=== PATIENT | male | born 1955 | race Caucasian/White ===

== ENCOUNTER → 2016-06-05 | Day surgery (SDC) | payer BC ==
[2016-05-23 07:35] VITALS: BMI 27.0
[~2016-06-05] VITALS: Ht 180.3 cm; Wt 88.6 kg
[~2016-06-05] MED LIST: ALFAFA PO; ASPCH81X PO; ATOR-26 PO; B-COCAP2 PO; CARV6.25 PO; CHOL1000 PO; COEN100C7 PO; CZR50 PO; FENTANYL CITRATE INJ 50 MCG/1 ML 2 ML VIAL ONE; LIDOCAINE HCL 2% 2 ML VIAL (20MG/ML) ONE; LORA-741 PO; MULLEIN; PROPOFOL IV EMULSION 10 MG/ML 20 ML VIAL IV ONE; SALMON OIL PO; SODIUM CHLORIDE 0.9% 500ML 500 ML IV ONE; TURM1CAP4 PO; [UNRECOGNIZED DRUG - OTHER] PO
[2016-06-05 08:09] VITALS: Ht 180.3 cm; Wt 88.6 kg
--- NOTE | 2016-06-05 08:32 | Endo History and Physical ---
History & Physical Date of Service: Jun 05, 2016. Chief Complaint: 1 YEAR FOLLOW UP Referring Physician: DR WORRELL History of Present Illness 60 yo CM who presents for colonoscopy secondary to history of colon polyp. Past Medical History Arthritis, Anxiety, High Cholesterol, Heart Disease, Hypertension Past Surgical History Hx Cardiac Surgery: Yes (CARDIAC CATH, NO STENT) Hx Internal Defibrillator: No Hx Pacemaker: No Hx Abdominal Surgery: Yes (ANNA, APPY, RT INGUINAL HERNIA) Hx of Implantable Prosthesis: No Hx Post-Op Nausea and Vomiting: No Hx Cancer Surgery: No Hx Thoracic Surgery: No Hx Orthopedic: Yes (RT HANNAH) Hx Urinary Tract Surgery: No Family History Polyp Social History Smoking Status: Current Some Day Smoker Hx Substance Use: No Hx Alcohol Use: Yes (3 DRINKS/WEEK) Allergies Coded Allergies: Prednisone (Verified Adverse Reaction, Unknown, CONTINUAL HICCUPS, 06/05/16 ) Current Medications Reported Home Medications Medications Dose Route/Sig Max Daily Dose Days Date Category Dose Instructions Ativan (Lorazepam) 0.5 Mg Tab 0.5 Mg PO DAILY PRN 05/23/16 Reported Vitamin D3 (Cholecalciferol) 1,000 Unit Tab 1 Tab PO QAM 05/03/15 Reported Turmeric (Turmeric (Curcuma Longa)) 500 Mg Cap 1 Cap PO QAM 05/03/15 Reported Coq10 (Coenzyme Q10 (Ubidecarenone)) 100 Mg Cap 1 Cap PO QAM 05/03/15 Reported Aspirin Chewable (Aspirin) 81 Mg Chew 81 Mg PO QPM 05/03/15 Reported Coreg (Carvedilol) 6.25 Mg Tab 6.25 Mg PO BID 05/03/15 Reported [Pda Food Enzyme] 1 PO QPM 05/27/12 Reported WITH DINNER [Mullein] 1 BID PRN 11/13/10 Reported Nephrocaps (Vitamin B Complex/Vit C/Folic Acid) 1 Cap Cap 1 Cap PO QPM 11/13/10 Reported [Alfafa] 1 Cap PO BID 11/13/10 Reported Cozaar * (Losartan Potassium) 50 Mg Tab 50 Mg PO QPM 11/13/10 Reported [salmon oil] 1 Tabs PO BID 01/15/09 Reported Vital Signs Weight (Kilograms): 88.64 Height (Feet): 5 Height (Inches): 11 Date Time Temp Pulse Resp B/P Pulse Ox O2 Delivery O2 Flow Rate FiO2 06/05/16 08:25 36.7 78 20 185/96 98 Room Air Physical Exam General Appearance: WD/WN, no apparent distress Respiratory/Chest: Auscultation: breath sounds normal Cardiovascular: Heart Auscultation: RRR Abdomen: Bowel Sounds: normal Inspection & Palpation: soft, non-distended, no tenderness, guarding & rebound Assessment and Plan Assessment: 60 yo CM who presents for colonoscopy secondary to history of colon polyp. Plan: Proceed with colonoscopy.
--- NOTE | 2016-06-05 08:55 | Discharge Instructions ---
Endoscopy Patient Instructions Date / Procedure(s) Performed Jun 05, 2016. Colonoscopy Allergy Information Coded Allergies: Prednisone (Verified Adverse Reaction, Unknown, CONTINUAL HICCUPS, 06/05/16 ) Discharge Date / Findings Jun 05, 2016. Colon polyp Hemorrhoids Medication Instructions Stopped Medication(s): VITAMINS AND ASPIRIN OK to resume all medications today as prescribed Reported Home Medications Medications Dose Route/Sig Max Daily Dose Days Date Category Dose Instructions Ativan (Lorazepam) 0.5 Mg Tab 0.5 Mg PO DAILY PRN 05/23/16 Reported Vitamin D3 (Cholecalciferol) 1,000 Unit Tab 1 Tab PO QAM 05/03/15 Reported Turmeric (Turmeric (Curcuma Longa)) 500 Mg Cap 1 Cap PO QAM 05/03/15 Reported Coq10 (Coenzyme Q10 (Ubidecarenone)) 100 Mg Cap 1 Cap PO QAM 05/03/15 Reported Aspirin Chewable (Aspirin) 81 Mg Chew 81 Mg PO QPM 05/03/15 Reported Coreg (Carvedilol) 6.25 Mg Tab 6.25 Mg PO BID 05/03/15 Reported [Pda Food Enzyme] 1 PO QPM 05/27/12 Reported WITH DINNER [Mullein] 1 BID PRN 11/13/10 Reported Nephrocaps (Vitamin B Complex/Vit C/Folic Acid) 1 Cap Cap 1 Cap PO QPM 11/13/10 Reported [Alfafa] 1 Cap PO BID 11/13/10 Reported Cozaar * (Losartan Potassium) 50 Mg Tab 50 Mg PO QPM 11/13/10 Reported [salmon oil] 1 Tabs PO BID 01/15/09 Reported Provider Instructions Activity Restrictions - No exercising or heavy lifting for 24 hours. - Do not drink alcohol the day of the procedure. - Do not drive a car or operate machinery until the day after the procedure. - Do not make any important decisions or sign important papers in 24 hours after the procedure. Following Day: - Return to full activity which may include returning to work/school. Diet Start your diet with liquids and light foods (jello, soup, juice, toast). Then eat your usual diet if not nauseated. Treatment For Common After Affects For mild abdominal pain, bloating, or excessive gas: - Rest - Eat lightly - Lie on right side Follow-Up Information Follow-up with DR ANAID as scheduled Anesthesia Information What You Should Know You have had a procedure that required some medicine to reduce anxiety and discomfort. This treatment is called moderate sedation. After receiving the treatment, you may be sleepy, but you will be able to breathe on your own. The effects of the treatment may last for several hours. Follow these instructions along with Activity/Diet recommendations noted above: * Do NOT do anything where dizziness or clumsiness would be dangerous. * Rest quietly at home today, then you can be up and about tomorrow. * Have a responsible person stay with you the rest of today. * You may have had an I.V. today. If so, you may take the dressing off later today. Recommendations Call your doctor if: * Trouble breathing * Continuous vomiting for more than 24 hours * Temperature above 101 degrees * Severe abdominal pain or bloating * Pain not relieved by pain medicine ordered * There is increased drainage or redness from any incision * A large amount of rectal bleeding greater than 2-3 tablespoons. (If you had a polyp/s removed or have hemorrhoids, a small amount of blood - from the rectum is to be expected.) * You have any unanswered questions or concerns. IN THE EVENT OF A SERIOUS EMERGENCY, GO TO THE NEAREST EMERGENCY ROOM Your discharge instructions were prepared by provider Dale Perez. Patient Instructions Signature Page Nicolas Eli Patient (or Guardian) Signature/Date: I have read and understand the instructions given to me by my caregivers. Caregiver/RN/Doctor Signature/Date: The above-named patient and/or guardian has received patient instructions on this date. + Original Patient Signature Page (only) stays with chart. Please make copy for patient.
--- NOTE | 2016-06-05 09:07 | GI REPORT ---
Procedure Date: 06/05/2016 8:36 AM Procedure: Colonoscopy Indications: High risk colon cancer surveillance: Personal history of colonic polyps, Last colonoscopy: April 2015 Medicines: Monitored Anesthesia Care Complications: No immediate complications. Estimated Blood Loss: Estimated blood loss: none. Procedure: Pre-Anesthesia Assessment: - Prior to the procedure, a History and Physical was performed, and patient medications and allergies were reviewed. The patient's tolerance of previous anesthesia was also reviewed. The risks and benefits of the procedure and the sedation options and risks were discussed with the patient. All questions were answered, and informed consent was obtained. Prior Anticoagulants: The patient last took aspirin 7 days prior to the procedure. ASA Grade Assessment: III - A patient with severe systemic disease. After reviewing the risks and benefits, the patient was deemed in satisfactory condition to undergo the procedure. After I obtained informed consent, the scope was passed under direct vision. Throughout the procedure, the patient's blood pressure, pulse, and oxygen saturations were monitored continuously. The scope was introduced through the anus and advanced to the terminal ileum. The colonoscopy was performed without difficulty. The patient tolerated the procedure well. The quality of the bowel preparation was good. The terminal ileum, ileocecal valve, appendiceal orifice, and rectum were photographed. Findings: A 3 mm polyp was found at the appendiceal orifice. The polyp was sessile. The polyp was removed with a cold biopsy forceps. Resection and retrieval were complete. Non-bleeding external and internal hemorrhoids were found during retroflexion and during perianal exam. The hemorrhoids were small. Impression: - One 3 mm polyp at the appendiceal orifice, removed with a cold biopsy forceps. Resected and retrieved. - Non-bleeding external and internal hemorrhoids. Recommendation: - Resume previous diet. - Continue present medications. - Repeat colonoscopy for surveillance based on pathology results. - Return to primary care physician as previously scheduled. Dale Perez DO 06/05/2016 9:07:09 AM This report has been signed electronically. Note Initiated On: 06/05/2016 8:36 AM I attest to the content of the Intraoperative Record and orders documented therein, exceptions below
--- NOTE | 2016-06-05 09:28 | Anesthesiology Progress Note ---
Anesthesia Post Op Note Date & Time Jun 05, 2016 at 09:28 Vital Signs Pain Intensity: 0 Vital Signs Past 12 Hours Date Time Temp Pulse Resp B/P Pulse Ox O2 Delivery O2 Flow Rate FiO2 06/05/16 09:18 70 18 147/82 98 Room Air 06/05/16 08:58 67 18 130/76 98 Room Air 06/05/16 08:25 36.7 78 20 185/96 98 Room Air Notes Mental Status: alert / awake / arousable, participated in evaluation Pt Amnestic to Procedure: Yes Nausea / Vomiting: adequately controlled Pain: adequately controlled Airway Patency, RR, SpO2: stable & adequate BP & HR: stable & adequate Hydration State: stable & adequate Anesthetic Complications: no major complications apparent
[2016-06-05 09:29] VITALS: BP 145/84; PULSE 69; O2SAT 98
== END | disposition home or self-care (01) ==
LOC: C.GI 07:54
PROVIDERS: ATTEND Internal Medicine
DX: Z12.11 Encounter for screening for malignant neoplasm of colon (principal); K63.5 Polyp of colon; K63.89 Other specified diseases of intestine; K64.8 Other hemorrhoids

== ENCOUNTER → 2017-02-14 | Outpatient (CLI) | payer BC ==
[~2017-02-14] MED LIST changes: -ATOR-26 PO; -FENTANYL CITRATE INJ 50 MCG/1 ML 2 ML VIAL ONE; -LIDOCAINE HCL 2% 2 ML VIAL (20MG/ML) ONE; -PROPOFOL IV EMULSION 10 MG/ML 20 ML VIAL IV ONE; -SODIUM CHLORIDE 0.9% 500ML 500 ML IV ONE
[2017-02-14 10:12] LABS: BLOOD UREA NITROGEN 25 mg/dl (7-18); BUN/CREATININE RATIO 19.1 (10-20); CALCIUM 8.8 mg/dl (8.5-10.1); CARBON DIOXIDE 29 mmol/L (21-32); CHLORIDE 106 mmol/L (98-107); CHOLESTEROL 130 mg/dl (0-200); CHOLESTEROL/HDL RATIO 2.8; CREATININE 1.33 mg/dl (0.60-1.40); GLUCOSE 89 mg/dl (70-99); HDL CHOLESTEROL 47 mg/dl; LDL CHOLESTEROL CALCULATED 70 mg/dl; POTASSIUM 4.3 mmol/L (3.5-5.1); SODIUM 141 mmol/L (136-145); TRIGLYCERIDES 66 mg/dl (0-150); VERY LOW DENSITY LIPOPROT CALC 13 mg/dl
== END | disposition home or self-care (01) ==
LOC: C.LAB 07:45
PROVIDERS: ATTEND Family Medicine
DX: E78.5 Hyperlipidemia, unspecified (principal); I10 Essential (primary) hypertension; N40.1 Benign prostatic hyperplasia with lower urinary tract symptoms

== ENCOUNTER 2023-09-17 10:20 | Inpatient (IN) ==
--- NOTE | 2023-09-17 11:08 | Emergency Department Note ---
Impression & Plan Hypoxia, Pulmonary emboli, SOB (shortness of breath), Pneumonia, Leukocytosis ED Provider Note NAME: ROSA ADLER AGE: 68 SEX: M : 1955 ARRIVES VIA: Walk-In INFORMANT: [Patient] ED PROVIDER(S): [Bobby Chen MD] CHIEF COMPLAINT: Respiratory problems HISTORY OF PRESENT ILLNESS: The patient is a 68-year-old male who is under going treatment for mesothelioma. Patient is on immunotherapy as well as radiation. The patient states that a few months ago, he was short of breath but things improved with some steroids that were prescribed. In the last 1.5 weeks, he has noticed increasing shortness of breath and a dry cough. No fever. His shortness of breath is noticed with any exertion or if he talks too long. He does not have chest pain. The patient went to the radiation clinic today and his oxygen saturation was in the mid 80s, he was placed on oxygen, he was sent to the hospital for evaluation. There was concern for PE or possibly, a reaction to his immunotherapy. PMHx/PSHx/Social Hx: See Below PHYSICAL EXAM: GENERAL: Patient is in no acute distress. HEENT: No acute trauma, normocephalic atraumatic, mucous membranes moist, no nasal congestion. NECK: No stridor, no adenopathy, no meningismus, trachea is midline. LUNGS: Breath sounds are diminished bilaterally, few scattered wheezes are heard. Dry cough noted with exhalation. HEART: Without murmurs gallops or rubs, regular rate and rhythm. ABDOMEN: Soft, nontender, no peritonitis. EXTREMITIES: No cyanosis, full range of motion of all the joints without pain or difficulty. NEUROLOGIC: Oriented x 3, no acute motor or sensory deficits, no focal weakness. SKIN: No jaundice, no diaphoresis. DIFFERENTIAL DIAGNOSIS: Bronchitis or pneumonia, CHF, medication reaction, PE, cardiac ischemia, among others. EMERGENCY DEPARTMENT PROCEDURES: MEDICAL DECISION MAKING: There is a mild leukocytosis, this could be consistent with infection. There was a normal hemoglobin and platelet count. No coagulopathy. VBG did not show acidosis or CO2 retention. Creatinine was slightly elevated, this is baseline looking back at previous testing. Initial lactic acid level was not elevated making severe sepsis less likely. No concerning liver enzyme elevation. ECG showed a sinus rhythm, no obvious ischemia. Cardiac enzyme testing x 1 was not consistent with acute cardiac injury. BNP was not elevated making CHF less likely. Respiratory bio fire was negative. Chest x-ray shows a patchy bilateral pneumonia, no CHF. Chest CT shows bilateral pulmonary emboli as well as patchy bilateral infiltrates consistent with pneumonia. Some right heart strain was suggested. The patient received IV Solu-Medrol, he was given 1 L of IV saline for hydration. He was given IV cefepime as antibiotic coverage. He was given a DuoNeb. He was eventually given a bolus of IV heparin and placed on a heparin drip. The patient is short of breath. He presented hypoxic. He appears to have pneumonia as well as pulmonary emboli as the cause for his dyspnea. Given his findings, given the hypoxia, hospitalization is indicated. I spoke with the patient and case management, the on-call hospitalist was consulted. Prior/Outside records/notes reviewed: Today's radiation oncology note describing his presentation and the need for an ER referral. ECG per my interpretation: Indication was shortness of breath. The ECG shows a sinus rhythm with some PACs. The rate is 92. There is no acute ST elevation. The QTc is 437. Continuous Cardiac Monitoring per my interpretation: An order was placed for continuous cardiac monitoring. The monitor shows a rate of 102 with sinus tachycardia. Imaging/x-ray results per my interpretation: Chest x-ray shows patchy bilateral infiltrates consistent with pneumonia, no CHF. Chronic Medical/Social conditions affecting care: Advanced age, history of mesothelioma with current treatment. Care/Management discussed with: Case management, the on-call hospitalist. Level of care consideration(s): After review of the information above and other included data: --I believe the patient requires escalation of care to admission Critical Care Note: I have personally spent 47 minutes of critical care time in the direct management of this patient. This includes bedside care, interpretation of diagnostic studies, and testing, discussion with consultants, patient, and family members, and other required patient management activities. This 47 minutes is in excess of all separately billable procedures. DISPOSITION: Admission Past Med/Surg History Problem List (Updated 09/17/23 @ 15:50 by Bobby Chen MD) Leukocytosis (Acute) Pneumonia (Acute) SOB (shortness of breath) (Acute) Pulmonary emboli (Acute) Hypoxia (Acute) Mesothelioma of lung Biopsy 09/14/22 Paresthesia of upper extremity Cervical radicular pain Cervical spondylosis History of right hip replacement Eosinophilic esophagitis Medical History Shingles Schatzki's ring Rheumatic fever PVC (premature ventricular contraction) Plantar fasciitis Hypertension Hoarseness Colon polyps Dyslipidemia Angina pectoris Cough Chronic kidney disease GERD (gastroesophageal reflux disease) Cardiomyopathy Barretts esophagus Surgical History H/O right inguinal hernia repair History of cardiac cath Status post cholecystectomy S/P appy H/O esophagogastroduodenoscopy S/P colonoscopy Family History Mother , 79yo Mesothelioma Hypertension Father , 86yo Myocardial infarction History of open heart surgery Hypertension Diabetes Social History Smoking Status: Current some day smoker Tobacco Type: Cigars Cigarettes Per Day: Occassionally smoked a cigar; Second Hand Exposure: Yes (As a child); Do You Dip or Chew Tobacco: No; Hx Alcohol Use: Yes (Weekly - has a beer w/dinner on occassion;) Alcohol type: beer Hx Substance Use: No Preferred Language: Georgian Communication Ability: Effective Visual Impairment: No Limitations Hearing Ability: Normal 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 Beliefs That Will Affect Care: None marital status: Current Living Situation: Spouse current occupational status: retired 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[employer] How many Children do You have: 0 Feels Safe at Home: Yes Diet: regular caffeine: Yes (2-3 cups/day) during the past year weight has: decreased > 10 lbs Assistive Devices: Glasses Allergies Allergies Allergy/AdvReac Type Severity Reaction Status Date / Time Sulfa (Sulfonamide Allergy Itching Verified 09/17/23 09:36 Antibiotics) prednisone AdvReac Unknown CONTINUAL Verified 09/17/23 09:36 HICCUPS Home Meds Home Medications Medication Instructions Recorded Confirmed carvedilol 6.25 mg tablet 6.25 mg PO BID 12/11/19 09/17/23 cholecalciferol (vitamin D3) 25 25 mcg PO DAILY 12/11/19 09/17/23 mcg (1,000 unit) tablet atorvastatin 80 mg tablet 80 mg PO DAILY 12/17/19 09/17/23 omeprazole 40 mg capsule,delayed 40 mg PO DAILY 12/17/19 09/17/23 release acetaminophen 500 mg tablet 500 mg PO Q6H PRN Pain 10/11/22 09/17/23 (Tylenol Extra Strength) amlodipine 10 mg tablet 10 mg PO DAILY 10/11/22 09/17/23 calcium carb 1,000 mg-mag hydrox 1 tab PO DAILY PRN Indigestion 10/11/22 09/17/23 200 mg-simeth 40 mg chewable tablet (Rolaids Advanced Antacid Plus Anti-gas) famotidine 20 mg tablet (Pepcid) 40 mg PO DAILY PRN Indigestion 10/11/22 09/17/23 fluticasone propionate 50 1 spray intranasal DAILY PRN nasal 10/11/22 09/17/23 mcg/actuation nasal congestion spray,suspension (Flonase Allergy Relief) naproxen sodium 220 mg capsule 220 mg PO BID PRN Pain 10/11/22 09/17/23 (Aleve) oxycodone 5 mg tablet 5 mg PO UD PRN Pain 10/11/22 09/17/23 dexamethasone 1.5 mg tablet 1.5 mg PO DAILY 07/12/23 09/17/23 benzonatate 100 mg capsule 100 mg PO TID PRN Cough 08/29/23 09/17/23 ondansetron HCl 8 mg tablet 8 mg PO Q8H PRN n/v 08/29/23 09/17/23 prochlorperazine maleate 10 mg 10 mg PO Q6H PRN n/v 08/29/23 09/17/23 tablet (Compazine) bupropion HCl 150 mg 24 hr tablet, 150 mg PO QAM 09/17/23 09/17/23 extended release folic acid 1 mg tablet 1 mg PO DAILY 09/17/23 09/17/23 Previous Rx's Medication Instructions Recorded nortriptyline 10 mg capsule 10 mg PO DAILY #30 caps 08/06/23 Results & Data (ED) Vital Signs Vital Signs - 24 hr 09/17/23 10:40 09/17/23 10:57 09/17/23 10:59 Temperature 37.4 C Temperature Source Oral Pulse Rate 102 H Pulse Rate [Apical] Pulse Rate from SpO2 Sensor Respiratory Rate 20 Respiratory Effort / Characteristics Blood Pressure 118/77 Blood Pressure Mean 90 Pulse Oximetry 96 88 L 95 Oxygen Delivery Method Room Air Room Air Nasal Cannula Oxygen Flow Rate 2 Sepsis Recent Fever Within 48 Hours No Sepsis New/Unexplained Change in Mental Status N/A Sepsis Action Taken by Nursing No Action Required Oxygen Flow Rate - Titration 2 Pulse Oximetry Post Tiitration 98 09/17/23 11:00 09/17/23 11:12 09/17/23 11:22 Temperature Temperature Source Pulse Rate 97 H Pulse Rate [Apical] 94 H Pulse Rate from SpO2 Sensor 89 Respiratory Rate 24 22 Respiratory Effort / Characteristics SOB on Exertion Non-Labored Spontaneous Blood Pressure Blood Pressure Mean Pulse Oximetry 99 99 Oxygen Delivery Method Nasal Cannula Oxygen Flow Rate 2 Sepsis Recent Fever Within 48 Hours Sepsis New/Unexplained Change in Mental Status Sepsis Action Taken by Nursing Oxygen Flow Rate - Titration Pulse Oximetry Post Tiitration 09/17/23 11:26 09/17/23 11:39 09/17/23 12:03 Temperature Temperature Source Pulse Rate 94 H 94 H 94 H Pulse Rate [Apical] Pulse Rate from SpO2 Sensor 94 H 95 H Respiratory Rate 25 H 33 H Respiratory Effort / Characteristics Blood Pressure Blood Pressure Mean Pulse Oximetry 97 98 Oxygen Delivery Method Oxygen Flow Rate Sepsis Recent Fever Within 48 Hours Sepsis New/Unexplained Change in Mental Status Sepsis Action Taken by Nursing Oxygen Flow Rate - Titration Pulse Oximetry Post Tiitration 09/17/23 12:30 09/17/23 13:09 09/17/23 13:30 Temperature Temperature Source Pulse Rate 101 H 91 H 91 H Pulse Rate [Apical] Pulse Rate from SpO2 Sensor 98 H 86 87 Respiratory Rate 24 24 24 Respiratory Effort / Characteristics Blood Pressure Blood Pressure Mean Pulse Oximetry 96 98 98 Oxygen Delivery Method Oxygen Flow Rate Sepsis Recent Fever Within 48 Hours Sepsis New/Unexplained Change in Mental Status Sepsis Action Taken by Nursing Oxygen Flow Rate - Titration Pulse Oximetry Post Tiitration 09/17/23 14:00 09/17/23 14:00 09/17/23 14:33 Temperature Temperature Source Pulse Rate 93 H 93 H Pulse Rate [Apical] Pulse Rate from SpO2 Sensor 85 93 H Respiratory Rate 23 20 Respiratory Effort / Characteristics Blood Pressure 137/87 Blood Pressure Mean 105 Pulse Oximetry 97 96 Oxygen Delivery Method Oxygen Flow Rate Sepsis Recent Fever Within 48 Hours Sepsis New/Unexplained Change in Mental Status Sepsis Action Taken by Nursing Oxygen Flow Rate - Titration Pulse Oximetry Post Tiitration Home Medications Current Medication List: was personally reviewed by me Laboratory Data Attestation: I reviewed the patient's lab results. 09/17/23 11:09 09/17/23 11:09 Lab Results 09/17/23 09/17/23 09/17/23 Range/Units 04:28 11:05 11:09 WBC 15.75 H (4.8-10.8) K/ul RBC 5.32 (4.70-6.10) M/uL Hgb 14.8 (14.0-18.0) g/dl Hct 44.6 (42.0-52.0) % MCV 83.8 (80.0-100.0) fL MCH 27.8 (25.0-34.0) pg MCHC 33.2 (32.0-36.0) g/dL RDW Std Deviation 46.6 H (36.4-46.3) fL RDW Coeff of Nasreen 15.5 H (11.5-14.5) % Plt Count 168 (130-400) K/uL MPV 10.2 (9.4-12.4) fL Immature Gran % (Auto) 1.5 % Neut % (Auto) 89.5 % Lymph % (Auto) 3.1 % Ross % (Auto) 5.6 % Eos % (Auto) 0.1 % Baso % (Auto) 0.2 % Neut # (Auto) 14.09 H (1.40-6.50) K/uL Lymph # (Auto) 0.49 L (1.20-3.40) K/uL Ross # (Auto) 0.88 H (0.11-0.59) K/uL Eos # (Auto) 0.02 (0.00-0.50) K/uL Baso # (Auto) 0.03 (0.00-0.20) K/uL Immature Gran # (Auto) 0.24 H (0.01-0.20) K/uL PT 11.4 (9.0-12.0) Seconds INR 1.1 (0.9-1.1) APTT 24 (21-31) Seconds PTT Ratio 0.9 VBG pH 7.44 H (7.36-7.41) VBG pCO2 40 (38-50) mmHg VBG pO2 31 mmHg VBG HCO3 27 mmol/L VBG O2 Saturation < 60.0 % VBG Base Excess 2.8 mEq/L Sodium 135 L (136-145) mmol/L Potassium 4.0 (3.5-5.1) mmol/L Chloride 102 (98-107) mmol/L Carbon Dioxide 24 (21-32) mmol/L Anion Gap 9 (3-11) BUN 39 H (6-23) mg/dl Creatinine 1.43 H (0.6-1.4) mg/dl Est Cr Clr Drug Dosing Not Reportable Est GFR ( Amer) 57.1 ml/min Est GFR (Non-Af Amer) 49.3 ml/min BUN/Creatinine Ratio 27.3 H (10-20) Glucose 125 H (70-99(Fasting)) mg/dl Lactate 1.9 2.1 H* (0.4-2.0) mmol/L Calcium 9.8 (8.6-10.3) mg/dl Magnesium 2.2 (1.7-2.4) mg/dl Total Bilirubin 0.5 (0.2-1.0) mg/dl AST 26 (13-39) U/L ALT 33 (7-52) U/L Alkaline Phosphatase 54 (34-104) U/L Troponin I High Sens 9.8 (0-20) pg/ml B-Natriuretic Peptide 36 (0-100) pg/ml Total Protein 6.8 (6.0-8.3) gm/dl Albumin 3.4 (3.4-5.0) gm/dl Globulin 3.4 (2.5-4.0) gm/dl Albumin/Globulin Ratio 1.0 (0.9-2) Adenovirus (PCR) (NotDetected) B. pertussis DNA (PCR) (NotDetected) B.parapertussis DNA PCR (NotDetected) C. pneumoniae DNA (PCR) (NotDetected) Coronavirus OC43 (PCR) (NotDetected) Coronavirus HKU1 (PCR) (NotDetected) Coronavirus 229E (PCR) (NotDetected) SARS-CoV-2 (PCR) (NotDetected) Coronavirus NL63 (PCR) (NotDetected) Human Metapneumovir PCR (NotDetected) Influenza Type A (PCR) (NotDetected) Influenza Type B (PCR) (NotDetected) M. pneumoniae (PCR) (NotDetected) Parainfluenza 1 (PCR) (NotDetected) Parainfluenza 2 (PCR) (NotDetected) Parainfluenza 3 (PCR) (NotDetected) Parainfluenza 4 (PCR) (NotDetected) RSV (PCR) (NotDetected) Entero/Rhino (PCR) (NotDetected) 09/17/23 Range/Units 11:39 WBC (4.8-10.8) K/ul RBC (4.70-6.10) M/uL Hgb (14.0-18.0) g/dl Hct (42.0-52.0) % MCV (80.0-100.0) fL MCH (25.0-34.0) pg MCHC (32.0-36.0) g/dL RDW Std Deviation (36.4-46.3) fL RDW Coeff of Nasreen (11.5-14.5) % Plt Count (130-400) K/uL MPV (9.4-12.4) fL Immature Gran % (Auto) % Neut % (Auto) % Lymph % (Auto) % Ross % (Auto) % Eos % (Auto) % Baso % (Auto) % Neut # (Auto) (1.40-6.50) K/uL Lymph # (Auto) (1.20-3.40) K/uL Ross # (Auto) (0.11-0.59) K/uL Eos # (Auto) (0.00-0.50) K/uL Baso # (Auto) (0.00-0.20) K/uL Immature Gran # (Auto) (0.01-0.20) K/uL PT (9.0-12.0) Seconds INR (0.9-1.1) APTT (21-31) Seconds PTT Ratio VBG pH (7.36-7.41) VBG pCO2 (38-50) mmHg VBG pO2 mmHg VBG HCO3 mmol/L VBG O2 Saturation % VBG Base Excess mEq/L Sodium (136-145) mmol/L Potassium (3.5-5.1) mmol/L Chloride (98-107) mmol/L Carbon Dioxide (21-32) mmol/L Anion Gap (3-11) BUN (6-23) mg/dl Creatinine (0.6-1.4) mg/dl Est Cr Clr Drug Dosing Est GFR ( Amer) ml/min Est GFR (Non-Af Amer) ml/min BUN/Creatinine Ratio (10-20) Glucose (70-99(Fasting)) mg/dl Lactate (0.4-2.0) mmol/L Calcium (8.6-10.3) mg/dl Magnesium (1.7-2.4) mg/dl Total Bilirubin (0.2-1.0) mg/dl AST (13-39) U/L ALT (7-52) U/L Alkaline Phosphatase (34-104) U/L Troponin I High Sens (0-20) pg/ml B-Natriuretic Peptide (0-100) pg/ml Total Protein (6.0-8.3) gm/dl Albumin (3.4-5.0) gm/dl Globulin (2.5-4.0) gm/dl Albumin/Globulin Ratio (0.9-2) Adenovirus (PCR) Not Detected (NotDetected) B. pertussis DNA (PCR) Not Detected (NotDetected) B.parapertussis DNA PCR Not Detected (NotDetected) C. pneumoniae DNA (PCR) Not Detected (NotDetected) Coronavirus OC43 (PCR) Not Detected (NotDetected) Coronavirus HKU1 (PCR) Not Detected (NotDetected) Coronavirus 229E (PCR) Not Detected (NotDetected) SARS-CoV-2 (PCR) Not Detected (NotDetected) Coronavirus NL63 (PCR) Not Detected (NotDetected) Human Metapneumovir PCR Not Detected (NotDetected) Influenza Type A (PCR) Not Detected (NotDetected) Influenza Type B (PCR) Not Detected (NotDetected) M. pneumoniae (PCR) Not Detected (NotDetected) Parainfluenza 1 (PCR) Not Detected (NotDetected) Parainfluenza 2 (PCR) Not Detected (NotDetected) Parainfluenza 3 (PCR) Not Detected (NotDetected) Parainfluenza 4 (PCR) Not Detected (NotDetected) RSV (PCR) Not Detected (NotDetected) Entero/Rhino (PCR) Not Detected (NotDetected) Administered Medications Heparin Sodium/Dextrose (Heparin Sodium/Dextrose) 25,000 units in 500 mls @ 29 mls/hr IV .[id number] [facility]; Protocol Stop: 10/17/23 13:59 Last Admin: 09/17/23 14:45 Dose: 1,450 units/hr, 29 mls/hr Documented By: ARTURO Co-signed By: MAYO Discontinued Medications Albuterol (Albut/Ipratrop 3mg/0.5mg Neb 3 Ml Vial) 3 ml NEB NOW STA; Protocol Stop: 09/17/23 10:56 Last Admin: 09/17/23 11:22 Dose: 3 ml Documented By: PHANI Heparin Sodium (Porcine) (Heparin Sod (Porcine) 1000 Unit/Ml) 6,000 units IV NOW ONE Stop: 09/17/23 14:46 Last Admin: 09/17/23 14:45 Dose: 6,000 units Documented By: ARTURO Co-signed By: MAYO Sodium Chloride (Nss) 500 mls @ 999 mls/hr IV .Q31M ONE Stop: 09/17/23 12:01 Last Infusion: 09/17/23 12:28 Dose: Infused Documented By: Admin: 09/17/23 11:41 Dose: 999 mls/hr Documented By: ARTURO Cefepime HCl (Maxipime) 2,000 mg in 20 mls @ 5 mls/min IV NOW STA; Protocol Stop: 09/17/23 11:38 Last Admin: 09/17/23 11:43 Dose: 5 mls/min Documented By: ARTURO Sodium Chloride (Nss) 500 mls @ 999 mls/hr IV .Q31M ONE Stop: 09/17/23 13:15 Last Infusion: 09/17/23 14:30 Dose: Infused Documented By: Admin: 09/17/23 12:53 Dose: 999 mls/hr Documented By: THEA Ioversol (Optiray 320 125ml) 112 ml IV ONCE ONE Stop: 09/17/23 12:22 Last Admin: 09/17/23 12:22 Dose: 112 ml Documented By: SOFIA Methylprednisolone (Methylprednisolone 125 Mg/2 Ml Vial) 60 mg IV NOW STA Stop: 09/17/23 11:05 Last Admin: 09/17/23 11:39 Dose: 60 mg Documented By: S Imaging Data Radiologist's Impression: Chest X-Ray 09/17/23 10:54 XR chest 1V portable CLINICAL HISTORY: Dyspnea TECHNIQUE: Single frontal radiograph of the chest was obtained. Comparison: Comparison is made to chest radiograph 03/20/2023 FINDINGS: No lines and tubes are seen. Cardiomegaly is noted. The aortic arch is calcified. Multifocal airspace opacities are seen. Left pleural thickening is again seen. No evidence of pleural effusion or pneumothorax. IMPRESSION: Multifocal airspace opacities may represent atelectasis, pneumonia, and/or aspiration. Left pleural thickening is again seen compatible with known left apical pleural mass. ACT 112: Negative or not required by law. Electronically signed by: Kiel Ash M.D. 09/17/2023 11:55 AM Chest CTA 09/17/23 11:03 CT ANGIOGRAPHY OF THE CHEST, PULMONARY EMBOLUS PROTOCOL CLINICAL HISTORY: Shortness of breath. Mesothelioma. COMPARISON STUDY: Chest CT August 10, 2023. Chest radiograph performed earlier today. TECHNIQUE: Following IV administration of 112 mL of Optiray, helical axial images of the chest were obtained utilizing the pulmonary embolus protocol. Maximal intensity projections and sagittal and coronal reformats were viewed on an independent 3D workstation. IV contrast was administered without complication. Automated exposure control was utilized for the study. A dose lowering technique was utilized adhering to the principles of ALARA. CT DOSE: 756.17 mGy.cm FINDINGS: No enlarged axillary, mediastinal or hilar lymph nodes are present. There is mild cardiomegaly and moderate coronary artery calcification. No pericardial effusion is present. There is no thoracic aortic dissection. Extensive bilateral pulmonary emboli are present. Specifically, there are near occlusive emboli within the distal right pulmonary artery extending into the lobar, segmental and subsegmental arteries of the right lung. There are numerous lobar, segmental and subsegmental left-sided pulmonary emboli. There is no saddle pulmonary embolus. There is mild dilatation of the main pulmonary artery. Slight dilatation of the right heart chambers. Moderate multifocal groundglass airspace opacities within the lungs are new since chest CT of August 10, 2023. Pleural-based left apical mass is similar to slightly decreased in size since CT of August 10, 2023. Largest component measures 7.5 cm. This extends into the chest wall. A more inferior component measures 3.3 cm. This is unchanged. IMPRESSION: 1. Extensive bilateral pulmonary emboli. Mild dilatation of the main pulmonary artery and right heart chambers suggest elevated pulmonary arterial pressures. 2. Multifocal ground glass opacities throughout the lungs. The findings favor an infectious process such as pneumonia. Post radiation change is considered less likely. 3. Stable to slight improvement in the previously described left apical pleural- based masses. ACT 112: Negative or not required by law. Electronically signed by: Salo Falk M.D. 09/17/2023 1:08 PM Discharge Plan Visit Data Chief Complaint: Respiratory Problems Stated Complaint: SHORTNESS OF BREATH,BROUGHT FROM RAD ONCOL ED Provider: Bobby Chen Discharge Problem: Hypoxia, Pulmonary emboli, SOB (shortness of breath), Pneumonia, Leukocytosis Patient Disposition: Admitted As Inpatient Condition: Fair Forms Stand Alone Forms: [facility] [place] Prescriptions Prescriptions: No Action ondansetron HCl 8 mg tablet 8 mg PO Q8H PRN (Reason: n/v) prochlorperazine maleate [Compazine] 10 mg tablet 10 mg PO Q6H PRN (Reason: n/v) benzonatate 100 mg capsule 100 mg PO TID PRN (Reason: Cough) acetaminophen [Tylenol Extra Strength] 500 mg tablet 500 mg PO Q6H PRN (Reason: Pain) amlodipine 10 mg tablet 10 mg PO DAILY Rolaids Adv Antacid-[place] 1,000-200-40 mg tablet,chewable 1 tab PO DAILY PRN (Reason: Indigestion) oxycodone 5 mg tablet 5 mg PO UD PRN (Reason: Pain) Rx Instructions: original: 5mg po q6h prn last filled 11/06/22 naproxen sodium [Aleve] 220 mg capsule 220 mg PO BID PRN (Reason: Pain) famotidine [Pepcid] 20 mg tablet 40 mg PO DAILY PRN (Reason: Indigestion) fluticasone propionate [Flonase Allergy Relief] 50 mcg/actuation spray,suspension 1 spray intranasal DAILY PRN (Reason: nasal congestion) Rx Instructions: administer into each nostril dexamethasone 1.5 mg tablet 1.5 mg PO DAILY nortriptyline 10 mg capsule 10 mg PO DAILY Qty: 30 2RF carvedilol 6.25 mg tablet 6.25 mg PO BID Rx Instructions: must administer with a meal/food cholecalciferol (vitamin D3) 25 mcg (1,000 unit) tablet 25 mcg PO DAILY omeprazole 40 mg capsule,delayed release(DR/EC) 40 mg PO DAILY atorvastatin 80 mg tablet 80 mg PO DAILY folic acid 1 mg Tablet 1 mg PO DAILY bupropion HCl 150 mg Tablet Extended Release 24 Hr 150 mg PO QAM Referrals Referrals: Alfa Carcamo DO [Primary Care Provider] - Discharge Problem: Pulmonary emboli Qualifiers: Pulmonary embolism type: unspecified Chronicity: acute Acute cor pulmonale presence: unspecified Qualified Code(s): I26.99 - Other pulmonary embolism without acute cor pulmonale Pneumonia Qualifiers: Pneumonia type: due to unspecified organism Laterality: bilateral Lung location: unspecified part of lung Qualified Code(s): J18.9 - Pneumonia, unspecified organism Leukocytosis Qualifiers: Leukocytosis type: unspecified Qualified Code(s): D72.829 - Elevated white blood cell count, unspecified
[2023-09-17] MEDS: ALBUT/IPRATROP 3MG/0.5MG NEB 3 ML VIAL NEB STA (11:22)
[2023-09-17 11:25] LABS: Basophils # (auto) 0.03 K/uL (0.00-0.20); Basophils % (auto) 0.2 %; Eosinophils # (auto) 0.02 K/uL (0.00-0.50); Eosinophils % (auto) 0.1 %; Hematocrit (blood only) 44.6 % (42.0-52.0); Hemoglobin 14.8 g/dl (14.0-18.0); Immature Granulocytes # (auto) 0.24 K/uL (0.01-0.20); Immature Granulocytes % (auto) 1.5 %; Lymphocytes # (auto) 0.49 K/uL (1.20-3.40); Lymphocytes % (auto) 3.1 %; Mean Corpuscular Hemoglobin 27.8 pg (25.0-34.0); Mean Corpuscular Hgb Conc 33.2 g/dL (32.0-36.0); Mean Corpuscular Volume 83.8 fL (80.0-100.0); Mean Platelet Volume 10.2 fL (9.4-12.4); Monocytes # (auto) 0.88 K/uL (0.11-0.59); Monocytes % (auto) 5.6 %; Neutrophils # (auto) 14.09 K/uL (1.40-6.50); Neutrophils % (auto) 89.5 %; Platelet Count 168 K/uL (130-400); RDW Coefficient of Variation 15.5 % (11.5-14.5); RDW Standard Deviation 46.6 fL (36.4-46.3); Red Blood Count 5.32 M/uL (4.70-6.10); White Blood Count 15.75 K/ul (4.8-10.8)
[2023-09-17 11:26] LABS: Base Excess VBG 2.8 mEq/L; HCO3 VBG 27 mmol/L; Oxygen Saturation VBG < 60.0 %; PCO2 VBG 40 mmHg (38-50); PO2 VBG 31 mmHg; pH VBG 7.44 (7.36-7.41)
[2023-09-17] MEDS: methylPREDNISolone 125 MG/2 ML VIAL IV STA (11:39)
[2023-09-17] MEDS: SODIUM CHLORIDE 0.9% 500 ML IV ONE ×2 (11:41→12:53)
[2023-09-17 11:43] LABS: Alanine Aminotransferase 33 U/L (7-52); Albumin Level 3.4 gm/dl (3.4-5.0); Alkaline Phosphatase 54 U/L (34-104); Anion Gap 9 (3-11); Aspartate Aminotransferase 26 U/L (13-39); BUN Creatinine Ratio 27.3 (10-20); Bilirubin,Total 0.5 mg/dl (0.2-1.0); Blood Urea Nitrogen 39 mg/dl (6-23); Calcium 9.8 mg/dl (8.6-10.3); Carbon Dioxide 24 mmol/L (21-32); Chloride 102 mmol/L (98-107); Est GFR (African American) 57.1 ml/min; Est GFR (Non-African American) 49.3 ml/min; Globulin 3.4 gm/dl (2.5-4.0); Glucose 125 mg/dl (70-99(Fasting)); Magnesium 2.2 mg/dl (1.7-2.4); Sodium 135 mmol/L (136-145); Total Protein 6.8 gm/dl (6.0-8.3)
[2023-09-17] MEDS: CEFEPIME 2,000 MG/20 ML VIAL IV STA (11:43)
[2023-09-17 11:48] LABS: Troponin I High Sensitivity 9.8 pg/ml (0-20)
[2023-09-17 11:55] LABS: INR 1.1 (0.9-1.1); Partial Thromboplastin Ratio 0.9; Partial Thromboplastin Time 24 Seconds (21-31); Prothrombin Time 11.4 Seconds (9.0-12.0)
--- NOTE | 2023-09-17 11:57 | XRay Report ---
XR chest 1V portable CLINICAL HISTORY: Dyspnea TECHNIQUE: Single frontal radiograph of the chest was obtained. Comparison: Comparison is made to chest radiograph 03/20/2023 FINDINGS: No lines and tubes are seen. Cardiomegaly is noted. The aortic arch is calcified. Multifocal airspace opacities are seen. Left pleural thickening is again seen. No evidence of pleural effusion or pneumo thorax. IMPRESSION: Multifocal airspace opacities may represent atelectasis, pneumonia, and/or aspiration. Left pleural t hickening is again seen compatible with known left apical pleural mass. ACT 112: Negative or not required by law. Electronically signed by: Kiel Ash M.D. 09/17/2023 11:55 AM
[2023-09-17] MEDS: OPTIRAY 320 125ml IV ONE (12:22)
[2023-09-17 12:41] LABS: Adenovirus PCR Not Detected (NotDetected); Bordetella parapertussis PCR Not Detected (NotDetected); Bordetella pertussis PCR Not Detected (NotDetected); Chlamydia pneumoniae PCR Not Detected (NotDetected); Coronavirus 229E PCR Not Detected (NotDetected); Coronavirus CoV-2 (COVID19)PCR Not Detected (NotDetected); Coronavirus HKU1 PCR Not Detected (NotDetected); Coronavirus NL63 PCR Not Detected (NotDetected); Coronavirus OC43PCR Not Detected (NotDetected); Human Metapneumovirus PCR Not Detected (NotDetected); Influenza A PCR Not Detected (NotDetected); Influenza B PCR Not Detected (NotDetected); Mycoplasma pneumoniae PCR Not Detected (NotDetected); Parainfluenza Virus 1 PCR Not Detected (NotDetected); Parainfluenza Virus 2 PCR Not Detected (NotDetected); Parainfluenza Virus 3 PCR Not Detected (NotDetected); Parainfluenza Virus 4 PCR Not Detected (NotDetected); Respiratory Syncytial VirusPCR Not Detected (NotDetected); Rhinovirus/Enterovirus PCR Not Detected (NotDetected)
--- NOTE | 2023-09-17 13:10 | CT Scan Report ---
CT ANGIOGRAPHY OF THE CHEST, PULMONARY EMBOLUS PROTOCOL CLINICAL HISTORY: Shortness of breath. Mesothelioma. COMPARISON STUDY: Chest CT August 10, 2023. Chest radiograph performed earlier today. TECHNIQUE: Following IV administration of 112 mL of Optiray, helical axial images of the chest were o btained utilizing the pulmonary embolus protocol. Maximal intensity projections and sagittal and cor onal reformats were viewed on an independent 3D workstation. IV contrast was administered without co mplication. Automated exposure control was utilized for the study. A dose lowering technique was ut ilized adhering to the principles of ALARA. CT DOSE: 756.17 mGy.cm FINDINGS: No enlarged axillary, mediastinal or hilar lymph nodes are present. There is mild cardiome anne and moderate coronary artery calcification. No pericardial effusion is present. There is no thor acic aortic dissection. Extensive bilateral pulmonary emboli are present. Specifically, there are patsy r occlusive emboli within the distal right pulmonary artery extending into the lobar, segmental and s ubsegmental arteries of the right lung. There are numerous lobar, segmental and subsegmental left-ángel ed pulmonary emboli. There is no saddle pulmonary embolus. There is mild dilatation of the main pulmo nary artery. Slight dilatation of the right heart chambers. Moderate multifocal groundglass airspace opacities within the lungs are new since chest CT of August 10, 2023. Pleural-based left apical mass is similar to slightly decreased in size since CT of August 10, 2023. Largest component measures 7.5 cm. Th is extends into the chest wall. A more inferior component measures 3.3 cm. This is unchanged. IMPRESSION: 1. Extensive bilateral pulmonary emboli. Mild dilatation of the main pulmonary artery and right heart chambers suggest elevated pulmonary arterial pressures. 2. Multifocal ground glass opacities throughout the lungs. The findings favor an infectious process s uch as pneumonia. Post radiation change is considered less likely. 3. Stable to slight improvement in the previously described left apical pleural-based masses. ACT 112: Negative or not required by law. Electronically signed by: Salo Falk M.D. 09/17/2023 1:08 PM
[2023-09-17] MEDS ORDERED: Heparin IV Adult Wt-Based Standard w/ INITIAL Bolus Protocol IV STA (13:42)
[2023-09-17] MEDS ORDERED: Patient's HEIGHT &/or WEIGHT Needed STA (13:49)
[2023-09-17] MEDS ORDERED: HEPARIN SOD (PORCINE) 1000 UNIT/ML IV ONE (13:57)
--- NOTE | 2023-09-17 14:15 | History & Physical Report ---
Date of Service September 17, 2023 Assessment & Plan (1) Acute hypoxic respiratory failure: Plan: 2nd to combination of b/l, extensive PEs as well as b/l pneumonia vs pneumonitis. No evidence of decompensated CHF. NC O2. Heparin drip. Antibiotics. Steroids. (2) Pulmonary emboli: Plan: Extensive, b/l PEs. Risk factor - mesothelioma. ?Right heart strain by way of imaging. If present it is mild. However, BPs are stable, no JVD on physical exam, no significant tachycardia, O2 requirement is mild (2-3 L NC O2), etc. Heparin drip initiated in ER. Check dopplers of b/l legs, assess remaining DVT burden if any. Check echo to assess RV function and PA pressures. Should be able to transition to DOAC later in the stay vs lovenox. No indication for lytic therapy or catheter-directed therapy at this time. (3) Abnormal chest CT: Plan: b/l groundglass opacities seen on CT today. Was given cefepime in the ER. Respiratory BioFire panel was negative. Blood cultures sent. Differential - atypical infection vs non-infectious etiology vs immune checkpoint inhibitor induced pneumonitis vs other. There is no evidence of decompensated CHF/pulmonary edema. He just started radiation and has had only 3 treatments to date including today - thus, doubt radiation pneumonitis. For now - * check MRSA swab - if negative defer on MRSA coverage * continue IV cefepime * add doxy 10mg BID IV * cough is dry; ability to obtain sputum cx not possible * pulmonary consultation requested - if this is immune checkpoint inhibitor p neumonitis would need high-dose systemic steroids * check sed rate and crp am Patient has been on dexamethasone 1.5mg daily since May 2023. For now will give stress dose steroids -- increase to 4mg/day starting in am. He did receive a dose of solumedrol in the ER by the ER attending. 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 has been on combination of nivolumab/ipilimumab immunotherapy since 2022 and is followed by Dr Deepthi Figueroa at [facility] will ask oncology to consult and get their opinion about ?pneumonitis induced by his immunotherapy CT findings of his mesothelioma in the left chest noted s/p initiation of radiation therapy last week could likely resume such this week when things settle down with #1, #2 (5) Eosinophilic esophagitis: Plan: noted cont PPI (6) Barretts esophagus: Plan: cont PPI (7) Hypertension: Plan: cont coreg BID hold amlodipine (8) Weakness of left hand: Plan: chronic, present for several months MRI brain and MRI cervical spine obtained in 06/2023 MRI brain w/o metastatic disease MRI cervical spine with extensive DJD L hand symptoms/signs are likely due to his c-spine DJD can't rule out brachial plexus compression as his JAYDEN mesothelioma mass is noted to extend into the chest wall - perhaps there is local compression from the tumor?? can't rule out more distal neuropathy (carpal tunnel syndrome) consider sending to neurology as outpatient for EMGs which would localize the problem Plan patient requests full code status recheck CBC, BMP am updated at bedside likely to need PT/OT later in stay when pulmonary status will allow History of Present Illness Chief Complaint: hypoxia, worsening dyspnea Primary Care Provider: Alfa Carcamo, DO Castro 68yo male with mesothelioma of the left lung, diagnosed in early 2022, HTN, Hair's esophagus, GERD, COVID pneumonia 2021, and eosinophilic esophagitis who presents from radiation oncology clinic at [facility] with hypoxia. The patient reports he underwent a radiation treatment earlier today and during his visit his O2 sats were checked and found to be in the mid-80s. He has had progressive dyspnea and dyspnea on exertion for a month or longer as well. Given his symptoms and his low O2 sats he was referred to the ER for work-up. Upon arrival to the ER his O2 sats were 88% in room air. Respiratory rates were high 20s/low 30s. The patient states that over the last month he has had a chronic, dry cough. No hemoptysis. No wheezing. No chest pain or tightness. Denies any orthopnea or PND. Denies any LE edema although he has had cramps in his distal RLE/right foot over the last 1-2 weeks. He denies any recent travel or obvious sick contacts. The radiation treatments for his mesothelioma began last , 09/13/23. He had an additional treatment on 09/14/23 and again today. Current treatment regimen for his mesothelioma is a combination of nivolumab/ipilimumab immunotherapy. This was started in summer 2022. Allergies Allergy/AdvReac Type Severity Reaction Status Date / Time Sulfa (Sulfonamide Allergy Itching Verified 09/17/23 09:36 Antibiotics) prednisone AdvReac Unknown CONTINUAL Verified 09/17/23 09:36 HICCUPS Home Medications Medication Instructions Recorded Confirmed Type carvedilol 6.25 mg tablet 6.25 mg PO BID 12/11/19 09/17/23 History cholecalciferol (vitamin D3) 25 25 mcg PO DAILY 12/11/19 09/17/23 History mcg (1,000 unit) tablet atorvastatin 80 mg tablet 80 mg PO DAILY 12/17/19 09/17/23 History omeprazole 40 mg capsule,delayed 40 mg PO DAILY 12/17/19 09/17/23 History release acetaminophen 500 mg tablet 500 mg PO Q6H PRN Pain 10/11/22 09/17/23 History (Tylenol Extra Strength) amlodipine 10 mg tablet 10 mg PO DAILY 10/11/22 09/17/23 History calcium carb 1,000 mg-mag hydrox 1 tab PO DAILY PRN Indigestion 10/11/22 09/17/23 History 200 mg-simeth 40 mg chewable tablet (Rolaids Advanced Antacid Plus Anti-gas) famotidine 20 mg tablet (Pepcid) 40 mg PO DAILY PRN Indigestion 10/11/22 09/17/23 History fluticasone propionate 50 1 spray intranasal DAILY PRN nasal 10/11/22 09/17/23 History mcg/actuation nasal congestion spray,suspension (Flonase Allergy Relief) naproxen sodium 220 mg capsule 220 mg PO BID PRN Pain 10/11/22 09/17/23 History (Aleve) oxycodone 5 mg tablet 5 mg PO UD PRN Pain 10/11/22 09/17/23 History dexamethasone 1.5 mg tablet 1.5 mg PO DAILY 07/12/23 09/17/23 History nortriptyline 10 mg capsule 10 mg PO DAILY #30 caps 08/06/23 09/17/23 Rx benzonatate 100 mg capsule 100 mg PO TID PRN Cough 08/29/23 09/17/23 History ondansetron HCl 8 mg tablet 8 mg PO Q8H PRN n/v 08/29/23 09/17/23 History prochlorperazine maleate 10 mg 10 mg PO Q6H PRN n/v 08/29/23 09/17/23 History tablet (Compazine) bupropion HCl 150 mg 24 hr tablet, 150 mg PO QAM 09/17/23 09/17/23 History extended release folic acid 1 mg tablet 1 mg PO DAILY 09/17/23 09/17/23 History Past Med/Surg History Problem List (Updated 09/17/23 @ 22:13 by Vamshi Russell MD) Weakness of left hand Abnormal chest CT Hypertension Barretts esophagus Acute hypoxic respiratory failure Leukocytosis (Acute) Pneumonia (Acute) SOB (shortness of breath) (Acute) Pulmonary emboli (Acute) Hypoxia (Acute) Mesothelioma of lung Biopsy 09/14/22 Paresthesia of upper extremity Cervical radicular pain Cervical spondylosis History of right hip replacement Eosinophilic esophagitis Medical History (Updated 09/17/23 @ 22:13 by Vamshi Russell MD) Mesothelioma of left lung Shingles Schatzki's ring Rheumatic fever PVC (premature ventricular contraction) Plantar fasciitis Hoarseness Colon polyps Dyslipidemia Angina pectoris Cough Chronic kidney disease GERD (gastroesophageal reflux disease) Cardiomyopathy Surgical History H/O right inguinal hernia repair History of cardiac cath Status post cholecystectomy S/P appy H/O esophagogastroduodenoscopy S/P colonoscopy Family History Mother , 79yo Mesothelioma Hypertension Father , 86yo Myocardial infarction History of open heart surgery Hypertension Diabetes Social History (Updated 09/17/23 @ 22:04 by Vamshi Russell MD) Smoking Status: Never smoker Tobacco Type: Cigars Cigarettes Per Day: Occassionally smoked a cigar; Second Hand Exposure: Yes (As a child); Do You Dip or Chew Tobacco: No; Hx Alcohol Use: Yes Alcohol type: beer Hx Substance Use: No Preferred Language: Sami Communication Ability: Effective Visual Impairment: No Limitations Hearing Ability: Normal Air Intelligence Specialist Required: No Beliefs That Will Affect Care: None marital status: Current Living Situation: Spouse current occupational status: retired 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[employer]; worked in local [employer] prior How many Children do You have: 0 Other Information That Helps Us Care for You: No Feels Safe at Home: Yes Safety Concerns: Feels Safe At This Time Diet: regular caffeine: Yes (2-3 cups/day) during the past year weight has: decreased > 10 lbs Assistive Devices: None Review of Systems Review of Systems: gen - no fevers or chills; some weight loss in the last 6-12 months eyes - no visual changes HENT - denies oral lesions; denies dysphagia; c/o sinus congestion CV - no chest pain pulm - cough, dyspnea, dyspnea on exertion GI - no abd pain or N/V; no diarrhea; no blood per rectum - no dysuria musculo - chronic left hand weakness with pain running from the left shoulder down the arm to the hand skin - no rash endo - no diabetes neuro - no headache Physical Exam Physical Exam: gen - mild tachypnea noted, laying on stretcher, pleasant eyes - PERRL HENT - TMs clear b/l, nose clear, mouth - MMM neck - supraclavicular lymph node left side; no thyroidmegaly CV - tachy, s1 s2, no murmur lungs - b/l basilar fine rales extending about 1/[address] up back, focal course BS left upper back; mild tachypnea but no retractions abd - soft NT ND BS+; no HSM ext - no edema, pulses 2+ b/l neuro - strength handgrip 5/5 on right; 4/5 on left; mild atrophy of muscles of left hand; strength b/l legs 5/5; DTRs 2+ b/l upper & lower extremities skin - no rash psych - a/o x 3 Results & Data Results & Data Vital Signs (Past 12 Hours) Vital Signs Temp Pulse Pulse Resp BP Pulse Ox O2 Del Method 09/17/23 11:26 94 H 09/17/23 11:22 94 H 22 99 Nasal Cannula 09/17/23 10:59 95 Nasal Cannula 09/17/23 10:57 88 L Room Air 09/17/23 10:40 37.4 C 102 H 20 118/77 96 Room Air O2 Flow Rate 09/17/23 11:26 09/17/23 11:22 2 09/17/23 10:59 2 09/17/23 10:57 09/17/23 10:40 Laboratory Results Laboratory Results - last 24 hr 09/17/23 09/17/23 09/17/23 04:28 11:05 11:09 WBC 15.75 H RBC 5.32 Hgb 14.8 Hct 44.6 MCV 83.8 MCH 27.8 MCHC 33.2 RDW Std Deviation 46.6 H RDW Coeff of Nasreen 15.5 H Plt Count 168 MPV 10.2 Immature Gran % (Auto) 1.5 Neut % (Auto) 89.5 Lymph % (Auto) 3.1 [place] % (Auto) 5.6 Eos % (Auto) 0.1 Baso % (Auto) 0.2 Neut # (Auto) 14.09 H Lymph # (Auto) 0.49 L [place] # (Auto) 0.88 H Eos # (Auto) 0.02 Baso # (Auto) 0.03 Immature Gran # (Auto) 0.24 H PT 11.4 INR 1.1 APTT 24 PTT Ratio 0.9 Heparin Anti-Xa, Unfract VBG pH 7.44 H VBG pCO2 40 VBG pO2 31 VBG HCO3 27 VBG O2 Saturation < 60.0 VBG Base Excess 2.8 Sodium 135 L Potassium 4.0 Chloride 102 Carbon Dioxide 24 Anion Gap 9 BUN 39 H Creatinine 1.43 H Est Cr Clr Drug Dosing Not Reportable Est GFR ( Amer) 57.1 Est GFR (Non-Af Amer) 49.3 BUN/Creatinine Ratio 27.3 H Glucose 125 H Lactate 1.9 2.1 H* Calcium 9.8 Magnesium 2.2 Total Bilirubin 0.5 AST 26 ALT 33 Alkaline Phosphatase 54 Troponin I High Sens 9.8 B-Natriuretic Peptide 36 Total Protein 6.8 Albumin 3.4 Globulin 3.4 Albumin/Globulin Ratio 1.0 Nasal Screen MRSA (PCR) Adenovirus (PCR) B. pertussis DNA (PCR) B.parapertussis DNA PCR C. pneumoniae DNA (PCR) Coronavirus OC43 (PCR) Coronavirus HKU1 (PCR) Coronavirus 229E (PCR) SARS-CoV-2 (PCR) Coronavirus NL63 (PCR) Human Metapneumovir PCR Influenza Type A (PCR) Influenza Type B (PCR) M. pneumoniae (PCR) Parainfluenza 1 (PCR) Parainfluenza 2 (PCR) Parainfluenza 3 (PCR) Parainfluenza 4 (PCR) RSV (PCR) Entero/Rhino (PCR) 09/17/23 09/17/23 09/17/23 11:39 17:10 18:48 WBC RBC Hgb Hct MCV MCH MCHC RDW Std Deviation RDW Coeff of Nasreen Plt Count MPV Immature Gran % (Auto) Neut % (Auto) Lymph % (Auto) [place] % (Auto) Eos % (Auto) Baso % (Auto) Neut # (Auto) Lymph # (Auto) [place] # (Auto) Eos # (Auto) Baso # (Auto) Immature Gran # (Auto) PT INR APTT PTT Ratio Heparin Anti-Xa, Unfract 1.15 H* VBG pH VBG pCO2 VBG pO2 VBG HCO3 VBG O2 Saturation VBG Base Excess Sodium Potassium Chloride Carbon Dioxide Anion Gap BUN Creatinine Est Cr Clr Drug Dosing Est GFR ( Amer) Est GFR (Non-Af Amer) BUN/Creatinine Ratio Glucose Lactate Calcium Magnesium Total Bilirubin AST ALT Alkaline Phosphatase Troponin I High Sens B-Natriuretic Peptide Total Protein Albumin Globulin Albumin/Globulin Ratio Nasal Screen MRSA (PCR) Negative Adenovirus (PCR) Not Detected B. pertussis DNA (PCR) Not Detected B.parapertussis DNA PCR Not Detected C. pneumoniae DNA (PCR) Not Detected Coronavirus OC43 (PCR) Not Detected Coronavirus HKU1 (PCR) Not Detected Coronavirus 229E (PCR) Not Detected SARS-CoV-2 (PCR) Not Detected Coronavirus NL63 (PCR) Not Detected Human Metapneumovir PCR Not Detected Influenza Type A (PCR) Not Detected Influenza Type B (PCR) Not Detected M. pneumoniae (PCR) Not Detected Parainfluenza 1 (PCR) Not Detected Parainfluenza 2 (PCR) Not Detected Parainfluenza 3 (PCR) Not Detected Parainfluenza 4 (PCR) Not Detected RSV (PCR) Not Detected Entero/Rhino (PCR) Not Detected 09/17/23 20:00 WBC RBC Hgb Hct MCV MCH MCHC RDW Std Deviation RDW Coeff of Nasreen Plt Count MPV Immature Gran % (Auto) Neut % (Auto) Lymph % (Auto) [place] % (Auto) Eos % (Auto) Baso % (Auto) Neut # (Auto) Lymph # (Auto) [place] # (Auto) Eos # (Auto) Baso # (Auto) Immature Gran # (Auto) PT INR APTT PTT Ratio Heparin Anti-Xa, Unfract 1.03 H* VBG pH VBG pCO2 VBG pO2 VBG HCO3 VBG O2 Saturation VBG Base Excess Sodium Potassium Chloride Carbon Dioxide Anion Gap BUN Creatinine Est Cr Clr Drug Dosing Est GFR ( Amer) Est GFR (Non-Af Amer) BUN/Creatinine Ratio Glucose Lactate Calcium Magnesium Total Bilirubin AST ALT Alkaline Phosphatase Troponin I High Sens B-Natriuretic Peptide Total Protein Albumin Globulin Albumin/Globulin Ratio Nasal Screen MRSA (PCR) Adenovirus (PCR) B. pertussis DNA (PCR) B.parapertussis DNA PCR C. pneumoniae DNA (PCR) Coronavirus OC43 (PCR) Coronavirus HKU1 (PCR) Coronavirus 229E (PCR) SARS-CoV-2 (PCR) Coronavirus NL63 (PCR) Human Metapneumovir PCR Influenza Type A (PCR) Influenza Type B (PCR) M. pneumoniae (PCR) Parainfluenza 1 (PCR) Parainfluenza 2 (PCR) Parainfluenza 3 (PCR) Parainfluenza 4 (PCR) RSV (PCR) Entero/Rhino (PCR) Diagnostic Findings Chest X-Ray 09/17/23 10:54 XR chest 1V portable CLINICAL HISTORY: Dyspnea TECHNIQUE: Single frontal radiograph of the chest was obtained. Comparison: Comparison is made to chest radiograph 03/20/2023 FINDINGS: No lines and tubes are seen. Cardiomegaly is noted. The aortic arch is calcified. Multifocal airspace opacities are seen. Left pleural thickening is again seen. No evidence of pleural effusion or pneumothorax. IMPRESSION: Multifocal airspace opacities may represent atelectasis, pneumonia, and/or aspiration. Left pleural thickening is again seen compatible with known left apical pleural mass. ACT 112: Negative or not required by law. Electronically signed by: Kiel Ash M.D. 09/17/2023 11:55 AM Chest CTA 09/17/23 11:03 CT ANGIOGRAPHY OF THE CHEST, PULMONARY EMBOLUS PROTOCOL CLINICAL HISTORY: Shortness of breath. Mesothelioma. COMPARISON STUDY: Chest CT August 10, 2023. Chest radiograph performed earlier today. TECHNIQUE: Following IV administration of 112 mL of Optiray, helical axial images of the chest were obtained utilizing the pulmonary embolus protocol. Maximal intensity projections and sagittal and coronal reformats were viewed on an independent 3D workstation. IV contrast was administered without complication. Automated exposure control was utilized for the study. A dose lowering technique was utilized adhering to the principles of ALARA. CT DOSE: 756.17 mGy.cm FINDINGS: No enlarged axillary, mediastinal or hilar lymph nodes are present. There is mild cardiomegaly and moderate coronary artery calcification. No pericardial effusion is present. There is no thoracic aortic dissection. Extensive bilateral pulmonary emboli are present. Specifically, there are near occlusive emboli within the distal right pulmonary artery extending into the lobar, segmental and subsegmental arteries of the right lung. There are numerous lobar, segmental and subsegmental left-sided pulmonary emboli. There is no saddle pulmonary embolus. There is mild dilatation of the main pulmonary artery. Slight dilatation of the right heart chambers. Moderate multifocal groundglass airspace opacities within the lungs are new since chest CT of August 10, 2023. Pleural-based left apical mass is similar to slightly decreased in size since CT of August 10, 2023. Largest component measures 7.5 cm. This extends into the chest wall. A more inferior component measures 3.3 cm. This is unchanged. IMPRESSION: 1. Extensive bilateral pulmonary emboli. Mild dilatation of the main pulmonary artery and right heart chambers suggest elevated pulmonary arterial pressures. 2. Multifocal ground glass opacities throughout the lungs. The findings favor an infectious process such as pneumonia. Post radiation change is considered less likely. 3. Stable to slight improvement in the previously described left apical pleural- based masses. ACT 112: Negative or not required by law. Electronically signed by: Salo Falk M.D. 09/17/2023 1:08 PM EKG - my reading - NSR, nonspecific ST changes inferior leads otherwise no ST changes Code Status & VTE Plan Code Status full code PG Care Time/CCT Total # of Minutes Spent Total Time Spent with Patient: Total time spent is greater than 50% in coordination of care (as documented) at patient's floor/unit and/or counseling patient: Coding Level of Care Code 47598 INT INP/OBS CARE 3/75MIN Diagnoses Acute hypoxic respiratory failure J96.01 Pulmonary emboli I26.99 Acute cor pulmonale presence: unspecified Chronicity: acute Pulmonary embolism type: unspecified Abnormal chest CT R93.89 Mesothelioma of lung C45.7 Eosinophilic esophagitis K20.0 Barretts esophagus K22.70 Hypertension I10 Weakness of left hand R29.898 (2) Pulmonary emboli Acute cor pulmonale presence: unspecified Chronicity: acute Pulmonary embolism type: unspecified Qualified Code(s): I26.99 - Other pulmonary embolism without acute cor pulmonale
[2023-09-17] MEDS: HEPARIN SOD (PORCINE) 1000 UNIT/ML IV ONE (14:45)
[2023-09-17] MEDS: HEPARIN SODIUM/DEXTROSE 25,000 UNITS/500 ML BAG IV SCH (14:45)
[2023-09-17] MEDS ORDERED: POLYETHYLENE (MIRALAX) 17 GM PACK PO PRN (18:40)
[2023-09-17] MEDS ORDERED: oxyCODONE HCL IR 5 MG TAB (IMMEDIATE RELEASE) PO PRN (18:40)
[2023-09-17] MEDS ORDERED: BENZONATATE 100 MG CAPSULE PO PRN (18:40)
[2023-09-17] MEDS ORDERED: ONDANSETRON INJ 2 MG/ML 2 ML VIAL IV PRN (18:40)
[2023-09-17] MEDS ORDERED: ACETAMINOPHEN 325 MG TAB PO PRN (18:40)
[2023-09-17] MEDS ORDERED: FLUTICASONE PROPIONATE NA SPR 16 GM BTL PRN (18:40)
--- NOTE | 2023-09-17 18:45 | Electrocardiogram Report ---
Test Reason : Blood Pressure : / mmHG Vent. Rate : 092 BPM Atrial Rate : 092 BPM P-R Int : 124 ms QRS Dur : 102 ms QT Int : 354 ms P-R-T Axes : 046 006 035 degrees QTc Int : 437 ms Sinus rhythm with Premature atrial complexes Otherwise normal ECG When compared with ECG of 27-MAY-2012 16:41, Premature atrial complexes are now Present Vent. rate has increased BY 35 BPM QT has lengthened Confirmed by Nathan Murray ([id number]) on 09/17/2023 6:45:33 PM Referred By: REFERRED SELF Confirmed By:Nathan Murray
[2023-09-17 19:44] LABS: ANTI-Xa, UFH(UnfractionatedHep 1.15 IU/ml (0.3-0.7)
[2023-09-17 20:55] LABS: ANTI-Xa, UFH(UnfractionatedHep 1.03 IU/ml (0.3-0.7)
[2023-09-17] MEDS: carvediloL 6.25 MG TAB PO SCH (21:11)
[2023-09-17] MEDS: DOXYCYCLINE HYCLATE 100 MG in DEXTROSE 5% MINI-B 100 ML IV SCH (21:11)
[2023-09-17] MEDS: CEFEPIME 2,000 MG in SYRINGE 0 ML IV SCH (23:14)
[2023-09-17 23:19] LABS: ANTI-Xa, UFH(UnfractionatedHep 0.26 IU/ml (0.3-0.7)
[2023-09-18] MEDS ORDERED: Nursing to Pharmacy Communication SCH (04:45)
[2023-09-18 05:50] LABS: Hematocrit (blood only) 35.9 % (42.0-52.0); Hemoglobin 12.1 g/dl (14.0-18.0); Mean Corpuscular Hemoglobin 28.1 pg (25.0-34.0); Mean Corpuscular Hgb Conc 33.7 g/dL (32.0-36.0); Mean Corpuscular Volume 83.3 fL (80.0-100.0); Mean Platelet Volume 10.2 fL (9.4-12.4); Platelet Count 157 K/uL (130-400); RDW Coefficient of Variation 15.2 % (11.5-14.5); RDW Standard Deviation 46.5 fL (36.4-46.3); Red Blood Count 4.31 M/uL (4.70-6.10); White Blood Count 11.91 K/ul (4.8-10.8)
[2023-09-18 05:56] LABS: BUN Creatinine Ratio 29.3 (10-20); C Reactive Protein 6.24 mg/dl (0-0.5); Calcium 8.6 mg/dl (8.6-10.3); Est GFR (African American) 62.3 ml/min; Est GFR (Non-African American) 53.8 ml/min; Potassium 3.7 mmol/L (3.5-5.1)
[2023-09-18 06:17] LABS: ANTI-Xa, UFH(UnfractionatedHep 0.34 IU/ml (0.3-0.7)
--- NOTE | 2023-09-18 07:33 | Oncology Consultation ---
Date of Consultation September 18, 2023 Assessment & Plan (1) Acute hypoxic respiratory failure: (2) Pulmonary emboli: (3) Mesothelioma of lung: Plan -Presented with Acute hypoxemic respiratory failure and imaging revealed bilateral PEs as well as findings concerning for immunotherapy mediated pneumonitis -Agree with therapeutic unfractionated heparin. If symptoms have resolved prior to discharge, may consider switching to Eliquis. However, if symptoms persist recommend Lovenox -Imaging findings also suggestive of immunotherapy mediated pneumonitis. Since respiratory symptoms have not improved with therapeutic heparin, I recommend methylprednisolone 1 mg/kg/day. Will suspend outpatient immunotherapy treatment for now Thank you for this consult. Will continue to follow up on patient. Please let me know if you have any questions History of Present Illness Reason for Consultation: mesothelioma, ?immune checkpt inh pneumonitis? Attending Physician: Dagoberto Mccormack MD History of Present Illness 68-year-old gentleman with history of unresectable malignant mesothelioma for which he has been on dual agent immunotherapy treatments with ipilimumab/nivolumab started on 11/07/2022. Most recent restaging imaging had revealed concern for disease progression involving left upper hemithorax for which he was referred for palliative radiation therapy which was started on 09/13/2023. He indicates that he developed shortness of breath more than a week ago which progressively worsened. He reached out to radiation oncology and was advised to proceed to the ER. CTA chest on 09/17/2023 revealed extensive bilateral pulmonary emboli, mild dilatation of the main pulmonary artery and right heart chambers. He was started on therapeutic unfractionated heparin. Continues to complain of shortness of breath. Requiring 3 L/min supplemental O2 via nasal cannula Allergies Allergy/AdvReac Type Severity Reaction Status Date / Time Sulfa (Sulfonamide Allergy Itching Verified 09/17/23 09:36 Antibiotics) prednisone AdvReac Unknown CONTINUAL Verified 09/17/23 09:36 HICCUPS Home Medications Medication Instructions Recorded Confirmed Type carvedilol 6.25 mg tablet 6.25 mg PO BID 12/11/19 09/17/23 History cholecalciferol (vitamin D3) 25 25 mcg PO DAILY 12/11/19 09/17/23 History mcg (1,000 unit) tablet atorvastatin 80 mg tablet 80 mg PO DAILY 12/17/19 09/17/23 History omeprazole 40 mg capsule,delayed 40 mg PO DAILY 12/17/19 09/17/23 History release acetaminophen 500 mg tablet 500 mg PO Q6H PRN Pain 10/11/22 09/17/23 History (Tylenol Extra Strength) amlodipine 10 mg tablet 10 mg PO DAILY 10/11/22 09/17/23 History calcium carb 1,000 mg-mag hydrox 1 tab PO DAILY PRN Indigestion 10/11/22 09/17/23 History 200 mg-simeth 40 mg chewable tablet (Rolaids Advanced Antacid Plus Anti-gas) famotidine 20 mg tablet (Pepcid) 40 mg PO DAILY PRN Indigestion 10/11/22 09/17/23 History fluticasone propionate 50 1 spray intranasal DAILY PRN nasal 10/11/22 09/17/23 History mcg/actuation nasal congestion spray,suspension (Flonase Allergy Relief) naproxen sodium 220 mg capsule 220 mg PO BID PRN Pain 10/11/22 09/17/23 History (Aleve) oxycodone 5 mg tablet 5 mg PO UD PRN Pain 10/11/22 09/17/23 History dexamethasone 1.5 mg tablet 1.5 mg PO DAILY 07/12/23 09/17/23 History nortriptyline 10 mg capsule 10 mg PO DAILY #30 caps 08/06/23 09/17/23 Rx benzonatate 100 mg capsule 100 mg PO TID PRN Cough 08/29/23 09/17/23 History ondansetron HCl 8 mg tablet 8 mg PO Q8H PRN n/v 08/29/23 09/17/23 History prochlorperazine maleate 10 mg 10 mg PO Q6H PRN n/v 08/29/23 09/17/23 History tablet (Compazine) bupropion HCl 150 mg 24 hr tablet, 150 mg PO QAM 09/17/23 09/17/23 History extended release folic acid 1 mg tablet 1 mg PO DAILY 09/17/23 09/17/23 History Patient History Medical History (Updated 09/17/23 @ 22:13 by Vamshi Russell MD) Mesothelioma of left lung Shingles Schatzki's ring Rheumatic fever PVC (premature ventricular contraction) Plantar fasciitis Hoarseness Colon polyps Dyslipidemia Angina pectoris Cough Chronic kidney disease GERD (gastroesophageal reflux disease) Cardiomyopathy Surgical History H/O right inguinal hernia repair History of cardiac cath Status post cholecystectomy S/P appy H/O esophagogastroduodenoscopy S/P colonoscopy Family History Mother , 79yo Mesothelioma Hypertension Father , 86yo Myocardial infarction History of open heart surgery Hypertension Diabetes Social History (Updated 09/17/23 @ 22:04 by Vamshi Russell MD) Smoking Status: Never smoker Tobacco Type: Cigars Cigarettes Per Day: Occassionally smoked a cigar; Second Hand Exposure: Yes (As a child); Do You Dip or Chew Tobacco: No; Hx Alcohol Use: Yes Alcohol type: beer Hx Substance Use: No Preferred Language: Japanese Communication Ability: Effective Visual Impairment: No Limitations Hearing Ability: Normal [place] Required: No Beliefs That Will Affect Care: None marital status: Current Living Situation: Spouse current occupational status: retired 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[employer]; worked in [employer] prior How many Children do You have: 0 Other Information That Helps Us Care for You: No Feels Safe at Home: Yes Safety Concerns: Feels Safe At This Time Diet: regular caffeine: Yes (2-3 cups/day) during the past year weight has: decreased > 10 lbs Assistive Devices: None Results & Data Vital Signs (Past 12 Hours) Vital Signs Temp Pulse Resp BP Pulse Ox O2 Del Method O2 Flow Rate 09/18/23 02:11 36.4 C L 81 18 128/77 95 Nasal Cannula 2 09/17/23 22:26 36.4 C L 86 18 118/74 96 Nasal Cannula 2 09/17/23 20:00 Nasal Cannula 3 (2) Pulmonary emboli Acute cor pulmonale presence: unspecified Chronicity: acute Pulmonary embolism type: unspecified Qualified Code(s): I26.99 - Other pulmonary embolism without acute cor pulmonale
[2023-09-18] MEDS: CHOLECALCIFEROL 25 MCG (1000 UNITS) TAB PO SCH (08:32)
[2023-09-18] MEDS: dexAMETHasone 4 MG TAB PO SCH (08:33)
[2023-09-18] MEDS ORDERED: NORTRIPTYLINE HCL 10 MG CAP PO SCH (09:00)
[2023-09-18] MEDS ORDERED: buPROPion XL 150 MG TABCR PO SCH (09:00)
[2023-09-18] MEDS ORDERED: ATORVASTATIN 40 MG TAB PO SCH (09:00)
[2023-09-18] MEDS ORDERED: FOLIC ACID 1 MG TAB PO SCH (09:00)
[2023-09-18] MEDS ORDERED: dexAMETHasone 1 MG TAB PO SCH (09:00)
[2023-09-18] MEDS ORDERED: methylPREDNISolone 1000 MG/16 ML IV SCH (09:15)
--- NOTE | 2023-09-18 10:40 | Pulmonology Progress Note ---
Date of Service September 18, 2023 Assessment & Plan (1) Abnormal chest CT: (2) Acute hypoxic respiratory failure: (3) Pulmonary emboli: Acute cor pulmonale presence: unspecified Chronicity: acute Pulmonary embolism type: unspecified Qualified Code(s): I26.99 - Other pulmonary embolism without acute cor pulmonale Plan Mr. Eli is a 68 y/o male with history of mesothelioma of the left lung currently undergoing treatment of mesothelioma. Found to have bilateral extensive PEs and bilateral groundglass opacities on chest CT. 1. Pulmonary emboli: Extensive bilateral PEs on CT. On heparin drip as per primary team. Consider check venous Doppler of bilateral legs to rule out any DVT. 2. Acute hypoxic respiratory failure: O2 requirement mild, currently on 3L/min on nasal Cannula. Clinical picture seem secondary to bilateral pulmonary emboli. Low concern of decompensated CHF, BNP wnl, troponin wnl. No JVD on exam. On the setting of extensive JVD would recommend Echocardiogram to asses RV function as well. 3. Abnormal chest CT: Bilateral groundglass opacities seen on CT. Chest CT from July was reviewed which did not showed similar findings. - Infectious process workup negative so far: MRSA swab, negative Bio fire negative. Mild elevation of WBC on admission, trending down today. No fevers, no chills, URI symptoms. Will add procalcitonin and Legionella to current workup. Follow Blood culture. If patient develop sputum consider cx. Low concern of infectious process at the moment - Patient currently on nivolumab/ipilimumab immunotherapy since 2022. High suspicion for ICI pneumonitis. Continue steroids. - Incentive spirometry added. - Patient is not a candidate for Bronchoscopy at this time given acute bilateral PEs - Repeat of CT chest in 6 weeks to ensure resolution - If patient is to continue high dose steroids equivalent of 20 mg/daily of prednisone for greater than 2 weeks will recommend PJP prophylaxis with Bactrim every other day. Admission and Anticipated Discharge Date Admission Date: September 17, 2023 Supervising Physician Co-Signing Physician Notes Agree with note as above unless otherwise specified. 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 Agree with empiric prednisone therapy and consideration of PJP prophylaxis prednisone dose greater than 20 mg for greater than 2 weeks. Procalcitonin negative thus making infectious etiology very unlikely. Cefepime discontinued. Patient also with large bilateral PE likely secondary to underlying malignancy. Patient hemodynamically stable and echo without overt findings of severe pulmonary hypertension. Recommend continued anticoagulation. Recommend repeat CT chest in 6 to 8 weeks to ensure resolution of the upper lobe predominant opacities. Patient otherwise stable and comfortable at this time. Has occasional dry cough and shortness of breath with exertion. Subjective Mr. Eli is a 68 y/o male with history of mesothelioma of the left lung currently undergoing treatment of mesothelioma. Currently on immunotherapy since October 2022. Patient was sent from the radiation center yesterday after his first radiation treatment due to oxygen desaturation to mid 80s. On arrival he was found with tachycardia and tachypnea. CT chest was found with extensive b ilateral PEs and bilateral groundglass opacities. Patient on evaluation was found alert and awake in NAD on nasal cannula. Patient hemodynamically stable. The patient states that he had progressive dyspnea on exception for month as well as chronic and dry cough. No chest tightness, pain, or hemoptysis. Patient is currently being treated with dexamethasone 1.5 mg daily since May 2023 due to chronic shoulder pain. This dose was increased to 4.5 for 4 days on July for chronic cough which patient had responded at that time. Patient denied any edema/ swelling or pain on extremities. Denied any new rashes. No JVD. Review of Systems Review of Systems: as per hpi Physical Exam Constitutional: well developed, cooperative and comfortable; no acute distress Eyes: PERRL Respiratory: + labored breathing, + cough (dry) and a ble to speak in complete sentences; no respiratory distress Auscultation: + rales Gastrointestinal (Abdomen): normal bowel sounds, soft, nontender, no hepatosplenomegaly Skin: no rashes, warm and dry Results & Data Results & Data Vital Signs (Past 12 Hours) Vital Signs Temp Pulse Resp BP Pulse Ox O2 Del Method O2 Flow Rate 09/18/23 07:36 36.5 C 76 19 134/81 96 Nasal Cannula 3 09/18/23 02:11 36.4 C L 81 18 128/77 95 Nasal Cannula 2 09/17/23 22:26 36.4 C L 86 18 118/74 96 Nasal Cannula 2 Resident Activity Tracking Resident Involvement: Resident Care Provided Care Provided: [facility]
[2023-09-18] MEDS: methylPREDNISolone 80 MG in SYRINGE 0 ML IV SCH (10:58)
--- NOTE | 2023-09-18 12:08 | Billing Data ---
Date of Service September 18, 2023 Coding Level of Care Code 20141 INT INP/OBS CARE
[2023-09-18] MEDS: PANTOprazole 40 MG TAB PO SCH (12:33)
--- NOTE | 2023-09-18 13:26 | Hospitalist Progress Note ---
Date of Service September 18, 2023 Assessment & Plan (1) Acute hypoxic respiratory failure: Plan: Multifactorial, PEs and immunotherapy induced pneumonitis, PNA (2) Pulmonary emboli: Plan: Extensive, b/l PEs. No hypotension. Echo pending Risk factor - mesothelioma. However, BPs are stable, no JVD on physical exam, no significant tachycardia, 2- 3 L oxygen requirement Continue heparin GTT Lower extremity Dopplers are pending Echo pending (3) Abnormal chest CT: Plan: b/l groundglass opacities seen on CT Was given cefepime in the ER. Respiratory BioFire panel negative. Blood cultures NGTD DDX: PNA, atypical, ICI pneumonitis He just started radiation and has had only 3 treatments to date including today - thus, doubt radiation pneumonitis. Pulm consulted. Legionella and PCT added. Low suspicion overall for infectious process. Patient has been on dexamethasone 1.5mg daily since May 2023. 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 Oncology following 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 has been on combination of nivolumab/ipilimumab immunotherapy since 2022 and is followed by Dr Deepthi Figueroa at the [facility] Radiation temporarily held until he is stable and improving (5) Eosinophilic esophagitis: Plan: noted cont PPI (6) Barretts esophagus: Plan: cont PPI (7) Hypertension: Plan: cont coreg BID hold amlodipine (8) Weakness of left hand: Plan: chronic, present for several months MRI brain and MRI cervical spine obtained in 06/2023 MRI brain w/o metastatic disease MRI cervical spine with extensive DJD L hand symptoms/signs are likely due to his c-spine DJD Left upper lobe mass with compression effect on the brachial plexus and distal neuropathy are not ruled out. Can have outpatient EMG to help localize Plan Full code Daily labs PT/OT once respiratory status improved Admission and Anticipated Discharge Date Admission Date: September 17, 2023 Subjective Seen at the bedside. He reports his breathing feels about the same as yesterday he is not really sure if he is any better or any worse as he mostly notices his symptoms on exertion; however has not had fever/chills/sweats overnight.No chest pain or chest pressure. Dry cough. Physical Exam Physical Exam: General: A&Ox3. NAD. Cooperative. HEENT: Atraumatic, normocephalic. Pulm: Bilateral fine rales. Symmetrical chest rise. No increased work of breathing. No respiratory distress. Cardiac: RRR, -mrg. Radial pulses intact and symmetrical. Abdominal: Nontender, nondistended, soft. BS present. Results & Data Results & Data Vital Signs (Past 12 Hours) Vital Signs Temp Pulse Pulse Resp BP Pulse Ox O2 Del Method 09/18/23 10:50 36.6 C 82 19 126/80 97 Nasal Cannula 09/18/23 08:00 82 09/18/23 07:36 36.5 C 76 19 134/81 96 Nasal Cannula 09/18/23 02:11 36.4 C L 81 18 128/77 95 Nasal Cannula O2 Flow Rate 09/18/23 10:50 3 09/18/23 08:00 09/18/23 07:36 3 09/18/23 02:11 2 PG Care Time/CCT Total # of Minutes Spent Total Time Spent with Patient: Total time spent is greater than 50% in coordination of care (as documented) at patient's floor/unit and/or counseling patient: Coding Level of Care Code 39220 SUB INP/OBS CARE 3/50MIN Diagnoses Acute hypoxic respiratory failure J96.01 Pulmonary emboli I26.99 Acute cor pulmonale presence: unspecified Chronicity: acute Pulmonary embolism type: unspecified Abnormal chest CT R93.89 Mesothelioma of lung C45.7 Eosinophilic esophagitis K20.0 Barretts esophagus K22.70 Hypertension I10 Weakness of left hand R29.898 (2) Pulmonary emboli Acute cor pulmonale presence: unspecified Chronicity: acute Pulmonary embolism type: unspecified Qualified Code(s): I26.99 - Other pulmonary embolism without acute cor pulmonale
--- NOTE | 2023-09-18 15:55 | XCELERA ---
[id number]
--- NOTE | 2023-09-18 19:30 | Ultrasound Report ---
US venous doppler LE BI CLINICAL HISTORY: b/l PEs; assess for DVTs TECHNIQUE: Bilateral lower extremity real-time compression venous ultrasound with Color Doppler imagi ng. Utilizing real-time ultrasonic imaging multiple real time high-resolution ultrasonic images with compression and noncompression maneuvers of the deep venous system in addition to color doppler imagi ng were performed from the common femoral vein through the proximal calf veins. COMPARISON: None available at the time of this dictation. FINDINGS/IMPRESSION: There is a nonocclusive thrombus on the right extending from the superficial femoral vein through the popliteal, posterior tibial. No left-sided thrombus is seen. A left Hale's cyst is seen. ACT 112: Negative or not required by law. Electronically signed by: Kiel Ash M.D. 09/18/2023 7:28 PM
[2023-09-19 06:08] LABS: Basophils # (auto) 0.03 K/uL (0.00-0.20); Basophils % (auto) 0.2 %; Hematocrit (blood only) 35.5 % (42.0-52.0); Immature Granulocytes # (auto) 0.29 K/uL (0.01-0.20); Immature Granulocytes % (auto) 2.3 %; Lymphocytes # (auto) 0.34 K/uL (1.20-3.40); Lymphocytes % (auto) 2.7 %; Mean Corpuscular Hemoglobin 28.2 pg (25.0-34.0); Mean Corpuscular Hgb Conc 33.8 g/dL (32.0-36.0); Mean Corpuscular Volume 83.3 fL (80.0-100.0); Mean Platelet Volume 10.5 fL (9.4-12.4); Monocytes # (auto) 0.64 K/uL (0.11-0.59); Monocytes % (auto) 5.2 %; Neutrophils % (auto) 89.6 %; Platelet Count 152 K/uL (130-400); RDW Coefficient of Variation 14.9 % (11.5-14.5); RDW Standard Deviation 44.9 fL (36.4-46.3); Red Blood Count 4.26 M/uL (4.70-6.10)
[2023-09-19 06:28] LABS: BUN Creatinine Ratio 32.7 (10-20); Calcium 8.8 mg/dl (8.6-10.3); Creatinine Clr Calc Pharmacy 66.6 ml/min; Est GFR (African American) 78.4 ml/min; Est GFR (Non-African American) 67.7 ml/min; Potassium 3.5 mmol/L (3.5-5.1)
[2023-09-19 06:34] LABS: ANTI-Xa, UFH(UnfractionatedHep 0.51 IU/ml (0.3-0.7)
--- NOTE | 2023-09-19 09:16 | Hospitalist Progress Note ---
Date of Service September 19, 2023 Assessment & Plan (1) Acute hypoxic respiratory failure: Plan: Multifactorial, PEs and immunotherapy induced pneumonitis, PNA, on treatment for mesothelioma left lung ( dx 2022 nivolumab/ipilimumab) CT also with multiple ground glass opacities, biofire negative, ? immune checkpoint pneumonitis, was on outpt dexamethasone 1.5 mg daily now with high dose steroids continues radiation therapy, timeline too short for radiation pneumonitis pulmonary consulted added Legionalla and PCtpreviously on cefepime now discontinued on doxycycline 100 mg every 12 hours extensive bilateral PE, h/o mesothelioma, oxygen requirement , heparin gtt transition to Eliquis, consider this a malignancy associated pulmonary embolism updated at bedside (2) Eosinophilic esophagitis: Plan: noted, also with Barretts esophagus cont PPI (3) Hypertension: Plan: cont coreg BID hold amlodipine (4) Weakness of left hand: Plan: chronic, present for several months MRI brain and MRI cervical spine obtained in 06/2023 MRI brain w/o metastatic disease MRI cervical spine with extensive DJD L hand symptoms/signs are likely due to his c-spine DJD Left upper lobe mass with compression effect on the brachial plexus and distal neuropathy are not ruled out. Can have outpatient EMG to help localize Plan Full code PT/OT once respiratory status improved Admission and Anticipated Discharge Date Admission Date: September 17, 2023 Subjective pt feels much better less short of breath,pulmonary med did hold on possible for XRT on 09/19/23 pt has no focal complaints, non productive cough is improved Physical Exam Physical Exam: Patient awake alert appropriate he has a nonproductive cough as mentioned Lungs are with some coarse breath sounds at the bases no focal Aralast no wheeze Card exam is regular without murmurs Results & Data Results & Data Vital Signs (Past 12 Hours) Vital Signs Temp Pulse Pulse Resp BP Pulse Ox O2 Del Method 09/19/23 08:03 97.7 F 75 18 128/78 98 Nasal Cannula 09/19/23 03:09 97.2 F L 79 18 136/83 97 Nasal Cannula 09/18/23 23:00 79 09/18/23 22:43 97.3 F L 78 18 130/79 97 Nasal Cannula 09/18/23 21:30 Nasal Cannula O2 Flow Rate 09/19/23 08:03 1.5 09/19/23 03:09 3 09/18/23 23:00 09/18/23 22:43 3 09/18/23 21:30 3 Laboratory Results Did review CBC reviewed chemistry PG Care Time/CCT Total # of Minutes Spent Total Time Spent with Patient: Total time spent is greater than 50% in coordination of care (as documented) at patient's floor/unit and/or counseling patient: Coding Level of Care Code 87471 SUB INP/OBS CARE 3/50MIN Diagnoses Acute hypoxic respiratory failure J96.01 Eosinophilic esophagitis K20.0 Hypertension I10 Weakness of left hand R29.898
--- NOTE | 2023-09-19 12:38 | Pulmonology Progress Note ---
Date of Service September 19, 2023 Assessment & Plan (1) Abnormal chest CT: (2) Acute hypoxic respiratory failure: (3) Pulmonary emboli: Acute cor pulmonale presence: unspecified Chronicity: acute Pulmonary embolism type: unspecified Qualified Code(s): I26.99 - Other pulmonary embolism without acute cor pulmonale Plan Mr. Eli is a 68 y/o male with history of mesothelioma of the left lung currently undergoing treatment of mesothelioma. Found to have bilateral extensive PEs and bilateral groundglass opacities on chest CT. 1. Pulmonary emboli: Extensive bilateral PEs on CT. On heparin drip as per primary team. Ultrasound of lower extremities revealed a nonocclusive thrombus of the right extending from the superficial femoral vein through the popliteal, posterior tibial. No left-sided thrombus noted. 2. 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 Continue methylprednisolone 80 mg daily per oncology recommendations. Consider PJP prophylaxis if prolonged taper. Also discussed with radiation oncology (Dr. Roque Modi) today about holding palliative radiation therapy as this may exacerbate the patient's pneumonitis. Will reconsider radiation therapy in the next 24 to 48 hours. Admission and Anticipated Discharge Date Admission Date: September 17, 2023 Subjective Patient seen and examined. This hypoxemia is improving. He does continue to have dyspnea occasionally even with conversation. He does overall feel like he is improving. Review of Systems Review of Systems: All systems reviewed & are unremarkable except as noted in HPI & below Physical Exam Constitutional: well developed, cooperative and comfortable; no acute distress Eyes: PERRL Neck: trachea midline, no thyromegaly Respiratory: + labored breathing, + cough (dry) and a ble to speak in complete sentences; no respiratory distress Auscultation: + rales Gastrointestinal (Abdomen): normal bowel sounds, soft, nontender, no hepatosplenomegaly Musculoskeletal: no cyanosis or clubbing, extremities motor strength 5/5 Skin: no rashes, warm and dry Neurologic: PERRL, EOMI, accommodation nl, no face palsy, no dysarthria Results & Data Results & Data Vital Signs (Past 12 Hours) Vital Signs Temp Pulse Pulse Resp BP Pulse Ox O2 Del Method 09/19/23 11:04 36.6 C 90 18 128/74 95 Nasal Cannula 09/19/23 08:03 36.5 C 75 18 128/78 98 Nasal Cannula 09/19/23 08:00 76 09/19/23 08:00 Nasal Cannula 09/19/23 03:09 36.2 C L 79 18 136/83 97 Nasal Cannula O2 Flow Rate 09/19/23 11:04 1.5 09/19/23 08:03 1.5 09/19/23 08:00 09/19/23 08:00 1.5 09/19/23 03:09 3 PG Care Time/CCT Total # of Minutes Spent Total Time Spent with Patient: Total time spent is greater than 50% in coordination of care (as documented) at patient's floor/unit and/or counseling patient: Coding Level of Care Code 35191 SUB INP/OBS CARE 235MIN Diagnoses Abnormal chest CT R93.89 Acute hypoxic respiratory failure J96.01 Pulmonary emboli I26.99 Acute cor pulmonale presence: unspecified Chronicity: acute Pulmonary embolism type: unspecified
--- NOTE | 2023-09-19 17:33 | Hospitalist Progress Note ---
Date of Service September 19, 2023 Assessment & Plan (1) Acute hypoxic respiratory failure: Plan: Multifactorial, multiple pulmonary embolisms and immunotherapy induced pneumonitis, PNA, on treatment for mesothelioma left lung ( dx 2022 nivolumab/ipilimumab) CT also with multiple ground glass opacities, biofire negative, ? immune checkpoint pneumonitis, was on outpt dexamethasone 1.5 mg daily now with high dose steroids continues radiation therapy, timeline too short for radiation pneumonitis pulmonary consulted added Legionalla and PCtpreviously on cefepime now discontinued on doxycycline 100 mg every 12 hours extensive bilateral PE, h/o mesothelioma, oxygen requirement , heparin gtt transition to Eliquis, consider this a malignancy associated pulmonary embolism Nonocclusive thrombus RLE on US updated at bedside (2) Eosinophilic esophagitis: Plan: noted, also with Barretts esophagus cont PPI (3) Hypertension: Plan: cont coreg BID hold amlodipine (4) Weakness of left hand: Plan: chronic, present for several months MRI brain and MRI cervical spine obtained in 06/2023 MRI brain w/o metastatic disease MRI cervical spine with extensive DJD L hand symptoms/signs are likely due to his c-spine DJD Left upper lobe mass with compression effect on the brachial plexus and distal neuropathy are not ruled out. Can have outpatient EMG to help localize Plan Full code PT/OT once respiratory status improved Admission and Anticipated Discharge Date Admission Date: September 17, 2023 Results & Data Results & Data Vital Signs (Past 12 Hours) Vital Signs Temp Pulse Pulse Resp BP Pulse Ox O2 Del Method 09/19/23 15:39 98.2 F 77 17 112/73 94 Room Air 09/19/23 11:04 97.9 F 90 18 128/74 95 Nasal Cannula 09/19/23 08:03 97.7 F 75 18 128/78 98 Nasal Cannula 09/19/23 08:00 76 09/19/23 08:00 Nasal Cannula O2 Flow Rate 09/19/23 15:39 09/19/23 11:04 1.5 09/19/23 08:03 1.5 09/19/23 08:00 09/19/23 08:00 1.5 PG Care Time/CCT Total # of Minutes Spent Total Time Spent with Patient: Total time spent is greater than 50% in coordination of care (as documented) at patient's floor/unit and/or counseling patient: Coding Level of Care Code None Diagnoses Acute hypoxic respiratory failure J96.01 Eosinophilic esophagitis K20.0 Hypertension I10 Weakness of left hand R29.898
[2023-09-19] MEDS: STOP HEPARIN ORDER ONE (19:36)
[2023-09-19] MEDS: APIXABAN 5 MG TABLET PO SCH (21:30)
[2023-09-20 06:12] LABS: Basophils # (auto) 0.03 K/uL (0.00-0.20); Basophils % (auto) 0.2 %; Hematocrit (blood only) 37.3 % (42.0-52.0); Hemoglobin 12.5 g/dl (14.0-18.0); Immature Granulocytes # (auto) 0.26 K/uL (0.01-0.20); Lymphocytes # (auto) 0.39 K/uL (1.20-3.40); Lymphocytes % (auto) 2.9 %; Mean Corpuscular Hemoglobin 27.7 pg (25.0-34.0); Mean Corpuscular Hgb Conc 33.5 g/dL (32.0-36.0); Mean Corpuscular Volume 82.7 fL (80.0-100.0); Mean Platelet Volume 10.4 fL (9.4-12.4); Monocytes # (auto) 0.77 K/uL (0.11-0.59); Monocytes % (auto) 5.8 %; Neutrophils # (auto) 11.87 K/uL (1.40-6.50); Neutrophils % (auto) 89.1 %; Platelet Count 161 K/uL (130-400); RDW Coefficient of Variation 15.3 % (11.5-14.5); Red Blood Count 4.51 M/uL (4.70-6.10); White Blood Count 13.32 K/ul (4.8-10.8)
[2023-09-20 06:29] LABS: BUN Creatinine Ratio 30.4 (10-20); Calcium 8.9 mg/dl (8.6-10.3); Creatinine Clr Calc Pharmacy 63.7 ml/min; Est GFR (African American) 74.3 ml/min; Est GFR (Non-African American) 64.1 ml/min; Potassium 3.4 mmol/L (3.5-5.1)
[2023-09-20 06:44] LABS: ANTI-Xa, UFH(UnfractionatedHep 0.29 IU/ml (0.3-0.7)
--- NOTE | 2023-09-20 17:12 | Discharge Summary ---
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 immune checkpoint pneumonitis, was on outpt dexamethasone 1.5 mg daily now with high dose steroids continues radiation therapy, timeline too short for radiation pneumonitis pulmonary consulted added Legionalla and PCtpreviously on cefepime now discontinued Legionella testing pending at time of discharge extensive bilateral PE, h/o mesothelioma, oxygen requirement , heparin gtt transition to Eliquis, consider this a malignancy associated pulmonary embolism Nonocclusive thrombus RLE on US The consideration of this could be checkpoint pneumonitis patient be discharged on high-dose steroids methylprednisolone 80 a day and PJP prophylaxis with Bactrim 1 full strength 3 times a week there was some discussion that he had a sulfa allergy but atovaquone was cost prohibitive and the patient will like to try the Bactrim while he is on such high-dose steroids. (2) Eosinophilic esophagitis: noted, also with Barretts esophagus cont PPI will use Protonix twice daily at discharge due to high-dose steroid (3) Hypertension: cont coreg BID hold amlodipine at time of discharge blood pressure has been controlled without (4) Weakness of left hand: chronic, present for several months MRI brain and MRI cervical spine obtained in 06/2023 MRI brain w/o metastatic disease MRI cervical spine with extensive DJD L hand symptoms/signs are likely due to his c-spine DJD Left upper lobe mass with compression effect on the brachial plexus and distal neuropathy are not ruled out. Patient participating in x-ray therapy to reduce tumor size and hopefully help his neuropathy Plan Full code Notes For Next Care Provider Patient needs follow-up for his possible pneumonitis to de-escalate his methylprednisolone and also continue to work his PJP prophylaxis. He may also need some assistance with decisions of long-term anticoagulation use Admission HPI Per Admitting Provider Pleasant 68yo male with mesothelioma of the left lung, diagnosed in early 2022, HTN, Hair's esophagus, GERD, COVID pneumonia 2021, and eosinophilic esophagitis who presents from radiation oncology clinic at [facility] with hypoxia. The patient reports he underwent a radiation treatment earlier today and during his visit his O2 sats were checked and found to be in the mid-80s. He has had progressive dyspnea and dyspnea on exertion for a month or longer as well. Given his symptoms and his low O2 sats he was referred to the ER for work-up. Upon arrival to the ER his O2 sats were 88% in room air. Respiratory rates were high 20s/low 30s. The patient states that over the last month he has had a chronic, dry cough. No hemoptysis. No wheezing. No chest pain or tightness. Denies any orthopnea or PND. Denies any LE edema although he has had cramps in his distal RLE/right foot over the last 1-2 weeks. He denies any recent travel or obvious sick contacts. The radiation treatments for his mesothelioma began last , 09/13/23. He had an additional treatment on 09/14/23 and again today. Current treatment regimen for his mesothelioma is a combination of nivolumab/ipilimumab immunotherapy. This was started in summer 2022. Discharge Exam Awake alert appropriate patient in no distress lungs are some coarseness at the base but otherwise good air movement he is not hypoxic ambulating in the room and hallway Updated Medication List Medication Instructions Recorded Confirmed Type carvedilol 6.25 mg tablet 6.25 mg PO BID 12/11/19 09/17/23 History cholecalciferol (vitamin D3) 25 25 mcg PO DAILY 12/11/19 09/17/23 History mcg (1,000 unit) tablet atorvastatin 80 mg tablet 80 mg PO DAILY 12/17/19 09/17/23 History acetaminophen 500 mg tablet 500 mg PO Q6H PRN Pain 10/11/22 09/17/23 History (Tylenol Extra Strength) amlodipine 10 mg tablet 10 mg PO DAILY 10/11/22 09/17/23 History calcium carb 1,000 mg-mag hydrox 1 tab PO DAILY PRN Indigestion 10/11/22 09/17/23 History 200 mg-simeth 40 mg chewable tablet (Rolaids Advanced Antacid Plus Anti-gas) famotidine 20 mg tablet (Pepcid) 40 mg PO DAILY PRN Indigestion 10/11/22 09/17/23 History fluticasone propionate 50 1 spray intranasal DAILY PRN nasal 10/11/22 09/17/23 History mcg/actuation nasal congestion spray,suspension (Flonase Allergy Relief) oxycodone 5 mg tablet 5 mg PO UD PRN Pain 10/11/22 09/17/23 History dexamethasone 1.5 mg tablet 1.5 mg PO DAILY 07/12/23 09/17/23 History nortriptyline 10 mg capsule 10 mg PO DAILY #30 caps 08/06/23 09/17/23 Rx benzonatate 100 mg capsule 100 mg PO TID PRN Cough 08/29/23 09/17/23 History ondansetron HCl 8 mg tablet 8 mg PO Q8H PRN n/v 08/29/23 09/17/23 History prochlorperazine maleate 10 mg 10 mg PO Q6H PRN n/v 08/29/23 09/17/23 History tablet (Compazine) bupropion HCl 150 mg 24 hr tablet, 150 mg PO QAM 09/17/23 09/17/23 History extended release folic acid 1 mg tablet 1 mg PO DAILY 09/17/23 09/17/23 History apixaban 5 mg tablet (Eliquis) 10 mg (2 x 5 mg) PO UD #60 tabs 09/20/23 Rx methylprednisolone 16 mg tablet 80 mg (5 x 16 mg) PO DAILY #90 tabs 09/20/23 Rx pantoprazole 40 mg tablet,delayed 40 mg PO BID #60 tabs 09/20/23 Rx release sulfamethoxazole 800 1 tab PO UD #20 tabs 09/20/23 Rx mg-trimethoprim 160 mg tablet (Bactrim DS) Hospital Stay Data Consultations 09/17/23 13:55 ED Decision to Admit Stat 09/17/23 21:36 Consult Pulmonology Routine 09/18/23 07:30 Consult Oncology Routine Diagnostic Imagining Performed 09/17/23 11:03 CT angio chest PE protocol Stat 09/18/23 US venous doppler LE BI Routine Pending Results Patient Have Any Pending Studies at Discharge: No Discharge Instructions Given to Patient (Per Discharging Provider) please take your steroids until advised not to or tapered by oncology please take a preventative antibiotic while on your steroids continue to see XRT complete your anticoagulation for your pulmonary embolism while you are on steroids we will also give you a medication to help protect your stomach from their irritation please hold your amlodipine until you follow up with family doctor Total Time Total Time Spent Total Time Spent (In Minutes): It required greater than 30 minutes to prepare this patient for discharge. Coding Level of Care Code 75988 INP/OBS DISCH >30 MIN Diagnoses Acute hypoxic respiratory failure J96.01 Eosinophilic esophagitis K20.0 Hypertension I10 Weakness of left hand R29.898
== END 2023-09-20 15:13 | disposition home or self-care (01) | DRG 189 ==
LOC: ED 10:20 → EDINP 15:31 → SUATTDRO 15:31 → 4W 18:04

== ENCOUNTER 2024-03-18 09:15 | Inpatient (IN) ==
--- NOTE | 2024-03-18 09:48 | Emergency Department Note ---
Impression & Plan Nausea, vomiting, and diarrhea, Pancolitis, Hypomagnesemia, Acute hypokalemia ED Provider Note HISTORY OF PRESENT ILLNESS: Patient is a 68-year-old male presenting with nausea, vomiting and diarrhea. He reports symptoms of been ongoing for the last 5 days. He was seen 3 days ago and had some slight improvement in symptoms, but symptoms worsened after he got home from the emergency department. He reports extreme fatigue and reports he is unable to do even basic activities at home secondary to being so rundown and tired. He states he feels like he has no strength in his body. He states that he has 4-5 episodes of watery diarrhea a day. Denies any recent travel or recent sick contact exposures. He is on Bactrim 3 times a week. He has a history of mesothelioma and is receiving infusions and received 1 6 days ago. He reports the symptoms are not common for him after his infusions. He denies any abdominal pain. Reports multiple episodes of vomiting. He reports he has been unable to tolerate solids in the last 5 days and has been unable to tolerate liquids in the last 24 hours. Denies any dysuria or hematuria. ROS: as above PHYSICAL EXAM: Constitutional: Patient appears in no acute distress. HENT: Head: Normocephalic and atraumatic. Eyes: EOMI, PERRL Mouth/Throat: Mucous membranes dry. Neck: Trachea midline. Neck supple. Cardiovascular: Tachycardic with regular rhythm. No murmurs, rubs or gallops. Intact distal pulses. Pulmonary/Chest: No respiratory distress. Breath sounds clear and equal bilaterally. No wheezes or rales. Abdominal: Abdomen soft, no tenderness, rebound or guarding. Musculoskeletal: No edema, tenderness or deformity noted. Skin: Warm and dry. No rash, erythema, pallor or cyanosis Psychiatric: Appropriate mood and affect for situation. Neurological: Alert and keenly responsive. CN II-XII grossly intact, moving all extremities equally and fully. MDM: - Vitals signs showed tachycardia. - History obtained via patient. History as above. - Chronic conditions affecting care: GERD; cardiomyopathy; mesothelioma; HTN; PEs - Differential diagnoses include, but are not limited to: Electrolyte abnormality; dehydration; ACS; diverticulitis; small bowel obstruction; colitis - Order placed for continuous cardiac monitoring. At this time, monitor showed rate of 105 bpm with normal sinus rhythm, per my interpretation. - External medical records reviewed. Hematology/oncology report dated 02/20/2024 was reviewed. 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 - EKG interpreted by myself showed normal sinus rhythm. Rate tachycardic at 110 bpm. QT 316. No acute ischemic changes. - Laboratory workup interpreted by myself showed normal WBC; normal PT/INR; slight hypokalemia (K 3.4); normal anion gap; hypomagnesemia (Mg 1.6); normal troponin; normal AST/ALT; normal lipase - Viral respiratory panel negative - CT abdomen/pelvis with IV contrast showed nonspecific pancolitis per radiology. - Patient given 1L NS and 4 mg IV zofran in ER. On reassessment, still complaining of nausea. Given 5 mg IV compazine - Received a call from patient's oncologist, Dr. Figueroa, who reports symptoms may be secondary to patient's recent immunotherapy. Recommended symptomatic management and admission if patient is unable to tolerate oral intake. She reviewed the patient's chart and reports that if the colitis is not infectious in etiology, the patient can receive steroids. - Stool biofire ordered - Patient given 1g IV magnesium for electrolyte replacement. Given 10 mEq IV potassium, given patient is not tolerating oral intake. - Discussion was had with assistant case manager about patient's case and need for admission - Hospitalist consulted for admission - Patient admitted to [facility] Hospitalist service for further evaluation and management. ASSESSMENT AND PLAN: Diagnosis: Nausea, vomiting and diarrhea; pancolitis; hypomagnesemia; acute hypokalemia Plan: Admit Past Med/Surg History Problem List (Updated 03/18/24 @ 12:01 by Mana Smyth MD) Acute hypokalemia (Acute) Hypomagnesemia (Acute) Pancolitis (Acute) Nausea, vomiting, and diarrhea (Acute) Nausea vomiting and diarrhea (Acute) Pulmonary emboli (Acute) Mesothelioma of lung (Chronic) Biopsy 09/14/22 Paresthesia of upper extremity Cervical radicular pain Cervical spondylosis History of right hip replacement Eosinophilic esophagitis Medical History Weakness of left hand Hypertension Barretts esophagus Mesothelioma of left lung Shingles Schatzki's ring Rheumatic fever PVC (premature ventricular contraction) Plantar fasciitis Hoarseness Colon polyps Dyslipidemia Angina pectoris Cough Chronic kidney disease GERD (gastroesophageal reflux disease) Cardiomyopathy Surgical History History of total right hip replacement H/O right inguinal hernia repair History of cardiac cath Status post cholecystectomy S/P appy H/O esophagogastroduodenoscopy S/P colonoscopy Family History Mother , 79yo Mesothelioma Hypertension Father , 86yo Myocardial infarction History of open heart surgery Hypertension Diabetes Social History Smoking Status: Never smoker Tobacco Type: Cigars Cigarettes Per Day: Occassionally smoked a cigar; Second Hand Exposure: Yes (As a child); Do You Dip or Chew Tobacco: No; Hx Alcohol Use: Yes Alcohol type: beer Hx Substance Use: No Preferred Language: Ghanaian Communication Ability: Effective Visual Impairment: No Limitations Hearing Ability: Normal Provider Enrollment Specialist Required: No Beliefs That Will Affect Care: None marital status: Current Living Situation: Spouse current occupational status: retired 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[employer]; worked in [employer] prior How many Children do You have: 0 Feels Safe at Home: Yes Diet: regular caffeine: Yes (2-3 cups/day) during the past year weight has: decreased > 10 lbs Assistive Devices: None Allergies Allergies Allergy/AdvReac Type Severity Reaction Status Date / Time Sulfa (Sulfonamide Allergy Itching Verified 12/31/23 11:39 Antibiotics) prednisone AdvReac Unknown CONTINUAL Verified 12/31/23 11:39 HICCUPS Home Meds Home Medications Medication Instructions Recorded Confirmed carvedilol 6.25 mg tablet 6.25 mg PO BID 12/11/19 01/16/24 cholecalciferol (vitamin D3) 25 25 mcg PO DAILY 12/11/19 01/16/24 mcg (1,000 unit) tablet acetaminophen 500 mg tablet 500 mg PO Q6H PRN Pain 10/11/22 01/16/24 (Tylenol Extra Strength) amlodipine 10 mg tablet 10 mg PO DAILY 10/11/22 12/31/23 calcium carb 1,000 mg-mag hydrox 1 tab PO DAILY PRN Indigestion 10/11/22 01/16/24 200 mg-simeth 40 mg chewable tablet (Rolaids Advanced Antacid Plus Anti-gas) famotidine 20 mg tablet (Pepcid) 40 mg PO DAILY PRN Indigestion 10/11/22 01/16/24 fluticasone propionate 50 1 spray intranasal DAILY PRN nasal 10/11/22 01/16/24 mcg/actuation nasal congestion spray,suspension (Flonase Allergy Relief) oxycodone 5 mg tablet 5 mg PO UD PRN Pain 10/11/22 01/16/24 benzonatate 100 mg capsule 100 mg PO TID PRN Cough 08/29/23 01/16/24 ondansetron HCl 8 mg tablet 8 mg PO Q8H PRN n/v 08/29/23 01/16/24 bupropion HCl 150 mg 24 hr tablet, 150 mg PO QAM 09/24/23 12/31/23 extended release methylprednisolone 16 mg tablet 6 mg PO BID 01/16/24 01/16/24 brinzolamide 1 %-brimonidine 0.2 % 1 drp ophthalmic (eye) DIRECTED 03/18/24 eye drops,suspension (Simbrinza) dorzolamide 2 % eye drops 1 drp ophthalmic (eye) TID 03/18/24 gabapentin 100 mg capsule 200 mg PO BID 03/18/24 latanoprost 0.005 % eye drops 1 drp ophthalmic (eye) PM 03/18/24 prochlorperazine maleate 10 mg 10 mg PO Q6H PRN Nausea 03/18/24 tablet Previous Rx's Medication Instructions Recorded apixaban 5 mg tablet (Eliquis) 10 mg (2 x 5 mg) PO UD #60 tabs 09/20/23 sulfamethoxazole 800 1 tab PO UD #20 tabs 09/20/23 mg-trimethoprim 160 mg tablet (Bactrim DS) Results & Data (ED) Vital Signs Vital Signs - 24 hr 03/18/24 09:21 03/18/24 09:41 03/18/24 09:45 Temperature 36.2 C L Temperature Source Temporal Artery Scan Pulse Rate 116 H 106 H 111 H Pulse Rate [Finger] Pulse Rhythm Regular Pulse Rhythm [Finger] Pulse Strength [Finger] Respiratory Rate 20 Respiratory Effort / Characteristics Non-Labored Spontaneous Respiratory Depth Normal Respiratory Pattern Regular Blood Pressure 118/78 Blood Pressure [Left Arm] Blood Pressure Mean 91 Blood Pressure Mean [Left Arm] Blood Pressure Position [Left Arm] Pulse Oximetry 97 95 Oxygen Delivery Method Room Air Room Air Sepsis Recent Fever Within 48 Hours No Sepsis New/Unexplained Change in Mental Status N/A Sepsis Action Taken by Nursing No Action Required 03/18/24 10:00 03/18/24 10:30 Temperature Temperature Source Pulse Rate Pulse Rate [Finger] 104 H 105 H Pulse Rhythm Pulse Rhythm [Finger] Regular Regular Pulse Strength [Finger] Normal Normal Respiratory Rate 96 H 20 Respiratory Effort / Characteristics Non-Labored Non-Labored Respiratory Depth Normal Normal Respiratory Pattern Regular Regular Blood Pressure Blood Pressure [Left Arm] 128/76 119/67 Blood Pressure Mean Blood Pressure Mean [Left Arm] 93 84 Blood Pressure Position [Left Arm] Lying Lying Pulse Oximetry 96 96 Oxygen Delivery Method Room Air Room Air Sepsis Recent Fever Within 48 Hours Sepsis New/Unexplained Change in Mental Status Sepsis Action Taken by Nursing Laboratory Data 03/18/24 09:45 03/18/24 09:45 Lab Results 03/18/24 03/18/24 Range/Units 09:40 09:45 WBC 8.78 (4.8-10.8) K/ul RBC 4.38 L (4.70-6.10) M/uL Hgb 12.9 L (14.0-18.0) g/dl Hct 37.7 L (42.0-52.0) % MCV 86.1 (80.0-100.0) fL MCH 29.5 (25.0-34.0) pg MCHC 34.2 (32.0-36.0) g/dL RDW Std Deviation 45.7 (36.4-46.3) fL RDW Coeff of Nasreen 14.6 H (11.5-14.5) % Plt Count 233 (130-400) K/uL MPV 10.0 (9.4-12.4) fL Immature Gran % (Auto) 1.3 % Neut % (Auto) 87.3 % Lymph % (Auto) 3.2 % [place] % (Auto) 7.9 % Eos % (Auto) 0.1 % Baso % (Auto) 0.2 % Neut # (Auto) 7.67 H (1.40-6.50) K/uL Lymph # (Auto) 0.28 L (1.20-3.40) K/uL [place] # (Auto) 0.69 H (0.11-0.59) K/uL Eos # (Auto) 0.01 (0.00-0.50) K/uL Baso # (Auto) 0.02 (0.00-0.20) K/uL Immature Gran # (Auto) 0.11 (0.01-0.20) K/uL PT 11.2 (9.0-12.0) Seconds INR 1.0 (0.9-1.1) Sodium 140 (136-145) mmol/L Potassium 3.4 L (3.5-5.1) mmol/L Chloride 109 H (98-107) mmol/L Carbon Dioxide 25 (21-32) mmol/L Anion Gap 6 (3-11) BUN 27 H (6-23) mg/dl Creatinine 1.07 (0.6-1.4) mg/dl Est Cr Clr Drug Dosing 68.4 ml/min eGFR 74.65 BUN/Creatinine Ratio 25.2 H (10-20) Glucose 110 H (70-99(Fasting)) mg/dl Lactate 1.2 (0.4-2.0) mmol/L Calcium 9.1 (8.6-10.3) mg/dl Magnesium 1.6 L (1.7-2.4) mg/dl Total Bilirubin 0.5 (0.2-1.0) mg/dl AST 19 (13-39) U/L ALT 17 (7-52) U/L Alkaline Phosphatase 42 (34-104) U/L Troponin I High Sens 13.3 (0-20) pg/ml Total Protein 5.6 L (6.0-8.3) gm/dl Albumin 3.3 L (3.4-5.0) gm/dl Globulin 2.3 L (2.5-4.0) gm/dl Albumin/Globulin Ratio 1.4 (0.9-2) Lipase 60 (11-82) U/L Adenovirus (PCR) Not Detected (NotDetected) B. pertussis DNA (PCR) Not Detected (NotDetected) B.parapertussis DNA PCR Not Detected (NotDetected) C. pneumoniae DNA (PCR) Not Detected (NotDetected) Coronavirus OC43 (PCR) Not Detected (NotDetected) Coronavirus HKU1 (PCR) Not Detected (NotDetected) Coronavirus 229E (PCR) Not Detected (NotDetected) SARS-CoV-2 (PCR) Not Detected (NotDetected) Coronavirus NL63 (PCR) Not Detected (NotDetected) Human Metapneumovir PCR Not Detected (NotDetected) Influenza Type A (PCR) Not Detected (NotDetected) Influenza Type B (PCR) Not Detected (NotDetected) M. pneumoniae (PCR) Not Detected (NotDetected) Parainfluenza 1 (PCR) Not Detected (NotDetected) Parainfluenza 2 (PCR) Not Detected (NotDetected) Parainfluenza 3 (PCR) Not Detected (NotDetected) Parainfluenza 4 (PCR) Not Detected (NotDetected) RSV (PCR) Not Detected (NotDetected) Entero/Rhino (PCR) Not Detected (NotDetected) Administered Medications Discontinued Medications Sodium Chloride (Nss) 1,000 mls @ 999 mls/hr IV .Q1H1M ONE Stop: 03/18/24 10:33 Last Admin: 03/18/24 09:52 Dose: 999 mls/hr Documented By: CUATE Magnesium Sulfate/Dextrose (Magnesium Sulfate / D5w) 1 gm in 100 mls @ 100 mls/hr IV NOW STA Stop: 03/18/24 11:38 Last Admin: 03/18/24 11:46 Dose: 100 mls/hr Documented By: KESHA Ioversol (Optiray 320 100ml) 94 ml IV ONCE ONE Stop: 03/18/24 10:50 Last Admin: 03/18/24 10:49 Dose: 94 ml Documented By: RENÉ Ondansetron HCl (Ondansetron Inj 2 Mg/Ml 2 Ml Vial) 4 mg IV NOW STA Stop: 03/18/24 09:34 Last Admin: 03/18/24 09:56 Dose: 4 mg Documented By: CUATE Imaging Data Radiologist's Impression: Abdomen/Pelvis CT 03/18/24 10:39 CT abd pelvis IV con only CLINICAL HISTORY: vomiting and diarrhea TECHNIQUE: Helical axial images of the abdomen and pelvis were obtained and displayed. Automated dose lowering techniques and/or adjustment according to patient size were utilized for this exam. This exam was performed with intravenous contrast. CT DOSE: 1437.33 mGy.cm COMPARISON: None available at the time of this dictation. FINDINGS: Lower chest: Focus of scarring lingula is unchanged. Liver: Unremarkable. No focal lesions are seen. Gallbladder and biliary tree: Patient is status post cholecystectomy. Physiologic prominence of the biliary ducts is noted. Pancreas: Unremarkable, no focal lesions. Spleen: Unremarkable. Adrenals: Unremarkable. Kidneys and ureters: Right renal cyst is unchanged. Bladder: Unremarkable. Reproductive organs: Unremarkable. Bowel: There is diffuse wall thickening throughout the colon. Lymph nodes Retroperitoneal: Unremarkable. Pelvic: Unremarkable. Mesenteric: Subcentimeter lymph nodes are noted. Peritoneum: Mild fat stranding is seen surrounding the colon with increased vascularity. Partially calcified omental nodules are again seen, nonspecific but may represent prior dropped gallstones. Vessels: Atherosclerotic calcifications are seen. Abdominal wall: Tiny fat-containing ventral hernia is seen. Bones: Degenerative changes in the visualized spine. Right hip arthroplasty is seen. IMPRESSION: Findings are compatible with a nonspecific pancolitis, likely infectious/inflammatory. No evidence of bowel obstruction. ACT 112: Negative or not required by law. Electronically signed by: Kiel Ash M.D. 03/18/2024 11:05 AM Discharge Plan Visit Data Chief Complaint: Flu Like Symptoms Stated Complaint: SEVERE NAUSEA, DIARRHEA, VOMITING ED Provider: Mana Smyth Discharge Problem: Nausea, vomiting, and diarrhea, Pancolitis, Hypomagnesemia, Acute hypokalemia Forms Stand Alone Forms: [facility] [employer] Prescriptions Prescriptions: No Action ondansetron HCl 8 mg tablet 8 mg PO Q8H PRN (Reason: n/v) benzonatate 100 mg capsule 100 mg PO TID PRN (Reason: Cough) methylprednisolone 16 mg tablet 6 mg PO BID Patient Comments: tapering acetaminophen [Tylenol Extra Strength] 500 mg tablet 500 mg PO Q6H PRN (Reason: Pain) amlodipine 10 mg tablet 10 mg PO DAILY Hold Instructions: Provider's Order Rolaids Adv Antacid-[place] 1,000-200-40 mg tablet,chewable 1 tab PO DAILY PRN (Reason: Indigestion) oxycodone 5 mg tablet 5 mg PO UD PRN (Reason: Pain) Rx Instructions: original: 5mg po q6h prn last filled 11/06/22 famotidine [Pepcid] 20 mg tablet 40 mg PO DAILY PRN (Reason: Indigestion) fluticasone propionate [Flonase Allergy Relief] 50 mcg/actuation spray,suspension 1 spray intranasal DAILY PRN (Reason: nasal congestion) Rx Instructions: administer into each nostril carvedilol 6.25 mg tablet 6.25 mg PO BID Rx Instructions: must administer with a meal/food cholecalciferol (vitamin D3) 25 mcg (1,000 unit) tablet 25 mcg PO DAILY Eliquis 5 mg Tablet 10 mg PO UD Qty: 60 5RF Rx Instructions: two pills twice a day for the first week of treatment then one pill twice a day there after sulfamethoxazole-trimethoprim [Bactrim DS] 800-160 mg tablet 1 tab PO UD Qty: 20 0RF Rx Instructions: one pill sunday, sunday, sunday bupropion HCl 150 mg tablet extended release 24 hr 150 mg PO QAM Patient Comments: pt not taking latanoprost 0.005 % drops 1 drp ophthalmic (eye) PM prochlorperazine maleate 10 mg tablet 10 mg PO Q6H PRN (Reason: Nausea) gabapentin 100 mg capsule 200 mg PO BID dorzolamide 2 % drops 1 drp ophthalmic (eye) TID Simbrinza 1-0.2 % drops,suspension 1 drp ophthalmic (eye) DIRECTED Referrals Referrals: Alfa Carcamo DO [Primary Care Provider] -
[2024-03-18] MEDS: SODIUM CHLORIDE 0.9% 1,000 ML IV ONE (09:52)
[2024-03-18] MEDS: ONDANSETRON INJ 2 MG/ML 2 ML VIAL IV STA (09:56)
[2024-03-18 10:18] LABS: Basophils # (auto) 0.02 K/uL (0.00-0.20); Basophils % (auto) 0.2 %; Eosinophils # (auto) 0.01 K/uL (0.00-0.50); Eosinophils % (auto) 0.1 %; Hematocrit (blood only) 37.7 % (42.0-52.0); Hemoglobin 12.9 g/dl (14.0-18.0); Immature Granulocytes # (auto) 0.11 K/uL (0.01-0.20); Immature Granulocytes % (auto) 1.3 %; Lymphocytes # (auto) 0.28 K/uL (1.20-3.40); Lymphocytes % (auto) 3.2 %; Mean Corpuscular Hemoglobin 29.5 pg (25.0-34.0); Mean Corpuscular Hgb Conc 34.2 g/dL (32.0-36.0); Mean Corpuscular Volume 86.1 fL (80.0-100.0); Monocytes # (auto) 0.69 K/uL (0.11-0.59); Monocytes % (auto) 7.9 %; Neutrophils # (auto) 7.67 K/uL (1.40-6.50); Neutrophils % (auto) 87.3 %; Platelet Count 233 K/uL (130-400); RDW Coefficient of Variation 14.6 % (11.5-14.5); RDW Standard Deviation 45.7 fL (36.4-46.3); Red Blood Count 4.38 M/uL (4.70-6.10); White Blood Count 8.78 K/ul (4.8-10.8)
[2024-03-18 10:36] LABS: Albumin Globulin Ratio 1.4 (0.9-2); Albumin Level 3.3 gm/dl (3.4-5.0); BUN Creatinine Ratio 25.2 (10-20); Bilirubin,Total 0.5 mg/dl (0.2-1.0); Calcium 9.1 mg/dl (8.6-10.3); Creatinine Clr Calc Pharmacy 68.4 ml/min; Globulin 2.3 gm/dl (2.5-4.0); Magnesium 1.6 mg/dl (1.7-2.4); Potassium 3.4 mmol/L (3.5-5.1); Total Protein 5.6 gm/dl (6.0-8.3)
[2024-03-18 10:42] LABS: Troponin I High Sensitivity 13.3 pg/ml (0-20)
[2024-03-18] MEDS: OPTIRAY 320 100ml IV ONE (10:49)
[2024-03-18 10:54] LABS: Prothrombin Time 11.2 Seconds (9.0-12.0)
--- NOTE | 2024-03-18 11:06 | CT Scan Report ---
CT abd pelvis IV con only CLINICAL HISTORY: vomiting and diarrhea TECHNIQUE: Helical axial images of the abdomen and pelvis were obtained and displayed. Automated dose lowering techniques and/or adjustment according to patient size were utilized for this exam. This e xam was performed with intravenous contrast. CT DOSE: 1437.33 mGy.cm COMPARISON: None available at the time of this dictation. FINDINGS: Lower chest: Focus of scarring lingula is unchanged. Liver: Unremarkable. No focal lesions are seen. Gallbladder and biliary tree: Patient is status post cholecystectomy. Physiologic prominence of the b iliary ducts is noted. Pancreas: Unremarkable, no focal lesions. Spleen: Unremarkable. Adrenals: Unremarkable. Kidneys and ureters: Right renal cyst is unchanged. Bladder: Unremarkable. Reproductive organs: Unremarkable. Bowel: There is diffuse wall thickening throughout the colon. Lymph nodes Retroperitoneal: Unremarkable. Pelvic: Unremarkable. Mesenteric: Subcentimeter lymph nodes are noted. Peritoneum: Mild fat stranding is seen surrounding the colon with increased vascularity. Partially ca lcified omental nodules are again seen, nonspecific but may represent prior dropped gallstones. Vessels: Atherosclerotic calcifications are seen. Abdominal wall: Tiny fat-containing ventral hernia is seen. Bones: Degenerative changes in the visualized spine. Right hip arthroplasty is seen. IMPRESSION: Findings are compatible with a nonspecific pancolitis, likely infectious/inflammatory. No evidence of bowel obstruction. ACT 112: Negative or not required by law. Electronically signed by: Kiel Ash M.D. 03/18/2024 11:05 AM
[2024-03-18 11:16] LABS: Adenovirus PCR Not Detected (NotDetected); Bordetella parapertussis PCR Not Detected (NotDetected); Bordetella pertussis PCR Not Detected (NotDetected); Chlamydia pneumoniae PCR Not Detected (NotDetected); Coronavirus 229E PCR Not Detected (NotDetected); Coronavirus CoV-2 (COVID19)PCR Not Detected (NotDetected); Coronavirus HKU1 PCR Not Detected (NotDetected); Coronavirus NL63 PCR Not Detected (NotDetected); Coronavirus OC43PCR Not Detected (NotDetected); Human Metapneumovirus PCR Not Detected (NotDetected); Influenza A PCR Not Detected (NotDetected); Influenza B PCR Not Detected (NotDetected); Mycoplasma pneumoniae PCR Not Detected (NotDetected); Parainfluenza Virus 1 PCR Not Detected (NotDetected); Parainfluenza Virus 2 PCR Not Detected (NotDetected); Parainfluenza Virus 3 PCR Not Detected (NotDetected); Parainfluenza Virus 4 PCR Not Detected (NotDetected); Respiratory Syncytial VirusPCR Not Detected (NotDetected); Rhinovirus/Enterovirus PCR Not Detected (NotDetected)
[2024-03-18] MEDS: MAGNESIUM SULFATE / D5W 1 GM/100 ML BAG IV STA (11:46)
--- NOTE | 2024-03-18 12:11 | History & Physical Report ---
Date of Service March 18, 2024 Assessment & Plan (1) Pancolitis: Plan: Assessment/summary: 68-year-old male on immunotherapy for mesothelioma with watery diarrhea which began 1 days after last infusion. Suspect immunotherapy related, CT shows pancolitis. Differential includes infectious/C. difficile however this is less likely due to negative stool studies 2 days ago. Will confirm negative C. difficile on repeat study, and then treat with steroids. If C. difficile/stool PCR is positive then we will treat infectious cause as appropriate. Patient is not septic on admission. Case was reviewed with oncology, agree with plan and recommended addition of restaging CTchest in addition to the CTA/P he has had while inpatient. This should be ordered 03/19 as patient has already received a contrast load 03/18 Pancolitis, diarrhea Symptoms about 1 week, transiently improving and then suddenly worsening. Multiple completely liquid stools daily. Started 1 day after immunotherapy No leukocytosis. CT does show pancolitis Magnesium 1.6, repleted. Potassium 3.4, repleted DDx includes C. difficile, viral, and due to immunotherapy. Patient was BioFire/C. difficile -2 days ago. These are repeated to confirm C. difficile negative prior to starting steroids Was discussed with oncology. Suspected related to immunotherapy. As long as stool studies are negative then we will start on increased dose of steroids Patient is not septic on admission Methylprednisolone 125 mg x 1, then continue prednisone 60 mg daily starting tomorrow as long as stool studies are negative Mesothelioma on immunotherapy Patient is on ipilmumab/nivolumab started 10/2022. Mixed treatment response on reassessment follow-up. Has also received palliative radiation to left upper hemithorax. - Symptoms started 1 day after infusion last week. History of malignant metastatic mesothelioma, follows with [facility] CTL A4 inhibitor and anti-PD-1 inhibitor combination, side effects do include diarrhea Patient is on methylprednisolone 8 mg 3 times daily recently decreased to 6 mg 3 times daily 02/20/2024. He is on prophylactic therapy with Bactrim 3 times weekly due to long-term steroid use. He has never had PJP Steroids as noted Discussed with oncology agree with plan as noted. Will order for restaging scan. Patient has already had CTA/P, will order CTchest with contrast tomorrow. Not commended today as patient is already received contrast load Eosinophilic esophagitis With history of Hair's PPI may contribute to diarrhea however suspect infection versus immunotherapy as predominant source of this and given underlying Hair's will continue PPI on admission. History of PE Diagnosed 08/2023 Continue DOAC Hemoglobin 12.9 on admission without clinical bleeding trend hemoglobin daily DVT prophylaxis: Anticoagulated Diet: Regular CODE STATUS: Full code Disposition: MSO (2) Acute hypokalemia: (3) Hypomagnesemia: History of Present Illness Primary Care Provider: Alfa Carcamo DO Nicolas Eli is a 68-year-old male with a past medical history of mesothelioma, PE on Eliquis, cervical radiculopathy, eosinophilic esophagitis presents the emergency department with nausea/vomiting/diarrhea of 5 days. Was seen 3 days ago in the ER, improved transiently, then suddenly worsened again and is not able to perform his daily activities at home due to severe weakness and ongoing diarrhea. Per ER report has a history of mesothelioma, did receive infusions in the last week for this, and is also on Bactrim 3 times weekly suppressive therapy. BioFire is negative. Stool studies were not obtained the ER. CTA/P shows nonspecific pancolitis suspected infectious/inflammatory without evidence of bowel obstruction Nicolas is seen with his at the bedside Diarrhea, weakness, exertional dyspnea but without chest pain, extreme fatigue which began last week one day after his infusion +indigestion NO abdominal pain, but feels a little bloated Diarrhea is brown, multiple times per day, and 90+% completely liquid. Has not had symptoms like this with any prior immunotherapy infusion before. No hematochezia or melena PE in August. 2.5mg BID, 5mg daily total dose after 6 months of treatment Bactrim three days per week ppx therapy due to ongoing manager long term care steroid treatment. Allergies Allergy/AdvReac Type Severity Reaction Status Date / Time Sulfa (Sulfonamide Allergy Itching Verified 12/31/23 11:39 Antibiotics) prednisone AdvReac Unknown CONTINUAL Verified 12/31/23 11:39 HICCUPS Home Medications Medication Instructions Recorded Confirmed Type carvedilol 6.25 mg tablet 6.25 mg PO BID 12/11/19 01/16/24 History cholecalciferol (vitamin D3) 25 25 mcg PO DAILY 12/11/19 01/16/24 History mcg (1,000 unit) tablet acetaminophen 500 mg tablet 500 mg PO Q6H PRN Pain 10/11/22 01/16/24 History (Tylenol Extra Strength) amlodipine 10 mg tablet 10 mg PO DAILY 10/11/22 12/31/23 History calcium carb 1,000 mg-mag hydrox 1 tab PO DAILY PRN Indigestion 10/11/22 01/16/24 History 200 mg-simeth 40 mg chewable tablet (Rolaids Advanced Antacid Plus Anti-gas) famotidine 20 mg tablet (Pepcid) 40 mg PO DAILY PRN Indigestion 10/11/22 History fluticasone propionate 50 1 spray intranasal DAILY PRN nasal 10/11/22 01/16/24 History mcg/actuation nasal congestion spray,suspension (Flonase Allergy Relief) oxycodone 5 mg tablet 5 mg PO UD PRN Pain 10/11/22 01/16/24 History benzonatate 100 mg capsule 100 mg PO TID PRN Cough 08/29/23 01/16/24 History ondansetron HCl 8 mg tablet 8 mg PO Q8H PRN n/v 08/29/23 01/16/24 History apixaban 5 mg tablet (Eliquis) 10 mg (2 x 5 mg) PO UD #60 tabs 09/20/23 01/16/24 Rx sulfamethoxazole 800 1 tab PO UD #20 tabs 09/20/23 01/16/24 Rx mg-trimethoprim 160 mg tablet (Bactrim DS) bupropion HCl 150 mg 24 hr tablet, 150 mg PO QAM 09/24/23 12/31/23 History extended release methylprednisolone 16 mg tablet 6 mg PO BID 01/16/24 01/16/24 History brinzolamide 1 %-brimonidine 0.2 % 1 drp ophthalmic (eye) DIRECTED 03/18/24 History eye drops,suspension (Simbrinza) dorzolamide 2 % eye drops 1 drp ophthalmic (eye) TID 03/18/24 History gabapentin 100 mg capsule 200 mg PO BID 03/18/24 History latanoprost 0.005 % eye drops 1 drp ophthalmic (eye) PM 03/18/24 History prochlorperazine maleate 10 mg 10 mg PO Q6H PRN Nausea 03/18/24 History tablet Past Med/Surg History Problem List (Updated 03/18/24 @ 12:01 by Mana Smyth MD) Acute hypokalemia (Acute) Hypomagnesemia (Acute) Pancolitis (Acute) Nausea, vomiting, and diarrhea (Acute) Nausea vomiting and diarrhea (Acute) Pulmonary emboli (Acute) Mesothelioma of lung (Chronic) Biopsy 09/14/22 Paresthesia of upper extremity Cervical radicular pain Cervical spondylosis History of right hip replacement Eosinophilic esophagitis Medical History Weakness of left hand Hypertension Barretts esophagus Mesothelioma of left lung Shingles Schatzki's ring Rheumatic fever PVC (premature ventricular contraction) Plantar fasciitis Hoarseness Colon polyps Dyslipidemia Angina pectoris Cough Chronic kidney disease GERD (gastroesophageal reflux disease) Cardiomyopathy Surgical History History of total right hip replacement H/O right inguinal hernia repair History of cardiac cath Status post cholecystectomy S/P appy H/O esophagogastroduodenoscopy S/P colonoscopy Family History Mother , 79yo Mesothelioma Hypertension Father , 86yo Myocardial infarction History of open heart surgery Hypertension Diabetes Social History Smoking Status: Never smoker Tobacco Type: Cigars Cigarettes Per Day: Occassionally smoked a cigar; Second Hand Exposure: Yes (As a child); Do You Dip or Chew Tobacco: No; Hx Alcohol Use: Yes Alcohol type: beer Hx Substance Use: No Preferred Language: Austrian Communication Ability: Effective Visual Impairment: No Limitations Hearing Ability: Normal Manager [employer] Required: No Beliefs That Will Affect Care: None marital status: Current Living Situation: Spouse current occupational status: retired 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 NAD. Cooperative. HEENT: Atraumatic, normocephalic. Patient hearing grossly intact Pulm: CTAB A&P. -wheezes, -rales, -rhonchi. Symmetrical chest rise. No increased work of breathing. No respiratory distress. Cardiac: RRR, -mrg. Radial pulses intact and symmetrical. Abdominal: Nontender to palpation, soft, nondistended. Results & Data Results & Data Vital Signs (Past 12 Hours) Vital Signs Temp Pulse Pulse Resp BP BP Pulse Ox 03/18/24 10:30 105 H 20 119/67 96 03/18/24 10:00 104 H 96 H 128/76 96 03/18/24 09:45 111 H 03/18/24 09:41 106 H 95 03/18/24 09:21 36.2 C L 116 H 20 118/78 97 O2 Del Method 03/18/24 10:30 Room Air 03/18/24 10:00 Room Air 03/18/24 09:45 03/18/24 09:41 Room Air 03/18/24 09:21 Room Air PG Care Time/CCT Total # of Minutes Spent Total Time Spent with Patient: Total time spent is greater than 50% in coordination of care (as documented) at patient's floor/unit and/or counseling patient: Coding Level of Care Code 84154 INT INP/OBS CARE 3/75MIN Diagnoses Pancolitis K51.00 Acute hypokalemia E87.6 Hypomagnesemia E83.42
[2024-03-18] MEDS: PROCHLORPERAZINE 1 ML IV ONE (12:31)
[2024-03-18] MEDS ORDERED: ONDANSETRON INJ 2 MG/ML 2 ML VIAL IV PRN (12:49)
[2024-03-18] MEDS: POTASSIUM CHLORIDE / WTR 10 MEQ/100 ML PLCT IV ONE (13:03)
[2024-03-18] MEDS: SODIUM CHLORIDE 0.9% 1,000 ML IV SCH (13:04)
[2024-03-18] MEDS: PLASMA-LYTE A 1,000 ML IV ONE (13:23)
[2024-03-18] MEDS: MAGNESIUM CHLORIDE W/CALCIUM 64MG DELAYED REL TAB PO ONE (13:55)
[2024-03-18] MEDS: SODIUM CHLORIDE 0.9% 500 ML IV ONE (13:55)
[2024-03-18 14:36] LABS: Appearance Urine Clear (Clear); Bilirubin Urine Negative (Negative); Blood Urine Negative (Negative); Color Urine Yellow; Glucose Urine UA Negative (Negative); Ketones Urine Negative (Negative); Leukocyte Esterase Urine Negative (Negative); Nitrite Urine Negative (Negative); Protein Urine Negative (Negative); Specific Gravity Urine 1.033 (1.000-1.030); Urobilinogen Urine Negative (Negative); pH Urine 5.5 (4.5-7.5)
[2024-03-18] MEDS ORDERED: oxyCODONE HCL IR 5 MG TAB (IMMEDIATE RELEASE) PO PRN (14:55)
--- NOTE | 2024-03-18 15:10 | Oncology Consultation ---
Date of Consultation March 18, 2024 Assessment & Plan (1) Pancolitis: (2) Nausea, vomiting, and diarrhea: (3) Mesothelioma of lung: Plan Patient's symptoms and imaging findings of pancolitis likely secondary to immune checkpoint inhibitor. -Agree with stool studies. If negative, recommend methylprednisolone 1 mg/kg/day with gradual taper. If symptoms do not improve recommend GI evaluation for colonoscopy and would at that time consider switching to infliximab. -Obtain restaging CT chest. Also brain imaging -Told patient and his that I would recommend discontinuation of immunotherapy given severity of symptoms. Would recommend consideration for doublet chemotherapy if imaging is suggestive of disease progression. History of Present Illness Reason for Consultation: Mesothelioma Attending Physician: Dagoberto Mccormack MD History of Present Illness Mr. Eli is a 68-year-old gentleman with metastatic malignant mesothelioma for which he is currently on immunotherapy with ipilimumab/nivolumab which was initially started on 11/07/2022. He presented with nausea, vomiting, diarrhea and headaches. CT abdomen and pelvis obtained today suggestive of pancolitis likely infectious/inflammatory. Patient has been on prolonged course of steroids due to suspected immunotherapy induced arthralgia and colitis. Previously suspected to also have immunotherapy induced pneumonitis. Recently decreased dose of steroids to 10 mg methylprednisolone daily and he received cycle 11-day 22 of treatment on 03/12/2024 Allergies Allergy/AdvReac Type Severity Reaction Status Date / Time Sulfa (Sulfonamide Allergy Itching Verified 12/31/23 11:39 Antibiotics) prednisone AdvReac Unknown CONTINUAL Verified 12/31/23 11:39 HICCUPS Home Medications Medication Instructions Recorded Confirmed Type carvedilol 6.25 mg tablet 6.25 mg PO BID 12/11/19 03/18/24 History cholecalciferol (vitamin D3) 25 25 mcg PO DAILY 12/11/19 03/18/24 History mcg (1,000 unit) tablet acetaminophen 500 mg tablet 500 mg PO Q6H PRN Pain 10/11/22 03/18/24 History (Tylenol Extra Strength) calcium carb 1,000 mg-mag hydrox 1 tab PO DAILY PRN Indigestion 10/11/22 History 200 mg-simeth 40 mg chewable tablet (Rolaids Advanced Antacid Plus Anti-gas) famotidine 20 mg tablet (Pepcid) 40 mg PO DAILY PRN Indigestion 10/11/22 03/18/24 History fluticasone propionate 50 1 spray intranasal DAILY PRN nasal 10/11/22 03/18/24 History mcg/actuation nasal congestion spray,suspension (Flonase Allergy Relief) oxycodone 5 mg tablet 5 mg PO UD PRN Pain 10/11/22 03/18/24 History benzonatate 100 mg capsule 100 mg PO TID PRN Cough 08/29/23 03/18/24 History ondansetron HCl 8 mg tablet 8 mg PO Q8H PRN n/v 08/29/23 03/18/24 History sulfamethoxazole 800 1 tab PO UD #20 tabs 09/20/23 03/18/24 Rx mg-trimethoprim 160 mg tablet (Bactrim DS) methylprednisolone 16 mg tablet 6 mg PO UD 01/16/24 03/18/24 History amoxicillin 500 mg tablet 500 mg PO UD PRN dental 03/18/24 03/18/24 History appointments apixaban 5 mg tablet (Eliquis) 2.5 mg PO BID 03/18/24 03/18/24 History brinzolamide 1 %-brimonidine 0.2 % 1 drp ophthalmic (eye) BID 03/18/24 03/18/24 History eye drops,suspension (Simbrinza) gabapentin 100 mg capsule 300 mg PO HS 03/18/24 03/18/24 History omeprazole 40 mg capsule,delayed 40 mg PO DAILY 03/18/24 03/18/24 History release prochlorperazine maleate 10 mg 10 mg PO Q6H PRN Nausea 03/18/24 03/18/24 History tablet Patient History Medical History Weakness of left hand Hypertension Barretts esophagus Mesothelioma of left lung Shingles Schatzki's ring Rheumatic fever PVC (premature ventricular contraction) Plantar fasciitis Hoarseness Colon polyps Dyslipidemia Angina pectoris Cough Chronic kidney disease GERD (gastroesophageal reflux disease) Cardiomyopathy Surgical History History of total right hip replacement H/O right inguinal hernia repair History of cardiac cath Status post cholecystectomy S/P appy H/O esophagogastroduodenoscopy S/P colonoscopy Family History Mother , 79yo Mesothelioma Hypertension Father , 86yo Myocardial infarction History of open heart surgery Hypertension Diabetes Social History Smoking Status: Never smoker Tobacco Type: Cigars Cigarettes Per Day: Occassionally smoked a cigar; Second Hand Exposure: Yes (As a child); Do You Dip or Chew Tobacco: No; Hx Alcohol Use: Yes Alcohol type: beer Hx Substance Use: No Preferred Language: Ethiopian Communication Ability: Effective Visual Impairment: No Limitations Hearing Ability: Normal Vp Integrity Required: No Beliefs That Will Affect Care: None marital status: Current Living Situation: Spouse current occupational status: retired 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[employer]; 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 How many Children do You have: 0 Feels Safe at Home: Yes Diet: regular caffeine: Yes (2-3 cups/day) during the past year weight has: decreased > 10 lbs Assistive Devices: None Results & Data Vital Signs (Past 12 Hours) Vital Signs Temp Pulse Pulse Resp BP BP Pulse Ox 03/18/24 13:46 104 H 03/18/24 13:27 106 H 19 148/93 H 94 03/18/24 11:33 101 H 20 139/75 93 03/18/24 10:30 105 H 20 119/67 96 03/18/24 10:00 104 H 96 H 128/76 96 03/18/24 09:45 111 H 03/18/24 09:41 106 H 95 03/18/24 09:21 36.2 C L 116 H 20 118/78 97 O2 Del Method 03/18/24 13:46 03/18/24 13:27 03/18/24 11:33 03/18/24 10:30 Room Air 03/18/24 10:00 Room Air 03/18/24 09:45 03/18/24 09:41 Room Air 03/18/24 09:21 Room Air
[2024-03-18 16:03] LABS: Adenovirus F 40/41 PCR Not Detected (NotDetected); Astrovirus PCR Not Detected (NotDetected); Campylobacter PCR Not Detected (NotDetected); Cryptosporidium PCR Not Detected (NotDetected); Cyclospora cayetanensis PCR Not Detected (NotDetected); Entamoeba histolytica PCR Not Detected (NotDetected); Enteroaggregative E.coli(EAEC) Not Detected (NotDetected); Enteropathogenic E.coli (EPEC) Not Detected (NotDetected); Enterotoxigenic E.coli (ETEC) Not Detected (NotDetected); Giardia lamblia PCR Not Detected (NotDetected); Norovirus GI/GII PCR Not Detected (NotDetected); Plesiomonas shigelloides PCR Not Detected (NotDetected); Rotavirus A PCR Not Detected (NotDetected); Salmonella PCR Not Detected (NotDetected); Sapovirus PCR Not Detected (NotDetected); Shiga-like Toxin E.coli (STEC) Not Detected (NotDetected); Shigella/Enteroinvasive E.coli Not Detected (NotDetected); Vibrio cholerae PCR Not Detected (NotDetected); Vibrio species PCR Not Detected (NotDetected); Yersinia enterocolitica PCR Not Detected (NotDetected)
--- NOTE | 2024-03-18 16:23 | Electrocardiogram Report ---
Test Reason : Blood Pressure : */* mmHG Vent. Rate : 110 BPM Atrial Rate : 110 BPM P-R Int : 130 ms QRS Dur : 96 ms QT Int : 316 ms P-R-T Axes : 34 -7 36 degrees QTcB Int : 427 ms Sinus tachycardia with Premature supraventricular complexes Otherwise normal ECG When compared with ECG of 16-Mar-2024 08:45, Premature supraventricular complexes are now Present Confirmed by Liban Veras ([id number]) on 03/18/2024 4:23:18 PM Referred By: Confirmed By: Liban Veras
[2024-03-18] MEDS ORDERED: methylPREDNISolone 125 MG/2 ML VIAL IV STA (19:08)
[2024-03-18] MEDS: POTASSIUM CHLORIDE CRTAB 20 MEQ TABCR PO SCH (20:36)
[2024-03-18] MEDS: carvediloL 6.25 MG TAB PO SCH (20:36)
[2024-03-18] MEDS: APIXABAN 2.5 MG TAB PO SCH (20:36)
[2024-03-18] MEDS: MAGNESIUM CHLORIDE W/CALCIUM 64MG DELAYED REL TAB PO SCH (20:36)
[2024-03-18] MEDS: methylPREDNISolone 125 MG in SYRINGE 0 ML IV STA (20:37)
[2024-03-19 06:06] LABS: Hematocrit (blood only) 34.5 % (42.0-52.0); Hemoglobin 11.5 g/dl (14.0-18.0); Mean Corpuscular Hemoglobin 29.2 pg (25.0-34.0); Mean Corpuscular Hgb Conc 33.3 g/dL (32.0-36.0); Mean Corpuscular Volume 87.6 fL (80.0-100.0); Mean Platelet Volume 9.9 fL (9.4-12.4); Platelet Count 196 K/uL (130-400); RDW Coefficient of Variation 14.8 % (11.5-14.5); RDW Standard Deviation 47.1 fL (36.4-46.3); Red Blood Count 3.94 M/uL (4.70-6.10); White Blood Count 9.22 K/ul (4.8-10.8)
[2024-03-19 06:16] LABS: BUN Creatinine Ratio 21.6 (10-20); Calcium 8.1 mg/dl (8.6-10.3); Creatinine Clr Calc Pharmacy 75.5 ml/min; Potassium 3.6 mmol/L (3.5-5.1)
[2024-03-19 06:31] LABS: Basophils # (auto) 0.02 K/uL (0.00-0.20); Basophils % (auto) 0.2 %; Echinocytes 1+; Immature Granulocytes # (auto) 0.15 K/uL (0.01-0.20); Immature Granulocytes % (auto) 1.6 %; Lymphocytes # (auto) 0.37 K/uL (1.20-3.40); Monocytes # (auto) 0.11 K/uL (0.11-0.59); Monocytes % (auto) 1.2 %; Neutrophils # (auto) 8.57 K/uL (1.40-6.50); Polychromasia 1+
[2024-03-19] MEDS: CHOLECALCIFEROL 25 MCG (1000 UNITS) TAB PO SCH (08:45)
[2024-03-19] MEDS: SULFAMETHOXAZOLE/TRIMETHOPRIM DS 800/160MG TAB PO SCH (08:45)
[2024-03-19] MEDS: buPROPion XL 150 MG TABCR PO SCH (08:46)
[2024-03-19] MEDS: amLODIPine BESYLATE 5 MG TAB PO SCH (08:46)
[2024-03-19] MEDS: methylPREDNISolone 60 MG in SYRINGE 0 ML IV SCH (08:56)
[2024-03-19] MEDS ORDERED: methylPREDNISolone 125 MG/2 ML VIAL IV SCH (09:00)
--- NOTE | 2024-03-19 11:03 | Hospitalist Progress Note ---
Date of Service March 19, 2024 Assessment & Plan (1) Pancolitis: (2) Acute hypokalemia: (3) Hypomagnesemia: Plan 68-year-old male on immunotherapy for mesothelioma with watery diarrhea which began 1 days after last infusion. CT shows pancolitis. Pancolitis, diarrhea Symptoms about 1 week, transiently improving and then suddenly worsening. Multiple completely liquid stools daily. Started 1 day after immunotherapy No leukocytosis. CT does show pancolitis - Stool PCR and C.diff negative, therefore pancolitis likely due to immunotherapy. Methylprednisolone 125 mg x 1, then continue prednisone 60 mg daily followed by gradual taper. - Suspect weakness at time of arrival was due to dehydration fro N/V/D, however, PT/OT also consulted for evaluation. Mesothelioma on immunotherapy Patient is on ipilmumab/nivolumab started 10/2022. Has also received palliative radiation to left upper hemithorax. History of malignant metastatic mesothelioma, follows with [facility] Patient is on methylprednisolone 8 mg 3 times daily recently decreased to 6 mg 3 times daily 02/20/2024. He is on prophylactic therapy with Bactrim 3 times weekly due to long-term steroid use. He has never had PJP Discussed with oncology agree with plan as noted. Will order for restaging scan. Patient has already had CTA/P, will do CTchest with contrast and head CT today. Open-angle Glaucoma - Endorses blurry vision b/l in the mornings - Follows ophthalmology outpatient - Continue Simbrinza eye drops Eosinophilic esophagitis With history of Hair's Continue PPI on admission. History of PE Diagnosed 08/2023 Continue DOAC DVT prophylaxis: Eliquis Diet: Regular CODE STATUS: Full code Admission and Anticipated Discharge Date Admission Date: March 18, 2024 Supervising Physician Co-Signing Physician Notes Attending attestation Pt seen and examined in concert with Dr. Tunde Valdez. In agreement with the documented findings as noted in the resident documentation with any exceptions or additions as noted here. Reports improved diarrhea, nausea and abdominal discomfort as noted. Does have R hand swelling c/w infiltration from IV site without redness/erythema or TTP. On examination, S1/S2 nl RRR no MCG. CTAB. Abd NT/ND BS+ve Pancolitis - C. diff negative - continue steroids with transition to PO taper as noted. Mesothelioma - continue prophylactic TMP/SMX. Holding baseline steroids for burst w/ taper as noted. Open-angle glaucoma - monitor neema on steroid therapy Else see resident documentation as noted. Subjective Evaluated at bedside ad found to be AAOx3, afebrile, and in NAD. Endorses persistent but improved weakness. Still has decreased appetite but trying to increase PO intake. Has had 2 episodes of diarrhea since last night that was still soft and nonbloody. No new symptoms or concerns. Physical Exam Physical Exam: General: A&Ox3. NAD. Cooperative. HEENT: Atraumatic, normocephalic. Patient hearing grossly intact Pulm: CTAB Symmetrical chest rise. No increased work of breathing. No res piratory distress. Cardiac: RRR, no r/m/g. Abdominal: Nontender to palpation, soft, nondistended. Results & Data Results & Data Vital Signs (Past 12 Hours) Vital Signs Temp Pulse Resp BP Pulse Ox O2 Del Method 03/19/24 08:43 103 H 138/79 03/19/24 07:01 36.8 C 96 H 20 124/76 98 Room Air 03/19/24 05:58 36.7 C 95 H 16 134/76 98 Room Air Resident Activity Tracking Resident Involvement: Resident Care Provided Care Provided: Adult Hospital Medicine
[2024-03-19] MEDS: ACETAMINOPHEN 325 MG TAB PO PRN (12:39)
[2024-03-19] MEDS: OPTIRAY 320 100ml IV ONE (16:44)
--- NOTE | 2024-03-19 16:53 | CT Scan Report ---
EXAM: CT Head Without and With Intravenous Contrast INDICATION: Mesothelioma restaging. TECHNIQUE: Axial computed tomography images of the head/brain without and with intravenous contrast. Sagittal and/or coronal reformats are provided. Sagittal and coronal reformatted images were created and reviewed. This CT exam was performed using one or more of the following dose reduction techniques: automated exposure control, adjustment of the mA and/or kV according to patient size, and/or use of iterative reconstruction technique. CONTRAST: 93ml of Optiray 320 was administered intravenously. COMPARISON: 01/17/2024 FINDINGS: Limitations: None. Brain and extra-axial spaces: There is age appropriate cortical atrophy and chronic ischemic periventricular white matter hypodensity. No acute infarct, hemorrhage or mass noted. Bones/joints: No acute changes. Soft tissues: No significant abnormality noted. Vasculature: Dense atherosclerotic calcification of the intracranial vessels. Sinuses: No layering fluid in the visualized portions of the paranasal sinuses. Mastoid air cells: No mastoid effusion. Orbits: No significant abnormality noted. IMPRESSION: Cerebral atrophy. No acute changes. ACT 112: Negative or not required by law. Electronically signed by Solange Hill 03-19-2024 4:53 PM
--- NOTE | 2024-03-19 17:00 | CT Scan Report ---
EXAM: CT Chest With Intravenous Contrast INDICATION: Restaging mesothelioma TECHNIQUE: Axial computed tomography images of the chest with intravenous contrast. Sagittal and coronal reformatted images were created and reviewed. This CT exam was performed using one or more of the following dose reduction techniques: automated exposure control, adjustment of the mA and/or kV according to patient size, and/or use of iterative reconstruction technique. CONTRAST: 93ml of Optiray 320 was administered intravenously. COMPARISON: 12/11/2023 FINDINGS: Limitations: None. Lungs and pleural spaces: New small layering bilateral pleural effusions. No pneumothorax. New 4 x 6 mm nodule along the right major fissure. Slight increased conspicuity of an irregular nodule in the lingula measuring 1.3 x 0.9 cm. Increased left masslike pleural thickening in the left apex measuring 6.6 cm AP by 4.1 cm transverse by 11.3 cm long. Heart: No abnormality noted. Thyroid: No abnormality noted. Bones/joints: There is heterogeneous sclerosis consistent with metastatic disease of the left first rib with pathologic fracture laterally. Soft tissues: No significant abnormality noted. Vasculature: No abnormality noted. No thoracic aortic aneurysm. Lymph nodes: No enlarged lymph nodes. Gallbladder and bile ducts: Cholecystectomy. No ductal dilation or stone noted. Stomach and bowel: There is mild inflammation and thickening of the visualized descending colon. Small amounts of fluid layering in the transverse colon. Intraperitoneal space: Small amounts of free fluid in the right upper quadrant. IMPRESSION: 1. Enlarged left pleural mass. 2. There is heterogeneous sclerosis consistent with metastatic disease of the left first rib with pathologic fracture laterally. 3. Thickening and mild thickening and inflammation concerning for colitis of the visualized descending colon. 4. New small layering bilateral pleural effusions. ACT 112: Negative or not required by law. Electronically signed by Solange Hill 03-19-2024 5:00 PM
[2024-03-19] MEDS: BRIMONIDINE TARTRATE 0.2% 5ML OP SCH (21:35)
[2024-03-19] MEDS: BRINZOLAMIDE (AZOPT) OPS 10 ML BTL OP SCH (21:36)
[2024-03-20 07:13] LABS: Basophils # (auto) 0.01 K/uL (0.00-0.20); Basophils % (auto) 0.1 %; Hematocrit (blood only) 31.4 % (42.0-52.0); Hemoglobin 10.9 g/dl (14.0-18.0); Immature Granulocytes # (auto) 0.15 K/uL (0.01-0.20); Immature Granulocytes % (auto) 1.7 %; Lymphocytes # (auto) 0.33 K/uL (1.20-3.40); Lymphocytes % (auto) 3.7 %; Mean Corpuscular Hemoglobin 29.5 pg (25.0-34.0); Mean Corpuscular Hgb Conc 34.7 g/dL (32.0-36.0); Mean Corpuscular Volume 85.1 fL (80.0-100.0); Mean Platelet Volume 10.1 fL (9.4-12.4); Monocytes # (auto) 0.77 K/uL (0.11-0.59); Monocytes % (auto) 8.6 %; Neutrophils # (auto) 7.69 K/uL (1.40-6.50); Neutrophils % (auto) 85.9 %; Platelet Count 212 K/uL (130-400); RDW Coefficient of Variation 14.9 % (11.5-14.5); RDW Standard Deviation 45.5 fL (36.4-46.3); Red Blood Count 3.69 M/uL (4.70-6.10); White Blood Count 8.95 K/ul (4.8-10.8)
[2024-03-20 07:29] LABS: Calcium 8.4 mg/dl (8.6-10.3); Creatinine Clr Calc Pharmacy 69.7 ml/min; Potassium 3.8 mmol/L (3.5-5.1)
[2024-03-20 09:04] VITALS: PULSE 81; RESP 16; TEMP 97.2; O2SAT 96
--- NOTE | 2024-03-20 10:08 | Discharge Summary ---
Date of Service March 20, 2024 Admission HPI Per Admitting Provider Nicolas Eli is a 68-year-old male with a past medical history of mesothelioma, PE on Eliquis, cervical radiculopathy, eosinophilic esophagitis presents the emergency department with nausea/vomiting/diarrhea of 5 days. Was seen 3 days ago in the ER, improved transiently, then suddenly worsened again and is not able to perform his daily activities at home due to severe weakness and ongoing diarrhea. Per ER report has a history of mesothelioma, did receive infusions in the last week for this, and is also on Bactrim 3 times weekly suppressive therapy. BioFire is negative. Stool studies were not obtained the ER. CTA/P shows nonspecific pancolitis suspected infectious/inflammatory without evidence of bowel obstruction Nicolas is seen with his at the bedside Diarrhea, weakness, exertional dyspnea but without chest pain, extreme fatigue which began last week one day after his infusion +indigestion NO abdominal pain, but feels a little bloated Diarrhea is brown, multiple times per day, and 90+% completely liquid. Has not had symptoms like this with any prior immunotherapy infusion before. No hematochezia or melena PE in August. 2.5mg BID, 5mg daily total dose after 6 months of treatment Bactrim three days per week ppx therapy due to ongoing director long term care steroid treatment. Admission Exam Per Admitting Provider General: A&Ox3. NAD. Cooperative. HEENT: Atraumatic, normocephalic. Patient hearing grossly intact Pulm: CTAB A&P. -wheezes, -rales, -rhonchi. Symmetrical chest rise. No increased work of breathing. No respiratory distress. Cardiac: RRR, -mrg. Radial pulses intact and symmetrical. Abdominal: Nontender to palpation, soft, nondistended. Principal Diagnosis Pancolitis consequent of immunotherapy Discharge Exam General: A&Ox3. NAD. Cooperative. HEENT: Atraumatic, normocephalic. Patient hearing grossly intact Pulm: CTAB Symmetrical chest rise. No increased work of breathing. No respiratory distress. Cardiac: RRR, no r/m/g. Abdominal: Nontender to palpation, soft, nondistended. Discharge Data Allergies Allergy/AdvReac Type Severity Reaction Status Date / Time Sulfa (Sulfonamide Allergy Itching Verified 12/31/23 11:39 Antibiotics) prednisone AdvReac Unknown CONTINUAL Verified 12/31/23 11:39 HICCUPS Consultations 03/18/24 12:01 ED Decision to Admit Stat 03/18/24 14:55 Consult Oncology Routine Ordered Studies 03/18/24 10:39 CT Abd and Pelvis [CT abd pelvis IV con only] Stat 03/19/24 09:00 CT chest diagnostic w con Routine CT head/brain wo/w con Routine Hospital Course (1) Pancolitis: (2) Acute hypokalemia: (3) Hypomagnesemia: Plan 68-year-old male on immunotherapy for mesothelioma with watery diarrhea which began 1 days after last infusion. CT shows pancolitis. Pancolitis, diarrhea Symptoms about 1 week, transiently improving and then suddenly worsening. Multiple completely liquid stools daily. Started 1 day after immunotherapy No leukocytosis. CT does show pancolitis - Stool PCR and C.diff negative, therefore pancolitis likely due to immunotherapy. - Initial weakness likely secondary to N/V/D and subsequent dehydration; now much improved and closer to baseline. Methylprednisolone 125 mg x 1, then changed to 60 mg daily; sent script for Methylprednisolone to his pharmacy with instructions for 6 week taper. Mesothelioma on immunotherapy Patient is on ipilmumab/nivolumab started 10/2022. Has also received palliative radiation to left upper hemithorax. History of malignant metastatic mesothelioma Patient is on methylprednisolone 8 mg 3 times daily recently decreased to 6 mg 3 times daily 02/20/2024. He is on prophylactic therapy with Bactrim 3 times weekly due to long-term steroid use. He has never had PJP Discussed with oncology agree with plan as noted. CTAP -- pancolitis as detailed above Restaging chest CT -- enlarged left pleural mass; heterogeneous sclerosis consistent with metastatic disease of the left first rib with pathologic fracture laterally. New 4 x 6 mm nodule along the right major fissure. Brain CT -- Central atrophy, no acute changes - Encourage continued CCP follow up Open-angle Glaucoma - Endorses blurry vision b/l in the mornings - Follows ophthalmology outpatient - Continue Simbrinza eye drops Eosinophilic esophagitis With history of Hair's Continue PPI History of PE Diagnosed 08/2023 Continue DOAC Will discharge back home today. Total Time Total Time Spent Total Time Spent (In Minutes): . Discharge Plan Discharge Items Patient Disposition: Home - Self-Care Reason For Visit: PANCOLITIS Discharge Diagnosis: Pancolitis Activity: Per Instructions section Non-emergency contact: Primary Care Provider and Oncologist Call non-emergency contact if: your symptoms worsen and your temperature is above 101 Follow-up/Referrals: Alfa Carcamo DO [Primary Care Provider] - 04/02/24 8:25 am Diet: Regular Addtl Attending Provider Instructions: You were admitted to the hospital due to significant diarrhea that lead to dehydration and weakness. We did some studies to see if this was due to an infection or due to your current chemotherapy medications since your symptoms could also be explained as a side effect of these medications. These studies ruled out any infections, therefore it was determined to be due to your current immunotherapy and steroid therapy was started. Today your symptoms improved and your diarrhea resolved. Therefore we will be discharging you today. We will be sending a script for Methylprednisolone to be taken as a taper, meaning, to be taken in decreasing doses within a period of a few weeks. Please see below for a guide for how you should take Methylprednisolone. Take 7 tabs of Methylprednisolone 8 mg to reach 56 mg daily from day 1-7 of therapy Take 6 tabs of Methylprednisolone 8 mg to reach 48 mg daily from day 8-14 of therapy Take 5 tabs of Methylprednisolone 8 mg to reach 40 mg daily from day 15-21 of therapy Take 4 tabs of Methylprednisolone 8 mg to reach 32 mg daily from day 22-28 of therapy Take 2 tabs of Methylprednisolone 8 mg to reach 16 mg daily from day 29-35 of therapy Take 1 tabs of Methylprednisolone 8 mg to reach 8 mg daily from day 36-42 of therapy After you complete the 7 days of the 8 mg dose, STOP taking Methylprednisolone We advise you to follow up with your primary care provider shortly after discharge, as well as your Oncologist to discuss your medications and for regular follow up. A discharge summary will be sent to your primary care physician to ensure continuity of care. Please bring this discharge summary with you to your next office appointment so that your provider can review it at that time. Follow-up appointments: Keep all your follow-up appointments as already scheduled. If you cannot make an appointment, notify your provider. Medications: Your medication list has been reviewed and reconciled upon discharge to ensure accuracy and continuity of care. An updated list of all your medications is included with your hospital discharge paperwork. Please review this list closely, and make note of any changes. Take your medications as instructed; do not skip a dose of your medicines. Make sure all of your doctors know every medicine you are taking (including [id number] medicines, vitamins, and supplements). Call your primary care provider before taking any new medicines (including over- the-counter medicines, vitamins, and supplements), because some of these may interact with your current medications, or may make your symptoms worse. Tell your primary care provider if you cannot afford your medications. CONTACT YOUR PRIMARY CARE PROVIDER if you experience any of the following: Worsening of symptoms Fever, chills, or fatigue Difficulty following your treatment plan, or difficulty taking medications CALL 911 OR GO TO THE EMERGENCY DEPARTMENT if you experience any of the follow ing: Sudden, severe abdominal pain or nausea/vomiting Severe chest pain, or chest pain that radiates (moves) to your jaw or arm Sudden, severe shortness of breath or difficulty breathing Thank you for allowing us to participate in your care. Pending Studies at Discharge: No Stand-Alone Forms: My [facility] [employer] [place], Smoking Cessation Medications and DC Order Prescriptions: New methylprednisolone 8 mg tablet 8 mg PO .per instructions Qty: 175 0RF Rx Instructions: Take 7 tabs from day 1-7 to reach 56 mg daily Take 6 tabs from day 8-14 to reach 48 mg daily Take 5 tabs from day 15-21 to reach 40 mg daily Take 4 tabs from day 22-28 to reach 32 mg daily Take 2 tabs from day 29-35 to reach 16 mg daily Take 1 tab from day 36-42 to reach 8 mg daily After this, STOP taking Methylprednisolone Continued ondansetron HCl 8 mg tablet 8 mg PO Q8H PRN (Reason: n/v) benzonatate 100 mg capsule 100 mg PO TID PRN (Reason: Cough) acetaminophen [Tylenol Extra Strength] 500 mg tablet 500 mg PO Q6H PRN (Reason: Pain) Rolaids Adv Antacid-[place] 1,000-200-40 mg tablet,chewable 1 tab PO DAILY PRN (Reason: Indigestion) oxycodone 5 mg tablet 5 mg PO UD PRN (Reason: Pain) Rx Instructions: usually takes in the morning and midday famotidine [Pepcid] 20 mg tablet 40 mg PO DAILY PRN (Reason: Indigestion) fluticasone propionate [Flonase Allergy Relief] 50 mcg/actuation spray,suspension 1 spray intranasal DAILY PRN (Reason: nasal congestion) Rx Instructions: administer into each nostril carvedilol 6.25 mg tablet 6.25 mg PO BID Rx Instructions: must administer with a meal/food cholecalciferol (vitamin D3) 25 mcg (1,000 unit) tablet 25 mcg PO DAILY sulfamethoxazole-trimethoprim [Bactrim DS] 800-160 mg tablet 1 tab PO UD Qty: 20 0RF Rx Instructions: one pill sunday, sunday, sunday prochlorperazine maleate 10 mg tablet 10 mg PO Q6H PRN (Reason: Nausea) gabapentin 100 mg capsule 300 mg PO HS Simbrinza 1-0.2 % drops,suspension 1 drp ophthalmic (eye) BID omeprazole 40 mg Capsule,Delayed Release(Dr/Ec) 40 mg PO DAILY amoxicillin 500 mg Tablet 500 mg PO UD PRN (Reason: dental appointments) Eliquis 5 mg tablet 2.5 mg PO BID Held methylprednisolone 16 mg tablet 6 mg PO UD Hold Instructions: Resume on 05/02/24. Hold until Methylprednisolone taper is completed or per PCP/Oncologist recommendations Patient Comments: tapering Rx Instructions: 10 mg po daily per the Discharge Orders: Discharge Order (Routine); Ordered 03/20/24 Ordered By: Bri Griffiths Admission Data Admit Date/Time: 03/18/24 12:46 Attending Provider: Liban Winn Admit Provider: Dagoberto Mccormack Primary Care Provider: Alfa Carcamo Other Providers: Dagoberto Mccormack; Deepthi Figueroa Other Interventions: Discharge Summary Assessment (RN) Last Done: 03/20/24 14:41 Supervising Physician Co-Signing Physician Notes Attending attestation Pt seen and examined in concert with Dr. Tunde Valdez. In agreement with the documented findings as noted in the resident documentation with any exceptions or additions as noted here. Essential resolution of diarrhea per patient without abdominal pain or nausea. Weakness has overall improved. Reports ongoing right hand swelling with improved functional utility. On examination, S1/S2 nl RRR no MCG. CTAB. Abd NT/ND BS+ve Pancolitis - C. diff negative - continue course of steroid taper as noted and follow with oncology for further discussion of ongoing treatment regimen. Mesothelioma - continue prophylactic TMP/SMX. Hold baseline steroids while completing burst. Open-angle glaucoma - no significant worsening on steroid therapy, continue to monitor. Else see resident documentation as noted. Total attending physician time spent with this patient's care on the day of discharge: 35 minutes.
[2024-03-20 14:42] VITALS: BP 109/69
[2024-03-21] MEDS ORDERED: methylPREDNISolone 4 MG TAB PO SCH (09:00)
[2024-03-21] MEDS ORDERED: predniSONE 20 MG TAB PO SCH (09:00)
[2024-03-28] MEDS ORDERED: methylPREDNISolone 4 MG TAB PO SCH (09:00)
[2024-04-11] MEDS ORDERED: methylPREDNISolone 4 MG TAB PO SCH (09:00)
[2024-04-18] MEDS ORDERED: methylPREDNISolone 4 MG TAB PO SCH (09:00)
[2024-04-25] MEDS ORDERED: methylPREDNISolone 4 MG TAB PO SCH (09:00)
== END 2024-03-20 15:39 | disposition home or self-care (01) | DRG 394 ==
LOC: ED 09:15 → SUATTDRO 12:46 → EDINP 12:46 → 3E 14:56

== ENCOUNTER 2024-05-15 13:23 | Inpatient (IN) ==
[2024-05-15] MEDS: SODIUM CHLORIDE 0.9% 1,000 ML IV SCH ×2 (14:28→17:23)
[2024-05-15 14:29] LABS: Hematocrit (blood only) 37.6 % (42.0-52.0); Hemoglobin 12.8 g/dl (14.0-18.0); Mean Corpuscular Hemoglobin 29.1 pg (25.0-34.0); Mean Corpuscular Volume 85.5 fL (80.0-100.0); Platelet Count 227 K/uL (130-400); RDW Coefficient of Variation 14.9 % (11.5-14.5); RDW Standard Deviation 46.7 fL (36.4-46.3); White Blood Count 7.42 K/ul (4.8-10.8)
--- NOTE | 2024-05-15 14:37 | XRay Report ---
XR chest 1V portable CLINICAL HISTORY: Sepsis COMPARISON STUDY: 03/16/2024 FINDINGS: Sepsis Findings: Single view portable chest demonstrates low lung volumes.. Nodular thickening of the left a pical pleural surfaces redemonstrated and appears progressive. Lung quiroz are otherwise clear. The h eart and pulmonary vascularity are unremarkable. There is no pleural effusion. IMPRESSION: Progressive, nodular, left apical pleural thickening ACT 112: Negative or not required by law. Electronically signed by: Oriana Breen M.D. 05/15/2024 2:34 PM
[2024-05-15 14:44] LABS: Alanine Aminotransferase 30 U/L (7-52); Albumin Level 3.6 gm/dl (3.4-5.0); Alkaline Phosphatase 78 U/L (34-104); Anion Gap 10 (3-11); Aspartate Aminotransferase 21 U/L (13-39); Bilirubin Direct 0.1 mg/dl (0-0.2); Bilirubin,Total 0.8 mg/dl (0.2-1.0); Blood Urea Nitrogen 56 mg/dl (6-23); Calcium 9.3 mg/dl (8.6-10.3); Carbon Dioxide 31 mmol/L (21-32); Chloride 93 mmol/L (98-107); Glucose 121 mg/dl (70-99(Fasting)); Magnesium 2.1 mg/dl (1.7-2.4); Potassium 3.7 mmol/L (3.5-5.1); Sodium 134 mmol/L (136-145); Total Protein 6.5 gm/dl (6.0-8.3)
[2024-05-15 14:48] LABS: Basophils # (auto) 0.01 K/uL (0.00-0.20); Basophils % (auto) 0.1 %; Immature Granulocytes # (auto) 0.09 K/uL (0.01-0.20); Immature Granulocytes % (auto) 1.2 %; Lymphocytes # (auto) 0.27 K/uL (1.20-3.40); Lymphocytes % (auto) 3.6 %; Monocytes # (auto) 0.11 K/uL (0.11-0.59); Monocytes % (auto) 1.5 %; Neutrophils # (auto) 6.94 K/uL (1.40-6.50); Neutrophils % (auto) 93.6 %
[2024-05-15 14:51] LABS: Troponin I High Sensitivity 17.4 pg/ml (0-20)
--- NOTE | 2024-05-15 14:52 | CT Scan Report ---
ABDOMEN AND PELVIS CT WITHOUT CONTRAST CT DOSE: 2260.01mGy*cm HISTORY: History of mesothelioma right flank and back pain TECHNIQUE: Multiaxial CT images of the abdomen and pelvis were performed without contrast. Sagittal and coronal reconstructions were done. A dose lowering technique was utilized adhering to the princip les of WILY. COMPARISON STUDY: 03/18/2024 FINDINGS: The patient has developed compression fractures of the superior endplates of T12 and L1 and this is accompanied by vacuum phenomenon within the adjacent disc spaces. There is also slight infer ior compression of the endplate of T11. There is no underlying bone lesion associated with these frac tures. The lung bases demonstrate new pleural-based nodules bilaterally. There is no new solid organ lesion identified. There is no obstructive uropathy. The gallbladder is a bsent. The bile ducts are not dilated. There is no aortic aneurysm or periaortic adenopathy. There is no bowel obstruction or free air. There is no colitis or diverticulitis. No ascites. In the pelvis, there is a tiny fat-containing umbilical hernia. There is no fluid in the cul-de-sac. Unopacified urinary bladder is unremarkable. The prostate gland is enlarged. There is fat containing inguinal hernias left greater than right. There is spray artifact from a right hip replacement. IMPRESSION: New onset of compression fractures at T11, T12, and L1. These appear to be osteoporotic r ather than metastatic. Findings suggestive of metastatic pleural implants in the lung bases bilaterally. Suspect mesotheliom a implants are present in the omentum as well. ACT 112: Negative or not required by law. The above report was generated using voice recognition software. It may contain grammatical, syntax o r spelling errors. Electronically signed by: Oriana Breen M.D. 05/15/2024 2:49 PM
--- NOTE | 2024-05-15 15:07 | CT Scan Report ---
CT thoracic spine wo con CLINICAL HISTORY: low thoracic back pain, hx mesothelioma COMPARISON STUDY: None TECHNIQUE: Helical axial CT of the thoracic spine was performed without intravenous contrast enhancem ent. Sagittal and coronal reconstructions were done. Total exam DLP 2260.01mGy*cm FINDINGS: There are no compression fractures involving the anterior endplate of T11 and the superior endplate of T12 and L1. These were described on the lumbar CT dictated separately. There is no signif icant retropulsion. There is no underlying bone lesion. They are presumptively osteoporotic. No addit ional spinal lesions are identified. There is pronounced spondylosis in the lower cervical spine was not completely evaluated. The patient has known progressive mesothelioma with new pleural implants no reuben in both lung bases and in the upper abdomen. IMPRESSION: Thoracolumbar compression fractures as described involving the inferior endplate of T11 and the superior endplates of T12 and L1 ACT 112: Negative or not required by law. Electronically signed by: Oriana Breen M.D. 05/15/2024 3:04 PM
[2024-05-15] MEDS: HYDROmorphone INJ 0.5 MG/0.5 ML SYR IV PRN (15:12)
[2024-05-15] MEDS: ONDANSETRON INJ 2 MG/ML 2 ML VIAL IV PRN (15:12)
--- NOTE | 2024-05-15 15:19 | History & Physical Report ---
Date of Service May 15, 2024 Assessment & Plan (1) Compression fx, thoracic spine: (2) Compression fx, lumbar spine: (3) FELISA (acute kidney injury): (4) Mesothelioma of lung: (5) Sacral wound: (6) Onychomycosis: Plan Patient is a 68-year-old male with a past medical history of mesothelioma currently undergoing chemotherapy treatment, CKD, GERD, PE August 2023, hypertension. He presented to the ED due to severe back pain for approximately 1 week causing ambulatory dysfunction. He was found to have osteopenic compression fractures of T11, T12, and L1 as well as an FELISA. #osteopenic thoracic/lumbar compression fractures AP CT showed compression fractures of T11, T12, and L1 suspected to be osteopenic vs metastatic pain uncontrolled with oxycodone at home low concern for cauda equina syndrome - defer MRI Calcium WNL 9.3, Vit D WNL 35.5 Dilaudid 0.5/1 Mg as needed PT/OT consulted fall precautions TLSO brace ordered for when ambulating consult oncology - concern may be malignancy related defer ortho spine consult as this time as no immediate need for surgical management continue Vit d supplement calcitonin nasal spray ordered #FELISA likely 2/2 volume depletion/ decreased po intake Cr increased from 1.32 to 2.15, BUN elevated to 56 indicating pre-renal cause clinically appears very dry electrolytes stable UA ordered post void bladder scan ordered given 1L NSS bolus in ED; continue with NSS at 100 mL/hour Avoid nephrotoxic agents trend BMP and mag #Mesothelioma Completed immunotherapy now receiving chemotherapy (1 dose) AP CT showed findings suggestive of metastatic pleural implants and bilateral lung bases as well as mesothelioma implants and omentum chemotherapy induced tounge numbness and decreased appetite Follows with CCP Dr. Figueroa - consulted He is currently working on tapering methylprednisolone, admission last day of 4 Mg, to transition to 2 Mg daily for 1 week on 05/16 - continue #sacral wound superficial finish course of Keflex - 7 days - started on 05/09 wound care consulted sacral wound precautions #onychomycosis follows with Everardo Cee - has appointment Friday 05/19 clotrimazole BID ordered Chronic stable diagnoses: anemia - Hgb 12.8, baseline, stable Hx PE - August 2023 - continue Eliquis open angle glaucoma - continue eye drops, steroid use worsening HTN - continue carvedilol Left arm numbness - chronic, continue gabapentin, noted to be 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 He presented to the ED due to severe back pain for approximately 1 week causing ambulatory dysfunction. He was found to have osteopenic compression fractures of T11, T12, and L1 as well as an FELISA. Patient seen at bedside with his present. He stated that he completed immunotherapy at the end of February and stopped this because of pancolitis. He was transition to chemotherapy and had his first dose last week. Ever since he has had worsening back pain, pain of his tongue, and decreased appetite. He feels as though he cannot get comfortable/sit. He endorses ambulatory dysfunction. He stated he also has been getting dizzy and lightheaded, specifically when in shower yesterday. The pain does not radiate it is in the center of his back, denies numbness or tingling. He denies bladder or bowel incontinence. His pain was unrelieved with oxycodone at home. He denies any falls or trauma to his spine. He stated when he was a teenager he did fall off a horse and had a brick wall injuring his spine but has had minimal issues since. Several years ago he did have injections of his L1 1, L2, and L3 for back pain. He stated he does have left arm numbness and his left arm is basically unusable but has been ongoing for the past 2 years. He does endorse chronic dyspnea and LE edema, unchanged. Patient denies fever, chills, chest pain, abdominal pain, nausea, vomiting, diarrhea, dysuria, hematuria. He has never had a DEXA scan. Patient's goal is to be able to ambulate better with the back pain. He is agreeable to PT/OT. He stated he is currently undergoing a course of Keflex for 7 days for a sacral wound that has been ongoing for "quite a while". He is to have a follow-up with care but has not yet arranged this. 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 Everardo Singh on Sunday for foot fungus that has been ongoing for several years. He does not use nicotine products or drink alcohol. He denies past history of DM. He did take his home medications today. He wishes to be full code. Noted from the ER staffregarding his blood pressure reading of 77/56, nursing took pressure over his sweatshirt. Once sweatshirt was removed pressure stabilized to 133/88. Allergies Allergy/AdvReac Type Severity Reaction Status Date / Time Sulfa (Sulfonamide Allergy Itching Verified 12/31/23 11:39 Antibiotics) prednisone AdvReac Unknown CONTINUAL Verified 12/31/23 11:39 HICCUPS Home Medications Medication Instructions Recorded Confirmed Type carvedilol 6.25 mg tablet 6.25 mg PO BID 12/11/19 05/15/24 History cholecalciferol (vitamin D3) 25 25 mcg PO DAILY 12/11/19 05/15/24 History mcg (1,000 unit) tablet acetaminophen 500 mg tablet 500 mg PO Q6H PRN Pain 10/11/22 05/15/24 History (Tylenol Extra Strength) calcium carb 1,000 mg-mag hydrox 1 tab PO DAILY PRN Indigestion 10/11/22 05/15/24 History 200 mg-simeth 40 mg chewable tablet (Rolaids Advanced Antacid Plus Anti-gas) famotidine 20 mg tablet (Pepcid) 40 mg PO DAILY PRN Indigestion 10/11/22 05/15/24 History fluticasone propionate 50 1 spray intranasal DAILY PRN nasal 10/11/22 05/15/24 History mcg/actuation nasal congestion spray,suspension (Flonase Allergy Relief) oxycodone 5 mg tablet 5 mg PO UD PRN Pain 10/11/22 05/15/24 History benzonatate 100 mg capsule 100 mg PO TID PRN Cough 08/29/23 05/15/24 History ondansetron HCl 8 mg tablet 8 mg PO Q8H PRN n/v 08/29/23 05/15/24 History methylprednisolone 16 mg tablet 2 mg PO DAILY 01/16/24 05/15/24 History amoxicillin 500 mg tablet 500 mg PO UD PRN dental 03/18/24 05/15/24 History appointments apixaban 5 mg tablet (Eliquis) 2.5 mg PO BID 03/18/24 05/15/24 History brinzolamide 1 %-brimonidine 0.2 % 1 drp ophthalmic (eye) BID 03/18/24 05/15/24 History eye drops,suspension (Simbrinza) gabapentin 100 mg capsule 300 mg PO HS 03/18/24 05/15/24 History omeprazole 40 mg capsule,delayed 40 mg PO DAILY 03/18/24 05/15/24 History release prochlorperazine maleate 10 mg 10 mg PO Q6H PRN Nausea 03/18/24 05/15/24 History tablet cephalexin 500 mg capsule 500 mg PO QID 05/15/24 05/15/24 History folic acid 1 mg tablet 1 mg PO HS 05/15/24 05/15/24 History furosemide 20 mg tablet 20 mg PO QAM 05/15/24 05/15/24 History latanoprost 0.005 % eye drops 1 drp ophthalmic (eye) PM 05/15/24 05/15/24 History netarsudil 0.02 % eye drops 1 drp OPB PM 05/15/24 05/15/24 History (Rhopressa) Past Med/Surg History Problem List (Updated 05/15/24 @ 17:45 by Kevon Vázquez MD) Acute kidney injury (Acute) Compression fracture of lumbar vertebra (Acute) Closed compression fracture of thoracic vertebra (Acute) Onychomycosis Sacral wound Mesothelioma of lung (Acute) Biopsy 09/14/22 FELISA (acute kidney injury) Compression fx, lumbar spine Compression fx, thoracic spine Pulmonary emboli (Acute) Paresthesia of upper extremity Cervical radicular pain Cervical spondylosis History of right hip replacement Eosinophilic esophagitis Medical History Weakness of left hand Hypertension Barretts esophagus Mesothelioma of left lung Shingles Schatzki's ring Rheumatic fever PVC (premature ventricular contraction) Plantar fasciitis Hoarseness Colon polyps Dyslipidemia Angina pectoris Cough Chronic kidney disease GERD (gastroesophageal reflux disease) Cardiomyopathy Surgical History History of total right hip replacement H/O right inguinal hernia repair History of cardiac cath Status post cholecystectomy S/P appy H/O esophagogastroduodenoscopy S/P colonoscopy Family History Mother , 79yo Mesothelioma Hypertension Father , 86yo Myocardial infarction History of open heart surgery Hypertension Diabetes Social History Smoking Status: Former smoker Tobacco Type: Cigars Cigarettes Per Day: Occassionally smoked a cigar; Second Hand Exposure: No; Do You Dip or Chew Tobacco: No; Hx Alcohol Use: No Hx Substance Use: No Preferred Language: Thai Communication Ability: Effective Visual Impairment: No Limitations Hearing Ability: Normal Adjunct Teacher Required: No Beliefs That Will Affect Care: None marital status: Current Living Situation: Spouse current occupational status: retired 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 Non-toxic appearing. HEENT- EOMI, mucous membranes dry. Hearing grossly intact. Heart-normal S1 and S2. No murmurs, rubs or gallops. Lungs-clear bilaterally, no respiratory distress, no accessory muscle use. Abdomen-normal bowel sounds and soft. No ascites noted. Non-tender. Extremities- no clubbing, cyanosis. +1 pitting edema bl ankles. Rheumatologic-normal range of motion. Psychiatric-normal affect. Musculoskeletal: no cyanosis or clubbing, extremities motor strength 5/5 straight leg test WNL BL toes with fungal presentation Skin: superficial sacral wound, soft pink color, no tissue exposure Results & Data Results & Data Vital Signs (Past 12 Hours) Vital Signs Temp Pulse Pulse Resp BP BP Pulse Ox 05/15/24 14:28 94 H 18 114/76 98 05/15/24 13:51 109/71 05/15/24 13:35 36.0 C L 95 H 20 77/56 L 98 O2 Del Method 05/15/24 14:28 Room Air 05/15/24 13:51 05/15/24 13:35 Room Air Laboratory Results Reviewed CBC, CMP, troponin, mag, lactate Diagnostic Findings Reviewed CXR, abdomen pelvis CT, lumbar spine CT, thoracic spine CT Medications Administered EDDilaudid 0.5 Mg IV, Zofran 4 Mg IV, 1L NSS bolus ECG Additional Comments: NSR Code Status & VTE Plan Code Status full code VTE Prophylaxis Plan VTE Prophylaxis will be ordered: Yes Supervising Physician Co-Signing Physician Notes I personally saw and examined the patient. I independently reviewed the labs, EKG, imaging, problem list, medication list, past medical history and family history. I verified all andre points and agree with Luzma Novak PA-C with the following exceptions and/or additions: 68-year-old male presents to the ER with severe back pain. Lumbar compression fractures noted on CT. No radicular pain or numbness. 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 TLSO brace. FELISA - suspect pre-renal with furosemide use and reduced oral intake. IV fluids overnight and repeat levels in AM. UA reassuring. Neuropathic pain - he reports this is has improved and he is weaning down gabapentin currently on 100 mg at night, weakness in his hand reportedly due to treatment from his shoulder and appears to be longstanding but progressively getting worse Dysphagia - follow up with GI for repeat EGD as outpatient PG Care Time/CCT Total # of Minutes Spent Total Time Spent with Patient: Total time spent is greater than 50% in coordination of care (as documented) at patient's floor/unit and/or counseling patient: Coding Level of Care Code 34468 INT INP/OBS CARE 3/75MIN Diagnoses Compression fx, thoracic spine S22.000A Compression fx, lumbar spine S32.000A FELISA (acute kidney injury) N17.9 Mesothelioma of lung C45.7 Sacral wound S31.000A Onychomycosis B35.1
--- NOTE | 2024-05-15 15:28 | CT Scan Report ---
CT lumbar spine wo con CLINICAL HISTORY: low back pain, hx mesothelioma COMPARISON STUDY: CT of the abdomen and pelvis March 18, 2024. TECHNIQUE: Axial images of the lumbar spine were obtained without IV contrast. Sagittal and coronal r eformats were viewed. Automated exposure control was utilized for the study. A dose lowering techniq ue was utilized adhering to the principles of ALARA. FINDINGS: There are compression fractures of the inferior endplate of T11 and superior endplates of T 12, L1 and L2. There is 30% loss of vertebral body height of T11, 40% loss of vertebral body height o f T12 and L1 and 20% loss of vertebral body height of L2. These fractures are new since CT of [facility] 2023. These fractures are subacute to acute. There is minimal retropulsion. No suspicious osseo us lesions are present. The abdomen and pelvis CT will be reported separately. There is severe multil evel disc space narrowing within the lumbar spine with moderate facet arthrosis. IMPRESSION: 1. T11, T12, L1 and L2 compression fractures which are new since CT of March 18, 2024. These favor osteoporotic compression fractures which are subacute to acute. 2. Moderate multilevel degenerative disc disease and facet arthrosis within the lumbar spine. 3. No evidence for metastatic disease within the lumbar spine by CT. ACT 112: Negative or not required by law. Electronically signed by: Salo Falk M.D. 05/15/2024 3:26 PM
[2024-05-15 17:07] LABS: Appearance Urine Clear (Clear); Bacteria Urine Automated None Seen (None Seen); Bilirubin Urine Negative (Negative); Blood Urine Negative (Negative); Color Urine Yellow; Epithelial Cell Urine Auto 0-2 /hpf (0-2); Glucose Urine UA Negative (Negative); Ketones Urine Negative (Negative); Leukocyte Esterase Urine Negative (Negative); Nitrite Urine Negative (Negative); Protein Urine Trace (Negative); RBC Urine Automated 0-2 /hpf (0-2); Urobilinogen Urine Negative (Negative); WBC Urine Automated 0-5 /hpf (0-5)
[2024-05-15] MEDS: cephALEXin 250 MG CAP PO ONE (17:22)
--- NOTE | 2024-05-15 17:45 | Emergency Department Note ---
Impression & Plan Closed compression fracture of thoracic vertebra, Mesothelioma of lung, Compression fracture of lumbar vertebra, Acute kidney injury ED Provider Note NAME: ROSA ADLER AGE: 68 SEX: Male INFORMANT: Patient and ED PROVIDER(S): Kevon Vázquez MD CHIEF COMPLAINT: Back pain PLAN: Disposition: Admitted Outpatient prescription management: none Referral: None MEDICAL DECISION MAKING: Patient presented because of back pain. His initial blood pressure was mildly low however this was taken with a sweatshirt on and nursing quickly rechecked it and it was normal. Patient was hydrated and blood work obtained. Due to his cancer history and significant back pain without signs of cord compression he was sent to CT for imaging. CT scan of the abdomen pelvis, thoracic and lumbar spines performed. Patient had multiple compression fractures that did not appear to be metastatic in nature per radiology. Patient was found to have acute kidney injury. Patient initially declined analgesia however was given Dilaudid and Zofran after imaging. Further evaluation and management in the hospital will be necessary. Consultation was made with Dr. Vamshi Brian of the [facility] service. Patient was evaluated in the ER for further management. Care/management discussed with: staff development coordinator Level of care consideration(s): After review of the information above and other included data, I feel the patient requires escalation of care to admission. Triage Nursing notes: reviewed and agree them. Vital Signs: reviewed and remarkable for no significant abnormalities Additional History obtained from: none Chronic Medical/Social Conditions affecting care: Mesothelioma Prior/ Outside/ External records reviewed: none Differential Diagnosis: Musculoskeletal, disc herniation, fracture, metastatic disease, cord compression, discitis, sciatica, cauda equina, infection, aortic disease, renal colic, gastrointestinal, as well as other pathologies. Diagnostics, independently interpreted by me: EC-lead ECG normal sinus rhythm [address] elevation or depression. LVH present. Cardiac Monitoring: Cardiac monitoring ordered by me: The patient was placed on continuous cardiac monitoring and observed. It revealed a normal sinus rhythm at 98 beats per minute without ectopy or evidence of dysrhythmia. Medical decision rules: none Imaging studies: Chest x-ray reveals left apical findings consistent with mesothelioma. CT scan of the abdomen and pelvis, lumbar and thoracic spines reveal compression fractures of T11, T12 and L1. HPI: 68 year old Male arrives for evaluation of severe back pain. This started to worsen 3 days ago and is noting to be going on for several weeks. The patient also notes the following associated symptoms, generalized weakness. Patient has a history of mesothelioma and did immunotherapy as well as chemotherapy. The patient has tried his oxycodone for relieving factors. Current pain is rated as 8/10. Patient denies any saddle anesthesia or bowel or bladder incontinence. Pt denies LOC, headache, fevers, chills, diaphoresis, visual changes, neck pain, chest pain, breathing difficulties, nausea, vomiting, abdominal pain, melena, hematochezia, urinary symptoms, numbness, lymphadenopathy, rash, or other complaints. PAST MEDICAL HISTORY: See Below, mesothelioma PAST SURGICAL HISTORY: See Below, SOCIAL HISTORY: See Below, HOME MEDICATIONS: See Below ALLERGIES: See Below VITALS: See Below PHYSICAL EXAMINATION: GENERAL: Awake, alert, uncomfortable-appearing, in no distress HENT: Normocephalic, atraumatic. Oropharynx unremarkable. EYES: Normal conjunctiva. Sclera non-icteric. NECK: Inspection normal. Non-tender. Supple. No nuchal rigidity. FROM. No masses. RESPIRATORY: Clear to auscultation. No wheezes. No rales. Normal respiratory effort. CARDIAC: Borderline tachycardic rate. Normal rhythm. No murmurs. No rubs. Extremities warm and well perfused. Pulses equal. No JVD. GI: Soft, non-distended. No tenderness to palpation. No rebound or guarding. No masses. RECTAL: Deferred. MUSCULOSKELETAL: Atraumatic. Chest examination reveals no tenderness. The back is kyphotic on inspection without obvious abnormality. There is no CVA tenderness to palpation. No joint edema. LOWER EXTREMITIES: Calves are equal size bilaterally and non-tender. No edema. No discoloration. NEURO: Normal sensorium. No sensory or motor deficits noted. SKIN: No rash or jaundice noted. PROCEDURES: none CRITICAL CARE: none OBSERVATION NOTE: none Past Med/Surg History Problem List (Updated 05/15/24 @ 17:45 by Kevon Vázquez MD) Acute kidney injury (Acute) Compression fracture of lumbar vertebra (Acute) Closed compression fracture of thoracic vertebra (Acute) Onychomycosis Sacral wound Mesothelioma of lung (Acute) Biopsy 09/14/22 FELISA (acute kidney injury) Compression fx, lumbar spine Compression fx, thoracic spine Pulmonary emboli (Acute) Paresthesia of upper extremity Cervical radicular pain Cervical spondylosis History of right hip replacement Eosinophilic esophagitis Medical History Weakness of left hand Hypertension Barretts esophagus Mesothelioma of left lung Shingles Schatzki's ring Rheumatic fever PVC (premature ventricular contraction) Plantar fasciitis Hoarseness Colon polyps Dyslipidemia Angina pectoris Cough Chronic kidney disease GERD (gastroesophageal reflux disease) Cardiomyopathy Surgical History History of total right hip replacement H/O right inguinal hernia repair History of cardiac cath Status post cholecystectomy S/P appy H/O esophagogastroduodenoscopy S/P colonoscopy Family History Mother , 79yo Mesothelioma Hypertension Father , 86yo Myocardial infarction History of open heart surgery Hypertension Diabetes Social History Smoking Status: Former smoker Tobacco Type: Cigars Cigarettes Per Day: Occassionally smoked a cigar; Second Hand Exposure: No; Do You Dip or Chew Tobacco: No; Hx Alcohol Use: No Hx Substance Use: No Preferred Language: Bhutanese Communication Ability: Effective Visual Impairment: No Limitations Hearing Ability: Normal 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 Beliefs That Will Affect Care: None marital status: Current Living Situation: Spouse current occupational status: retired 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[employer]; 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 How many Children do You have: 0 Feels Safe at Home: Yes Diet: regular caffeine: Yes (2-3 cups/day) during the past year weight has: decreased > 10 lbs Assistive Devices: None Allergies Allergies Allergy/AdvReac Type Severity Reaction Status Date / Time Sulfa (Sulfonamide Allergy Itching Verified 12/31/23 11:39 Antibiotics) prednisone AdvReac Unknown CONTINUAL Verified 12/31/23 11:39 HICCUPS Home Meds Home Medications Medication Instructions Recorded Confirmed carvedilol 6.25 mg tablet 6.25 mg PO BID 12/11/19 05/15/24 cholecalciferol (vitamin D3) 25 25 mcg PO DAILY 12/11/19 05/15/24 mcg (1,000 unit) tablet acetaminophen 500 mg tablet 500 mg PO Q6H PRN Pain 10/11/22 05/15/24 (Tylenol Extra Strength) calcium carb 1,000 mg-mag hydrox 1 tab PO DAILY PRN Indigestion 10/11/22 05/15/24 200 mg-simeth 40 mg chewable tablet (Rolaids Advanced Antacid Plus Anti-gas) famotidine 20 mg tablet (Pepcid) 40 mg PO DAILY PRN Indigestion 10/11/22 05/15/24 fluticasone propionate 50 1 spray intranasal DAILY PRN nasal 10/11/22 05/15/24 mcg/actuation nasal congestion spray,suspension (Flonase Allergy Relief) oxycodone 5 mg tablet 5 mg PO UD PRN Pain 10/11/22 05/15/24 benzonatate 100 mg capsule 100 mg PO TID PRN Cough 08/29/23 05/15/24 ondansetron HCl 8 mg tablet 8 mg PO Q8H PRN n/v 08/29/23 05/15/24 methylprednisolone 16 mg tablet 2 mg PO DAILY 01/16/24 05/15/24 amoxicillin 500 mg tablet 500 mg PO UD PRN dental 03/18/24 05/15/24 appointments apixaban 5 mg tablet (Eliquis) 2.5 mg PO BID 03/18/24 05/15/24 brinzolamide 1 %-brimonidine 0.2 % 1 drp ophthalmic (eye) BID 03/18/24 05/15/24 eye drops,suspension (Simbrinza) gabapentin 100 mg capsule 300 mg PO HS 03/18/24 05/15/24 omeprazole 40 mg capsule,delayed 40 mg PO DAILY 03/18/24 05/15/24 release prochlorperazine maleate 10 mg 10 mg PO Q6H PRN Nausea 03/18/24 05/15/24 tablet cephalexin 500 mg capsule 500 mg PO QID 05/15/24 05/15/24 Results & Data (ED) Vital Signs Vital Signs - 24 hr 05/15/24 13:35 05/15/24 13:51 05/15/24 14:28 Temperature 36.0 C L Temperature Source Temporal Artery Scan Pulse Rate 95 H Pulse Rate [Apical] 94 H Pulse Rhythm Regular Pulse Strength Normal Pulse Strength [Apical] Normal Respiratory Rate 20 18 Respiratory Effort / Characteristics Non-Labored Non-Labored Spontaneous Respiratory Depth Normal Normal Respiratory Pattern Regular Regular Blood Pressure 77/56 L Blood Pressure [Right Arm] 109/71 114/76 Blood Pressure Mean 63 Blood Pressure Mean [Right Arm] 83 88 Blood Pressure Position Sitting Blood Pressure Position [Right Arm] Lying Pulse Oximetry 98 98 Oxygen Delivery Method Room Air Room Air Sepsis Recent Fever Within 48 Hours No Sepsis New/Unexplained Change in Mental Status N/A Sepsis Action Taken by Nursing No Action Required 05/15/24 15:30 05/15/24 15:46 Temperature Temperature Source Pulse Rate 101 H Pulse Rate [Apical] 99 H Pulse Rhythm Pulse Strength Pulse Strength [Apical] Normal Respiratory Rate 17 Respiratory Effort / Characteristics Non-Labored Spontaneous Respiratory Depth Normal Respiratory Pattern Regular Blood Pressure Blood Pressure [Right Arm] 133/88 Blood Pressure Mean Blood Pressure Mean [Right Arm] 103 Blood Pressure Position Blood Pressure Position [Right Arm] Lying Pulse Oximetry 95 Oxygen Delivery Method Room Air Sepsis Recent Fever Within 48 Hours Sepsis New/Unexplained Change in Mental Status Sepsis Action Taken by Nursing Laboratory Data 05/15/24 14:00 05/15/24 14:00 Lab Results 05/15/24 Range/Units 14:00 WBC 7.42 (4.8-10.8) K/ul RBC 4.40 L (4.70-6.10) M/uL Hgb 12.8 L (14.0-18.0) g/dl Hct 37.6 L (42.0-52.0) % MCV 85.5 (80.0-100.0) fL MCH 29.1 (25.0-34.0) pg MCHC 34.0 (32.0-36.0) g/dL RDW Std Deviation 46.7 H (36.4-46.3) fL RDW Coeff of Nasreen 14.9 H (11.5-14.5) % Plt Count 227 (130-400) K/uL MPV 10.0 (9.4-12.4) fL Immature Gran % (Auto) 1.2 % Neut % (Auto) 93.6 % Lymph % (Auto) 3.6 % [place] % (Auto) 1.5 % Eos % (Auto) 0.0 % Baso % (Auto) 0.1 % Neut # (Auto) 6.94 H (1.40-6.50) K/uL Lymph # (Auto) 0.27 L (1.20-3.40) K/uL [place] # (Auto) 0.11 (0.11-0.59) K/uL Eos # (Auto) 0.00 (0.00-0.50) K/uL Baso # (Auto) 0.01 (0.00-0.20) K/uL Immature Gran # (Auto) 0.09 (0.01-0.20) K/uL Sodium 134 L (136-145) mmol/L Potassium 3.7 (3.5-5.1) mmol/L Chloride 93 L (98-107) mmol/L Carbon Dioxide 31 (21-32) mmol/L Anion Gap 10 (3-11) BUN 56 H (6-23) mg/dl Creatinine 2.15 H (0.6-1.4) mg/dl Est Cr Clr Drug Dosing Not Reportable eGFR 32.31 BUN/Creatinine Ratio 26.0 H (10-20) Glucose 121 H (70-99(Fasting)) mg/dl Lactate 2.0 (0.4-2.0) mmol/L Calcium 9.3 (8.6-10.3) mg/dl Magnesium 2.1 (1.7-2.4) mg/dl Total Bilirubin 0.8 (0.2-1.0) mg/dl Direct Bilirubin 0.1 (0-0.2) mg/dl AST 21 (13-39) U/L ALT 30 (7-52) U/L Alkaline Phosphatase 78 (34-104) U/L Troponin I High Sens 17.4 (0-20) pg/ml Total Protein 6.5 (6.0-8.3) gm/dl Albumin 3.6 (3.4-5.0) gm/dl 25-OH Vitamin D Total 35.5 (30-100) ng/ml Procalcitonin 0.47 (0-0.5) ng/ml Administered Medications Sodium Chloride (Nss) 1,000 mls @ 100 mls/hr IV .Q10H JUAN C Stop: 05/16/24 16:14 Last Admin: 05/15/24 17:23 Dose: 100 mls/hr Documented By: SNS Discontinued Medications Cephalexin HCl (Cephalexin 250 Mg Cap) 500 mg PO NOW ONE; Protocol Stop: 05/15/24 16:48 Last Admin: 05/15/24 17:22 Dose: 500 mg Documented By: THEA Hydromorphone HCl (Hydromorphone Inj 0.5 Mg/0.5 Ml Syr) 0.5 mg IV Q15M PRN PRN Reason: Pain Stop: 05/29/24 14:07 Last Admin: 05/15/24 15:12 Dose: 0.5 mg Documented By: THEA Sodium Chloride (Nss) 1,000 mls @ 999 mls/hr IV .Q1H1M JUAN C Stop: 05/15/24 15:00 Last Infusion: 05/15/24 15:34 Dose: Infused Documented By: Admin: 05/15/24 14:28 Dose: 999 mls/hr Documented By: THEA Ondansetron HCl (Ondansetron Inj 2 Mg/Ml 2 Ml Vial) 4 mg IV Q4H PRN PRN Reason: Nausea Stop: 06/14/24 14:07 Last Admin: 05/15/24 15:12 Dose: 4 mg Documented By: THEA Imaging Data Radiologist's Impression: Chest X-Ray 05/15/24 13:49 XR chest 1V portable CLINICAL HISTORY: Sepsis COMPARISON STUDY: 03/16/2024 FINDINGS: Sepsis Findings: Single view portable chest demonstrates low lung volumes.. Nodular thickening of the left apical pleural surfaces redemonstrated and appears progressive. Lung quiroz are otherwise clear. The heart and pulmonary vascularity are unremarkable. There is no pleural effusion. IMPRESSION: Progressive, nodular, left apical pleural thickening ACT 112: Negative or not required by law. Electronically signed by: Oriana Breen M.D. 05/15/2024 2:34 PM Abdomen/Pelvis CT 05/15/24 14:[address] WITHOUT CONTRAST CT DOSE: 2260.01mGy*cm HISTORY: History of mesothelioma right flank and back pain TECHNIQUE: Multiaxial CT images of the abdomen and pelvis were performed without contrast. Sagittal and coronal reconstructions were done. A dose lowering technique was utilized adhering to the principles of ALARA. COMPARISON STUDY: 03/18/2024 FINDINGS: The patient has developed compression fractures of the superior endplates of T12 and L1 and this is accompanied by vacuum phenomenon within the adjacent disc spaces. There is also slight inferior compression of the endplate of T11. There is no underlying bone lesion associated with these fractures. The lung bases demonstrate new pleural-based nodules bilaterally. There is no new solid organ lesion identified. There is no obstructive uropathy. The gallbladder is absent. The bile ducts are not dilated. There is no aortic aneurysm or periaortic adenopathy. There is no bowel obstruction or free air. There is no colitis or diverticulitis. No ascites. In the pelvis, there is a tiny fat-containing umbilical hernia. There is no fluid in the cul-de-sac. Unopacified urinary bladder is unremarkable. The prostate gland is enlarged. There is fat containing inguinal hernias left greater than right. There is spray artifact from a right hip replacement. IMPRESSION: New onset of compression fractures at T11, T12, and L1. These appear to be osteoporotic rather than metastatic. Findings suggestive of metastatic pleural implants in the lung bases bilaterally. Suspect mesothelioma implants are present in the omentum as well. ACT 112: Negative or not required by law. The above report was generated using voice recognition software. It may contain grammatical, syntax or spelling errors. Electronically signed by: Oriana Breen M.D. 05/15/2024 2:[address] 05/15/24 14:07 CT lumbar spine wo con CLINICAL HISTORY: low back pain, hx mesothelioma COMPARISON STUDY: CT of the abdomen and pelvis March 18, 2024. TECHNIQUE: Axial images of the lumbar spine were obtained without IV contrast. Sagittal and coronal reformats were viewed. Automated exposure control was utilized for the study. A dose lowering technique was utilized adhering to the principles of ALARA. FINDINGS: There are compression fractures of the inferior endplate of T11 and superior endplates of T12, L1 and L2. There is 30% loss of vertebral body height of T11, 40% loss of vertebral body height of T12 and L1 and 20% loss of vertebral body height of L2. These fractures are new since CT of March 18, 2024. These fractures are subacute to acute. There is minimal retropulsion. No suspicious osseous lesions are present. The abdomen and pelvis CT will be reported separately. There is severe multilevel disc space narrowing within the lumbar spine with moderate facet arthrosis. IMPRESSION: 1. T11, T12, L1 and L2 compression fractures which are new since CT of March 18, 2024. These favor osteoporotic compression fractures which are subacute to acute. 2. Moderate multilevel degenerative disc disease and facet arthrosis within the lumbar spine. 3. No evidence for metastatic disease within the lumbar spine by CT. ACT 112: Negative or not required by law. Electronically signed by: Salo Falk M.D. 05/15/2024 3:[address] 05/15/24 14:08 CT thoracic spine wo con CLINICAL HISTORY: low thoracic back pain, hx mesothelioma COMPARISON STUDY: None TECHNIQUE: Helical axial CT of the thoracic spine was performed without intravenous contrast enhancement. Sagittal and coronal reconstructions were done. Total exam DLP 2260.01mGy*cm FINDINGS: There are no compression fractures involving the anterior endplate of T11 and the superior endplate of T12 and L1. These were described on the lumbar CT dictated separately. There is no significant retropulsion. There is no underlying bone lesion. They are presumptively osteoporotic. No additional spinal lesions are identified. There is pronounced spondylosis in the lower cervical spine was not completely evaluated. The patient has known progressive mesothelioma with new pleural implants noted in both lung bases and in the upper abdomen. IMPRESSION: Thoracolumbar compression fractures as described involving the inferior endplate of T11 and the superior endplates of T12 and L1 ACT 112: Negative or not required by law. Electronically signed by: Oriana Breen M.D. 05/15/2024 3:04 PM Discharge Plan Visit Data Chief Complaint: Back Injury/Pain Stated Complaint: POST CHEMO SIDE EFFECTS BACK PAIN ED Provider: Kevon Vázquez Discharge Problem: Closed compression fracture of thoracic vertebra, Mesothelioma of lung, Compression fracture of lumbar vertebra, Acute kidney injury Patient Disposition: Admitted As Inpatient Discharge Instructions Interventions: ED Discharge Assessment Last Done: 05/15/24 18:28
--- NOTE | 2024-05-15 17:56 | Electrocardiogram Report ---
Test Reason : Blood Pressure : */* mmHG Vent. Rate : 91 BPM Atrial Rate : 91 BPM P-R Int : 146 ms QRS Dur : 104 ms QT Int : 362 ms P-R-T Axes : 32 -5 50 degrees QTcB Int : 445 ms Normal sinus rhythm Minimal voltage criteria for LVH, may be normal variant Borderline ECG When compared with ECG of 18-Mar-2024 09:37, Premature supraventricular complexes are no longer Present Confirmed by Liban Veras ([id number]) on 05/15/2024 5:56:40 PM Referred By: Confirmed By: Liban Veras
[2024-05-15] MEDS ORDERED: ACETAMINOPHEN 325 MG TAB PO PRN (18:28)
[2024-05-15] MEDS ORDERED: HYDROmorphone INJ 1 MG/ML SYRINGE IV PRN (18:28)
[2024-05-15] MEDS ORDERED: DOCUSATE SODIUM 100 MG CAP PO PRN (18:28)
[2024-05-15] MEDS ORDERED: HYDROmorphone INJ 0.5 MG/0.5 ML SYR IV PRN (18:28)
[2024-05-15] MEDS ORDERED: MELATONIN 3 MG TAB PO PRN (18:28)
[2024-05-15] MEDS ORDERED: ONDANSETRON INJ 2 MG/ML 2 ML VIAL IV PRN (18:28)
[2024-05-15] MEDS ORDERED: FAMOTIDINE 20 MG TAB PO PRN (18:33)
--- NOTE | 2024-05-15 18:35 | Oncology Consultation ---
Date of Consultation May 15, 2024 Assessment & Plan (1) Sacral wound: (2) Compression fracture of lumbar vertebra: (3) Acute kidney injury: (4) Closed compression fracture of thoracic vertebra: Plan -Presented with back pain due to thoracic/lumbar spine compression fractures. Fractures likely osteoporotic based on imaging as well as clinical history. Mesothelioma does not typically metastasized to the bone. He has been on steroids for a long time which probably increased risk of osteoporosis. Plan to obtain outpatient DEXA scan and will start him on denosumab/bisphosphonate upon discharge from hospital. Agree with pain management. May need evaluation by spine/orthopedic surgery if pain persists -FELISA likely due to dehydration, recent cisplatin use. Agree with IV hydration -He has oral thrush, recommend treatment for this. Thank you for this consult. Will continue following patient while in the hospital. Please feel free to call if you have any further questions. History of Present Illness Reason for Consultation: Compression fracture, mesothelioma Attending Physician: Vamshi Brian MD History of Present Illness 68-year-old gentleman with metastatic mesothelioma for which he had previously been on immunotherapy treatment which was discontinued in February, due to ICI colitis. Recently received cycle 1 of chemotherapy with cisplatin/pemetrexed on 05/09/2024. He presented to the ER with generalized weakness and back pain. CT abdomen pelvis on 05/15/2024 revealed new onset compression fractures at T11, T12 and L1 as well as findings suggestive of metastatic pleural implants in the lung bases bilaterally as well as suspected mesothelioma implants in the omentum wall. CT thoracic/lumbar spine revealed T11, T12, L1 and L2 compression fractures favoring osteoporotic compression fractures which are subacute/acute Allergies Allergy/AdvReac Type Severity Reaction Status Date / Time Sulfa (Sulfonamide Allergy Itching Verified 12/31/23 11:39 Antibiotics) prednisone AdvReac Unknown CONTINUAL Verified 12/31/23 11:39 HICCUPS Home Medications Medication Instructions Recorded Confirmed Type carvedilol 6.25 mg tablet 6.25 mg PO BID 12/11/19 05/15/24 History cholecalciferol (vitamin D3) 25 25 mcg PO DAILY 12/11/19 05/15/24 History mcg (1,000 unit) tablet acetaminophen 500 mg tablet 500 mg PO Q6H PRN Pain 10/11/22 05/15/24 History (Tylenol Extra Strength) calcium carb 1,000 mg-mag hydrox 1 tab PO DAILY PRN Indigestion 10/11/22 05/15/24 History 200 mg-simeth 40 mg chewable tablet (Rolaids Advanced Antacid Plus Anti-gas) famotidine 20 mg tablet (Pepcid) 40 mg PO DAILY PRN Indigestion 10/11/22 05/15/24 History fluticasone propionate 50 1 spray intranasal DAILY PRN nasal 10/11/22 05/15/24 History mcg/actuation nasal congestion spray,suspension (Flonase Allergy Relief) oxycodone 5 mg tablet 5 mg PO UD PRN Pain 10/11/22 05/15/24 History benzonatate 100 mg capsule 100 mg PO TID PRN Cough 08/29/23 05/15/24 History ondansetron HCl 8 mg tablet 8 mg PO Q8H PRN n/v 08/29/23 05/15/24 History methylprednisolone 16 mg tablet 2 mg PO DAILY 01/16/24 05/15/24 History amoxicillin 500 mg tablet 500 mg PO UD PRN dental 03/18/24 05/15/24 History appointments apixaban 5 mg tablet (Eliquis) 2.5 mg PO BID 03/18/24 05/15/24 History brinzolamide 1 %-brimonidine 0.2 % 1 drp ophthalmic (eye) BID 03/18/24 05/15/24 History eye drops,suspension (Simbrinza) gabapentin 100 mg capsule 300 mg PO HS 03/18/24 05/15/24 History omeprazole 40 mg capsule,delayed 40 mg PO DAILY 03/18/24 05/15/24 History release prochlorperazine maleate 10 mg 10 mg PO Q6H PRN Nausea 03/18/24 05/15/24 History tablet cephalexin 500 mg capsule 500 mg PO QID 05/15/24 05/15/24 History Patient History Medical History Weakness of left hand Hypertension Barretts esophagus Mesothelioma of left lung Shingles Schatzki's ring Rheumatic fever PVC (premature ventricular contraction) Plantar fasciitis Hoarseness Colon polyps Dyslipidemia Angina pectoris Cough Chronic kidney disease GERD (gastroesophageal reflux disease) Cardiomyopathy Surgical History History of total right hip replacement H/O right inguinal hernia repair History of cardiac cath Status post cholecystectomy S/P appy H/O esophagogastroduodenoscopy S/P colonoscopy Family History Mother , 79yo Mesothelioma Hypertension Father , 86yo Myocardial infarction History of open heart surgery Hypertension Diabetes Social History Smoking Status: Former smoker Tobacco Type: Cigars Cigarettes Per Day: Occassionally smoked a cigar; Second Hand Exposure: No; Do You Dip or Chew Tobacco: No; Hx Alcohol Use: No Hx Substance Use: No Preferred Language: Taiwanese Communication Ability: Effective Visual Impairment: No Limitations Hearing Ability: Normal 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 Beliefs That Will Affect Care: None marital status: Current Living Situation: Spouse current occupational status: retired 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[employer]; 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 How many Children do You have: 0 Feels Safe at Home: Yes Diet: regular caffeine: Yes (2-3 cups/day) during the past year weight has: decreased > 10 lbs Assistive Devices: None Results & Data Vital Signs (Past 12 Hours) Vital Signs Temp Pulse Pulse Resp BP BP Pulse Ox 05/15/24 17:00 104 H 14 115/83 97 05/15/24 16:30 100 H 17 116/81 93 05/15/24 15:46 101 H 05/15/24 15:30 99 H 17 133/88 95 05/15/24 14:28 94 H 18 114/76 98 05/15/24 13:51 109/71 05/15/24 13:35 36.0 C L 95 H 20 77/56 L 98 O2 Del Method 05/15/24 17:00 Room Air 05/15/24 16:30 Room Air 05/15/24 15:46 05/15/24 15:30 Room Air 05/15/24 14:28 Room Air 05/15/24 13:51 05/15/24 13:35 Room Air
[2024-05-15] MEDS: CLOTRIMAZOLE 1% CR 15 GM TUBE EXT ONE (19:21)
[2024-05-15] MEDS ORDERED: oxyCODONE HCL IR 5 MG TAB (IMMEDIATE RELEASE) PO PRN ×2 (20:23)
[2024-05-15] MEDS ORDERED: FLUTICASONE PROPIONATE NA SPR 16 GM BTL NAE PRN (20:45)
[2024-05-15] MEDS ORDERED: NYSTATIN 500,000 UNIT TAB PO SCH (21:00)
[2024-05-15] MEDS ORDERED: NETARSUDIL 0.02% OPB SCH (21:00)
[2024-05-15] MEDS ORDERED: LATANOPROST 0.005% OP SOLN 2.5 ML BTL OP SCH (21:00)
[2024-05-15] MEDS ORDERED: GABAPENTIN 300 MG CAP PO SCH (21:00)
[2024-05-15] MEDS: APIXABAN 2.5 MG TAB PO SCH (21:38)
[2024-05-15] MEDS: carvediloL 6.25 MG TAB PO SCH (21:38)
[2024-05-15] MEDS: cephALEXin 500 MG CAP PO SCH (21:41)
[2024-05-15] MEDS: CALCITONIN SALMON NA 200 IU/AC 3.7 ML BTL SCH (21:49)
[2024-05-15] MEDS: GABAPENTIN 100 MG CAP PO SCH (21:54)
[2024-05-15] MEDS: FOLIC ACID 1 MG TAB PO SCH (21:54)
[2024-05-15] MEDS: ACETAMINOPHEN 500 MG TAB PO SCH (21:55)
[2024-05-15] MEDS: NYSTATIN SUSP 500,000 U/5 ML UDC MT SCH (22:31)
[2024-05-16 04:58] LABS: Hematocrit (blood only) 31.3 % (42.0-52.0); Hemoglobin 10.7 g/dl (14.0-18.0); Immature Granulocytes # (auto) 0.04 K/uL (0.01-0.20); Immature Granulocytes % (auto) 0.8 %; Lymphocytes # (auto) 0.32 K/uL (1.20-3.40); Lymphocytes % (auto) 6.5 %; Mean Corpuscular Hemoglobin 29.8 pg (25.0-34.0); Mean Corpuscular Hgb Conc 34.2 g/dL (32.0-36.0); Mean Corpuscular Volume 87.2 fL (80.0-100.0); Mean Platelet Volume 10.6 fL (9.4-12.4); Monocytes # (auto) 0.16 K/uL (0.11-0.59); Monocytes % (auto) 3.2 %; Neutrophils # (auto) 4.44 K/uL (1.40-6.50); Neutrophils % (auto) 89.5 %; Platelet Count 181 K/uL (130-400); RDW Coefficient of Variation 14.8 % (11.5-14.5); RDW Standard Deviation 47.9 fL (36.4-46.3); Red Blood Count 3.59 M/uL (4.70-6.10); White Blood Count 4.96 K/ul (4.8-10.8)
[2024-05-16 05:10] LABS: BUN Creatinine Ratio 23.8 (10-20); Creatinine Clr Calc Pharmacy 36.2 ml/min; Magnesium 1.8 mg/dl (1.7-2.4); Potassium 2.7 mmol/L (3.5-5.1)
[2024-05-16] MEDS ORDERED: CHOLECALCIFEROL 25 MCG (1000 UNITS) TAB PO SCH (09:00)
[2024-05-16] MEDS ORDERED: CALCITONIN SALMON NA 200 IU/AC 3.7 ML BTL SCH (09:00)
[2024-05-16] MEDS: PANTOprazole 40 MG TAB PO SCH (10:02)
[2024-05-16] MEDS: POTASSIUM CHLORIDE CRTAB 20 MEQ TABCR PO STA (10:02)
[2024-05-16] MEDS: MAGNESIUM SULFATE / D5W 1 GM/100 ML BAG IV ONE (10:02)
[2024-05-16] MEDS: CHOLECALCIFEROL 125 MCG (5,000 UNITS) TAB PO SCH (10:02)
[2024-05-16] MEDS: methylPREDNISolone 4 MG TAB PO SCH (10:40)
[2024-05-16 13:25] LABS: BUN Creatinine Ratio 21.9 (10-20); Calcium 8.2 mg/dl (8.6-10.3); Creatinine Clr Calc Pharmacy 36.4 ml/min; Magnesium 2.2 mg/dl (1.7-2.4); Potassium 3.2 mmol/L (3.5-5.1)
[2024-05-16] MEDS ORDERED: POLYETHYLENE (MIRALAX) 17 GM PACK PO PRN (17:43)
[2024-05-16] MEDS ORDERED: SENNA 8.6 MG TAB PO PRN (17:43)
--- NOTE | 2024-05-16 18:03 | Hospitalist Progress Note ---
Date of Service May 16, 2024 Assessment & Plan (1) Compression fx, thoracic spine: (2) Compression fx, lumbar spine: (3) FELISA (acute kidney injury): (4) Mesothelioma of lung: (5) Sacral wound: (6) Onychomycosis: Plan 68-year-old man with metastatic mesothelioma currently undergoing chemotherapy treatment, CKD, PE August 2023, hypertension. He presented to the ED due to severe back pain for approximately 1 week causing ambulatory dysfunction. He was found to have osteopenic compression fractures of T11, T12, and L1 as well as an FELISA. # pathologic osteoporotic thoracic and lumbar compression fractures - acute to subacute, with significant increase in pain over the last week. no significant retropulsion on CT T and L-spine consulted oncology, reviewed recommendations mesothelioma very uncommonly metastasizes to bone so these are felt to be osteoporotic fractures - continue scheduled acetaminophen and we will schedule the oxycodone 5 mg 4 times a day since he is not being given it despite significant pain with mobility - reduced gabapentin to 100 mg HS - has caused excessive grogginess - Nasal calcitonin for 1 month - continue oral vitamin D for low normal vitamin D level, he will follow-up with Dr. Figueroa for osteoporosis treatment - PT recommended outpatient PT for his left arm weakness, OT recommended home health OT - TLSO brace was fitted today by prosthetics - can consult orthospine if pain is refractory however I think that is unlikely - I discussed the plan of care with the patient and his this evening they do not feel like he is strong enough or steady enough for return home. his is interested in a rehab stay to improve his strength and stability. we will work on his pain control and have hopefully another physical therapy evaluation tomorrow # FELISA on CKD-3, baseline Cr 1-1.4. Appeared dehydrated on admission -may be related to prerenal injury, volume depletion, recent chemotherapy -improved from 2.15 -->2.0 after IV fluids. Has had reasonably good UOP -replaced hypokalemia po. 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 Possible omental implant noted on current CT, however no abdominal signal on PET-CT - previously on immunotherapy, started chemo few weeks ago (cisplatin). chemotherapy induced tounge numbness and decreased appetite -tapering methylprednisolone, admission last day of 4 Mg, to transition to 2 Mg daily for 1 week on 05/16 - continue - follow up with Dr. Figueroa, reviewed recs in her note #sacral wound superficial finish course of Keflex - 7 days - started on 05/09 wound care consulted sacral wound precautions #onychomycosis follows with Everardo Cee - has appointment Friday 05/19 clotrimazole BID ordered Chronic stable diagnoses: anemia - related to malignancy and antineoplastic chemotherapy - Hgb 10.7 after expected dilutional drop Hx PE - August 2023 - continue Eliquis open angle glaucoma - continue eye drops, steroid use worsening HTN - continue carvedilol GERD - continue PPI VTE ppx: Eliquis d/c tele anticipate home with , pending another ambulation trial/PT session and better pain control Admission and Anticipated Discharge Date Admission Date: May 15, 2024 Rakan Eli does have mid and lower back pain unclear to me when this started however near [place] he and his moved a 100 pound package that contained the treadmill and he did have increased pain after that he feels generally weak and unsteady he does not have any numbness of his groin perineum or lower extremities, there is no radiation of his back pain down either extremity or around his trunk today he did relatively well with PT OT however he feels that his mobility is impacted by pain, however, he has not been given any as needed pain medications except for acetaminophen Physical Exam 2 Physical Exam: PHYSICAL EXAMINATION Last 24h vital signs reviewed, see documentation in flowsheet General: comfortable appearing, no distress, sitting on the edge of the bed HEENT: Normocephalic, atraumatic, pupils round and equal, sclerae anicteric, no conjunctival injection, moist mucus membranes, cushingoid appearance Lungs: normal work of breathing Heart: deferred Abdomen: nondistended Extremities: Warm, dry, well-perfused. No extremity edema. sarcopenia Neuro: Alert and oriented x 4, face symmetric, left upper extremity weakness and high tone, he is able to stand unassisted but gait is unsteady with turning Psych: Normal affect and behavior Results & Data Results & Data Vital Signs (Past 12 Hours) Vital Signs Temp Pulse Pulse Pulse Resp BP BP 05/16/24 14:10 92 H 05/16/24 13:00 86 05/16/24 12:22 98.4 F 86 18 116/74 05/16/24 12:00 83 20 143/98 H 05/16/24 09:30 94 H 16 126/67 05/16/24 06:53 92 H Pulse Ox O2 Del Method 05/16/24 14:10 05/16/24 13:00 05/16/24 12:22 96 Room Air 05/16/24 12:00 96 Room Air 05/16/24 09:30 96 Room Air 05/16/24 06:53 Laboratory Results 05/16/24 04:21 05/16/24 12:45 PG Care Time/CCT Total # of Minutes Spent Total Time Spent with Patient: Total time spent is greater than 50% in coordination of care (as documented) at patient's floor/unit and/or counseling patient: Coding Level of Care Code 92828 SUB INP/OBS CARE 3/50MIN Diagnoses Compression fx, thoracic spine S22.000A Compression fx, lumbar spine S32.000A FELISA (acute kidney injury) N17.9 Mesothelioma of lung C45.7 Sacral wound S31.000A Onychomycosis B35.1
[2024-05-16] MEDS: POTASSIUM CHLORIDE CRTAB 20 MEQ TABCR PO ONE (18:30)
[2024-05-16] MEDS: oxyCODONE HCL IR 5 MG TAB (IMMEDIATE RELEASE) PO SCH (18:31)
[2024-05-17 09:16] LABS: Hematocrit (blood only) 31.7 % (42.0-52.0); Hemoglobin 10.8 g/dl (14.0-18.0); Immature Granulocytes # (auto) 0.05 K/uL (0.01-0.20); Immature Granulocytes % (auto) 1.2 %; Lymphocytes # (auto) 0.25 K/uL (1.20-3.40); Lymphocytes % (auto) 6.1 %; Mean Corpuscular Hemoglobin 29.9 pg (25.0-34.0); Mean Corpuscular Hgb Conc 34.1 g/dL (32.0-36.0); Mean Corpuscular Volume 87.8 fL (80.0-100.0); Mean Platelet Volume 10.5 fL (9.4-12.4); Monocytes % (auto) 4.9 %; Neutrophils # (auto) 3.59 K/uL (1.40-6.50); Neutrophils % (auto) 87.8 %; Platelet Count 161 K/uL (130-400); RDW Coefficient of Variation 15.2 % (11.5-14.5); Red Blood Count 3.61 M/uL (4.70-6.10); White Blood Count 4.09 K/ul (4.8-10.8)
[2024-05-17 09:28] LABS: Calcium 8.4 mg/dl (8.6-10.3); Potassium 3.3 mmol/L (3.5-5.1)
[2024-05-17 09:33] LABS: Creatinine Clr Calc Pharmacy 36.6 ml/min
[2024-05-17 11:46] VITALS: RESP 16
[2024-05-17] MEDS: POTASSIUM CHLORIDE CRTAB 20 MEQ TABCR PO ONE (12:04)
[2024-05-17 15:39] VITALS: PULSE 80; TEMP 98.1; O2SAT 96
[2024-05-17 17:33] VITALS: BP 99/67
--- NOTE | 2024-05-17 19:51 | Discharge Summary ---
Discharge Summary Date of Service May 17, 2024 Principal Dx & Hospital Course #1 = Principal Diagnosis (1) Compression fx, thoracic spine: (2) Compression fx, lumbar spine: (3) FELISA (acute kidney injury): (4) Mesothelioma of lung: (5) Sacral wound: (6) Onychomycosis: Plan 68-year-old man with metastatic mesothelioma currently undergoing chemotherapy treatment, CKD, PE August 2023, hypertension. He presented to the ED due to severe back pain for approximately 1 week causing ambulatory dysfunction. He was found to have osteopenic compression fractures of T11, T12, and L1 as well as an FELISA. # pathologic osteoporotic thoracic and lumbar compression fractures - acute to subacute, with significant increase in pain over the last week. no significant retropulsion on CT T and L-spine consulted oncology, reviewed recommendations mesothelioma very uncommonly metastasizes to bone so these are felt to be osteoporotic fractures pain was controlled with scheduled acetaminophen and as needed oxycodone, TLSO brace was provided, he worked with physical therapy 05/16 in 05/17 and did well, they declined home health for OT - continue scheduled acetaminophen and he has plenty of oxycodone probably will need to use 4 or 5 doses a day, we discussed long-acting pain medication for nighttime but he is hesitant and he has follow-up with Dr. Dixon on Sunday and will discuss with her - reduced gabapentin to 100 mg HS as needed - higher dose caused excessive grogginess a did not seem to improve his symptoms - Nasal calcitonin for 1 month - continue oral vitamin D at increased dose for low normal vitamin D level, he will follow-up with Dr. Figueroa for osteoporosis treatment # FELISA on CKD-3, baseline Cr 1-1.4. Appeared dehydrated on admission -may be related to prerenal injury, volume depletion, recent chemotherapy -improved from 2.15 -->2.0 after IV fluids, unchanged at 2.0 overnight. Has had reasonably good UOP. [place]atum was 1% which is indeterminant - recommend BMP and magnesium check therapy # hypokalemiarelated to low oral intake it was 2.7. Replaced. 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 Possible omental implant noted on current CT, however no abdominal signal on PET-CT - previously on immunotherapy, started chemo few weeks ago (cisplatin). chemotherapy induced tounge numbness and decreased appetite -tapering methylprednisolone, currently on 2 mg daily for 1 more week - follow up with Dr. Figueroa # poor oral intakeadvised he have a protein shake once or optimally twice a day, multivitamin # treating oral thrush with nystatin # hypertensionhe was normal to low normal blood pressure on his current dose of carvedilol, I reduced the dose to 3.125 mg twice daily, he may feel better on this. It may need to be discontinued as his cancer progresses oral intake is poor and he is losing weight/muscle mass #sacral wound superficial finish course of Keflex - 7 days - started on 05/09 wound care consulted continue wound care #onychomycosis follows with Everardo Cee - has appointment Friday 05/19 doubt he would be a candidate for oral treatment with his ongoing chemotherapy Chronic stable diagnoses: anemia - related to malignancy and antineoplastic chemotherapy - Hgb 10.7 after expected dilutional drop Hx PE - August 2023 - continue Eliquis open angle glaucoma - continue eye drops, steroid use worsening GERD - continue PPI Notes For Next Care Provider decreased carvedilol dose please recheck BMP and magnesium on follow-up for FELISA/electrolyte disturbances Medication Changes From Visit decreased carvedilol dose added potassium and magnesium supplements increased oral vitamin D to 50 mcg nasal calcitonin for 1 month for compression fractures oral nystatin complete the ongoing course of Keflex Admission HPI Per Admitting Provider Patient is a 68-year-old male with a past medical history of mesothelioma currently undergoing chemotherapy treatment, CKD, GERD, PE August 2023, hypertension. He presented to the ED due to severe back pain for approximately 1 week causing ambulatory dysfunction. He was found to have osteopenic compression fractures of T11, T12, and L1 as well as an FELISA. Patient seen at bedside with his present. He stated that he completed immunotherapy at the end of February and stopped this because of pancolitis. He was transition to chemotherapy and had his first dose last week. Ever since he has had worsening back pain, pain of his tongue, and decreased appetite. He feels as though he cannot get comfortable/sit. He endorses ambulatory dysfunction. He stated he also has been getting dizzy and lightheaded, specifically when in shower yesterday. The pain does not radiate it is in the center of his back, denies numbness or tingling. He denies bladder or bowel incontinence. His pain was unrelieved with oxycodone at home. He denies any falls or trauma to his spine. He stated when he was a teenager he did fall off a horse and had a brick wall injuring his spine but has had minimal issues since. Several years ago he did have injections of his L1 1, L2, and L3 for back pain. He stated he does have left arm numbness and his left arm is basically unusable but has been ongoing for the past 2 years. He does endorse chronic dyspnea and LE edema, unchanged. Patient denies fever, chills, chest pain, abdominal pain, nausea, vomiting, diarrhea, dysuria, hematuria. He has never had a DEXA scan. Patient's goal is to be able to ambulate better with the back pain. He is agreeable to PT/OT. He stated he is currently undergoing a course of Keflex for 7 days for a sacral wound that has been ongoing for "quite a while". He is to have a follow-up with care but has not yet arranged this. He also was to see his director epidemiology, Dr. Everardo Singh on Sunday for foot fungus that has been ongoing for several years. He does not use nicotine products or drink alcohol. He denies past history of DM. He did take his home medications today. He wishes to be full code. Noted from the ER staffregarding his blood pressure reading of 77/56, nursing took pressure over his sweatshirt. Once sweatshirt was removed pressure stabilized to 133/88. Discharge Exam PHYSICAL EXAMINATION Last 24h vital signs reviewed, see documentation in flowsheet General: comfortable appearing, no distress, sitting on the edge of the bed HEENT: Normocephalic, atraumatic, pupils round and equal, sclerae anicteric, no conjunctival injection, moist mucus membranes, cushingoid appearance Lungs: normal work of breathing Heart: deferred Abdomen: nondistended Extremities: Warm, dry, well-perfused. No extremity edema. sarcopenia Neuro: Alert and oriented x 4, face symmetric, left upper extremity weakness and high tone, he is able to stand unassisted but gait is unsteady with turning Psych: Normal affect and behavior Discharge Plan Discharge Items Patient Disposition: Home - Self-Care Reason For Visit: THORACIC COMPRESSION FXS, FELISA Discharge Diagnosis: Thoracic and lumbar compression fractures, FELISA Activity: Per Instructions section Lifting: No more than 5 pounds Weightbearing: Full weightbearing Non-emergency contact: Primary Care Provider and Oncologist Call non-emergency contact if: you have any medication questions and your symptoms worsen Follow-up/Referrals: Alfa Carcamo, DO [Primary Care Provider] - (PLEASE CALL YOUR PRIMARY CARE PROVIDER TO SCHEDULE A HOSPITAL DISCHARGE FOLLOW-UP APPOINTMENT IN 7-10 DAYS) Tiarra Odonnell DNP [Nurse Practitioner] - Deepthi Figueroa MD [Physician] - Diet: Regular Addtl Attending Provider Instructions: For the compression fractures: -bone takes around 6 weeks to heal. the pain is worst in the first 2-3 weeks then tends to improve -avoid bending and twisting movements, don't lift more than 5-10 pounds -use the TLSO brace for comfort when you are up and around, use your cane for stability -nasal calcitonin for 1 month -stay on a [id number] schedule of acetaminophen for now - max of 3000 mg per 24h -you'll need to take more oxycodone - probably four or five times a day -talk to Dr. Mendoza more on Sunday about whether you would benefit from long- acting pain medication -you don't have to take the gabapentin. If you have night pain and trouble sleeping, a low dose at night might be helpful (we only gave you 100 mg at bedtime in the hospital) -Dr. Figueroa has a treatment plan for the osteoporosis -your vitamin D is low normal - you can increase to 2000 units (50 mcg) daily You'll need a bowel regimen to prevent constipation -a good start is a capful of miralax daily (you can go down to a half capful or up to a capful twice a day) -if this is not enough add 1 or 2 tabs of sennakot daily -dulcolax tabs or suppository is good if miralax/senna not effective -if you have diarrhea from chemo, hold your bowel medications and use imodium as needed Nystatin for oral thrush Kidney injury - probably from chemo and dehydration Your blood potassium was very low - this can make you feel weak, among other problems -drink plenty of water -STOP taking furosemide (lasix) at least for now -BP has been normal to low normal - I sent a prescription for lower dose of carvedilol - you can skip carvedilol tonight and start the lower dose tomorrow AM or PM -I prescribed a low dose potassium supplement. Dr. Figueroa will check your kidney function and electrolytes and can adjust this -you will probably benefit from magnesium supplement as well - fmeq-pzf-[id number] magnesium oxide 400 mg daily or if that causes diarrhea try "Slo-Mag" one tablet a day Take a protein supplement - at least 20-30 grams once, or ideally twice a day -high protein boost or ensure is an option -you can also just buy a powdered whey protein shake and mix with milk, and take a multivitamin Equipment that may help at home: -shower chair like Xavi advised -you can buy a removable shower head at [employer] or [employer] - a family member or poultry breeder can install these -consider installing grab bars around the tub/shower - a poultry breeder can do this -a lot of this equipment is easier to find or cheaper on [employer] or [employer], but there are some local medical supply stores Finish the course of keflex as planned It was a pleasure taking care of you in the hospital, Keyonna Rivera MD Pending Studies at Discharge: No Stand-Alone Forms: [facility] [employer], Smoking Cessation Medications and DC Order Prescriptions: New gabapentin 100 mg Capsule 100 mg PO HS PRN (Reason: night pain) Qty: 0 0RF calcitonin (salmon) 200 unit/actuation [place],Non-Aerosol 1 spray NA DAILY 30 Days Qty: 3.7 1RF Rx Instructions: use for month - compression fractures nystatin 100,000 unit/mL Suspension 5 ml MT QID 14 Days Qty: 280 0RF cholecalciferol (vitamin D3) 50 mcg (2,000 unit) capsule 50 mcg PO DAILY Qty: 30 0RF Rx Instructions: buy over the counter - 2000 units daily potassium chloride 10 mEq capsule, extended release 10 meq PO DAILY Qty: 30 0RF carvedilol 3.125 mg tablet 3.125 mg PO BID Qty: 60 0RF Rx Instructions: must administer with a meal/food Continued ondansetron HCl 8 mg tablet 8 mg PO Q8H PRN (Reason: n/v) benzonatate 100 mg capsule 100 mg PO TID PRN (Reason: Cough) methylprednisolone 16 mg tablet 2 mg PO DAILY Hold Instructions: Resume on 05/02/24. Hold until Methylprednisolone taper is completed or per PCP/Oncologist recommendations Patient Comments: tapering Rx Instructions: tapering acetaminophen [Tylenol Extra Strength] 500 mg tablet 500 mg PO Q6H PRN (Reason: Pain) Rolaids Adv Antacid-[place] 1,000-200-40 mg tablet,chewable 1 tab PO DAILY PRN (Reason: Indigestion) oxycodone 5 mg tablet 5 mg PO UD PRN (Reason: Pain) Rx Instructions: usually takes in the morning and midday famotidine [Pepcid] 20 mg tablet 40 mg PO DAILY PRN (Reason: Indigestion) fluticasone propionate [Flonase Allergy Relief] 50 mcg/actuation spray,suspension 1 spray intranasal DAILY PRN (Reason: nasal congestion) Rx Instructions: administer into each nostril cephalexin 500 mg capsule 500 mg PO QID folic acid 1 mg tablet 1 mg PO HS latanoprost 0.005 % Drops 1 drp OPHTHALMIC (EYE) PM Rhopressa 0.02 % Drops 1 drp OPB PM prochlorperazine maleate 10 mg tablet 10 mg PO Q6H PRN (Reason: Nausea) Simbrinza 1-0.2 % drops,suspension 1 drp ophthalmic (eye) BID omeprazole 40 mg Capsule,Delayed Release(Dr/Ec) 40 mg PO DAILY amoxicillin 500 mg Tablet 500 mg PO UD PRN (Reason: dental appointments) Eliquis 5 mg tablet 2.5 mg PO BID Discontinued carvedilol 6.25 mg tablet 6.25 mg PO BID Rx Instructions: must administer with a meal/food cholecalciferol (vitamin D3) 25 mcg (1,000 unit) tablet 25 mcg PO DAILY furosemide 20 mg tablet 20 mg PO QAM gabapentin 100 mg capsule 300 mg PO HS Discharge Orders: Discharge Order (Routine); Ordered 05/17/24 Ordered By: Keyonna Rivera Admission Data Admit Date/Time: 05/15/24 16:12 Attending Provider: Keyonna Rivera Admit Provider: Vamshi Brian Primary Care Provider: Alfa Cracamo Other Providers: Vamshi Brian; Deepthi Figueroa Other Interventions: Discharge Summary Assessment (RN) Last Done: 05/17/24 15:13 Hospital Stay Data Consultations 05/15/24 15:24 ED Decision to Admit Stat 05/15/24 16:05 Consult Oncology Routine Diagnostic Imagining Performed 05/15/24 14:07 CT abd pelvis wo con Stat CT lumbar spine wo con Stat 05/15/24 14:08 CT thoracic spine wo con Stat Pending Results Patient Have Any Pending Studies at Discharge: No Discharge Instructions Given to Patient (Per Discharging Provider) For the compression fractures: -bone takes around 6 weeks to heal. the pain is worst in the first 2-3 weeks then tends to improve -avoid bending and twisting movements, don't lift more than 5-10 pounds -use the TLSO brace for comfort when you are up and around, use your cane for stability -nasal calcitonin for 1 month -stay on a [id number]-[id number] schedule of acetaminophen for now - max of 3000 mg per 24h -you'll need to take more oxycodone - probably four or five times a day -talk to Dr. Mendoza more on Sunday about whether you would benefit from long- acting pain medication -you don't have to take the gabapentin. If you have night pain and trouble sleeping, a low dose at night might be helpful (we only gave you 100 mg at bedtime in the hospital) -Dr. Figueroa has a treatment plan for the osteoporosis -your vitamin D is low normal - you can increase to 2000 units (50 mcg) daily You'll need a bowel regimen to prevent constipation -a good start is a capful of miralax daily (you can go down to a half capful or up to a capful twice a day) -if this is not enough add 1 or 2 tabs of sennakot daily -dulcolax tabs or suppository is good if miralax/senna not effective -if you have diarrhea from chemo, hold your bowel medications and use imodium as needed Nystatin for oral thrush Kidney injury - probably from chemo and dehydration Your blood potassium was very low - this can make you feel weak, among other problems -drink plenty of water -STOP taking furosemide (lasix) at least for now -BP has been normal to low normal - I sent a prescription for lower dose of carvedilol - you can skip carvedilol tonight and start the lower dose tomorrow AM or PM -I prescribed a low dose potassium supplement. Dr. Figueroa will check your kidney function and electrolytes and can adjust this -you will probably benefit from magnesium supplement as well - bhfm-ffv-hpdvlyb magnesium oxide 400 mg daily or if that causes diarrhea try "Slo-Mag" one tablet a day Take a protein supplement - at least 20-30 grams once, or ideally twice a day -high protein boost or ensure is an option -you can also just buy a powdered whey protein shake and mix with milk, and take a multivitamin Equipment that may help at home: -shower chair like Xavi advised -you can buy a removable shower head at [employer] or [employer] - a family member or poultry breeder can install these -consider installing grab bars around the tub/shower - a poultry breeder can do this -a lot of this equipment is easier to find or cheaper on [employer] or [employer], but there are some local medical supply stores Finish the course of keflex as planned It was a pleasure taking care of you in the hospital, Keyonna Rivera MD Total Time Total Time Spent Total Time Spent (In Minutes): I personally spent: 50 minutes today on clinical care activities including: reviewing chart notes and vital signs reviewing labs discussion with physical therapist examining and counseling the patient counseling the patient's family writing orders writing prescriptions, discharge instructions documentation Coding Level of Care Code 74704 INP/OBS DISCH >30 MIN Diagnoses Compression fx, thoracic spine S22.000A Compression fx, lumbar spine S32.000A FELISA (acute kidney injury) N17.9 Mesothelioma of lung C45.7 Sacral wound S31.000A Onychomycosis B35.1
== END 2024-05-17 15:32 | disposition home or self-care (01) | DRG 543 ==
LOC: ED 13:23 → SUATTDRO 16:12 → EDINP 16:12 → 2W 18:28

== ENCOUNTER 2024-06-03 15:58 | Inpatient (IN) ==
--- NOTE | 2024-06-03 16:22 | Emergency Department Note ---
Impression & Plan Weakness, Tachycardia, SOB (shortness of breath), Edema of left upper arm, Acute dehydration, Anemia ED Provider Note NAME: ROSA ADLER AGE: 68 SEX: M : 1955 ARRIVES VIA: Walk-In INFORMANT: [Patient][] ED PROVIDER(S): [Bobby Chen MD] CHIEF COMPLAINT: Dehydration HISTORY OF PRESENT ILLNESS: The patient is a 68-year-old male who has mesothelioma of the left lung. He is undergoing chemotherapy. The patient had chemotherapy 5 days ago and ever since, has not been well. He initially had some dry heaves and hiccups, this resolved. His intake orally has been decreased, his urine outputs have been decreased. He has become increasingly weak and short of breath with any exertion. He has a hard time even standing from a chair. There has been no cough, no fever, he has noticed some nausea but there has not been any vomiting. He does not have any chest or abdominal pain. The patient states that his left upper extremity has been shaky, weak and swollen for weeks now. They told him it was likely from compression secondary to his left sided lung cancer. Of note, at the cancer center today, he was given a half a bag of IV fluids, he was referred to the ER. Of note, the patient does have a history of PE, he is currently on Eliquis. PMHx/PSHx/Social Hx: See Below PHYSICAL EXAM: GENERAL: Patient is in no acute distress. HEENT: No acute trauma, normocephalic atraumatic, mucous membranes moist, no nasal congestion. NECK: No stridor, no meningismus, trachea midline. There is a fullness to the superior aspect of the left clavicle. LUNGS: Clear to auscultation bilaterally, no wheeze, no rhonchi, breath sounds equal. HEART: Tachycardic, regular rhythm, no murmurs. ABDOMEN: Soft, nontender, no peritonitis. EXTREMITIES: No cyanosis, full range of motion of all the joints without pain or difficulty. Patient does have some left upper extremity edema. His left radial pulse is strong. His left hand is adequately warm to the touch. He does have bilateral pedal edema which is moderate in severity. NEUROLOGIC: Oriented x 3, no acute motor or sensory deficits, no focal weakness. SKIN: No jaundice, no diaphoresis. DIFFERENTIAL DIAGNOSIS: Anemia, electrolyte imbalance, dehydration, PE, DVT, dysrhythmia, [place], chemotherapy reaction, among others. EMERGENCY DEPARTMENT PROCEDURES: MEDICAL DECISION MAKING: There is no leukocytosis. The patient is anemic however, the anemia appears relatively baseline. There was a normal platelet count. No coagulopathy. No renal failure or significant electrolyte abnormality. Lactic acid level was not elevated making severe sepsis less likely. No worrisome liver enzyme elevation. Procalcitonin level was not elevated making serious bacterial infection unlikely. Patient appeared to be in a euthyroid state. ECG showed a sinus tachycardia, no obvious ST elevation. Cardiac enzyme testing x 1 was not consistent with acute cardiac injury. Chest x-ray showed some relatively stable changes to the left upper lung consistent with his malignancy. There was no focal pneumonia. Left upper extremity ultrasound did not show findings of DVT. Chest CT did not show findings of PE. The patient had presented tachycardic. He appeared quite weak diffusely. He was given IV saline for hydration purposes. The patient has persisted with tachycardia here in the ED. When he stands or tries to do anything at bedside, his heart rate increases and he seems short of breath and weak. I suspect the patient's presentation is multifactorial. He is dehydrated, he is anemic, he has an underlying mesothelioma, he just received chemotherapy. Given the circumstances, I do think a hospital stay is warranted. I did speak with the patient and case management, the on-call hospitalist was consulted. Of note, I suspect the left arm edema is secondary to some venous/lymph insufficiency. His mesothelioma is located in the left upper lung and is likely causing some compression of the vasculature. Prior/Outside records/notes reviewed: Wound care note from 06/02/2024 describing his wounds, the care provided and the plan outpatient. ECG per my interpretation: Indication was weakness. The ECG shows a sinus tachycardia with a rate of 106. There is baseline artifact present. No acute ST elevation. No PVCs. The QTc is 454. Continuous Cardiac Monitoring per my interpretation: An order was placed for continuous cardiac monitoring. The monitor shows a rate of 117 with sinus tachycardia. Imaging/x-ray results per my interpretation: Chest x-ray shows some haziness to the left upper lung consistent with his mesothelioma. The film looks fairly similar to previous films. I see no pneumonia or pneumothorax. Chronic Medical/Social conditions affecting care: Currently undergoing chemotherapy for mesothelioma. Care/Management discussed with: Case management, the on-call hospitalist. Level of care consideration(s): After review of the information above and other included data: --I believe the patient requires escalation of care to admission Critical Care Note: I have personally spent 51 minutes of critical care time in the direct management of this patient. This includes bedside care, interpretation of diagnostic studies, and testing, discussion with consultants, patient, and family members, and other required patient management activities. This 51 minutes is in excess of all separately billable procedures. DISPOSITION: Admission Past Med/Surg History Problem List Hypertension Hypomagnesemia Ambulatory dysfunction Generalized weakness Anemia (Acute) Acute dehydration (Acute) Edema of left upper arm (Acute) SOB (shortness of breath) (Acute) Tachycardia (Acute) Weakness (Acute) Pressure ulcer of unspecified buttock, stage 3 (Acute) Acute kidney injury (Acute) Compression fracture of lumbar vertebra (Acute) Closed compression fracture of thoracic vertebra (Acute) Onychomycosis Sacral wound Mesothelioma of lung (Acute) Biopsy 09/14/22 FELISA (acute kidney injury) Compression fx, lumbar spine Compression fx, thoracic spine Pulmonary emboli (Acute) Paresthesia of upper extremity Cervical radicular pain Cervical spondylosis History of right hip replacement Eosinophilic esophagitis Medical History Pancolitis Nausea, vomiting, and diarrhea Weakness of left hand Barretts esophagus Mesothelioma of left lung Shingles Schatzki's ring Rheumatic fever PVC (premature ventricular contraction) Plantar fasciitis Hoarseness Colon polyps Dyslipidemia Angina pectoris Cough Chronic kidney disease GERD (gastroesophageal reflux disease) Cardiomyopathy Surgical History History of total right hip replacement H/O right inguinal hernia repair History of cardiac cath Status post cholecystectomy S/P appy H/O esophagogastroduodenoscopy S/P colonoscopy Family History Mother , 79yo Mesothelioma Hypertension Father , 86yo Myocardial infarction History of open heart surgery Hypertension Diabetes Social History Smoking Status: Former smoker Tobacco Type: Cigars Cigarettes Per Day: Occassionally smoked a cigar; Smoking End Date: years ago; Second Hand Exposure: No; Do You Dip or Chew Tobacco: No; Hx Alcohol Use: No Hx Substance Use: No Preferred Language: Burmese Communication Ability: Effective Visual Impairment: Limited Hearing Ability: Normal 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 Beliefs That Will Affect Care: None marital status: Current Living Situation: Spouse current occupational status: retired 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[employer], currently on medical leave How many Children do You have: 0 Feels Safe at Home: Yes Safety Concerns: Feels Safe At This Time Diet: Soft and regular caffeine: Yes (2-3 cups/day) during the past year weight has: decreased > 10 lbs Do you think of yourself as: straight/heterosexual Assistive Devices: Cane Allergies Allergies Allergy/AdvReac Type Severity Reaction Status Date / Time Sulfa (Sulfonamide Allergy Intermediate ITCHY RASH Verified 06/03/24 17:05 Antibiotics) prednisone AdvReac Intermediate CONTINUAL Verified 06/03/24 17:05 HICCUPS cephalexin AdvReac Mild Thrush Verified 06/03/24 17:05 Home Meds Home Medications Medication Instructions Recorded Confirmed acetaminophen 500 mg tablet 500 mg PO Q6H PRN Pain 10/11/22 06/03/24 (Tylenol Extra Strength) calcium carb 1,000 mg-mag hydrox 1 tab PO DAILY PRN Indigestion 10/11/22 06/03/24 200 mg-simeth 40 mg chewable tablet (Rolaids Advanced Antacid Plus Anti-gas) famotidine 20 mg tablet (Pepcid) 40 mg PO DAILY PRN Indigestion 10/11/22 06/03/24 fluticasone propionate 50 1 spray intranasal DAILY PRN nasal 10/11/22 06/03/24 mcg/actuation nasal congestion spray,suspension (Flonase Allergy Relief) oxycodone 5 mg tablet 5 mg PO UD PRN Pain 10/11/22 06/03/24 benzonatate 100 mg capsule 100 mg PO TID PRN Cough 08/29/23 06/03/24 ondansetron HCl 8 mg tablet 8 mg PO Q8H PRN n/v 08/29/23 06/03/24 amoxicillin 500 mg tablet 500 mg PO UD PRN dental 03/18/24 06/03/24 appointments apixaban 5 mg tablet (Eliquis) 2.5 mg PO BID 03/18/24 06/03/24 omeprazole 40 mg capsule,delayed 40 mg PO DAILY 03/18/24 06/03/24 release prochlorperazine maleate 10 mg 10 mg PO Q6H PRN Nausea 03/18/24 06/03/24 tablet folic acid 1 mg tablet 1 mg PO HS 05/15/24 06/03/24 carboxymethylcellulose sodium 1 % 1 drp ophthalmic (eye) DIRECTED 06/03/24 06/03/24 eye liquid gel drops PRN EYE DRYNESS/IRRITATION cholecalciferol (vitamin D3) 50 50 mcg PO BID 06/03/24 06/03/24 mcg (2,000 unit) capsule fluconazole 200 mg tablet 200 mg PO QAM 06/03/24 06/03/24 Previous Rx's Medication Instructions Recorded calcitonin (salmon) 200 1 spray NA DAILY 30 days #3.7 mL 05/17/24 unit/actuation nasal spray carvedilol 3.125 mg tablet 3.125 mg PO BID #60 tabs 05/17/24 potassium chloride 10 mEq 10 meq PO DAILY #30 caps 05/17/24 capsule,extended release Results & Data (ED) Vital Signs Vital Signs - 24 hr 06/03/24 16:01 06/03/24 16:24 06/03/24 16:24 Temperature 36.5 C 36.9 C Temperature Source Temporal Artery Scan Oral Pulse Rate 117 H 108 H Pulse Rate [Apical] 108 H Pulse Rhythm Regular Regular Pulse Rhythm [Apical] Regular Pulse Strength Normal Pulse Strength [Apical] Normal Respiratory Rate 18 20 20 Respiratory Effort / Characteristics Non-Labored Spontaneous Non-Labored Spontaneous Respiratory Depth Normal Normal Respiratory Pattern Regular Blood Pressure 123/75 Blood Pressure [Right Arm] 132/76 Blood Pressure Mean 91 Blood Pressure Mean [Right Arm] 94 Blood Pressure Position [Right Arm] Semi-fowlers Pulse Oximetry 96 98 98 Oxygen Delivery Method Room Air Room Air Room Air Sepsis Recent Fever Within 48 Hours No Sepsis New/Unexplained Change in Mental Status No Sepsis Action Taken by Nursing No Action Required 06/03/24 16:27 06/03/24 19:00 06/03/24 20:15 Temperature Temperature Source Pulse Rate 105 H Pulse Rate [Apical] 105 H 160 H Pulse Rhythm Pulse Rhythm [Apical] Regular Pulse Strength Pulse Strength [Apical] Respiratory Rate 12 31 H Respiratory Effort / Characteristics Non-Labored Spontaneous Spontaneous Labored Respiratory Depth Normal Normal Respiratory Pattern Regular Tachypnea Blood Pressure Blood Pressure [Right Arm] 165/93 H Blood Pressure Mean Blood Pressure Mean [Right Arm] 117 Blood Pressure Position [Right Arm] Pulse Oximetry 97 96 Oxygen Delivery Method Room Air Room Air Sepsis Recent Fever Within 48 Hours Sepsis New/Unexplained Change in Mental Status Sepsis Action Taken by Nursing 06/03/24 20:20 06/03/24 20:26 06/03/24 21:25 Temperature Temperature Source Pulse Rate 108 H Pulse Rate [Apical] 115 H 116 H Pulse Rhythm Pulse Rhythm [Apical] Pulse Strength Pulse Strength [Apical] Respiratory Rate 17 16 Respiratory Effort / Characteristics Non-Labored Spontaneous Non-Labored Spontaneous Respiratory Depth Normal Normal Respiratory Pattern Blood Pressure Blood Pressure [Right Arm] 161/93 H Blood Pressure Mean Blood Pressure Mean [Right Arm] 115 Blood Pressure Position [Right Arm] Pulse Oximetry 98 97 Oxygen Delivery Method Room Air Room Air Sepsis Recent Fever Within 48 Hours Sepsis New/Unexplained Change in Mental Status Sepsis Action Taken by [facility] Medications Current Medication List: was personally reviewed by me Laboratory Data Attestation: I reviewed the patient's lab results. 06/04/24 06:21 06/04/24 06:21 Lab Results 06/03/24 06/03/24 06/03/24 Range/Units 16:24 16:33 16:35 WBC 10.43 (4.8-10.8) K/ul RBC 3.34 L (4.70-6.10) M/uL Hgb 10.2 L (14.0-18.0) g/dl Hct 30.2 L (42.0-52.0) % MCV 90.4 (80.0-100.0) fL MCH 30.5 (25.0-34.0) pg MCHC 33.8 (32.0-36.0) g/dL RDW Std Deviation 54.0 H (36.4-46.3) fL RDW Coeff of Nasreen 17.4 H (11.5-14.5) % Plt Count 282 (130-400) K/uL MPV 10.0 (9.4-12.4) fL Immature Gran % (Auto) 0.7 % Neut % (Auto) 94.3 % Lymph % (Auto) 3.9 % Sawyer % (Auto) 1.0 % Eos % (Auto) 0.0 % Baso % (Auto) 0.1 % Neut # (Auto) 9.84 H (1.40-6.50) K/uL Lymph # (Auto) 0.41 L (1.20-3.40) K/uL Sawyer # (Auto) 0.10 L (0.11-0.59) K/uL Eos # (Auto) 0.00 (0.00-0.50) K/uL Baso # (Auto) 0.01 (0.00-0.20) K/uL Immature Gran # (Auto) 0.07 (0.01-0.20) K/uL PT 10.5 (9.0-12.0) Seconds INR 1.0 (0.9-1.1) APTT 23 (21-31) Seconds PTT Ratio 0.9 Sodium 137 (136-145) mmol/L Potassium TNP 3.9 Chloride 103 (98-107) mmol/L Carbon Dioxide 24 (21-32) mmol/L Anion Gap 10 (3-11) BUN 50 H (6-23) mg/dl Creatinine 1.23 (0.6-1.4) mg/dl Est Cr Clr Drug Dosing Not Reportable eGFR 63.16 BUN/Creatinine Ratio 40.7 H (10-20) Glucose 114 H (70-99(Fasting)) mg/dl Lactate 2.0 (0.4-2.0) mmol/L Calcium 8.3 L (8.6-10.3) mg/dl Magnesium 1.8 (1.7-2.4) mg/dl Total Bilirubin 0.5 (0.2-1.0) mg/dl AST TNP 26 ALT 20 (7-52) U/L Alkaline Phosphatase 80 (34-104) U/L Troponin I High Sens 15.3 (0-20) pg/ml Total Protein 6.0 (6.0-8.3) gm/dl Albumin 3.4 (3.4-5.0) gm/dl Globulin 2.6 (2.5-4.0) gm/dl Albumin/Globulin Ratio 1.3 (0.9-2) Procalcitonin Cancelled TSH 0.969 (0.300-4.500) uIu/ml Urine Color Urine Appearance (Clear) Urine pH (4.5-7.5) Ur Specific Alicia (1.000-1.030) Urine Protein (Negative) Urine Glucose (UA) (Negative) Urine Ketones (Negative) Urine Blood (Negative) Urine Nitrite (Negative) Urine Bilirubin (Negative) Urine Urobilinogen (Negative) Ur Leukocyte Esterase (Negative) Urine WBC (Auto) (0-5) /hpf Urine RBC (Auto) (0-2) /hpf U Hyaline Cast (Auto) (0-2) /lpf U Epithel Cells (Auto) (0-2) /hpf Urine Bacteria (Auto) (None Seen) 06/03/24 06/03/24 Range/Units 17:58 18:54 WBC (4.8-10.8) K/ul RBC (4.70-6.10) M/uL Hgb (14.0-18.0) g/dl Hct (42.0-52.0) % MCV (80.0-100.0) fL MCH (25.0-34.0) pg MCHC (32.0-36.0) g/dL RDW Std Deviation (36.4-46.3) fL RDW Coeff of Nasreen (11.5-14.5) % Plt Count (130-400) K/uL MPV (9.4-12.4) fL Immature Gran % (Auto) % Neut % (Auto) % Lymph % (Auto) % Sawyer % (Auto) % Eos % (Auto) % Baso % (Auto) % Neut # (Auto) (1.40-6.50) K/uL Lymph # (Auto) (1.20-3.40) K/uL Sawyer # (Auto) (0.11-0.59) K/uL Eos # (Auto) (0.00-0.50) K/uL Baso # (Auto) (0.00-0.20) K/uL Immature Gran # (Auto) (0.01-0.20) K/uL PT (9.0-12.0) Seconds INR (0.9-1.1) APTT (21-31) Seconds PTT Ratio Sodium (136-145) mmol/L Potassium Chloride (98-107) mmol/L Carbon Dioxide (21-32) mmol/L Anion Gap (3-11) BUN (6-23) mg/dl Creatinine (0.6-1.4) mg/dl Est Cr Clr Drug Dosing eGFR BUN/Creatinine Ratio (10-20) Glucose (70-99(Fasting)) mg/dl Lactate (0.4-2.0) mmol/L Calcium (8.6-10.3) mg/dl Magnesium (1.7-2.4) mg/dl Total Bilirubin (0.2-1.0) mg/dl AST ALT (7-52) U/L Alkaline Phosphatase (34-104) U/L Troponin I High Sens (0-20) pg/ml Total Protein (6.0-8.3) gm/dl Albumin (3.4-5.0) gm/dl Globulin (2.5-4.0) gm/dl Albumin/Globulin Ratio (0.9-2) Procalcitonin 0.28 TSH (0.300-4.500) uIu/ml Urine Color Yellow Urine Appearance Cloudy A (Clear) Urine pH 6.5 (4.5-7.5) Ur Specific Alicia 1.016 (1.000-1.030) Urine Protein Negative (Negative) Urine Glucose (UA) Negative (Negative) Urine Ketones Negative (Negative) Urine Blood Negative (Negative) Urine Nitrite Negative (Negative) Urine Bilirubin Negative (Negative) Urine Urobilinogen Negative (Negative) Ur Leukocyte Esterase Negative (Negative) Urine WBC (Auto) 0-5 (0-5) /hpf Urine RBC (Auto) 0-2 (0-2) /hpf U Hyaline Cast (Auto) 0-2 (0-2) /lpf U Epithel Cells (Auto) 0-2 (0-2) /hpf Urine Bacteria (Auto) None Seen (None Seen) Administered Medications Acetaminophen (Acetaminophen 325 Mg Tab) 650 mg PO Q4H PRN PRN Reason: Pain or Fever Stop: 07/04/24 00:30 Last Admin: 06/04/24 08:35 Dose: 650 mg Documented By: RT Apixaban (Apixaban 2.5 Mg Tab) 2.5 mg PO BID JUAN C Stop: 07/04/24 00:30 Last Admin: 06/04/24 08:26 Dose: 2.5 mg Documented By: Admin: 06/04/24 01:25 Dose: 2.5 mg Documented By: JABARI Calcitonin [place] (Calcitonin [place] Na 200 Iu/Ac 3.7 Ml Btl) 1 sprays NA DAILY JUAN C Stop: 07/04/24 08:59 Last Admin: 06/04/24 08:28 Dose: 1 sprays Documented By: RT Carvedilol (Carvedilol 3.125 Mg Tab) 3.125 mg PO BID JUAN C Stop: 07/04/24 00:30 Last Admin: 06/04/24 08:26 Dose: 3.125 mg Documented By: Admin: 06/04/24 01:25 Dose: 3.125 mg Documented By: JABARI Fluconazole (Fluconazole 100 Mg Tab) 200 mg PO QAM JUAN C Stop: 06/11/24 08:59 Last Admin: 06/04/24 08:27 Dose: 200 mg Documented By: RT Lactated Ringer's (Lr) 1,000 mls @ 80 mls/hr IV .[id number] JUAN C Stop: 06/04/24 09:59 Last Admin: 06/03/24 22:03 Dose: 80 mls/hr Documented By: JUAN Pantoprazole Sodium (Pantoprazole 40 Mg Tab) 40 mg PO DAILY JUAN C Stop: 07/04/24 08:59 Last Admin: 06/04/24 08:26 Dose: 40 mg Documented By: RT Potassium Chloride (Potassium Chloride 10 Meq Tabcr) 10 meq PO DAILY JUAN C Stop: 07/04/24 08:59 Last Admin: 06/04/24 08:34 Dose: 10 meq Documented By: RT Sodium Chloride (Sodium Chloride 0.65% Na Soln 45 Ml ([place])) 2 sprays NA BID JUAN C Stop: 07/04/24 00:30 Last Admin: 06/04/24 08:29 Dose: Not Given Documented By: Admin: 06/04/24 01:25 Dose: 2 sprays Documented By: JABARI Vitamin D (Cholecalciferol 25 Mcg (1000 Units) Tab) 50 mcg PO BID JUAN C Stop: 07/04/24 08:59 Last Admin: 06/04/24 08:27 Dose: 50 mcg Documented By: RT Discontinued Medications Sodium Chloride (Nss) 500 mls @ 999 mls/hr IV .Q31M ONE Stop: 06/03/24 20:12 Last Infusion: 06/03/24 21:20 Dose: Infused Documented By: Admin: 06/03/24 20:08 Dose: 999 mls/hr Documented By: EVAN Magnesium Sulfate/Dextrose (Magnesium Sulfate / D5w) 1 gm in 100 mls @ 50 mls/hr IV ONE ONE Stop: 06/03/24 23:19 Last Infusion: 06/04/24 00:03 Dose: Infused Documented By: Admin: 06/03/24 22:03 Dose: 50 mls/hr Documented By: JUAN Ioversol (Optiray 320 125ml) 115 ml IV ONCE ONE Stop: 06/03/24 18:23 Last Admin: 06/03/24 18:22 Dose: 115 ml Documented By: ELKE Oxycodone/Acetaminophen (Oxycodone/Acetaminophen 5mg/325mg Tab) 1 tab PO NOW STA Stop: 06/03/24 22:43 Last Admin: 06/03/24 22:57 Dose: 1 tab Documented By: EVAN Imaging Data Radiologist's Impression: Chest X-Ray 06/03/24 16:04 EXAM: Radiograph of the Chest 1 View INDICATION: Weakness TECHNIQUE: Frontal view of the chest. COMPARISON: 05/15/[address] chest 03/19/2024 FINDINGS: Lungs and pleural spaces: Stable left apical and lateral masslike pleural thickening. No pneumothorax. No consolidation or pulmonary edema. Heart: Stable prominent cardiac shadow accentuated by technique. Mediastinum: Normal contour. Bones/joints: No fracture, erosion or dislocation. Soft tissues: No abnormality noted. No radiopaque foreign body noted. Upper abdomen: No abnormality noted. IMPRESSION: Stable left apical and lateral masslike pleural thickening. ACT 112: N/A Electronically signed by Solange Hill 06-03-2024 4:59 PM Chest CTA 06/03/24 16:16 EXAM: CT Angiography Chest With Intravenous Contrast INDICATION: Shortness of breath. Chemotherapy a few days ago. Left arm swollen. TECHNIQUE: Axial computed tomographic angiography images of the chest with intravenous contrast. Sagittal and coronal reformatted images were created and reviewed. This CT exam was performed using one or more of the following dose reduction techniques: automated exposure control, adjustment of the mA and/or kV according to patient size, and/or use of iterative reconstruction technique. MIP reconstructed images were created and reviewed. CONTRAST: 115ml of Optiray 320 was administered intravenously. COMPARISON: 04/29/2024 FINDINGS: Pulmonary arteries: No abnormality noted. No pulmonary embolism. Aorta: No acute change noted. No thoracic aortic aneurysm or dissection. Lungs and pleural spaces: Increase small left pleural effusion. No pneumothorax. Stable right lower lobe and fissural nodules. Heart: Cardiomegaly. Dense coronary calcification noted. No right heart strain. No significant pericardial effusion. Bones/joints: Stable mass encasing the left first and second ribs extending along the lateral pleural surface. Cranially the mass extends to the left aspect of the lower cervical spine. The cranial extent is not included. Stable approximate 1.2 x 0.6 cm lingular nodule. Soft tissues: Symmetrical gynecomastia. Lymph nodes: No abnormality noted. No enlarged lymph nodes. IMPRESSION: 1. No pulmonary embolus noted. No aortic dissection. 2. Increased small left pleural effusion. 3. Stable left chest wall mass. 4. Stable pulmonary nodules. ACT 112: N/A Electronically signed by Solange Hill 06-03-2024 7:25 PM Extremity Venous Study 06/03/24 16:16 Exam(s): US VENOUS LEFT UPPER EXTREMITY EXAM: US Duplex Left Upper Extremity Veins CLINICAL HISTORY: ca, swelling. TECHNIQUE: Real-time duplex ultrasound scan of the left upper extremity veins integrating B-mode two-dimensional vascular structure, Doppler spectral analysis, color flow Doppler imaging and compression. COMPARISON: 05/05/2024.. FINDINGS: Deep veins: Unremarkable. No DVT in the internal jugular, subclavian, axillary, or brachial veins. The veins demonstrate normal color flow, are normally compressible, with normal phasic flow and/or augmentation response. Superficial veins: Unremarkable. No thrombus in the visualized basilic and cephalic veins. Soft tissues: No acute abnormality. IMPRESSION: No evidence for deep venous thrombosis. Electronically signed by: Augustin Fairbanks M.D. 06/03/24 21:03 PM Discharge Plan Visit Data Chief Complaint: Dehydration Stated Complaint: DEHYDRATED, [facility] PATIENT ED Provider: Bobby Chen Discharge Problem: Weakness, Tachycardia, SOB (shortness of breath), Edema of left upper arm, Acute dehydration, Anemia Patient Disposition: Admitted As Inpatient Condition: Serious Discharge Instructions Interventions: ED Discharge Assessment Last Done: 06/04/24 00:21 Discharge Problem: Anemia Qualifiers: Anemia type: unspecified type Qualified Code(s): D64.9 - Anemia, unspecified
[2024-06-03 16:38] LABS: Hematocrit (blood only) 30.2 % (42.0-52.0); Hemoglobin 10.2 g/dl (14.0-18.0); Mean Corpuscular Hemoglobin 30.5 pg (25.0-34.0); Mean Corpuscular Hgb Conc 33.8 g/dL (32.0-36.0); Mean Corpuscular Volume 90.4 fL (80.0-100.0); Platelet Count 282 K/uL (130-400); RDW Coefficient of Variation 17.4 % (11.5-14.5); Red Blood Count 3.34 M/uL (4.70-6.10); White Blood Count 10.43 K/ul (4.8-10.8)
[2024-06-03 16:55] LABS: Basophils # (auto) 0.01 K/uL (0.00-0.20); Basophils % (auto) 0.1 %; Immature Granulocytes # (auto) 0.07 K/uL (0.01-0.20); Immature Granulocytes % (auto) 0.7 %; Lymphocytes # (auto) 0.41 K/uL (1.20-3.40); Lymphocytes % (auto) 3.9 %; Neutrophils # (auto) 9.84 K/uL (1.40-6.50); Neutrophils % (auto) 94.3 %
[2024-06-03 16:56] LABS: Partial Thromboplastin Ratio 0.9; Partial Thromboplastin Time 23 Seconds (21-31); Prothrombin Time 10.5 Seconds (9.0-12.0)
--- NOTE | 2024-06-03 16:59 | XRay Report ---
EXAM: Radiograph of the Chest 1 View INDICATION: Weakness TECHNIQUE: Frontal view of the chest. COMPARISON: 05/15/[address] chest 03/19/2024 FINDINGS: Lungs and pleural spaces: Stable left apical and lateral masslike pleural thickening. No pneumothorax. No consolidation or pulmonary edema. Heart: Stable prominent cardiac shadow accentuated by technique. Mediastinum: Normal contour. Bones/joints: No fracture, erosion or dislocation. Soft tissues: No abnormality noted. No radiopaque foreign body noted. Upper abdomen: No abnormality noted. IMPRESSION: Stable left apical and lateral masslike pleural thickening. ACT 112: N/A Electronically signed by Solange Hill 06-03-2024 4:59 PM
[2024-06-03 17:03] LABS: Alanine Aminotransferase 20 U/L (7-52); Albumin Globulin Ratio 1.3 (0.9-2); Albumin Level 3.4 gm/dl (3.4-5.0); Alkaline Phosphatase 80 U/L (34-104); Anion Gap 10 (3-11); BUN Creatinine Ratio 40.7 (10-20); Bilirubin,Total 0.5 mg/dl (0.2-1.0); Blood Urea Nitrogen 50 mg/dl (6-23); Calcium 8.3 mg/dl (8.6-10.3); Carbon Dioxide 24 mmol/L (21-32); Chloride 103 mmol/L (98-107); Globulin 2.6 gm/dl (2.5-4.0); Glucose 114 mg/dl (70-99(Fasting)); Magnesium 1.8 mg/dl (1.7-2.4); Sodium 137 mmol/L (136-145)
[2024-06-03 17:21] LABS: Troponin I High Sensitivity 15.3 pg/ml (0-20)
[2024-06-03 17:29] LABS: Thyroid Stimulating Hormone 0.969 uIu/ml (0.300-4.500)
[2024-06-03 17:43] LABS: Potassium 3.9 mmol/L (3.5-5.1)
[2024-06-03] MEDS: OPTIRAY 320 125ml IV ONE (18:22)
[2024-06-03 19:04] LABS: Appearance Urine Cloudy (Clear); Bacteria Urine Automated None Seen (None Seen); Bilirubin Urine Negative (Negative); Blood Urine Negative (Negative); Cast Urine Automated 0-2 /lpf (0-2); Color Urine Yellow; Epithelial Cell Urine Auto 0-2 /hpf (0-2); Glucose Urine UA Negative (Negative); Ketones Urine Negative (Negative); Leukocyte Esterase Urine Negative (Negative); Nitrite Urine Negative (Negative); Protein Urine Negative (Negative); RBC Urine Automated 0-2 /hpf (0-2); Specific Gravity Urine 1.016 (1.000-1.030); Urobilinogen Urine Negative (Negative); WBC Urine Automated 0-5 /hpf (0-5); pH Urine 6.5 (4.5-7.5)
--- NOTE | 2024-06-03 19:26 | CT Scan Report ---
EXAM: CT Angiography Chest With Intravenous Contrast INDICATION: Shortness of breath. Chemotherapy a few days ago. Left arm swollen. TECHNIQUE: Axial computed tomographic angiography images of the chest with intravenous contrast. Sagittal and coronal reformatted images were created and reviewed. This CT exam was performed using one or more of the following dose reduction techniques: automated exposure control, adjustment of the mA and/or kV according to patient size, and/or use of iterative reconstruction technique. MIP reconstructed images were created and reviewed. CONTRAST: 115ml of Optiray 320 was administered intravenously. COMPARISON: 04/29/2024 FINDINGS: Pulmonary arteries: No abnormality noted. No pulmonary embolism. Aorta: No acute change noted. No thoracic aortic aneurysm or dissection. Lungs and pleural spaces: Increase small left pleural effusion. No pneumothorax. Stable right lower lobe and fissural nodules. Heart: Cardiomegaly. Dense coronary calcification noted. No right heart strain. No significant pericardial effusion. Bones/joints: Stable mass encasing the left first and second ribs extending along the lateral pleural surface. Cranially the mass extends to the left aspect of the lower cervical spine. The cranial extent is not included. Stable approximate 1.2 x 0.6 cm lingular nodule. Soft tissues: Symmetrical gynecomastia. Lymph nodes: No abnormality noted. No enlarged lymph nodes. IMPRESSION: 1. No pulmonary embolus noted. No aortic dissection. 2. Increased small left pleural effusion. 3. Stable left chest wall mass. 4. Stable pulmonary nodules. ACT 112: N/A Electronically signed by Solange Hill 06-03-2024 7:25 PM
[2024-06-03] MEDS: SODIUM CHLORIDE 0.9% 500 ML IV ONE (20:08)
--- NOTE | 2024-06-03 20:54 | History & Physical Report ---
Date of Service June 03, 2024 Assessment & Plan (1) Generalized weakness: (2) Ambulatory dysfunction: (3) Hypomagnesemia: (4) Acute dehydration: (5) Mesothelioma of lung: (6) Hypertension: (7) Pressure ulcer of unspecified buttock, stage 3: Plan Patient is a 68-year-old male with a past medical history of mesothelioma currently undergoing chemotherapy treatment, CKD, GERD, PE August 2023, hypertension. Patient was recently admitted from 05/15/2024 to 05/17/2024 for an FELISA and T11, T12, and L1 osteopenic compression fractures. patient presented to the ED today after receiving a dose of chemotherapy Sunday resulting in weakness, ambulatory dysfunction, dyspnea on exertion, decreased appetite, and overall discomfort. Patient also noted to have left upper extremity swelling and weakness. He is being admitted for ambulatory dysfunction to have PT/OT evals and for IV fluids for acute dehydration. #weakness/ambulatory dysfunction Uses walker at baseline suspect 2/2 chemotherapy, acute dehydration, hypomagnesemia UA negative PT/OT consulted fall and aspiration precautions #hypomagnesemia mag 1.8 -> 1g IV mag ordered on admission contributing to above other electrolytes stable trend bmp and mag #acute dehydration 2/2 poor p.o. intake with decreased appetite after chemotherapy Received 500 mL NSS bolus in ED Continue fluid resuscitation with LR at 80 mL/hour Promote oral hydration #mesothelioma received 2 doses for cisplatin/pemetrexed - follows with Dr. Figueroa at [facility] suspected contributing to generalized weakness chest CTA showed stable left chest wall mass, increased small left pleural effusion, stable pulmonary nodules CXR showed stable left apical and lateral masslike pleural thickening Dyspnea incentive spirometry, CXR and chest CTA negative for acute changes left upper extremity swelling/weakness noted to have history of possible brachial plexus involvement by tumor contributing to, left UE Doppler negative, continue Eliquis #hypertension Noted carvedilol decreased during recent admission from 6.25 to 3.125 patient notes elevated pressures at home Will continue to monitor pressures and increase back to baseline dose if needed #sacral wound Stage III pressure ulcer, follows with wound care, S/p debridement 06/02 completed course of Keflex previous admission Twice daily dressing changes Continue offload cushion #thrush Ongoing since admission in April Patient reportedly had to had to hold fluconazole for nausea medication at home Was to restart fluconazole 06/03 Will restart on admission as thrush still present QTc 454 Chronic stable diagnoses: anemia Hgb 10.2, slowly decreasing over the past few months, monitor CBC chronic pain - oxycodone 5mg prn reduced to 2.5mg with fluconazole use above thoracic/lumbar compression fractures, osteopenic recent admission in April, continue vitamin D supplement and calcitonin nasal spray Hx PE - August 2023 - continue Eliquis open angle glaucoma - eyedrops recently discontinued after steroid taper discontinued, blurred vision reoccurring, patient to follow-up with customer quality engineer regarding restarting eyedrops GERD - continue PPI VTE ppx: continue Eliquis and SCDs Diet: regular Dispo: MedSurg with continuous pulse ox Admission and Anticipated Discharge Date Admission Date: 06/03/2024 History of Present Illness Chief Complaint: Dehydration Primary Care Provider: Alfa Carcamo DO Patient is a 68-year-old male with a past medical history of mesothelioma currently undergoing chemotherapy treatment, CKD, GERD, PE August 2023, hypertension. Patient was recently admitted from 05/15/2024 to 05/17/2024 for an FELISA and T11, T12, and L1 osteopenic compression fractures. patient presented to the ED today after receiving a dose of chemotherapy Sunday resulting in weakness, ambulatory dysfunction, dyspnea on exertion, decreased appetite, and overall discomfort. Patient also noted to have left upper extremity swelling and weakness. He is being admitted for ambulatory dysfunction to have PT/OT evals and for IV fluids for acute dehydration. Patient seen at bedside with his present. He stated that he received his second dose of chemotherapy on Sunday and developed the symptoms noted above. He has had poor p.o. intake over the past few days. Patient has had left upper extremity swelling, numbness, and weakness for several months however it is worsening. He also now endorses right upper extremity shaking. He has had rash on his left upper extremity that was thought to be secondary to Bactrim versus immunotherapy treatment, improving. Patient stated he also had hiccups for several days after dexamethasone with the chemotherapy on Sunday. He does endorse chills and rhinorrhea as well. Patient stated he had to hold fluconazole to take nausea medication so he still has 4 days remaining, will order on admission as thrush still present. He has been dosing oxycodone at half tablets due to interaction with fluconazole. patient and his are concerned that he will have a reaction similar to this with every chemotherapy treatment he has, we will follow-up with [facility]. Patient also stated he was discontinued off his glaucoma eyedrops due to tapering off chronic steroids as pressures have been controlled. His symptoms of blurred vision have now returned and he is planning to get in contact with his eye doctor tomorrow about resuming his eyedrops. Previous eyedrops are nonformulary and patient had to bring in. Patient's advise to bring them in if eye doctor wants him to resume. Patient's also noted that his carvedilol was recently decreased to 3.25 Mg twice daily and his pressures have been high at home. Will keep an eye on his pressures and increase back to previous dose if needed. Allergies Allergy/AdvReac Type Severity Reaction Status Date / Time Sulfa (Sulfonamide Allergy Intermediate ITCHY RASH Verified 06/03/24 17:05 Antibiotics) prednisone AdvReac Intermediate CONTINUAL Verified 06/03/24 17:05 HICCUPS cephalexin AdvReac Mild Thrush Verified 06/03/24 17:05 Home Medications Medication Instructions Recorded Confirmed Type acetaminophen 500 mg tablet 500 mg PO Q6H PRN Pain 10/11/22 06/03/24 History (Tylenol Extra Strength) calcium carb 1,000 mg-mag hydrox 1 tab PO DAILY PRN Indigestion 10/11/22 06/03/24 History 200 mg-simeth 40 mg chewable tablet (Rolaids Advanced Antacid Plus Anti-gas) famotidine 20 mg tablet (Pepcid) 40 mg PO DAILY PRN Indigestion 10/11/22 06/03/24 History fluticasone propionate 50 1 spray intranasal DAILY PRN nasal 10/11/22 06/03/24 History mcg/actuation nasal congestion spray,suspension (Flonase Allergy Relief) oxycodone 5 mg tablet 5 mg PO UD PRN Pain 10/11/22 06/03/24 History benzonatate 100 mg capsule 100 mg PO TID PRN Cough 08/29/23 06/03/24 History ondansetron HCl 8 mg tablet 8 mg PO Q8H PRN n/v 08/29/23 06/03/24 History amoxicillin 500 mg tablet 500 mg PO UD PRN dental 03/18/24 06/03/24 History appointments apixaban 5 mg tablet (Eliquis) 2.5 mg PO BID 03/18/24 06/03/24 History omeprazole 40 mg capsule,delayed 40 mg PO DAILY 03/18/24 06/03/24 History release prochlorperazine maleate 10 mg 10 mg PO Q6H PRN Nausea 03/18/24 06/03/24 History tablet folic acid 1 mg tablet 1 mg PO HS 05/15/24 06/03/24 History calcitonin (salmon) 200 1 spray NA DAILY 30 days #3.7 mL 05/17/24 06/03/24 Rx unit/actuation nasal spray carvedilol 3.125 mg tablet 3.125 mg PO BID #60 tabs 05/17/24 06/03/24 Rx potassium chloride 10 mEq 10 meq PO DAILY #30 caps 05/17/24 06/03/24 Rx capsule,extended release carboxymethylcellulose sodium 1 % 1 drp ophthalmic (eye) DIRECTED 06/03/24 06/03/24 History eye liquid gel drops PRN EYE DRYNESS/IRRITATION cholecalciferol (vitamin D3) 50 50 mcg PO BID 06/03/24 06/03/24 History mcg (2,000 unit) capsule fluconazole 200 mg tablet 200 mg PO QAM 06/03/24 06/03/24 History Past Med/Surg History Problem List (Updated 06/04/24 @ 20:30 by Keyonna Donato PA-C) Thrush, oral Hypertension Hypomagnesemia Ambulatory dysfunction Generalized weakness Anemia (Acute) Acute dehydration (Acute) Edema of left upper arm (Acute) SOB (shortness of breath) (Acute) Tachycardia (Acute) Weakness (Acute) Pressure ulcer of unspecified buttock, stage 3 (Acute) Acute kidney injury (Acute) Compression fracture of lumbar vertebra (Acute) Closed compression fracture of thoracic vertebra (Acute) Onychomycosis Sacral wound Mesothelioma of lung (Acute) Biopsy 09/14/22 FELISA (acute kidney injury) Compression fx, lumbar spine Compression fx, thoracic spine Pulmonary emboli (Acute) Paresthesia of upper extremity Cervical radicular pain Cervical spondylosis History of right hip replacement Eosinophilic esophagitis Medical History Pancolitis Nausea, vomiting, and diarrhea Weakness of left hand Barretts esophagus Mesothelioma of left lung Shingles Schatzki's ring Rheumatic fever PVC (premature ventricular contraction) Plantar fasciitis Hoarseness Colon polyps Dyslipidemia Angina pectoris Cough Chronic kidney disease GERD (gastroesophageal reflux disease) Cardiomyopathy Surgical History History of total right hip replacement H/O right inguinal hernia repair History of cardiac cath Status post cholecystectomy S/P appy H/O esophagogastroduodenoscopy S/P colonoscopy Family History Mother , 79yo Mesothelioma Hypertension Father , 86yo Myocardial infarction History of open heart surgery Hypertension Diabetes Social History Smoking Status: Former smoker Tobacco Type: Cigars Cigarettes Per Day: Occassionally smoked a cigar; Smoking End Date: years ago; Second Hand Exposure: No; Do You Dip or Chew Tobacco: No; Hx Alcohol Use: No Hx Substance Use: No Preferred Language: Scottish Communication Ability: Effective Visual Impairment: Limited Hearing Ability: Normal Site Damage Prevention Technician Required: No Beliefs That Will Affect Care: None marital status: Current Living Situation: Spouse current occupational status: retired 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 HEENT- EOMI, mucous membranes dry. Hearing grossly intact. Bilateral eyes with erythema and watering. Thrush of oral mucosa. Heart-normal S1 and S2. No murmurs, rubs or gallops. Lungs-clear bilaterally, no respiratory distress, no accessory muscle use. Abdomen-normal bowel sounds and soft. No ascites noted. Non-tender. Extremities- no clubbing, cyanosis. Left upper extremity with mild swelling, chronic. Improving rash of left upper extremity. shaking and weakness of bilateral upper extremities. Rheumatologic- Diffuse decreased range of motion. Results & Data Results & Data Vital Signs (Past 12 Hours) Vital Signs Temp Pulse Pulse Resp BP BP Pulse Ox 06/03/24 20:26 108 H 06/03/24 20:20 115 H 17 98 06/03/24 20:15 160 H 31 H 96 06/03/24 19:00 105 H 12 165/93 H 97 06/03/24 16:27 105 H 06/03/24 16:24 108 H 20 98 06/03/24 16:24 36.9 C 108 H 20 132/76 98 06/03/24 16:01 36.5 C 117 H 18 123/75 96 O2 Del Method 06/03/24 20:26 06/03/24 20:20 Room Air 06/03/24 20:15 Room Air 06/03/24 19:00 Room Air 06/03/24 16:27 06/03/24 16:24 Room Air 06/03/24 16:24 Room Air 06/03/24 16:01 Room Air Laboratory Results Reviewed CBC, PT/INR, CMP, UA, troponin, mag Diagnostic Findings reviewed CXR, chest CTA, left upper extremity venous Doppler Medications Administered ED500 mL NSS bolus [id number] IV mag, LR at 80 mL/hour ECG Additional Comments: sinus tachycardia, rate 106 QTc 454 Code Status & VTE Plan VTE Prophylaxis Plan VTE Prophylaxis will be ordered: Yes Supervising Physician Co-Signing Physician Notes Attending addendum: I have physically seen this patient, have supervised the ALEKSEY's activities, and agree with the H&P unless as otherwise noted. Assessment and Plan: The patient is a 68-year-old male with past medical history including mesothelioma currently undergoing chemotherapy treatment, CKD, GERD, PE August 2023, and hypertension. Most recent hospitalization at [facility] was from 05/15-05/17/2024 for FELISA, and T11, T12 and L1 osteopenic pression fractures. Patient presents to the emergency department this evening after receiving chemotherapy 3 days ago, with progressive weakness, ambulatory dysfunction, dyspnea on exertion, decreased appetite and overall discomfort. Patient referred for evaluation for admission to [facility] hospitalist service for ambulatory dysfunction, PT/OT evaluations, and IV fluids for acute dehydration. #Generalized weakness/ambulatory dysfunction- Patient feeling more significantly debilitated after recent chemotherapy treatment Likely directed chemotherapy self, acute dehydration, low magnesium Consult PT/OT Fall precautions and aspiration precautions Patient IV fluids as noted Hypomagnesemia- Magnesium 1.8 on admission. Give 1 g magnesium sulfate IV and reassess Dehydration- Secondary to decreased appetite and overall decreased intake associated chemotherapy Received normal saline 500 mL bolus from the ED Continue LR at 80 mL/h x 1 additional liter Encourage oral hydration and follow Mesothelioma- Received 2 doses of cisplatin/pemetrexed, following with Dr. Figueroa CTA chest showed stable left chest wall mass, increased small left pleural effusion, and stable pulmonary nodules Continues on Eliquis, follow-up from extremity weakness and swelling Consult PG Care Time/CCT Total # of Minutes Spent Total Time Spent with Patient: Total time spent is greater than 50% in coordination of care (as documented) at patient's floor/unit and/or counseling patient: Coding Level of Care Code 51062 INT INP/OBS CARE 3/75MIN Diagnoses Generalized weakness R53.1 Ambulatory dysfunction R26.2 Hypomagnesemia E83.42 Acute dehydration E86.0 Mesothelioma of lung C45.7 Hypertension I10 Pressure ulcer of unspecified buttock, stage 3 L89.303
--- NOTE | 2024-06-03 21:04 | Ultrasound Report ---
Exam(s): US VENOUS LEFT UPPER EXTREMITY EXAM: US Duplex Left Upper Extremity Veins CLINICAL HISTORY: ca, swelling. TECHNIQUE: Real-time duplex ultrasound scan of the left upper extremity veins integrating B-mode two-dimensional vascular structure, Doppler spectral analysis, color flow Doppler imaging and compression. COMPARISON: 05/05/2024.. FINDINGS: Deep veins: Unremarkable. No DVT in the internal jugular, subclavian, axillary, or brachial veins. The veins demonstrate normal color flow, are normally compressible, with normal phasic flow and/or augmentation response. Superficial veins: Unremarkable. No thrombus in the visualized basilic and cephalic veins. Soft tissues: No acute abnormality. IMPRESSION: No evidence for deep venous thrombosis. Electronically signed by: Augustin Fairbanks M.D. 06/03/24 21:03 PM
[2024-06-03] MEDS: MAGNESIUM SULFATE / D5W 1 GM/100 ML BAG IV ONE (22:03)
[2024-06-03] MEDS: LACTATED RINGER'S 1,000 ML IV SCH (22:03)
[2024-06-03] MEDS: oxyCODONE/ACETAMINOPHEN 5mg/325mg TAB PO STA (22:57)
--- OUTSIDE RECORDS SUMMARY | 2024-06-04 00:06 | External Medical Summary | Continuity of Care Document ---
Author Name Unknown Organization [facility] [address] [place], [place] [address] Address [address] [place] [phone] Care Team Providers Care Clerical Grader Name Role Phone Alfa Carcamo Primary Care Physician [phone] Encounter [facility] [id number] Date(s): 05/19/24 - 05/19/24 [facility] [address] [facility] [address] [facility] [address] [place] [address] Encounter Diagnosis Tinea unguium(Discharge Diagnosis) - 05/19/24 Tinea pedis of both feet(Discharge Diagnosis) - 05/19/24 Toenail deformity(Discharge Diagnosis) - 05/19/24 Discharge Disposition: Home or Self Care Attending Physician: NISHI Garcia Christina L Referring Physician: DO Carcamo Franklin J Encounter Type: Clinic Allergies, Adverse Reactions, Alerts Substance Criticality Severity Reaction Reaction Severity Status cephalexin THRUSH OF MOUTH Act johnathon predniSONE hiccups for hours A ctive Bactrim rash Active traZODone rash Active sulfa drugs Unable to assess criticality Moderate Rash Active Assessment and Plan Extracted from: Title:Follow Up Visit Author:NISHI Garcia, Alcides Schmidt Date:05/19/24 1.Tinea pedis of both feet Recommend for patient to continue using topical clotrimazole cream to the skinshould avoid applying cream to interspaces. Recommended OTC Tinactin spray to interspaces of both feetnotes that they have this at home. 2.Tinea unguium Prescribed topical Kerydin discussed will take 6 months to 1 yearapply daily prescription given today 3.Toenail deformity Recommend follow-up in 6 months. I spent 6 minute planning including prepping note and chart review. I spent 14 minute jhnw-mn-[id number] interaction with patient addressing issuesdiscussed in visit today. I spent 9 minute time in postop visitplanning including note finishing in depart process. Total time spent on patient visit 29 minutes. Immunizations Given and Recorded Vaccine Date Status Refusal Reason influenza virus vaccine, inactivated 01/22/24 Ad rded influenza virus vaccine, inactivated 01/26/23 Ad rded influenza virus vaccine, inactivated 12/21/21 Ad rded influenza virus vaccine, inactivated 12/23/19 Ad rded influenza virus vaccine, inactivated 02/18/19 Ad rded influenza virus vaccine, inactivated 12/10/17 Ad rded influenza virus vaccine, inactivated 12/06/16 Ad rded influenza virus vaccine, inactivated 12/08/15 Ad rded influenza virus vaccine, inactivated 12/09/13 Ad rded pneumococcal 23-valent vaccine 04/21/22 Given pneumococcal 23-valent vaccine 12/09/13 Recorded SARS-CoV-2 (COVID-19) mRNA BNT-162b2 vax 1 02/09/21 Recorded SARS-CoV-2 (COVID-19) mRNA BNT-162b2 vax 2 06/24/20 Recorded SARS-CoV-2 (COVID-19) mRNA BNT-162b2 vax 3 06/03/20 Recorded pneumococcal 13-valent vaccine 02/26/19 Given zoster vaccine, inactivated 01/29/19 Recorded zoster vaccine, inactivated 10/16/18 Recorded tetanus/diphtheria/pertuss, acel (Tdap) 02/22/18 G iven zoster vaccine live 03/26/15 Recorded zoster vaccine live 4 12/11/14 Recorded 1Result Comment: 2021-04-08: Historical information-source unspecified 2Result Comment: 2021-04-08: Historical information-source unspecified 3Result Comment: 2021-04-08: Historical information-source unspecified 4Result Comment: 2021-04-08: Historical information-source unspecified Mental Status 05/19/24 Barriers to Learning one year None evide nt Mandatory Health Literacy Documentation Yes Health Literacy Communication Barriers N ever Primary Language Cameroonian Problem List Condition Confirmation Course Effective Dates Status H ealth Status Informant Arrhythmia Confirmed Active Back pain Confirmed Active Barretts esophagus Confirmed Active Cardiomyopathy Confirmed Active Hypertensive chronic kidney disease with stage 1 through stage 4 chronic kidney disease, or unspecified chronic kidney disease 1 Confirmed 03/07/24 Active CKD (chronic kidney disease) stage 3, GFR 30-59 ml/min 2 Confirmed 03/07/24 Active Chronic kidney disease, stage 3a 3 Confirmed Active Coronary artery disease involving [place] coronary artery of [place] heart without angina pectoris Confirmed Active Adverse effect of glucocorticoids and synthetic analogues, initial encounter 4 Confirmed 03/07/24 Active Dyslipidemia Confirmed Active Dysphagia Confirmed Active Eosinophilic esophagitis Confirmed Active Other fatigue 5 Confirmed 03/07/24 Active Flushing 6 Confirmed 01/02/24 Active Chronic GERD Confirmed Active Other abnormal glucose 7 Confirmed 03/07/24 Active Personal history of pulmonary embolism 8 Confirmed 01/02/24 Active History of rheumatic fever Confirmed Active Heel pain Confirmed Active History of colon polyps Confirmed Active Hoarseness Confirmed Active Hyperlipidemia, unspecified 9 Confirmed 01/02/24 Active Hypertension Confirmed Active Pain in unspecified joint 10 Confirmed 01/02/24 Active Schatzki's ring of distal esophagus Confirmed Active Secondary malignant neoplasm of unspecified site 11 Confirmed 04/02/24 Active Toenail deformity Confirmed Active Nausea 12 Confirmed 01/02/24 Active Mesothelioma of lung Confirmed Active Ocular hypertension, unspecified eye 13 Confirmed 03/07/24 Active Tinea unguium Confirmed Active Pain, unspecified 14 Confirmed 01/02/24 Active Neoplasm related pain (acute) (chronic) 15 Confirmed 04/02/24 Active Numbness and tingling of both feet Confirmed Active Plantar fasciitis, left Confirmed Active Prophylactic antibiotic therapy Confirmed Active Seborrheic keratoses Confirmed Active [place] angioma Confirmed Active Tinea pedis of both feet Confirmed Active Tobacco abuse. Confirmed Active PVC (premature ventricular contraction) Confirmed Active Ventricular premature depolarization 16 Confirmed 01/02/24 Active Weight disorder Confirmed Active 1Added per Hospital Staff Pharmacist Vwlqgb-VH-58/17/24 2Added per Hospital Staff Pharmacist Wodqug-EN-46/11/24 GFR 48, Cret 1.29 4Added per Hospital Staff Pharmacist Dfujgm-QE-33/17/24 5Added per Hospital Staff Pharmacist Hsxtrw-IR-27/11/24 6Added per Hospital Staff Pharmacist Lwacji-YF-61/11/24 7Added per Hospital Staff Pharmacist Gmarcp-IA-69/17/24 8Added per Hospital Staff Pharmacist Abqzzb-QQ-47/11/24 9Added per Hospital Staff Pharmacist Towynh-PT-67/11/24 10Added per Hospital Staff Pharmacist Fpjvxt-CZ-70/11/24 11Added per Hospital Staff Pharmacist Xppwod-JI-74/11/24 12Added per Hospital Staff Pharmacist Xjkawx-WQ-21/11/24 13Added per Hospital Staff Pharmacist Kyvkhq-OG-12/17/24 14Added per Hospital Staff Pharmacist Jepluk-NN-55/11/24 15Added per Hospital Staff Pharmacist Ajphfw-ID-39/17/24 16Added per Hospital Staff Pharmacist Wrosux-WP-59/11/24 Diagnosis Diagnosis Type Effective Dates Health Status Cl inical Service Informant Tinea unguium Discharge Diagnosis 05/19/24 Non-Specified Tinea pedis of both feet Discharge Diagnosis 05/19/24 Non-Specified Toenail deformity Discharge Diagnosis 05/19/24 Non-Specified Procedures Procedure Date Related Diagnosis Body Site Status Mohs micrographic surgery 02/28/23 Completed Shave biopsy 1 12/18/22 Completed Medical records review 2 12/14/22 Completed Medical records review 3 10/31/[address] of chest 4 08/07/22 Completed Chest X-ray 5 01/23/22 Completed Colonoscopy 6 10/11/21 Completed Esophagogastroduodenoscopy 7, 8 08/30/20 Completed Hip replacement 03/08/20 Completed Medical records review 9 12/17/19 Completed Esophagogastroduodenoscopy 10 09/12/19 Completed Esophagogastroduodenoscopy 11 03/14/19 Completed Upper GI endoscopy 12 03/14/19 Com pleted Colonoscopy 13, 14 06/05/16 Comple reuben Colonoscopy abnormal 15 05/25/15 C ompleted Hip replacement 16 05/2012 Comple reuben Appendectomy 03/26/07 Completed Cholecystectomy 03/26/91 Completed Chest X-ray 17 Completed 1nose 2Oncology appt at [facility] 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 Ipilimumab and Nivolumab 3Heme onc cancer care OV, pleural mesothelioma, Immunotherapy with Nivolumab every 3 weeks and Ipilimumab every 6 weeks, restaging after 2 cycles, baseline thyroid function, cortisol and ACTH. 4Impression: 1. Pleural-based mass wihtin the left lung apex meausres up to approximately 11cm. Extension into the left upper lobe parenchyma with a 3.1 cm left apical lesion. There are several additional pleuralbased nodules throughtout the left lung, compatible with malignancy. Pleural metastasis versus primary pleural neoplasm are the differential considerations. 2. Trace left pleural effusion. 3. Mild bilateral tree in bud micronodules suggestive of an infectious or inflammatory process. Attention at follow-up is recommended in order to exclude additonal neoplatic foci. 5A small hazy airspace opacity within the left lung base. This is new from the prior study and may represent a developing pneumonia. 6COLO to cecum, 12 polyps removed, diverticulosis, rectal erythema bx 7EGD irregular Z line bx, mid and lower third esophagus nl bx, anrum normal bx 8Pathology report: 1. Middle third esophagus, biopsy: Squamous muscosa with no pathologicalteration and no intraepithelial eosinophils. 2. Antrum, stomach biopsy: Minimal chronic inflammation H. pylori not identified on H&E stained sections. 3. GE junction biopsy: Junctional mucosa with mild chronic inflammation, intestinal metaplasia present, no dysplasia. 4 Lower third esophagus, biopsy: No pathologic alteration of the squamous epithelium, no intraepithelial eosinophils 9Allergy consult esosinophilic esophagitis and allergic rhinitis. Environemtal allergy testing sycamore tree. Food allergens trace pos to milk, rice pos, peas pos. He was intrructed to avoid milk and rice for 4-8 weeks as he has those in diet regularly. If symptoms improve can add rice back and avoid milk. If no improvement consider swallowed topical steroids. 10EGD mild schatzis ring bx, distal esophagus grossly nl bx, mid esophagus grossly normal bx 11EGD ring and scar tissue EG junction with irregular Z line bx, antral gastriis with old heme bx 12Impression: Z-line irregular, 38 cm from the incisors 2 cm hiatal hernia Moderate Schatski ring. Biopsied. Scarring in the lower third of the esophagus presumably from acid reflux. Acute gastritis. Biopsied. Normal examined duodenum. The examination was otherwise normal. 13- One 3 mm polyp at the appendiceal orifice, removed with a cold biopsy forceps. Resected and retrieved. - Non-bleeding external and internal hemorrhoids 14repeat colonoscopy in 5 years 15repeat 1 year due to "flat polyps" removed so wants to be sure they go all of them done by Dr Perez 16right 17No acute abnormalities and in particular no radiographic evidence of pneumonia. Stable left upper lung pleural thickening. Social History Social History Type Response Tobacco Current some day smo ker, Cigars Smoking Status Never smoked cigaret ramirez Sex Sex Representation Male (finding) Ortho Outpt Note * NISHI Garcia, Karo Schmidt: PERFORM Event Display: Ortho Outpt Note Authored Date: [id number] Chief Complaint B/L NAIL DISCOLORATION, BLACKENING OF NAILS Primary Care Provider DO Carcamo Franklin J Subjective Patient is a very pleasant 68-year-old male last seen September 13, 2021for left foot Planter fasciitis pain. Past medical historyarrhythmia back painBarrett's esophagitiscardiomyopathy GERDstage III chronic kidney disease dyslipidemia dysphagiaeosinophil esophagitismesothelioma lung. Surgical historyshave biopsycolonoscopy EGD hip replacementappendectomy colonoscopy. Medications/reviewed includes Eliquis. Allergiesreviewed. Social historydenies smoking denies substance abusepositive for use of cigars. Family historydiabetes heart attack high blood pressure mesothelioma Review of Systems Wearingback brace secondary tofracture of the spine from steroid use Objective Physical Exam Problem focused bilateral lower extremities: Dorsalis pedis pulse palpable 1 out of 4, posterior tibial pulse palpable 1 out of 4,capillary refill time less than 3 seconds, skin turgor is goodto all digits of both feetpedal hair is present. Mild bilateral lower extremity swelling presentthis is nonpitting edema. Neurovascular status grossly intact all digits of both feetthere is no numbness burning or tingling. Right footwithinterspacemaceration and peeling secondary to tinea pedis,mild inflammation of skin secondary to tinea pedis. Toenails of digits 1 through 5 with dystrophy, discoloration, subungual debris, thickeningconsistent with onychomycosis. Left footwithmild peeling but without the interspace maceration that was present on the right side. There are signs oftinea pedis present left foot. Lefthallux toenail with dystrophy and subungual debris thickeningand dark discoloration likely secondary to pressurepatient has been walking differently secondary to his history of hisfracture of his spinelikely has subungual hematoma but no inflammation or infectionclinical photo in chart. Images 2024-05-19 09:49:21 2024-05-19 09:49:35 2024-05-19 09:49:41 2024-05-19 09:49:47 Assessment/Plan 1.Tinea pedis of both feet Recommend for patient to continue using topical clotrimazole cream to the skinshould avoid applying cream to interspaces. Recommended OTC Tinactin spray to interspaces of both feetnotes that they have this at home. 2.Tinea unguium Prescribed topical Kerydin discussed will take 6 months to 1 yearapply daily prescription given today 3.Toenail deformity Recommend follow-up in 6 months. I spent 6 minute planning including prepping note and chart review. I spent 14 jhgduflchf-so-gaut interaction with patient addressing issuesdiscussed in visit today. I spent 9 minute time in postop visitplanning including note finishing in depart process. Total time spent on patient visit 29 minutes. Electronic Signature on File Electronically Reviewed/Signed by: Karo Garcia DPM Author Signature Dt/Tm:05/19/2024 09:56 AM Division of Sports Medicine CLR Patient Care team information Care Team Personnel Name: DO Carcamo Franklin J Position: Physician - Family Med Member Role: Primary Care Provider Address: [address] [place] [address] Telecom: [phone] Name: DO Jung Sameer Position: Resident Member Role: Lifetime Relationship Address: [address] [place] [address] Telecom: [phone] Name: NISHI Garcia Christina L Position: Physician - Podiatry Member Role: Lifetime Relationship Address: [address] [place] [address] Telecom: [phone] Care Team Related Persons Name: PRIYA ADLER Name: PRIYA ADLER Insurance Providers Guarantor name: ROSA ADLER Health Plan Information #: 1 Payer: [employer] Member Number: [id number] Policy Number: NA Group Number: [id number] Health Plan Information #: 2 Payer: [employer] Member Number: NA Policy Number: NA Group Number: NA Health Plan Information #: 3 Payer: [employer] Member Number: [id number] Policy Number: NA Group Number: NA
--- OUTSIDE RECORDS SUMMARY | 2024-06-04 00:06 | External Medical Summary | Continuity of Care Document ---
Author Name Unknown Organization [address] Address [address] [place] [address] [id number] Care Team Providers Care Pension Examiner Name Role Phone Alfa Carcamo Primary Care Physician [phone] Encounter [facility] [id number] Date(s): 05/21/24 - 05/21/[address] [address] [phone] Encounter Diagnosis Body mass index [BMI] 27.0-27.9, adult(Discharge Diagnosis) - 05/21/24 Eosinophilic esophagitis(Discharge Diagnosis) - 05/21/24 Chronic GERD(Discharge Diagnosis) - 05/21/24 Barretts esophagus(Discharge Diagnosis) - 05/21/24 Dysphagia(Discharge Diagnosis) - 05/21/24 Hoarseness(Discharge Diagnosis) - 05/21/24 Discharge Disposition: Home or Self Care Attending Physician: ADELAIDE French Kelli Jo Encounter Type: Clinic Allergies, Adverse Reactions, Alerts Substance Criticality Severity Reaction Reaction Severity Status cephalexin THRUSH OF MOUTH Act johnathon predniSONE hiccups for hours A ctive traZODone rash Active sulfa drugs Unable to assess criticality Moderate Rash Active Bactrim rash Active Assessment and Plan Extracted from: Title:Office Visit Note Author:ADELAIDE French Kell i Jo Date:05/21/24 1.Eosinophilic esophagitis 2.Chronic GERD 3.Dysphagia 4.Hoarseness 5.Barretts esophagus Patient is a pleasant 68-year-old male who presents with his Misti.He presents withacute worsening of his dysphagia that is improving on nystatin swish and swallowprescribed by his oncologist for thrushafter recent use of Keflex. -Patient informs me that the hospitalist told him he was overdue for his EGDwhich Dr. Willoughby was also aware of at his October 2023 appointment. At that time Dr. Ramirez felt that given patient's mesothelioma and recent pulmonary embolithat the surveillance EGD was not recommended. I to feel this way. I did advise patientif he wishes to proceed with his EGD despiteour hesitancyhe would need approval from his oncologist. Patient was also [facility] Dr[facility] Maya. -Reginaldoson EGD 08/30/20---repeat EGD due 08/2023 -Patient reports he remains on 40 mg of omeprazole daily. Annual refill was sent to [facility] 6.hxof colon polyps--repeat colo was due 09/2022 but with mesothelioma and recent pulmonary embolus, suveillance colonoscopy not recommended at this time GI follow up in6 months, sooner if needed. I have spent 40 minutes in evaluation, education and documentation of this pt in both face to face and non-face to face activities. Immunizations Given and Recorded Vaccine Date Status [...] vax 3 06/03/20 Recorded pneumococcal 13-valent vaccine 12/4/19 Given zoster vaccine, inactivated 01/29/19 Recorded zoster vaccine, inactivated 10/16/18 Recorded tetanus/diphtheria/pertuss, acel (Tdap) 02/22/18 G iven zoster vaccine live 03/26/15 Recorded zoster vaccine live 4 12/11/14 Recorded 1Result Comment: 2021-04-08: Historical information-source unspecified 2Result Comment: 2021-04-08: Historical information-source unspecified 3Result Comment: 2021-04-08: Historical information-source unspecified 4Result Comment: 2021-04-08: Historical information-source unspecified Mental Status 05/21/24 Barriers to Learning one year None evide nt Mandatory Health Literacy Documentation Yes Health Literacy Communication Barriers N ever Primary Language Vietnamese Problem List Condition Confirmation Course Effective Dates [...] 3 Confirmed Active Coronary artery disease involving nikolai coronary artery of nikolai heart without angina pectoris Confirmed Active Adverse [...] Active Weight disorder Confirmed Active 1Added per [employer] Dyajqy-CU-51/17/24 2Added per [employer] Fzdril-TV-48/11/24 GFR 48, Cret 1.29 4Added per [employer] Fwidlf-QK-00/17/24 5Added per [employer] Jaglcj-WS-34/11/24 6Added per [employer] Tofpfw-ZA-73/11/24 7Added per Vacuum [employer] Hqqzft-HS-65/17/24 8Added per Vacuum [employer] Xpskgj-VT-19/11/24 9Added per Vacuum [employer] Ewcxea-FU-87/11/24 10Added per Vacuum [employer] Nszxmy-BB-02/11/24 11Added per Vacuum [employer] Mbwxne-OT-04/11/24 12Added per Vacuum [employer] Mvxpgk-BN-21/11/24 13Added per Vacuum [employer] Driver Xpvsgt-KM-87/17/24 14Added per Vacuum [employer] Driver Snykfg-EZ-28/11/24 15Added per Vacuum [employer] Driver Ybsltb-ZB-37/17/24 16Added per Vacuum [employer] Driver Wrwlga-QL-67/11/24 Diagnosis Diagnosis Type Effective Dates Health Status Clinical Service Informant Body mass index [BMI] 27.0-27.9, adult Discharge Diagnosis 05/21/24 Non-Specified Eosinophilic esophagitis Discharge Diagnosis 05/21/24 Non-Specified Chronic GERD Discharge Diagnosis 05/21/24 Non-Specified Barretts esophagus Discharge Diagnosis 05/21/24 Non-Specified Dysphagia Discharge Diagnosis 05/21/24 Non-Specified Hoarseness Discharge Diagnosis 05/21/24 Non-Specified Procedures Procedure Date Related Diagnosis Body [...] X-ray 17 Completed 1nose 2Oncology appt at [facility] 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 Ipilimumab and Nivolumab [...] pneumonia. Stable left upper lung pleural thickening. Vital Signs Most recent to oldest [Reference Range]: 1 Height 176.2 cm (05/21/24 10:00 AM) Patient Weight 84.4 kg (05/21/24 10:00 AM) Body Mass Index 27.19 kg/m2 (05/21/24 10:00 AM) Heart Rate 109 bpm (05/21/24 10:00 AM) Blood Pressure 126/70mmHg (05/21/24 10:00 AM) Cuff Pulse Pressure 56 mmHg (05/21/24 10:00 AM) Social History Social History Type Response Tobacco Current some day smo ker, Cigars Smoking Status Never smoked cigaret ramirez Sex Sex Representation Male (finding) Gastroenterology Outpatient Note * ADELAIDE French, Corina Missy: PERFORM Event Display: Gastroenterology Outpt Note Authored Date: [id number] Chief Complaint 6 month follow up. Discuss EGD. He is currently changing chemo meds. discharged from hospitalsaturday and swelling noted both feet and left hand; hand is warm to touch History of Present Illness The patient is a pleasant 1-ysin-uobfvnugab presents today for evaluation of EOE, Hair's and GERD.[facility],and past medical historyreviewed. Prior records: 11/16/2023OV ([facility]):No gerd nor hoarseness.NO dysphagia.The patient was on omeprazole up until pulmonary embolus. At hospital the changed to protonx 40 mg bid. 05/21/2024OV ([facility]):Returns for routine 6-month follow-up having previously been managed by my supervising physician. Please see hisnotes prior to October 2023for his prior workup. Patient returns today with acutely worsening dysphagiahowever he is also started chemotherapyas well as salmon oilintranasal spray for painas well as multiple othermedical health concernsand treatments. He is not sure what symptoms are fromwhatand it may not be acid related at all. [facility] and diagnosed witha vertebralfracturerecently. He states that his GI issues are the least of his current concerns. He states carrillo t also with the change of chemotherapy has had a loss of appetite. He has had some skin lesions that were treated with Keflexand then his oncologist diagnosed him with thrush and has treated him with nystatin swish and swallow. He is not sure if this too could be leading to the acute change in trouble swallowingwhich is improving on this treatment. Patient states that he is currently onomeprazole once dailyand has noticed no change to the hoarseness that he reported to Dr. Ramirez in which time they switched from pantoprazole to omeprazole.Patient does denyacid reflux or heartburn symptoms on his current regimen. Family History: Deniesfamilyhistory of colorectal cancer, liver disease, IBD, IBS, pancreatic disease, celiac disease No further complaints or concerns today. Physical Exam Vitals & Measurements HR:109(Monitored) BP:126/70 SpO2:97% HT:176.2cm WT:84.400kg(Dosing) WT:84.4kg BMI:27.19 General:Alert and oriented, No acute distress, appears stated age HENT:Normocephalic, normal hearing Respiratory: Respiration are non-labored, pt speaking in complete sentences,and no evidence of respiratory distress is noted Integumentary:Exposed skin viewable is dry and intact Psychiatric:Cooperative, appropriate mood & affect, Normal judgement Assessment/Plan 1.Eosinophilic esophagitis 2.Chronic GERD 3.Dysphagia 4.Hoarseness 5.Barretts esophagus Patient is a pleasant 68-year-old male who presents with his Misti.He presents withacute worsening of his dysphagia that is improving on nystatin swish and swallowprescribed by his oncologist for thrushafter recent use of Keflex. -Patient informs me that the hospitalist told him he was overdue for his EGDwhich Dr. Willoughby was also aware of at his October 2023 appointment. At that time Dr. Ramirez felt that given patient's mesothelioma and recent pulmonary embolithat the surveillance EGD was not recommended. I to feel this way. I did advise patientif he wishes to proceed with his EGD despiteour hesitancyhe would need approval from his oncologist. Patient was also [facility] Dr. Duncan olson. -Levon EGD 08/30/20---repeat EGD due 08/2023 -Patient reports he remains on 40 mg of omeprazole daily. Annual refill was sent to [facility].hxof colon polyps--repeat colo was due 09/2022 but with mesothelioma and recent pulmonary embolus, suveillance colonoscopy not recommended at this time GI follow up in6 months, sooner if needed. I have spent 40 minutes in evaluation, education and documentation of this pt in both face to face and non-face to face activities. Problem List/Past Medical History Ongoing Adverse effect of glucocorticoids and synthetic analogues, initial encounter Arrhythmia Back pain Barretts esophagus Cardiomyopathy [place]ios angioma Chronic GERD Chronic kidney disease, stage 3a CKD (chronic kidney disease) stage 3, GFR 30-59 ml/min Coronary artery disease involving nikolai coronary artery of nikolai heart without angina pectoris Dyslipidemia Dysphagia Eosinophilic esophagitis Flushing Heel pain History of colon polyps History of rheumatic fever Hoarseness Hyperlipidemia, unspecified Hypertension Hypertensive chronic kidney disease with stage 1 through stage 4 chronic kidney disease, or unspecified chronic kidney disease Mesothelioma of lung Nausea Neoplasm related pain (acute) (chronic) Numbness and tingling of both feet Ocular hypertension, unspecified eye Other abnormal glucose Other fatigue Pain in unspecified joint Pain, unspecified Personal history of pulmonary embolism Plantar fasciitis, left Prophylactic antibiotic therapy PVC (premature ventricular contraction) Schatzki's ring of distal esophagus Seborrheic keratoses Secondary malignant neoplasm of unspecified site Tinea pedis of both feet Tinea unguium Tobacco abuse. Toenail deformity Ventricular premature depolarization Weight disorder Resolved Zoster Procedure/Surgical History Mohs micrographic surgery| Service Date: 02/28/2023Shave biopsy| Service Date: 12/18/2022Medical records review| Service Date: 12/14/2022Medical records review| Service Date: 3CT of chest| Service Date: 08/07/2022hest X-ray| Service Date: 2Colonoscopy| Service Date: 10/11/2021Esophagogastroduodenoscopy| Service Date: 08/30/2020Hip replacement| ServiceDate: 03/08/2020Medical records review| Service Date: 12/17/2019Esophagogastroduodenoscopy| Service Date: 09/12/2019Upper GI endoscopy| Service Date: 03/14/2019Esophagogastroduodenoscopy|Service Date: 03/14/2019Colonoscopy| Service Date: 06/05/2016Hip replacement| Service Date: ppendectomy| Service Date: 03/26/2007Cholecystectomy| Service Date: 03/26/1991Chest X-ray Medications acetaminophen(Tylenol 500 mg oral tablet), 500 mg= 1 tab, PO, q6h, PRN apixaban(Eliquis 2.5 mg oral tablet), bid brimonidine-brinzolamide ophthalmic(Simbrinza 1%- 0.2% ophthalmic suspension) carvedilol(carvedilol 3.125 mg oral tablet), 3.125 mg= 1 tab, PO, bid cholecalciferol(Vitamin D3) folic acid(folic acid 1 mg oral tablet) latanoprost ophthalmic(latanoprost 0.005% ophthalmic solution) methylPREDNISolone(methylPREDNISolone 2 mg oral tablet), 2 mg= 1 tab, PO, Daily netarsudil ophthalmic(Rhopressa 0.02% ophthalmic solution) omeprazole ondansetron(ondansetron 8 mg oral tablet) oxyCODONE potassium chloride(potassium chloride 10 mEq oral capsule, extended release) tavaborole topical(Kerydin 5% topical solution), 1 appl, topical, Daily, 6 refills Allergies sulfa drugs (Moderate)Rash Bactrimrash cephalexinTHRUSH OF MOUTH predniSONEhiccups for hours traZODonerash Social History Smoking Status Never smoked cigarettes Alcohol Frequency:1-2 times per month Substance Abuse - Denies Substance Abuse Tobacco Use:Current some day smoker Type:Cigars Intake (IView) Smoking History Cigarette smoker: Never smoked cigarettes Tobacco Product Use: Never used other tobacco products SHX E-Cigarette Use: Never Family History Diabetes Mellitus: Father. Heart attack: Father. High blood pressure: Mother. Mesothelioma: Mother. Health Status Family Member(s) Family Member(s) Relationship: Mother, Age: Unknown Relationship: Father, Age: Unknown Immunizations Vaccine Date Status influenza virus vaccine, inactivated 01/22/2024 Recorded influenza virus vaccine, inactivated 01/26/2023 Recorded pneumococcal 23-valent vaccine 04/21/2022 Given influenza virus vaccine, inactivated 12/21/2021 Recorded SARS-CoV-2 (COVID-19) mRNA BNT-162b2 vax 02/09/2021 Recorded Comments : 2021-04-08: Historical information-source unspecified SARS-CoV-2 (COVID-19) mRNA BNT-162b2 vax 06/24/2020 Recorded Comments : 2021-04-08: Historical information-source unspecified SARS-CoV-2 (COVID-19) mRNA BNT-162b2 vax 06/03/2020 Recorded Comments : 2021-04-08: Historical information-source unspecified influenza virus vaccine, inactivated 12/23/2019 Recorded pneumococcal 13-valent vaccine 02/26/2019 Given influenza virus vaccine, inactivated 02/18/2019 Recorded zoster vaccine, inactivated 01/29/2019 Recorded zoster vaccine, inactivated 10/16/2018 Recorded tetanus/diphtheria/pertuss, acel (Tdap) 02/22/2018 Given influenza virus vaccine, inactivated 12/10/2017 Recorded influenza virus vaccine, inactivated 12/06/2016 Recorded influenza virus vaccine, inactivated 12/08/2015 Recorded zoster vaccine live 03/26/2015 Recorded zoster vaccine live 12/11/2014 Recorded Comments : 2021-04-08: Historical information-source unspecified pneumococcal 23-valent vaccine 12/09/2013 Recorded influenza virus vaccine, inactivated 12/09/2013 Recorded Recommendations Health Maintenance Pending(in the next year) OverDue Medicare Annual Wellness Visit due04/24/23and every 1year Due Adult Social Determinants of Health Screening due05/21/24Unknown Frequency Falls Plan of Care due05/21/24Unknown Frequency Hepatitis C Screening due05/21/24One-time only Due In Future Adult Influenza Vaccine not due until09/23/24and every 1year Satisfied(in the past 1 year) Satisfied Adult Influenza Vaccine on01/22/24.Satisfied by LOVE Marks Paula Body Mass Index on05/21/24.Satisfied by CEDRICK Cunningham Bobbi Lipid Screening on12/10/23.Satisfied by Contributor_system, [employer] Electronic Signature on File CC: Alfa Carcamo DO [address] [id number] Electronically Reviewed/Signed by: Corina French PA-C Author Signature Dt/Tm:05/21/2024 10:44 AM Division of Gastroenterology [facility] [place] Patient Care team information Care Team Personnel Name: DO Carcamo Franklin J Position: Physician - Family Med Member Role: Primary Care Provider Address: [address] Telecom: [phone] Name: DO Jung Sameer Position: Resident Member Role: Lifetime Relationship Address: [address] [place] [address] Telecom: [phone] Name: NISHI Garcia Christina L Position: Physician - Podiatry Member Role: Lifetime Relationship Address: [address] [place] [address] Telecom: [phone] Care Team Related Persons Name: MISTI ADLER Name: MISTI ADLER Insurance Providers Guarantor name: ROSA ADLER Health Plan Information #: 1 Payer: [employer] Member Number: [id number] Policy Number: NA Group Number: [id number] Health Plan Information #: 2 Payer: [employer] Member Number: NA Policy Number: NA Group Number: NA Health Plan Information #: 3 Payer: [employer] Member Number: [id number] Policy Number: NA Group Number: NA
[2024-06-04] MEDS ORDERED: BENZONATATE 100 MG CAPSULE PO PRN (00:31)
[2024-06-04] MEDS ORDERED: FLUTICASONE PROPIONATE NA SPR 16 GM BTL PRN (00:31)
[2024-06-04] MEDS ORDERED: ONDANSETRON INJ 2 MG/ML 2 ML VIAL IV PRN (00:31)
[2024-06-04] MEDS: carvediloL 3.125 MG TAB PO SCH (01:25)
[2024-06-04] MEDS: APIXABAN 2.5 MG TAB PO SCH (01:25)
[2024-06-04] MEDS: SODIUM CHLORIDE 0.65% NA SOLN 45 ML (OCEAN) SCH (01:25)
[2024-06-04 06:45] LABS: Hematocrit (blood only) 25.6 % (42.0-52.0); Hemoglobin 8.5 g/dl (14.0-18.0); Mean Corpuscular Hemoglobin 29.7 pg (25.0-34.0); Mean Corpuscular Hgb Conc 33.2 g/dL (32.0-36.0); Mean Corpuscular Volume 89.5 fL (80.0-100.0); Mean Platelet Volume 9.8 fL (9.4-12.4); Platelet Count 220 K/uL (130-400); RDW Coefficient of Variation 16.9 % (11.5-14.5); RDW Standard Deviation 52.8 fL (36.4-46.3); Red Blood Count 2.86 M/uL (4.70-6.10); White Blood Count 6.05 K/ul (4.8-10.8)
[2024-06-04 07:30] LABS: Immature Granulocytes # (auto) 0.03 K/uL (0.01-0.20); Immature Granulocytes % (auto) 0.5 %; Lymphocytes # (auto) 0.32 K/uL (1.20-3.40); Lymphocytes % (auto) 5.3 %; Monocytes # (auto) 0.08 K/uL (0.11-0.59); Monocytes % (auto) 1.3 %; Neutrophils # (auto) 5.62 K/uL (1.40-6.50); Neutrophils % (auto) 92.9 %
[2024-06-04 07:31] LABS: BUN Creatinine Ratio 32.4 (10-20); Calcium 8.1 mg/dl (8.6-10.3); Creatinine Clr Calc Pharmacy 67.8 ml/min; Magnesium 1.8 mg/dl (1.7-2.4); Potassium 3.2 mmol/L (3.5-5.1)
--- NOTE | 2024-06-04 07:43 | Oncology Consultation ---
Date of Consultation June 04, 2024 Assessment & Plan (1) Mesothelioma of lung: Will resume outpatient care and management of the patient per my colleague Dr. Figueroa Once the patient is stable and discharged for after that the current admission. Imaging performed in the hospital reviewed, no clear-cut evidence of SVC syndrome or deep vein thrombosis. Recommend continuation of supportive care and discharge per our hospital internal medicine colleagues. Plan Thank you for this interesting oncological consult. Medical oncology will continue to follow the patient make appropriate recommendations. History of Present Illness Reason for Consultation: Mesothelioma Attending Physician: Darwin Diamond DO History of Present Illness iagnosis: malignant pleural mesothelioma. Current treatment: Ipilimumab/Nivolumab on hold since 03/12/2024 Diagnosis/Treatment History: 1. He indicates that around late December/early January, he had presented with worsening shortness of breath at which time he was diagnosed with COVID-19 infection. Chest x-ray obtained on 01/23/2022 revealed small airspace opacity within left lung base. Repeat chest x-ray on 02/15/2022 revealed no focal consolidations to suggest pneumonia. 2. He then had repeat chest x-ray on 07/05/2022 which revealed stable left upper lung pleural thickening. CT chest on 08/07/2022 revealed Pleural-based mass within the left lung apex approximately 11 cm with extension into the left upper lobe parenchyma with a 3.1 cm left apical lesion, several additional pleural-based nodules throughout the left lung, compatible with malignancy, trace left pleural effusion. 3. PET/CT obtained on 08/30/2022 revealed Irregular hypermetabolic pleural-based mass of the left lung apex measuring up to approximately 10 cm compatible with a malignant neoplasm as well as several additional smaller pleural nodules. 4. CT-guided biopsy of left pleural mass on 09/14/2021 revealed malignant mesothelioma with core biopsy showing epithelioid tumor cells infiltrating desmoplastic stroma in the anastomosing cords of 102 cell thickness with spindled tumor cells in the intervening stroma IHC was strongly positive for D2- 40, CK7 strongly positive, negative CK20, p40, CK5/6 and TTF-1. 5. He was initially [place] Hodg[place] [facility] that [place] was not an option. Also evaluated by Dr. Coffman of thoracic oncology [place] [facility] [place] recommended nivolumab 360 mg every 3 weeks plus ipilimumab 1 mg/kg q. 6 weeks in the setting of biphasic mesothelioma. 6. Patient's case was discussed at thoracic oncology tumor board [place] [facility] [place] recommendation that patient be referred to high-volume center. 7. Patient was subsequently evaluated by Dr. Garland of thoracic surgery at [facility] on 10/16/2022 who recommended systemic therapy with immunotherapy treatment. 8. He started ipilimumab/nivolumab on 11/07/[address] CAP on 12/14/2022 revealed slight progression of this urothelial mass in the left hemithorax, slight increase in left pleural nodules and small left pleural effusion. 10. Restaging imaging on 03/29/2023 revealed mixed treatment response with overall modest improvement as compared to 12/14/[address] CAP on 08/10/2023 revealed persistent enlargement of previously described lateral pleural-based lesions involving left upper hemithorax compatible with progressive disease, remaining disease within chest appeared generally stable. 12. Started palliative radiation therapy to the left chest wall on 09/13/2023 13. Admitted to [facility] on 09/17/2023 with worsening cough and shortness of breath.CTA chest revealed extensive bilateral PE, mild dila tation of main pulmonary artery and right heart chambers. CT also revealed multifocal groundglass opacities throughout the lungs, favoring infectious process such as pneumonia. He was placed on therapeutic unfractionated heparin and antibiotics with no improvement in respiratory symptoms. Due to concern for immunotherapy mediated pneumonitis, he was started on high-dose steroids with improvement in symptoms. 14. CT CAP on 12/11/2023 revealed mild decrease in size of left apical pleural- based mass since CT of September 17, 2023, resolution of bilateral PE and no evidence of progressive disease within the chest 15. He was admitted to [facility] with nausea, vomiting, diarrhea and headaches. CT abdomen and pelvis obtained on 03/18/2024 was suggestive of pancolitis. Around that time, he was on tapered steroid dosing for ICI induced pneumonitis/arthralgias. While in the hospital, he was started on high-dose steroids for possible ICI induced colitis. His last dose of ipili mumab/nivolumab was on 03/12/2024 16. PET/CT on 05/07/2024 showed marked peripheral FDG uptake within left apical mass consistent with primary tumor, although mildly decreased in size since PET/CT of August 30, 2022 mass has slightly increased in size with increase in cranial/supraclavicular extension since CT chest from December 10, 2013, brachial plexus involvement cannot be excluded, multiple FDG avid left pleural implants consistent with recurrent disease, small pleural effusion, numerous new pulmonary nodules with mild FDG uptake and resolution of colorectal wall thickening 17. Started treatment with cisplatin/pemetrexed on 05/09/2024 18. was admitted to [facility] with severe back pain. CT abdomen and pelvis revealed new onset of compression fractures at T11, T12 and L1 likely osteoporotic rather than metastatic. CT abdomen and pelvis also revealed metastatic pleural implants in the lung bases bilaterally suggestive of mesothelioma implants as well as omentum. CT thoracic/lumbar spine on 05/15/2024 showed T11, T12, L1 and L2 compression fractures favoring osteoporotic compression fractures which are subacute to acute the patient was transferred by my colleague immunotherapy as he due to concerns for increased upper extremity swelling as there were concerns for underlying superior vena cava syndrome. Medical oncology has been consulted to assist in management of this patient was been hospitalized, has mesothelioma. Allergies Allergy/AdvReac Type Severity Reaction Status Date / Time Sulfa (Sulfonamide Allergy Intermediate ITCHY RASH Verified 06/03/24 17:05 Antibiotics) prednisone AdvReac Intermediate CONTINUAL Verified 06/03/24 17:05 HICCUPS cephalexin AdvReac Mild Thrush Verified 06/03/24 17:05 Home Medications Medication Instructions Recorded Confirmed Type acetaminophen 500 mg tablet 500 mg PO Q6H PRN Pain 10/11/22 06/03/24 History (Tylenol Extra Strength) calcium carb 1,000 mg-mag hydrox 1 tab PO DAILY PRN Indigestion 10/11/22 06/03/24 History 200 mg-simeth 40 mg chewable tablet (Rolaids Advanced Antacid Plus Anti-gas) famotidine 20 mg tablet (Pepcid) 40 mg PO DAILY PRN Indigestion 10/11/22 06/03/24 History fluticasone propionate 50 1 spray intranasal DAILY PRN nasal 10/11/22 06/03/24 History mcg/actuation nasal congestion spray,suspension (Flonase Allergy Relief) oxycodone 5 mg tablet 5 mg PO UD PRN Pain 10/11/22 06/03/24 History benzonatate 100 mg capsule 100 mg PO TID PRN Cough 08/29/23 06/03/24 History ondansetron HCl 8 mg tablet 8 mg PO Q8H PRN n/v 08/29/23 06/03/24 History amoxicillin 500 mg tablet 500 mg PO UD PRN dental 03/18/24 06/03/24 History appointments apixaban 5 mg tablet (Eliquis) 2.5 mg PO BID 03/18/24 06/03/24 History omeprazole 40 mg capsule,delayed 40 mg PO DAILY 03/18/24 06/03/24 History release prochlorperazine maleate 10 mg 10 mg PO Q6H PRN Nausea 03/18/24 06/03/24 History tablet folic acid 1 mg tablet 1 mg PO HS 05/15/24 06/03/24 History calcitonin (salmon) 200 1 spray NA DAILY 30 days #3.7 mL 05/17/24 06/03/24 Rx unit/actuation nasal spray carvedilol 3.125 mg tablet 3.125 mg PO BID #60 tabs 05/17/24 06/03/24 Rx potassium chloride 10 mEq 10 meq PO DAILY #30 caps 05/17/24 06/03/24 Rx capsule,extended release carboxymethylcellulose sodium 1 % 1 drp ophthalmic (eye) DIRECTED 06/03/24 06/03/24 History eye liquid gel drops PRN EYE DRYNESS/IRRITATION cholecalciferol (vitamin D3) 50 50 mcg PO BID 06/03/24 06/03/24 History mcg (2,000 unit) capsule fluconazole 200 mg tablet 200 mg PO QAM 06/03/24 06/03/24 History Patient History Medical History Pancolitis Nausea, vomiting, and diarrhea Weakness of left hand Barretts esophagus Mesothelioma of left lung Shingles Schatzki's ring Rheumatic fever PVC (premature ventricular contraction) Plantar fasciitis Hoarseness Colon polyps Dyslipidemia Angina pectoris Cough Chronic kidney disease GERD (gastroesophageal reflux disease) Cardiomyopathy Surgical History History of total right hip replacement H/O right inguinal hernia repair History of cardiac cath Status post cholecystectomy S/P appy H/O esophagogastroduodenoscopy S/P colonoscopy Family History Mother , 79yo Mesothelioma Hypertension Father , 86yo Myocardial infarction History of open heart surgery Hypertension Diabetes Social History Smoking Status: Former smoker Tobacco Type: Cigars Cigarettes Per Day: Occassionally smoked a cigar; Smoking End Date: years ago; Second Hand Exposure: No; Do You Dip or Chew Tobacco: No; Hx Alcohol Use: No Hx Substance Use: No Preferred Language: Kittitian Communication Ability: Effective Visual Impairment: Limited Hearing Ability: Normal Aerographer Required: No Beliefs That Will Affect Care: None marital status: Current Living Situation: Spouse current occupational status: retired 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[email or web address], currently on medical leave How many Children do You have: 0 Feels Safe at Home: Yes Safety Concerns: Feels Safe At This Time Diet: Soft and regular caffeine: Yes (2-3 cups/day) during the past year weight has: decreased > 10 lbs Do you think of yourself as: straight/heterosexual Assistive Devices: Brace/Splint/Immobilizer and Cane Review of Systems Review of Systems: All systems reviewed & are unremarkable except as noted in HPI & below Constitutional: as per Subjective / HPI Eyes: as per Subjective / HPI Ear, Nose, Mouth, Throat: as per Subjective / HPI Respiratory: as per Subjective / HPI Cardiovascular: as per Subjective / HPI Gastrointestinal: as per Subjective / HPI Genitourinary: + as per Subjective / HPI Musculoskeletal: as per Subjective / HPI Integumentary: as per Subjective / HPI Neurologic: as per Subjective / HPI Psychiatric: as per Subjective / HPI Endocrine: as per Subjective / HPI Physical Exam Constitutional: WD/WN, vitals as above Eyes: PERRL, conjunctivae normal, anicteric sclerae ENMT: external ear and nose normal, oropharynx normal Neck: trachea midline, no thyromegaly Respiratory: normal respiratory effort, lungs clear to auscultation Cardiovascular: RRR, no murmur, no edema Gastrointestinal (Abdomen): normal bowel sounds, soft, nontender, no hepatosplenomegaly Musculoskeletal: no cyanosis or clubbing, extremities motor strength 5/5 Skin: no rashes, warm and dry Results & Data Vital Signs (Past 12 Hours) Vital Signs Temp Pulse Pulse Pulse Resp BP BP 03/12/25 07:11 36.8 C 95 H 16 127/74 06/04/24 00:30 06/04/24 00:30 36.9 C 109 H 24 153/83 H 06/04/24 00:00 99 H 15 137/78 06/03/24 23:03 112 H 13 158/97 H 06/03/24 22:09 106 H 17 144/95 H 06/03/24 21:25 116 H 16 161/93 H 06/03/24 20:26 108 H 06/03/24 20:20 115 H 17 06/03/24 20:15 160 H 31 H Pulse Ox O2 Del Method 06/04/24 07:11 95 Room Air 06/04/24 00:30 Room Air 06/04/24 00:30 96 Room Air 06/04/24 00:00 93 Room Air 06/03/24 23:03 97 Room Air 06/03/24 22:09 96 Room Air 06/03/24 21:25 97 Room Air 06/03/24 20:26 06/03/24 20:20 98 Room Air 06/03/24 20:15 96 Room Air
[2024-06-04] MEDS: PANTOprazole 40 MG TAB PO SCH (08:26)
[2024-06-04] MEDS: CHOLECALCIFEROL 25 MCG (1000 UNITS) TAB PO SCH (08:27)
[2024-06-04] MEDS: FLUCONAZOLE 100 MG TAB PO SCH (08:27)
[2024-06-04] MEDS: CALCITONIN SALMON NA 200 IU/AC 3.7 ML BTL SCH (08:28)
[2024-06-04] MEDS: POTASSIUM CHLORIDE 10 MEQ TABCR PO SCH (08:34)
[2024-06-04] MEDS: ACETAMINOPHEN 325 MG TAB PO PRN (08:35)
[2024-06-04] MEDS: POTASSIUM CHLORIDE CRTAB 20 MEQ TABCR PO STA (12:29)
[2024-06-04] MEDS: carvediloL 3.125 MG TAB PO ONE (15:42)
--- NOTE | 2024-06-04 20:26 | Hospitalist Progress Note ---
Date of Service June 04, 2024 Assessment & Plan (1) Generalized weakness: (2) Ambulatory dysfunction: (3) Acute dehydration: (4) Mesothelioma of lung: (5) Hypertension: (6) Pressure ulcer of unspecified buttock, stage 3: (7) Thrush, oral: Plan 68-year-old male with PMH of mesothelioma currently undergoing chemotherapy treatment, CKD, GERD, PE August 2023, hypertension. Patient was recently admitted from 05/15/2024 to 05/17/2024 for an FELISA and T11, T12, and L1 osteopenic renee andree fractures. He presented to the ED after receiving a dose of chemotherapy Tuesday 05/30 resulting in weakness, ambulatory dysfunction, dyspnea on exertion, decreased appetite, and overall discomfort. Patient also noted to have left upper extremity swelling and weakness. He was admitted for ambulatory dysfunction to have PT/OT evals and for IV fluids for acute dehydration. #Weakness/Ambulatory dysfunction - Uses walker at baseline Suspect multifactorial between chemotherapy and acute dehydration UA negative. Blood cultures negative x 24 hours PT/OT consulted #Dehydration / Hypokalemia Likely due to poor PO intake secondary to decreased appetite from chemotherapy Received IV fluid bolus followed by maintenance fluids overnight Encourage oral hydration. Monitor for need of additional IV fluids Mild hypokalemia at 3.2 -- repleted with 30 meq of PO K, monitor with AM BMP #Mesothelioma Received 2 doses for cisplatin/pemetrexed - follows with Dr. Figueroa at [facility] Suspect contributing to generalized weakness CXR and chest CTA negative for acute changes Continue incentive spirometry #Left upper extremity swelling/weakness Noted to have history of possible brachial plexus involvement by tumor contributing Left UE Doppler negative, continue Eliquis #Hypertension Noted carvedilol decreased during recent admission from 6.25 mg BID to 3.125 mg BID. Patient notes elevated BPs at home. Hypertensive this afternoon at 166/106, increased carvedilol back to 6.25 mg BID. Now normotensive #Sacral wound Stage III pressure ulcer, follows with wound care, S/p debridement 06/02. Completed course of Keflex previous admission Twice daily dressing changes Continue offload cushion #Thrush Ongoing since admission in April Patient reportedly had to had to hold fluconazole for antiemetic medication at home. QTc 454 Restarted/continued on fluconazole 200 mg daily Chronic stable diagnoses: anemia Hgb 10.2, slowly decreasing over the past few months, monitor CBC chronic pain - oxycodone 5mg prn reduced to 2.5mg with fluconazole use above thoracic/lumbar compression fractures, osteopenic recent admission in April, continue vitamin D supplement and calcitonin nasal spray Hx PE - August 2023 - continue Eliquis open angle glaucoma - eyedrops recently discontinued after steroid taper discontinued, blurred vision reoccurring, patient to follow-up with fleet manager/dispatch regarding restarting eyedrops GERD - continue PPI VTE ppx: continue Eliquis and SCDs Dispo: Pending PT/OT evals Updated at bedside Increased carvedilol Repleted potassium Admission and Anticipated Discharge Date Admission Date: June 03, 2024 Supervising Physician Co-Signing Physician Notes chart reviewed case d/w S Tanmay BRYSON. as above Subjective Patient seen and evaluated at bedside with his present. He reports weakness and fatigue. He states that his LUE weakness has been ongoing since February 2024 and his bilateral LE weakness began after his most recent chemotherapy on Tuesday 05/30. He reports his LUE is a chronic achy sensation with intermittent tingling sensation and mild tremor at rest. He denies any pain wit h swallowing associated with his thrush. He was seen by OT but not yet by PT. No additional complaints or concerns at this time. Physical Exam Physical Exam: General: No acute distress, nondiaphoretic, frail male. Mouth: Thrush of oral mucosa. Cardiac: Regular rate and rhythm without murmurs gallops or rubs. Pulm: Clear to auscultation bilaterally without wheezes, rales or rhonchi. Normal respiratory effort. 96% on room air. Abdominal: Soft, nontender, nondistended. Bowel sounds present. Extremities: Left upper extremity with mild swelling, chronic. Significant weakness of LUE. Tremors at rest in bilateral UE. Neuro: A&O x3. No focal neurological deficits. Results & Data Results & Data Vital Signs (Past 12 Hours) Vital Signs Temp Pulse Resp BP Pulse Ox O2 Del Method 06/04/24 17:15 100 H 134/84 06/04/24 15:23 98.4 F 104 H 16 166/106 H 96 Room Air Laboratory Results Reviewed CBC with differential Reviewed BMP/chemistries Reviewed blood culture PG Care Time/CCT Total # of Minutes Spent Total Time Spent with Patient: Total time spent is greater than 50% in coordination of care (as documented) at patient's floor/unit and/or counseling patient: Coding Level of Care Code 73006 SUB INP/OBS CARE 3/50MIN Diagnoses Generalized weakness R53.1 Ambulatory dysfunction R26.2 Acute dehydration E86.0 Mesothelioma of lung C45.7 Hypertension I10 Pressure ulcer of unspecified buttock, stage 3 L89.303 Thrush, oral B37.0
[2024-06-04] MEDS: carvediloL 6.25 MG TAB PO SCH (20:58)
--- NOTE | 2024-06-05 06:21 | Electrocardiogram Report ---
Test Reason : Blood Pressure : */* mmHG Vent. Rate : 106 BPM Atrial Rate : 106 BPM P-R Int : 126 ms QRS Dur : 86 ms QT Int : 342 ms P-R-T Axes : 34 -8 38 degrees QTcB Int : 454 ms Poor data quality, interpretation may be adversely affected Sinus tachycardia Otherwise normal ECG When compared with ECG of 15-May-2024 14:01, No significant change was found Confirmed by Dileep Figueredo ([id number]) on 06/05/2024 6:20:48 AM Referred By: Ale Braxton Confirmed By: Dileep Figueredo
[2024-06-05 06:59] LABS: Hematocrit (blood only) 25.6 % (42.0-52.0); Hemoglobin 8.5 g/dl (14.0-18.0); Mean Corpuscular Hemoglobin 29.9 pg (25.0-34.0); Mean Corpuscular Hgb Conc 33.2 g/dL (32.0-36.0); Mean Corpuscular Volume 90.1 fL (80.0-100.0); Mean Platelet Volume 9.7 fL (9.4-12.4); Platelet Count 169 K/uL (130-400); RDW Standard Deviation 53.6 fL (36.4-46.3); Red Blood Count 2.84 M/uL (4.70-6.10); White Blood Count 3.06 K/ul (4.8-10.8)
[2024-06-05 07:14] LABS: BUN Creatinine Ratio 26.9 (10-20); Calcium 8.1 mg/dl (8.6-10.3); Creatinine Clr Calc Pharmacy 61.5 ml/min; Potassium 3.7 mmol/L (3.5-5.1)
--- NOTE | 2024-06-05 14:29 | Hospitalist Progress Note ---
Date of Service June 05, 2024 Assessment & Plan (1) Generalized weakness: (2) Ambulatory dysfunction: (3) Acute dehydration: (4) Mesothelioma of lung: (5) Hypertension: (6) Pressure ulcer of unspecified buttock, stage 3: (7) Thrush, oral: Plan 68-year-old male with PMH of mesothelioma currently undergoing chemotherapy treatment, CKD, GERD, PE August 2023, hypertension. Patient was recently admitted from 05/15/2024 to 05/17/2024 for an FELISA and T11, T12, and L1 osteopenic renee andree fractures. He presented to the ED after receiving a dose of chemotherapy Tuesday 05/30 resulting in weakness, ambulatory dysfunction, dyspnea on exertion, decreased appetite, and overall discomfort. Patient also noted to have left upper extremity swelling and weakness. He was admitted for ambulatory dysfunction to have PT/OT evals and for IV fluids for acute dehydration. Received IV fluid bolus followed by maintenance fluids overnight on admission. Mild hypokalemia repleted with oral supplementation and augmented appropriately. #Weakness/Ambulatory dysfunction - Uses walker at baseline Suspect multifactorial between chemotherapy and acute dehydration UA negative. Blood cultures negative x 24 hours PT/OT recommending rehab. Referrals made, CM following #Dehydration Likely due to poor PO intake secondary to decreased appetite from chemotherapy Encourage oral hydration. Monitor for need of additional IV fluids #Mesothelioma Received 2 doses for cisplatin/pemetrexed - follows with Dr. Figueroa at [facility]. 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 Patient noted elevated BPs at home since this decrease. Hypertensive inpatient so carvedilol was increased and now normotensive Continue carvedilol 6.25 mg BID #Sacral wound Stage III pressure ulcer, follows with wound care, S/p debridement 06/02. Completed course of Keflex previous admission Twice daily dressing changes Continue offload cushion #Thrush Ongoing since admission in April Patient reportedly had to had to hold fluconazole for antiemetic medication at home. QTc 454 Restarted/continued on fluconazole 200 mg daily Chronic stable diagnoses: anemia Hgb 10.2, slowly decreasing over the past few months, monitor CBC chronic pain - oxycodone 5mg prn reduced to 2.5mg with fluconazole use above thoracic/lumbar compression fractures, osteopenic recent admission in April, continue vitamin D supplement and calcitonin nasal spray Hx PE - August 2023 - continue Eliquis open angle glaucoma - eyedrops recently discontinued after steroid taper discontinued, blurred vision reoccurring, patient to follow-up with manager business systems regarding restarting eyedrops GERD - continue PPI VTE ppx: continue Eliquis and SCDs Dispo: Referrals pending for rehab placement. Case management following Updated at bedside Adjusted fluconazole from PO to suspension per request Admission and Anticipated Discharge Date Admission Date: June 03, 2024 Supervising Physician Co-Signing Physician Notes chart reviewed case d/w S Tanmay BRYSON. as above Subjective Patient seen and evaluated in bedside chair with his present. He reports feeling better today. He still feels weak, but not to the degree he felt when he first presented to the hospital. He reports he walked to the bathroom with assistance from RN and has been in his chair most of the morning/afternoon. He is still waiting for his PT evaluation. Physical Exam Physical Exam: General: No acute distress, nondiaphoretic, frail male. Mouth: Thrush of oral mucosa. Cardiac: Regular rate and rhythm without murmurs gallops or rubs. Pulm: Clear to auscultation bilaterally without wheezes, rales or rhonchi. Normal respiratory effort. 96% on room air. Abdominal: Soft, nontender, nondistended. Bowel sounds present. Extremities: Left upper extremity with mild swelling, chronic. Significant weakness of LUE. Tremors at rest in bilateral UE. Neuro: A&O x3. No focal neurological deficits. Results & Data Results & Data Vital Signs (Past 12 Hours) Vital Signs Temp Pulse Resp BP Pulse Ox O2 Del Method 06/05/24 08:15 Room Air 06/05/24 07:12 98.6 F 95 H 18 123/73 96 Room Air Laboratory Results Reviewed CBC Reviewed BMP - hypokalemia resolved Reviewed blood cultures PG Care Time/CCT Total # of Minutes Spent Total Time Spent with Patient: Total time spent is greater than 50% in coordination of care (as documented) at patient's floor/unit and/or counseling patient: Coding Level of Care Code 38038 SUB INP/OBS CARE 50MIN Diagnoses Generalized weakness R53.1 Ambulatory dysfunction R26.2 Acute dehydration E86.0 Mesothelioma of lung C45.7 Hypertension I10 Pressure ulcer of unspecified buttock, stage 3 L89.303 Thrush, oral B37.0
[2024-06-05] MEDS: MELATONIN 3 MG TAB PO PRN (21:12)
[2024-06-05] MEDS: oxyCODONE HCL IR 5 MG TAB (IMMEDIATE RELEASE) PO PRN (21:12)
[2024-06-06] MEDS: FLUCONAZOLE SUSP 200 MG/5 ML UDP PO SCH (09:23)
[2024-06-06] MEDS: FAMOTIDINE 40 MG TABLET PO PRN (09:24)
--- NOTE | 2024-06-06 12:26 | Hospitalist Progress Note ---
Date of Service June 06, 2024 Assessment & Plan (1) Generalized weakness: (2) Ambulatory dysfunction: (3) Acute dehydration: (4) Mesothelioma of lung: (5) Hypertension: (6) Pressure ulcer of unspecified buttock, stage 3: (7) Thrush, oral: Plan 68-year-old male with PMH of mesothelioma currently undergoing chemotherapy treatment, CKD, GERD, PE August 2023, hypertension. Patient was recently admitted from 05/15/2024 to 05/17/2024 for an FELISA and T11, T12, and L1 osteopenic renee andree fractures. He presented to the ED after receiving a dose of chemotherapy Tuesday 05/30 resulting in weakness, ambulatory dysfunction, dyspnea on exertion, decreased appetite, and overall discomfort. Patient also noted to have left upper extremity swelling and weakness. He was admitted for ambulatory dysfunction to have PT/OT evals and for IV fluids for acute dehydration. Received IV fluid bolus followed by maintenance fluids overnight on admission. Mild hypokalemia repleted with oral supplementation and augmented appropriately. #Weakness/Ambulatory dysfunction - Uses walker at baseline Suspect multifactorial between chemotherapy and acute dehydration UA negative. Blood cultures negative x 48 hours PT/OT recommending rehab. Referrals made, CM following #Dehydration Likely due to poor PO intake secondary to decreased appetite from chemotherapy Encourage oral hydration. Monitor for need of additional IV fluids #Mesothelioma Received 2 doses for cisplatin/pemetrexed - follows with Dr. Figueroa at [facility]. 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 Patient noted elevated BPs at home since this decrease. Hypertensive inpatient so carvedilol was increased and now normotensive Continue carvedilol 6.25 mg BID #Sacral wound Stage III pressure ulcer, follows with wound care, S/p debridement 06/02. Completed course of Keflex previous admission Twice daily dressing changes Continue offload cushion #Thrush Ongoing since admission in April Patient reportedly had to had to hold fluconazole for antiemetic medication at home. QTc 454 Restarted/continued on fluconazole 200 mg daily Chronic stable diagnoses: anemia Hgb 10.2, slowly decreasing over the past few months, monitor CBC chronic pain - oxycodone 5mg prn reduced to 2.5mg with fluconazole use above thoracic/lumbar compression fractures, osteopenic recent admission in April, continue vitamin D supplement and calcitonin nasal spray Hx PE - August 2023 - continue Eliquis open angle glaucoma - eyedrops recently discontinued after steroid taper discontinued, blurred vision reoccurring, patient to follow-up with union contract representative regarding restarting eyedrops GERD - continue PPI VTE ppx: continue Eliquis and SCDs Dispo: Referrals pending for rehab placement. Case management following Updated at bedside Ordered TEDs Admission and Anticipated Discharge Date Admission Date: June 05, 2024 Supervising Physician Co-Signing Physician Notes chart reviewed case d/w S Tanmay BRYSON. as above Subjective Patient seen and evaluated in bedside chair with his present. He reports his weakness continues to slowly improve. He does the exercises from therapy multiple times throughout the day. His appetite is fair and he does eat the majority of his meals. He denies shortness of breath. He has some LE edema above his socks, we discussed using JARROD stockings and he is agreeable. He is hopeful for rehab at [facility]. No additional complaints or concerns at this time. Physical Exam Physical Exam: General: No acute distress, nondiaphoretic, frail male. Mouth: Thrush of oral mucosa, improving. Cardiac: Well-perfused. Mild tachycardia in 90s. Pulm: Normal respiratory effort. 95% on room air. Extremities: Left upper extremity with mild swelling, chronic. Significant weakness of LUE. Mild tremors at rest in bilateral UE. 2+ pitting edema LE bilaterally. Neuro: A&O x3. No focal neurological deficits. Results & Data Results & Data Vital Signs (Past 12 Hours) Vital Signs Temp Pulse Resp BP Pulse Ox O2 Del Method 06/06/24 07:38 98.2 F 99 H 18 134/73 95 Room Air 06/06/24 07:30 Room Air Diagnostic Findings Reviewed blood cultures PG Care Time/CCT Total # of Minutes Spent Total Time Spent with Patient: Total time spent is greater than 50% in coordination of care (as documented) at patient's floor/unit and/or counseling patient: Coding Level of Care Code 85388 SUB INP/OBS CARE 2/35MIN Diagnoses Generalized weakness R53.1 Ambulatory dysfunction R26.2 Acute dehydration E86.0 Mesothelioma of lung C45.7 Hypertension I10 Pressure ulcer of unspecified buttock, stage 3 L89.303 Thrush, oral B37.0
--- NOTE | 2024-06-07 11:46 | Hospitalist Progress Note ---
Date of Service June 07, 2024 Assessment & Plan (1) Generalized weakness: (2) Ambulatory dysfunction: (3) Acute dehydration: (4) Mesothelioma of lung: (5) Hypertension: (6) Pressure ulcer of unspecified buttock, stage 3: (7) Thrush, oral: Plan 68-year-old male with PMH of mesothelioma currently undergoing chemotherapy treatment, CKD, GERD, PE August 2023, hypertension. Patient was recently admitted from 05/15/2024 to 05/17/2024 for an FELISA and T11, T12, and L1 osteopenic renee andree fractures. He presented to the ED after receiving a dose of chemotherapy Tuesday 05/30 resulting in weakness, ambulatory dysfunction, dyspnea on exertion, decreased appetite, and overall discomfort. Patient also noted to have left upper extremity swelling and weakness. He was admitted for ambulatory dysfunction to have PT/OT evals and for IV fluids for acute dehydration. Received IV fluid bolus followed by maintenance fluids overnight on admission. Mild hypokalemia repleted with oral supplementation and augmented appropriately. #Weakness/Ambulatory dysfunction - Uses walker at baseline Suspect multifactorial between chemotherapy and acute dehydration UA negative. Blood cultures negative > 48 hours PT/OT recommending rehab. Referrals made, CM following #Dehydration Likely due to poor PO intake secondary to decreased appetite from chemotherapy Encourage oral hydration. Monitor for need of additional IV fluids #Mesothelioma Received 2 doses for cisplatin/pemetrexed - follows with Dr. Figueroa at [facility]. 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 Patient noted elevated BPs at home since this decrease. Hypertensive inpatient so carvedilol was increased and now normotensive Continue carvedilol 6.25 mg BID #Sacral wound Stage III pressure ulcer, follows with wound care, S/p debridement 06/02. Completed course of Keflex previous admission Twice daily dressing changes Continue offload cushion #Thrush Ongoing since admission in April, appears nearly resolved now Patient reportedly had to had to hold fluconazole for antiemetic medication at home. QTc 454 Restarted/continued on fluconazole 200 mg daily Chronic stable diagnoses: anemia Hgb 10.2, slowly decreasing over the past few months, monitor CBC chronic pain - oxycodone 5mg prn reduced to 2.5mg with fluconazole use above thoracic/lumbar compression fractures, osteopenic recent admission in April, continue vitamin D supplement and calcitonin nasal spray Hx PE - August 2023 - continue Eliquis open angle glaucoma - eyedrops recently discontinued after steroid taper discontinued, blurred vision reoccurring, patient to follow-up with counselor education professor regarding restarting eyedrops GERD - continue PPI VTE ppx: continue Eliquis and SCDs Dispo: Referrals pending for rehab placement. Case management following Admission and Anticipated Discharge Date Admission Date: June 05, 2024 Supervising Physician Co-Signing Physician Notes chart reviewed case d/w S Tanmay BRYSON. as above Subjective Patient seen and evaluated in bedside chair. He reports that he is feeling okay, is worried that the peer to peer for [employer] will be denied. We discussed it further. He also notes that he did not tolerate the JARROD stockings and they were removed. He continues to work on the exercises provided by PT/OT. He denies any shortness of breath with exertion. His oral thrush is nearly resolved at this point. No additional complaints or concerns at this time. Physical Exam Physical Exam: General: No acute distress, nondiaphoretic, frail male. Mouth: Thrush of oral mucosa nearly resolved. Cardiac: Well-perfused. Mild tachycardia in 90s. Pulm: Normal respiratory effort. 96% on room air. Extremities: Left upper extremity with mild swelling, chronic. Significant weakness of LUE. Mild tremors at rest in bilateral UE. 2+ pitting edema LE bilaterally. Neuro: A&O x3. No focal neurological deficits. Results & Data Results & Data Vital Signs (Past 12 Hours) Vital Signs Temp Pulse Resp BP Pulse Ox O2 Del Method 06/07/24 08:07 97.3 F L 104 H 18 115/74 96 Room Air PG Care Time/CCT Total # of Minutes Spent Total Time Spent with Patient: Total time spent is greater than 50% in coordination of care (as documented) at patient's floor/unit and/or counseling patient: Coding Level of Care Code 84116 SUB INP/OBS CARE 04/19MIN Diagnoses Generalized weakness R53.1 Ambulatory dysfunction R26.2 Acute dehydration E86.0 Mesothelioma of lung C45.7 Hypertension I10 Pressure ulcer of unspecified buttock, stage 3 L89.303 Thrush, oral B37.0
--- NOTE | 2024-06-08 15:59 | Hospitalist Progress Note ---
Date of Service June 08, 2024 Assessment & Plan (1) Generalized weakness: (2) Ambulatory dysfunction: (3) Acute dehydration: (4) Mesothelioma of lung: (5) Hypertension: (6) Pressure ulcer of unspecified buttock, stage 3: (7) Thrush, oral: Plan 68-year-old male with PMH of mesothelioma currently undergoing chemotherapy treatment, CKD, GERD, PE August 2023, hypertension. Patient was recently admitted from 05/15/2024 to 05/17/2024 for an FELISA and T11, T12, and L1 osteopenic renee andree fractures. He presented to the ED after receiving a dose of chemotherapy Tuesday 05/30 resulting in weakness, ambulatory dysfunction, dyspnea on exertion, decreased appetite, and overall discomfort. Patient also noted to have left upper extremity swelling and weakness. He was admitted for ambulatory dysfunction to have PT/OT evals and for IV fluids for acute dehydration. Received IV fluid bolus followed by maintenance fluids overnight on admission. Mild hypokalemia repleted with oral supplementation and augmented appropriately. #Weakness/Ambulatory dysfunction - Uses walker at baseline Suspect multifactorial between chemotherapy and acute dehydration UA negative. Blood cultures negative >48 hours PT/OT recommending rehab. Referrals made, CM following #Dehydration Likely due to poor PO intake secondary to decreased appetite from chemotherapy Encourage oral hydration. Monitor for need of additional IV fluids #Mesothelioma Received 2 doses for cisplatin/pemetrexed - follows with Dr. Figueroa at [facility]. 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 Patient noted elevated BPs at home since this decrease. Hypertensive inpatient so carvedilol was increased and now normotensive Continue carvedilol 6.25 mg BID #Sacral wound Stage III pressure ulcer, follows with wound care, S/p debridement 06/02. Completed course of Keflex previous admission Twice daily dressing changes Continue offload cushion #Thrush Ongoing since admission in April Patient reportedly had to had to hold fluconazole for antiemetic medication at home. QTc 454 Restarted/continued on fluconazole 200 mg daily through 06/10 Chronic stable diagnoses: anemia Hgb slowly decreasing over the past few months chronic pain - oxycodone 5mg prn reduced to 2.5mg with fluconazole use above thoracic/lumbar compression fractures, osteopenic recent admission in April, continue vitamin D supplement and calcitonin nasal spray Hx PE - August 2023 - continue Eliquis open angle glaucoma - eyedrops recently discontinued after steroid taper discontinued, blurred vision reoccurring, patient to follow-up with tin container straightener regarding restarting eyedrops GERD - continue PPI VTE ppx: continue Eliquis and SCDs Dispo: Referrals pending for rehab placement. Case management following Updated at bedside Admission and Anticipated Discharge Date Admission Date: June 05, 2024 Supervising Physician Co-Signing Physician Notes chart reviewed case d/w S Tanmay BRYSON. as above Subjective Patient seen and evaluated in bedside chair with his present. He is anxious regarding his pending acceptance at [facility]. Otherwise, he denies any acute complaints or concerns. He notes that he continues to work on the exer cises provided by PT/OT. He slept well overnight and is eating a fair amount of his meals. Physical Exam Physical Exam: General: No acute distress, nondiaphoretic, frail male. Mouth: Thrush of oral mucosa resolved. Cardiac: Well-perfused. Regular rate in the 60s. Pulm: Normal respiratory effort. 97% on room air. Extremities: Left upper extremity with mild swelling, chronic. Significant weakness of LUE. Mild tremors at rest in bilateral UE. 2+ pitting edema LE bilaterally. Neuro: A&O x3. No focal neurological deficits. Results & Data Results & Data Vital Signs (Past 12 Hours) Vital Signs Temp Pulse Resp BP BP Pulse Ox O2 Del Method 06/08/24 13:45 98.1 F 68 16 100/60 97 Room Air 06/08/24 09:25 105 H 18 102/68 97 Room Air 06/08/24 07:07 97.9 F 55 L 16 131/61 95 Room Air PG Care Time/CCT Total # of Minutes Spent Total Time Spent with Patient: Total time spent is greater than 50% in coordination of care (as documented) at patient's floor/unit and/or counseling patient: Coding Level of Care Code 82723 SUB INP/OBS CARE 04/19MIN Diagnoses Generalized weakness R53.1 Ambulatory dysfunction R26.2 Acute dehydration E86.0 Mesothelioma of lung C45.7 Hypertension I10 Pressure ulcer of unspecified buttock, stage 3 L89.303 Thrush, oral B37.0
--- NOTE | 2024-06-09 12:22 | Hospitalist Progress Note ---
Date of Service June 09, 2024 Assessment & Plan (1) Generalized weakness: (2) Ambulatory dysfunction: (3) Acute dehydration: (4) Mesothelioma of lung: (5) Hypertension: (6) Pressure ulcer of unspecified buttock, stage 3: (7) Thrush, oral: Plan 68-year-old male with PMH of mesothelioma currently undergoing chemotherapy treatment, CKD, GERD, PE August 2023, hypertension. Patient was recently admitted from 05/15/2024 to 05/17/2024 for an FELISA and T11, T12, and L1 osteopenic renee andree fractures. He presented to the ED after receiving a dose of chemotherapy Tuesday 05/30 resulting in weakness, ambulatory dysfunction, dyspnea on exertion, decreased appetite, and overall discomfort. Patient also noted to have left upper extremity swelling and weakness. He was admitted for ambulatory dysfunction to have PT/OT evals and for IV fluids for acute dehydration. Received IV fluid bolus followed by maintenance fluids overnight on admission. Mild hypokalemia repleted with oral supplementation and augmented appropriately. #Weakness/Ambulatory dysfunction - Uses walker at baseline Suspect multifactorial between chemotherapy and acute dehydration UA negative. Blood cultures negative >48 hours PT/OT recommending rehab. [facility] P2P denied, [facility] without bed availability at this time. CM making additional referrals #Dehydration Likely due to poor PO intake secondary to decreased appetite from chemotherapy Encourage oral hydration. Monitor for need of additional IV fluids #Mesothelioma Received 2 doses for cisplatin/pemetrexed - follows with Dr. Figueroa at [facility]. 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 Patient noted elevated BPs at home since this decrease. Hypertensive inpatient so carvedilol was increased and now normotensive Continue carvedilol 6.25 mg BID #Sacral wound Stage III pressure ulcer, follows with wound care, S/p debridement 06/02. Completed course of Keflex previous admission Twice daily dressing changes Continue offload cushion #Thrush Ongoing since admission in April Patient reportedly had to had to hold fluconazole for antiemetic medication at home. QTc 454 Restarted/continued on fluconazole 200 mg daily through 06/10 Chronic stable diagnoses: anemia Hgb slowly decreasing over the past few months chronic pain - oxycodone 5mg prn reduced to 2.5mg with fluconazole use above thoracic/lumbar compression fractures, osteopenic recent admission in April, continue vitamin D supplement and calcitonin nasal spray Hx PE - August 2023 - continue Eliquis open angle glaucoma - eyedrops recently discontinued after steroid taper discontinued, blurred vision reoccurring, patient to follow-up with certified first assistant regarding restarting eyedrops GERD - continue PPI VTE ppx: continue Eliquis and SCDs Dispo: Additional rehab referrals made today. CM following Updated at bedside Completed P2P Discussed discharge planning with case management Ordered Voltaren gel Admission and Anticipated Discharge Date Admission Date: June 05, 2024 Subjective Patient seen and evaluated in bedside chair with his present. We discussed the denial from the P2P this morning for [facility]. He is disappointed and frustrated. We discussed that options from here include family appeal for [facility] or making referrals to other facilities. He also reported some LUE discomfort from his elbow to his hand. He states this is chronic but feels more bothersome today after doing his exercises this morning. He states that he uses topical creams at home with relief. Emotional support provided to him and his . No additional complaints or concerns at this time. Physical Exam Physical Exam: General: No acute distress, nondiaphoretic, frail male. Mouth: Thrush of oral mucosa resolved. Cardiac: Well-perfused. Regular rate in the 80s. Pulm: Normal respiratory effort. 96% on room air. Extremities: Left upper extremity with mild swelling, chronic. Significant weakness of LUE. Mild tremors at rest in bilateral UE. 2+ pitting edema LE bilaterally. Neuro: A&O x3. No focal neurological deficits. Results & Data Results & Data Vital Signs (Past 12 Hours) Vital Signs Temp Pulse Resp BP Pulse Ox O2 Del Method 06/09/24 07:47 97.5 F L 87 18 125/68 96 Room Air PG Care Time/CCT Total # of Minutes Spent Total Time Spent with Patient: Total time spent is greater than 50% in coordination of care (as documented) at patient's floor/unit and/or counseling patient: Coding Level of Care Code 51343 SUB INP/OBS CARE 350MIN Diagnoses Generalized weakness R53.1 Ambulatory dysfunction R26.2 Acute dehydration E86.0 Mesothelioma of lung C45.7 Hypertension I10 Pressure ulcer of unspecified buttock, stage 3 L89.303 Thrush, oral B37.0
[2024-06-09] MEDS: DICLOFENAC SOD 1% GEL 100 GM TUBE EXT SCH (15:11)
--- NOTE | 2024-06-10 10:34 | Hospitalist Progress Note ---
Date of Service June 10, 2024 Assessment & Plan (1) Generalized weakness: (2) Ambulatory dysfunction: (3) Acute dehydration: (4) Mesothelioma of lung: (5) Hypertension: (6) Pressure ulcer of unspecified buttock, stage 3: (7) Thrush, oral: Plan 68-year-old male with PMH of mesothelioma currently undergoing chemotherapy treatment, CKD, GERD, PE August 2023, hypertension. Patient was recently admitted from 05/15/2024 to 05/17/2024 for an FELISA and T11, T12, and L1 osteopenic c ompression fractures. He presented to the ED after receiving a dose of chemotherapy Tuesday 05/30 resulting in weakness, ambulatory dysfunction, dyspnea on exertion, decreased appetite, and overall discomfort. Patient also noted to have left upper extremity swelling and weakness. He was admitted for ambulatory dysfunction to have PT/OT evals and for IV fluids for acute dehydration. Received IV fluid bolus followed by maintenance fluids overnight on admission. Mild hypokalemia repleted with oral supplementation and augmented appropriately. #Weakness/Ambulatory dysfunction - Uses walker at baseline Suspect multifactorial between chemotherapy and acute dehydration UA negative. Blood cultures negative >48 hours PT/OT recommending rehab. [facility] denied by insurance ([id number] done), [facility] without bed availability at this time. CM making additional referrals #Dehydration Likely due to poor PO intake secondary to decreased appetite from chemotherapy Encourage oral hydration. Monitor for need of additional IV fluids #Mesothelioma Received 2 doses for cisplatin/pemetrexed - follows with Dr. Figueroa at [facility]. 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 Patient noted elevated BPs at home since this decrease. Hypertensive inpatient so carvedilol was increased and now normotensive Continue carvedilol 6.25 mg BID #Sacral wound Stage III pressure ulcer, follows with wound care, S/p debridement 06/02. Completed course of Keflex previous admission Twice daily dressing changes Continue offload cushion #Thrush Ongoing since admission in April Patient reportedly had to had to hold fluconazole for antiemetic medication at home. QTc 454 Restarted/continued on fluconazole 200 mg daily through 06/10 Chronic stable diagnoses: anemia Hgb slowly decreasing over the past few months; repeat CBC ordered for tomorrow am (last lab on 06/05/24) chronic pain - Oxycodone increased to home dose of 5 mg thoracic/lumbar compression fractures, osteopenic recent admission in April, continue vitamin D supplement and calcitonin nasal spray Hx PE - August 2023 - continue Eliquis open angle glaucoma - eyedrops recently discontinued after steroid taper discontinued, blurred vision reoccurring, patient to follow-up with bridge contractor regarding restarting eyedrops GERD - continue PPI VTE ppx: continue Eliquis and SCDs Dispo: Additional rehab referrals made today. CM following Admission and Anticipated Discharge Date Admission Date: June 05, 2024 Supervising Physician Co-Signing Physician Notes ATTESTATION I also saw the patient and confirmed andre portions of the history and exam. I agree with the impression and plan in the resident documentation, and as gil mmarized below. Patient seated in the bed side chair. A little discouraged given the failed attempt at placement due to insurance denial. He notes pain, lower thoracic spine. He has not been asking for his oxycodone since he has not been that active. At home, he was pretty well controlled on oxycodone 5 mg TID-QID along with tylenol at night. While his pain is better at rest, we discussed that pain may be limiting his abilities in PT, so we discussed resuming his home regimen since it worked well previously. EXAM 112/68, 89, 14, 36.8, 96% Alert and oriented. NAD Lungs CTA CV regular Some midline and paraspinal tenderness, low thoracic area DATA No new labs IMPRESSION & PLAN Weakness/Ambulatory Dysfunction Mesothelioma HTN Increase oxycodone to 5 mg q 6 and will encourage him to utilize Schedule Tylenol CBC and BMP in AM Case management continues bed search Additional per resident documentation Subjective Evaluated at bedside and found to be sitting on bedside chair, AAOx3, and in NAD. States he is having some back pain related to his hx of vertebral compression fractures, but has not been getting his home dose of Oxycodone to manage this chronic pain. Feels stiff and would like to walk around more. Physical Exam Physical Exam: General: No acute distress, nondiaphoretic, frail male. Mouth: Thrush of oral mucosa resolved. Cardiac: Well-perfused. Regular rate in the 80s. Pulm: Normal respiratory effort. CTA b/l Extremities: Left upper extremity with mild swelling, chronic. Significant weakness of LUE. Mild tremors at rest in bilateral UE. 2+ pitting edema LE bilaterally. Neuro: A&O x3. No focal neurological deficits. Results & Data Results & Data Vital Signs (Past 12 Hours) Vital Signs Temp Pulse Resp BP Pulse Ox O2 Del Method 06/10/24 08:16 37.0 C 92 H 16 114/66 96 Room Air Resident Activity Tracking Resident Involvement: Resident Care Provided Care Provided: Adult Hospital Medicine
[2024-06-10] MEDS: ACETAMINOPHEN 500 MG TAB PO SCH ×2 (11:32→19:01)
[2024-06-10] MEDS: oxyCODONE HCL IR 5 MG TAB (IMMEDIATE RELEASE) PO PRN (13:12)
[2024-06-11] MEDS: DOCUSATE SODIUM 100 MG CAP PO PRN (05:05)
[2024-06-11 07:53] LABS: BUN Creatinine Ratio 22.2 (10-20); Calcium 8.4 mg/dl (8.6-10.3); Creatinine Clr Calc Pharmacy 47.8 ml/min; Potassium 3.6 mmol/L (3.5-5.1)
[2024-06-11 08:04] LABS: Hematocrit (blood only) 20.9 % (42.0-52.0); Hemoglobin 7.1 g/dl (14.0-18.0); Mean Corpuscular Volume 88.2 fL (80.0-100.0); Mean Platelet Volume 11.2 fL (9.4-12.4); Platelet Count 64 K/uL (130-400); RDW Standard Deviation 51.7 fL (36.4-46.3); Red Blood Count 2.37 M/uL (4.70-6.10); White Blood Count 2.37 K/ul (4.8-10.8)
[2024-06-11] MEDS ORDERED: SODIUM CHLORIDE 0.9% 100 ML IV PRN (08:12)
[2024-06-11] MEDS ORDERED: LACTATED RINGER'S 1,000 ML IV SCH (08:15)
[2024-06-11 08:16] LABS: Basophils # (auto) 0.01 K/uL (0.00-0.20); Basophils % (auto) 0.4 %; Eosinophils # (auto) 0.16 K/uL (0.00-0.50); Eosinophils % (auto) 6.8 %; Immature Granulocytes # (auto) 0.02 K/uL (0.01-0.20); Immature Granulocytes % (auto) 0.8 %; Lymphocytes # (auto) 0.33 K/uL (1.20-3.40); Lymphocytes % (auto) 13.9 %; Monocytes # (auto) 0.31 K/uL (0.11-0.59); Monocytes % (auto) 13.1 %; Neutrophils # (auto) 1.54 K/uL (1.40-6.50); Platelet Estimate Decreased (Normal); Polychromasia 1+; Tear Drop Cells 1+
[2024-06-11] MEDS: LACTATED RINGER'S 1,000 ML IV SCH (08:21)
[2024-06-11 08:56] LABS: Reticulocyte % 0.42 % (0.50-2.00); Reticulocytes # 0.01 10^6/uL (0.020-0.100)
[2024-06-11] MEDS: FERROUS SULFATE 325 MG TAB PO SCH (09:29)
--- NOTE | 2024-06-11 09:41 | Hospitalist Progress Note ---
Date of Service June 11, 2024 Assessment & Plan (1) Generalized weakness: (2) Ambulatory dysfunction: (3) Acute dehydration: (4) Mesothelioma of lung: (5) Hypertension: (6) Pressure ulcer of unspecified buttock, stage 3: (7) Thrush, oral: Plan 68-year-old male with PMH of mesothelioma currently undergoing chemotherapy treatment, CKD, GERD, PE August 2023, hypertension. Patient was recently admitted from 05/15/2024 to 05/17/2024 for an FELISA and T11, T12, and L1 osteopenic c ompression fractures. He presented to the ED after receiving a dose of chemotherapy Tuesday 05/30 resulting in weakness, ambulatory dysfunction, dyspnea on exertion, decreased appetite, and overall discomfort. Patient also noted to have left upper extremity swelling and weakness. He was admitted for ambulatory dysfunction to have PT/OT evals and for IV fluids for acute dehydration. #Anemia - Chronic; Hgb has been steadily decreasing over the last few months - Could be related to chemotherapy and/or nutritional deficiencies given lower appetite - Will order additional labs to assess further: vitamin B12, folate, iron panel, and reticulocyte count - Given addition of fluids and the fact that patient is dehydrated based on BMP, it is possible this hgb of 7.1 is from hemoconcentration and that it is actually lower; patient asymptomatic save for some weakness which is likely multifactorial as detailed below Discussed possibility of needing PRBC transfusion if tomorrow's hgb shows count <7, but patient preferred to hold off for now and revisit this if this were to be the case (lower hgb) - Added iron tabs - Monitor am labs #Weakness/Ambulatory dysfunction - Uses walker at baseline Suspect multifactorial between chemotherapy and acute dehydration. Current anemia may also be playing a role (management as above) UA negative. Blood cultures negative >48 hours PT/OT recommending rehab. [facility] denied by insurance ([id number] done), [facility] without bed availability at this time. CM making additional referral s #FELISA Cr increased to ~1.5 Likely pre-renal due to poor PO intake secondary to decreased appetite from chemotherapy +/- current anemia Add LR @80 ml/hr; Encourage oral hydration. #Mesothelioma Received 2 doses for cisplatin/pemetrexed - follows with Dr. Figueroa at [facility]. 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 Patient noted elevated BPs at home since this decrease. Hypertensive inpatient so carvedilol was increased and now normotensive Continue carvedilol 6.25 mg BID #Sacral wound Stage III pressure ulcer, follows with wound care, S/p debridement 06/02. Completed course of Keflex previous admission Twice daily dressing changes Continue offload cushion #Thrush Ongoing since admission in April Patient reportedly had to had to hold fluconazole for antiemetic medication at home. QTc 454 Restarted/continued on fluconazole 200 mg daily through 06/10 Chronic stable diagnoses: chronic pain - Oxycodone increased to home dose of 5 mg w/ better control of pain but subsequent drowsiness thoracic/lumbar compression fractures, osteopenic recent admission in April, continue vitamin D supplement and calcitonin nasal spray Hx PE - August 2023 - continue Eliquis open angle glaucoma - eyedrops recently discontinued after steroid taper discontinued, blurred vision reoccurring, patient to follow-up with wrapper stemmer hand regarding restarting eyedrops GERD - continue PPI VTE ppx: continue Eliquis and SCDs Dispo: Additional rehab referrals made today. CM following Admission and Anticipated Discharge Date Admission Date: June 05, 2024 Supervising Physician Co-Signing Physician Notes ATTESTATION I also saw the patient and completed a history and exam. I agree with the impression and plan in the medical student and resident documentation, and as summarized below. Still no disposition with regards to placement. EXAM 131/71, 87, 16 Alert and oriented. NAD Lungs CTA CV regular DATA HgB = 7.1 Plt = 64 BUN = 34 Cr = 1.53 IMPRESSION & PLAN Weakness/Ambulatory Dysfunction Mesothelioma HTN Antineoplastic Chemotherapy Induced Pancytopenia FELISA Gentle fluids HgB noted, and may be an element of heme concentration Recheck in AM and consider transfusion given his global weakness Additional per resident documentation Subjective Patient seen at bedside and found to be sitting on bedside chair, AAOx3, afebrile, NAD. He states he is still feeling some weakness but not much worse compared to yesterday. His pain has improved with the increased dose of Oxycodone and pm Tylenol, and would like to try walking today with help. No rachael st pain, SOB, chills, fevers, or other sxs. Physical Exam Physical Exam: General: No acute distress, nondiaphoretic, frail male. Cardiac: Well-perfused. Pulm: Normal respiratory effort. CTA b/l Extremities: Left upper extremity with mild swelling, chronic. Significant weakness of LUE. Mild tremors at rest in bilateral UE. 2+ pitting edema LE bilaterally. Neuro: A&O x3. No focal neurological deficits. Results & Data Results & Data Vital Signs (Past 12 Hours) Vital Signs Temp Pulse Pulse Resp BP Pulse Ox O2 Del Method 06/11/24 09:28 87 131/71 97 Room Air 06/11/24 07:53 36.5 C 92 H 16 95/64 L 97 Room Air Resident Activity Tracking Resident Involvement: Resident Care Provided Care Provided: Adult Hospital Medicine
[2024-06-11 10:29] LABS: Folate (Folic Acid),Ser orPlas > 22.30 ng/ml (>5.38)
[2024-06-11 10:30] LABS: Vitamin B12 385 pg/ml (180-914)
[2024-06-11 10:52] LABS: Hypersegmented Neutrophils 1+
[2024-06-11] MEDS: oxyCODONE HCL IR 5 MG TAB (IMMEDIATE RELEASE) PO SCH (11:34)
[2024-06-12 07:30] LABS: Hematocrit (blood only) 19.5 % (42.0-52.0); Hemoglobin 6.6 g/dl (14.0-18.0); Mean Corpuscular Hgb Conc 33.8 g/dL (32.0-36.0); Mean Corpuscular Volume 88.6 fL (80.0-100.0); Mean Platelet Volume 11.1 fL (9.4-12.4); Platelet Count 77 K/uL (130-400); RDW Coefficient of Variation 16.6 % (11.5-14.5); RDW Standard Deviation 51.3 fL (36.4-46.3); White Blood Count 2.39 K/ul (4.8-10.8)
[2024-06-12 07:49] LABS: Albumin Globulin Ratio 1.5 (0.9-2); Albumin Level 2.8 gm/dl (3.4-5.0); BUN Creatinine Ratio 21.1 (10-20); Bilirubin,Total 0.2 mg/dl (0.2-1.0); Calcium 8.2 mg/dl (8.6-10.3); Globulin 1.9 gm/dl (2.5-4.0); Potassium 3.5 mmol/L (3.5-5.1); Total Protein 4.7 gm/dl (6.0-8.3)
[2024-06-12 07:56] LABS: Eosinophils # (auto) 0.23 K/uL (0.00-0.50); Eosinophils % (auto) 9.6 %; Hypersegmented Neutrophils 2+; Immature Granulocytes # (auto) 0.02 K/uL (0.01-0.20); Immature Granulocytes % (auto) 0.8 %; Lymphocytes # (auto) 0.32 K/uL (1.20-3.40); Lymphocytes % (auto) 13.4 %; Monocytes # (auto) 0.34 K/uL (0.11-0.59); Monocytes % (auto) 14.2 %; Neutrophils # (auto) 1.48 K/uL (1.40-6.50)
--- NOTE | 2024-06-12 10:21 | Hospitalist Progress Note ---
Date of Service June 12, 2024 Assessment & Plan (1) Generalized weakness: (2) Ambulatory dysfunction: (3) Acute dehydration: (4) Mesothelioma of lung: (5) Hypertension: (6) Pressure ulcer of unspecified buttock, stage 3: (7) Thrush, oral: Plan 68-year-old male with PMH of mesothelioma currently undergoing chemotherapy treatment, CKD, GERD, PE August 2023, hypertension. Patient was recently admitted from 05/15/2024 to 05/17/2024 for an FELISA and T11, T12, and L1 osteopenic c ompression fractures. He presented to the ED after receiving a dose of chemotherapy Tuesday 05/30 resulting in weakness, ambulatory dysfunction, dyspnea on exertion, decreased appetite, and overall discomfort. Patient also noted to have left upper extremity swelling and weakness. He was admitted for ambulatory dysfunction to have PT/OT evals and for IV fluids for acute dehydration. #Anemia - Chronic; Hgb has been steadily decreasing over the last few months - Vitamin B12 and folate wnl; Reticulocyte count low; iron panel suggestive of inflammatory anemia - Could be related to chemotherapy and/or nutritional deficiencies given lower appetite - Hgb in am labs of 6.6; patient tachycardic in am labs which could be related to anemia - Added iron tabs - Discussed proceeding with PRBC transfusion given lower hgb and CV risk as well as potential for end-organ impact from affected perfusion given lower volume; patient preferred to hold off on making a decision until he was able to discuss with Dr. Carcamo regarding whether or not to proceed with transfusion versus other remedies such as iron infusions (having been informed that, although this is an option, it may take a few days to get an effect and it may be mild since it is also possible he is myelosuppressed from his chemotherapy); for details on their discussion, please refer to Dr. Carcamo attestation. Ultimately patient agreed to proceed with PRBC transfusion; blood consent completed and in patient's physical chart Ordered transfusion of 2 units of PRBC - Monitor am labs #Weakness/Ambulatory dysfunction - Uses walker at baseline Suspect multifactorial between chemotherapy and acute dehydration. Current anemia may also be playing a role (management as above) UA negative. Blood cultures negative >48 hours PT/OT recommending rehab. [facility] denied by insurance ([id number] done), [facility] without bed availability at this time. CM making additional referrals #FELISA Resolved Cr improved in am labs after mIVF Likely pre-renal due to poor PO intake secondary to decreased appetite from chemotherapy +/- current anemia Encouraged continued oral hydration #Mesothelioma Received 2 doses for cisplatin/pemetrexed - follows with Dr. Figueroa at [facility]. 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 Patient noted elevated BPs at home since this decrease. Hypertensive in patient so carvedilol was increased and now normotensive Continue carvedilol 6.25 mg BID #Sacral wound Stage III pressure ulcer, follows with wound care, S/p debridement 06/02. Completed course of Keflex previous admission Twice daily dressing changes Continue offload cushion #Thrush Ongoing since admission in April Patient reportedly had to had to hold fluconazole for antiemetic medication at home. QTc 454 Restarted/continued on fluconazole 200 mg daily through 06/10 Chronic stable diagnoses: chronic pain - Oxycodone increased to home dose of 5 mg w/ better control of pain but subsequent drowsiness thoracic/lumbar compression fractures, osteopenic recent admission in April, continue vitamin D supplement and calcitonin nasal spray Hx PE - August 2023 - continue Eliquis open angle glaucoma - eyedrops recently discontinued after steroid taper discontinued, blurred vision reoccurring, patient to follow-up with drag out worker regarding restarting eyedrops GERD - continue PPI VTE ppx: continue Eliquis and SCDs Dispo: Additional rehab referrals made today. CM following Admission and Anticipated Discharge Date Admission Date: June 05, 2024 Supervising Physician Co-Signing Physician Notes ATTESTATION I also saw the patient and completed a history and exam. I discussed the case with oncology. I agree with the impression and plan in the medical student and resident documentation, and as summarized below. Discussed today risks and benefits of transfusion. He is willing to proceed EXAM 122/75, 114, 16, 36.8 Alert and oriented. NAD Lungs CTA CV regular DATA HgB = 6.6 WBC = 2.39 Plt = 77 BUN = 28 Cr = 1.33 IMPRESSION & PLAN Weakness/Ambulatory Dysfunction Mesothelioma HTN Antineoplastic Chemotherapy Induced Pancytopenia FELISA Transfuse 2 units PRBCs today; discussed risks and benefits; less than 7.0, global weakness, and tachycardia all support need. Hopefully this will improve energy and help him with PT He asks some good questions about chemotherapy schedule given his condition; will defer to oncology Additional per resident documentation Subjective Patient sitting on bedside chair and in NAD. States he is still feeling weak but back pain is somewhat more bearable. No fevers, chills, chest pain, palpitations, tachycardia, SOB/REDDY, or other systemic sxs. No noted overnight events. Physical Exam Physical Exam: General: No acute distress, nondiaphoretic, frail male. Cardiac: Well-perfused. Pulm: Normal respiratory effort. CTA b/l Extremities: Left upper extremity with mild swelling, chronic. Significant weakness of LUE. Mild tremors at rest in bilateral UE. 2+ pitting edema LE bilaterally. Neuro: A&O x3. No focal neurological deficits. Results & Data Results & Data Vital Signs (Past 12 Hours) Vital Signs Temp Pulse Resp BP Pulse Ox O2 Del Method 06/12/24 07:14 36.8 C 114 H 16 122/75 96 Room Air Resident Activity Tracking Resident Involvement: Resident Care Provided Care Provided: Adult Hospital Medicine
[2024-06-12] MEDS ORDERED: SODIUM CHLORIDE 0.9% 100 ML IV PRN (13:52)
--- NOTE | 2024-06-13 06:55 | Hospitalist Progress Note ---
Date of Service June 13, 2024 Assessment & Plan (1) Generalized weakness: (2) Ambulatory dysfunction: (3) Acute dehydration: (4) Mesothelioma of lung: (5) Hypertension: (6) Pressure ulcer of unspecified buttock, stage 3: (7) Thrush, oral: Plan 68-year-old male with PMH of mesothelioma currently undergoing chemotherapy treatment, CKD, GERD, PE August 2023, hypertension. Patient was recently admitted from 05/15/2024 to 05/17/2024 for an FELISA and T11, T12, and L1 osteopenic c ompression fractures. He presented to the ED after receiving a dose of chemotherapy Tuesday 05/30 resulting in weakness, ambulatory dysfunction, dyspnea on exertion, decreased appetite, and overall discomfort. Patient also noted to have left upper extremity swelling and weakness. He was admitted for ambulatory dysfunction to have PT/OT evals and for IV fluids for acute dehydration. #Anemia - Chronic; Hgb has been steadily decreasing over the last few months - Vitamin B12 and folate wnl; Reticulocyte count low; iron panel suggestive of inflammatory anemia - Required transfusion of 2 units PRBC on 06/12 for Hgb of 6.6, repeat 06/13 indicating Hgb of 9.0 Suspect that changes in Hgb are provoked by active malignancy and ongoing chemotherapy #Weakness/Ambulatory dysfunction - Uses walker at baseline - Suspect multifactorial between chemotherapy and acute dehydration. Current anemia may also be playing a role (management as above) - UA negative. Blood cultures negative >48 hours - PT/OT recommending rehab. [facility] denied by insurance ([id number] done), [facility] without bed availability at this time. CM making additional referrals Appearing that HH will be a viable option for ongoing therapy #FELISA - Resolved - Encouraged continued oral hydration #Mesothelioma - Received 2 doses for cisplatin/pemetrexed - follows with Dr. 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 - Patient noted elevated BPs at home since this decrease. Hypertensive inpatient so carvedilol was increased and now normotensive - Continue carvedilol 6.25 mg BID #Sacral wound - Stage III pressure ulcer, follows with wound care, S/p debridement 06/02. Completed course of Keflex previous admission - Twice daily dressing changes - Continue offload cushion #Thrush - Ongoing since admission in April - Patient reportedly had to had to hold fluconazole for antiemetic medication at home. QTc 454 - Restarted/continued on fluconazole 200 mg daily through 06/10 Chronic stable diagnoses: chronic pain - Oxycodone increased to home dose of 5 mg w/ better control of pain but subsequent drowsiness thoracic/lumbar compression fractures, osteopenic recent admission in April, continue vitamin D supplement and calcitonin nasal spray Hx PE - August 2023 - continue Eliquis open angle glaucoma - eyedrops recently discontinued after steroid taper discontinued, blurred vision reoccurring, patient to follow-up with quilting machine helper regarding restarting eyedrops GERD - continue PPI VTE ppx: continue Eliquis and SCDs Dispo: Additional rehab referrals made today. CM following, potentially HH upon discharge. Admission and Anticipated Discharge Date Admission Date: June 05, 2024 Supervising Physician Co-Signing Physician Notes I personally examined the patient and verified andre points of history and exam, discussed case, and agree with decision making and plan documented by Dr. Stallings. Hemoglobin 9 s/p 2 units PRBC. Patient ambulating with physical therapy today, has worry about returning home with weakness and ambulatory dysfunction. Unfortunately insurance denied for inpatient rehabilitation coverage by insurance, discussed consideration of self-pay or returning home with home health. Reviewed consideration of compression stockings for chronic LE edema and importance of elevation and dorsi/plantar flexion when able. Will re-evaluate clinical status tomorrow. Subjective Patient performing hand exercises in bedside chair with nearby. He notes he is feeling better today, but that he remains concerned about the weakness in his arm, which is noted to be associated with compression on the brachial plexus by his malignancy. No fevers, chills, chest pain, palpitations, tachycardia, SOB/REDDY, or other systemic sxs. No noted overnight events. Patient believes that he is feeling more energy since his transfusion. He notes that he was able to participate well in PT today. Physical Exam Physical Exam: General: Pleasant, NAD, AOx4 Cardiac: Clinically well perfused, RRR, no MRG Pulm: Normal respiratory effort, CTAB Extremities: Left upper extremity with mild swelling, chronic. Significant weakness of LUE. Mild tremors at rest in bilateral UE. 2+ pitting edema LE bilaterally. Neuro: No focal neurological deficits. Results & Data Results & Data Vital Signs (Past 12 Hours) Vital Signs Temp Pulse Resp BP Pulse Ox O2 Del Method 06/12/24 20:08 36.6 C 105 H 16 133/81 96 Room Air Resident Activity Tracking Resident Involvement: Resident Care Provided Care Provided: Adult Hospital Medicine
[2024-06-13 11:08] LABS: Basophils # (auto) 0.01 K/uL (0.00-0.20); Basophils % (auto) 0.3 %; Eosinophils # (auto) 0.34 K/uL (0.00-0.50); Eosinophils % (auto) 11.1 %; Hematocrit (blood only) 26.5 % (42.0-52.0); Immature Granulocytes # (auto) 0.05 K/uL (0.01-0.20); Immature Granulocytes % (auto) 1.6 %; Lymphocytes # (auto) 0.32 K/uL (1.20-3.40); Lymphocytes % (auto) 10.5 %; Mean Corpuscular Hemoglobin 29.8 pg (25.0-34.0); Mean Corpuscular Volume 87.7 fL (80.0-100.0); Mean Platelet Volume 10.6 fL (9.4-12.4); Monocytes # (auto) 0.48 K/uL (0.11-0.59); Monocytes % (auto) 15.7 %; Neutrophils # (auto) 1.86 K/uL (1.40-6.50); Neutrophils % (auto) 60.8 %; Platelet Count 143 K/uL (130-400); RDW Coefficient of Variation 16.6 % (11.5-14.5); RDW Standard Deviation 50.3 fL (36.4-46.3); Red Blood Count 3.02 M/uL (4.70-6.10); White Blood Count 3.06 K/ul (4.8-10.8)
[2024-06-13 11:21] LABS: Albumin Globulin Ratio 1.5 (0.9-2); Albumin Level 3.4 gm/dl (3.4-5.0); BUN Creatinine Ratio 20.5 (10-20); Bilirubin,Total 0.5 mg/dl (0.2-1.0); Calcium 8.7 mg/dl (8.6-10.3); Creatinine Clr Calc Pharmacy 50.1 ml/min; Globulin 2.3 gm/dl (2.5-4.0); Potassium 3.8 mmol/L (3.5-5.1); Total Protein 5.7 gm/dl (6.0-8.3)
[2024-06-13 20:05] VITALS: RESP 18
--- NOTE | 2024-06-14 07:43 | Hospitalist Progress Note ---
Date of Service June 14, 2024 Assessment & Plan (1) Generalized weakness: (2) Ambulatory dysfunction: (3) Acute dehydration: (4) Mesothelioma of lung: (5) Hypertension: (6) Pressure ulcer of unspecified buttock, stage 3: (7) Thrush, oral: Plan 68-year-old male with PMH of mesothelioma currently undergoing chemotherapy treatment, CKD, GERD, PE August 2023, hypertension. Patient was recently admitted from 05/15/2024 to 05/17/2024 for an FELISA and T11, T12, and L1 osteopenic c ompression fractures. He presented to the ED after receiving a dose of chemotherapy Tuesday 05/30 resulting in weakness, ambulatory dysfunction, dyspnea on exertion, decreased appetite, and overall discomfort. Patient also noted to have left upper extremity swelling and weakness. He was admitted for ambulatory dysfunction to have PT/OT evals and for IV fluids for acute dehydration. #Anemia - Chronic; Hgb has been steadily decreasing over the last few months - Vitamin B12 and folate wnl; Reticulocyte count low; iron panel suggestive of inflammatory anemia - Required transfusion of 2 units PRBC on 06/12 for Hgb of 6.6, repeat 06/13 indicating Hgb of 9.0 Suspect that changes in Hgb are provoked by active malignancy and ongoing chemotherapy #Weakness/Ambulatory dysfunction - Uses walker at baseline - Suspect multifactorial between chemotherapy and acute dehydration. Current anemia may also be playing a role (management as above) - UA negative. Blood cultures negative >48 hours - PT/OT recommending rehab. [facility] denied by insurance ([id number] done), [facility] without bed availability at this time. CM making additional referrals Appearing that HH will be a viable option for ongoing therapy #FELISA - Resolved - Encouraged continued oral hydration #Mesothelioma - Received 2 doses for cisplatin/pemetrexed - follows with Dr. 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 - Patient noted elevated BPs at home since this decrease. Hypertensive inpatient so carvedilol was increased and now normotensive - Continue carvedilol 6.25 mg BID #Sacral wound - Stage III pressure ulcer, follows with wound care, S/p debridement 06/02. Completed course of Keflex previous admission - Twice daily dressing changes - Continue offload cushion #Thrush - Ongoing since admission in April - Patient reportedly had to had to hold fluconazole for antiemetic medication at home. QTc 454 - Restarted/continued on fluconazole 200 mg daily through 06/10 Chronic stable diagnoses: chronic pain - Oxycodone increased to home dose of 5 mg w/ better control of pain but subsequent drowsiness thoracic/lumbar compression fractures, osteopenic recent admission in April, continue vitamin D supplement and calcitonin nasal spray Hx PE - August 2023 - continue Eliquis open angle glaucoma - eyedrops recently discontinued after steroid taper discontinued, blurred vision reoccurring, patient to follow-up with electronic security technician regarding restarting eyedrops GERD - continue PPI VTE ppx: continue Eliquis and SCDs Dispo: Additional rehab referrals made today. CM following, potentially HH upon discharge. Admission and Anticipated Discharge Date Admission Date: June 05, 2024 Subjective Patient performing hand exercises in bedside chair with nearby. He notes he is feeling better today, but that he remains concerned about the weakness in his arm, which is noted to be associated with compression on the brachial plexus by his malignancy. No fevers, chills, chest pain, palpitations, tachycardia, SOB/REDDY, or other systemic sxs. No noted overnight events. Patient believes that he is feeling more energy since his transfusion. He notes that he was able to participate well in PT today. Physical Exam Physical Exam: General: Pleasant, NAD, AOx4 Cardiac: Clinically well perfused, RRR, no MRG Pulm: Normal respiratory effort, CTAB Extremities: Left upper extremity with mild swelling, chronic. Significant weakness of LUE. Mild tremors at rest in bilateral UE. 2+ pitting edema LE bilaterally. Neuro: No focal neurological deficits. Results & Data Results & Data Vital Signs (Past 12 Hours) Vital Signs Temp Pulse Resp BP Pulse Ox O2 Del Method 06/14/24 07:07 36.7 C 95 H 18 122/69 95 Room Air 06/13/24 20:04 36.7 C 109 H 18 118/75 95 Room Air Resident Activity Tracking Resident Involvement: Resident Care Provided Care Provided: Adult Hospital Medicine
[2024-06-14 15:30] VITALS: TEMP 97.9; O2SAT 98
[2024-06-14 16:27] VITALS: BP 100/60; PULSE 109
--- NOTE | 2024-06-14 16:35 | Discharge Summary ---
Date of Service June 14, 2024 Admission HPI Per Admitting Provider Patient is a 68-year-old male with a past medical history of mesothelioma currently undergoing chemotherapy treatment, CKD, GERD, PE August 2023, hypertension. Patient was recently admitted from 05/15/2024 to 05/17/2024 for an FELISA and T11, T12, and L1 osteopenic compression fractures. patient presented to the ED today after receiving a dose of chemotherapy Sunday resulting in weakness, ambulatory dysfunction, dyspnea on exertion, decreased appetite, and overall discomfort. Patient also noted to have left upper extremity swelling and weakness. He is being admitted for ambulatory dysfunction to have PT/OT evals and for IV fluids for acute dehydration. Patient seen at bedside with his present. He stated that he received his second dose of chemotherapy on Sunday and developed the symptoms noted above. He has had poor p.o. intake over the past few days. Patient has had left upper extremity swelling, numbness, and weakness for several months however it is worsening. He also now endorses right upper extremity shaking. He has had rash on his left upper extremity that was thought to be secondary to Bactrim versus immunotherapy treatment, improving. Patient stated he also had hiccups for several days after dexamethasone with the chemotherapy on Sunday. He does endorse chills and rhinorrhea as well. Patient stated he had to hold fluconazole to take nausea medication so he still has 4 days remaining, will order on admission as thrush still present. He has been dosing oxycodone at half tablets due to interaction with fluconazole. patient and his are concerned that he will have a reaction similar to this with every chemotherapy treatment he has, we will follow-up with [facility]. Patient also stated he was discontinued off his glaucoma eyedrops due to tapering off chronic steroids as pressures have been controlled. His symptoms of blurred vision have now returned and he is planning to get in contact with his eye doctor tomorrow about resuming his eyedrops. Previous eyedrops are nonformulary and patient had to bring in. Patient's advise to bring them in if eye doctor wants him to resume. Patient's also noted that his carvedilol was recently decreased to 3.25 Mg twice daily and his pressures have been high at home. Will keep an eye on his pressures and increase back to previous dose if needed. Admission Exam Per Admitting Provider The patient is awake, alert and oriented 3, frail. HEENT- EOMI, mucous membranes dry. Hearing grossly intact. Bilateral eyes with erythema and watering. Thrush of oral mucosa. Heart-normal S1 and S2. No murmurs, rubs or gallops. Lungs-clear bilaterally, no respiratory distress, no accessory muscle use. Abdomen-normal bowel sounds and soft. No ascites noted. Non-tender. Extremities- no clubbing, cyanosis. Left upper extremity with mild swelling, chronic. Improving rash of left upper extremity. shaking and weakness of bilateral upper extremities. Rheumatologic- Diffuse decreased range of motion. Principal Diagnosis Weakness 2/2 Anemia and Chemotherapy Physical Deconditioning Discharge Exam General: Pleasant, NAD, AOx4 Cardiac: Clinically well perfused, RRR, no MRG Pulm: Normal respiratory effort, CTAB, reduced air movement Extremities: Mild edema of LUE w/ notable 2/5 weakness of left hand, arm strength remains 4/5. MIld resting treamor bilaterally. 2+ pitting edema LE bilaterally. Neuro: No focal neurological deficits. Discharge Data Allergies Allergy/AdvReac Type Severity Reaction Status Date / Time Sulfa (Sulfonamide Allergy Intermediate ITCHY RASH Verified 06/03/24 17:05 Antibiotics) prednisone AdvReac Intermediate CONTINUAL Verified 06/03/24 17:05 HICCUPS cephalexin AdvReac Mild Thrush Verified 06/03/24 17:05 Consultations 06/03/24 20:28 ED Decision to Admit Stat Ordered Studies 06/03/24 16:16 CT angio chest PE protocol Stat US venous doppler UE LT Stat Hospital Course (1) Generalized weakness: (2) Ambulatory dysfunction: (3) Acute dehydration: (4) Mesothelioma of lung: (5) Hypertension: (6) Pressure ulcer of unspecified buttock, stage 3: (7) Thrush, oral: Plan 68-year-old male with PMH of mesothelioma currently undergoing chemotherapy treatment, CKD, GERD, PE August 2023, hypertension. Patient was recently admitted from 05/15/2024 to 05/17/2024 for an FELISA and T11, T12, and L1 osteopenic compression fractures. He presented to the ED after receiving a dose of chemotherapy Tuesday 05/30 resulting in weakness, ambulatory dysfunction, dyspnea on exertion, decreased appetite, and overall discomfort. Patient also noted to have left upper extremity swelling and weakness. He was admitted for ambulatory dysfunction to have PT/OT evals and for IV fluids for acute dehydration. #Anemia - Chronic; Hgb has been steadily decreasing over the last few months - Vitamin B12 and folate wnl; Reticulocyte count low; iron panel suggestive of inflammatory anemia - Required transfusion of 2 units PRBC on 06/12 for Hgb of 6.6, repeat 06/13 indicating Hgb of 9.0 - Suspect that changes in Hgb are provoked by active malignancy and ongoing chemotherapy #Weakness/Ambulatory dysfunction - Uses walker at baseline - Suspect multifactorial between chemotherapy, anemia, and acute dehydration - UA negative. Blood cultures negative >48 hours - PT/OT originally recommending acute rehab, but acute rehab and retirement were not approved despite appeal - Home health remained only viable option for ongoing PT/OT needs - Patient will DC home in the care of his and HH PT, OT, nursing. #FELISA - Resolved - Encouraged continued oral hydration #Mesothelioma - Received 2 doses for cisplatin/pemetrexed - follows with Dr. Figueroa at 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 Completed course of Keflex previous admission - Twice daily dressing changes - Continue offload cushion #Thrush - Ongoing since admission in April - Patient reportedly had to had to hold fluconazole for antiemetic medication at home. QTc 454 - Restarted/continued on fluconazole 200 mg daily through 06/10 Chronic stable diagnoses: chronic pain - Oxycodone increased to home dose of 5 mg w/ better control of pain but subsequent drowsiness thoracic/lumbar compression fractures, osteopenic recent admission in April, continue vitamin D supplement and calcitonin nasal spray Hx PE - August 2023 - continue Eliquis open angle glaucoma - eyedrops recently discontinued after steroid taper discontinued, blurred vision reoccurring, patient to follow-up with inventory and pricing associate regarding restarting eyedrops GERD - continue PPI VTE ppx: continue Eliquis and SCDs Dispo: Home w/ HH Code: Full Total Time Total Time Spent Total Time Spent (In Minutes): Attending time 44 minutes, Pauline March DO Discharge Plan Discharge Items Patient Disposition: Home - Home Health Services Reason For Visit: WEAKNESS, AMB DYSFUNCTION Discharge Diagnosis: Weakness a/w Anemia & Chemotherapy Condition on Discharge: Good Activity: Per Instructions section Non-emergency contact: Primary Care Provider and Oncologist Call non-emergency contact if: you have any medication questions, your symptoms worsen and you have a fever Follow-up/Referrals: Alfa Carcamo DO [Primary Care Provider] - Diet: Regular Addtl Attending Provider Instructions: You were admitted to the hospital for support in managing weakness from chemotherapy and anemia. While you were admitted, you received IV fluids, blood transfusion, and physical therapy to support your recovery. Acute rehab intervention was not approved by insurance, thus, it was elected to proceed with home health nursing, physical therapy, and occupational therapy to help you continue to maintain your strength at home. Please continue to follow closely with your PCP (Dr. Carcamo) and Oncologist (Dr. Figueroa). If your symptoms are worsening, please reach out to your PCP, they will help you navigate next steps. It is my encouragement to you that as you continue to fight against your diagnosis, there will be times when we need to employ additional tools, like hospital admission, IV Fluids, and blood products to help you reach your goals and regain the strength to keep fighting. I would encourage you not to view these tools as setbacks, but rather opportunities to continue fighting towards your goals. Cancer and chemotherapy are inherently exhausting and it will often be the strength within and from your support system around you that will help you find the strength to push forwards. I wish you all the best in your recovery, Theo Stallings DO [facility] Family Medicine [phone] Pending Studies at Discharge: No Stand-Alone Forms: My [employer], Smoking Cessation Medications and DC Order Prescriptions: New ferrous sulfate 325 mg (65 mg iron) Tablet,Delayed Release (Dr/Ec) 325 mg PO QAM 30 Days Qty: 30 0RF Continued ondansetron HCl 8 mg tablet 8 mg PO Q8H PRN (Reason: n/v) benzonatate 100 mg capsule 100 mg PO TID PRN (Reason: Cough) acetaminophen [Tylenol Extra Strength] 500 mg tablet 500 mg PO Q6H PRN (Reason: Pain) Rolaids Adv Antacid-[place] 1,000-200-40 mg tablet,chewable 1 tab PO DAILY PRN (Reason: Indigestion) oxycodone 5 mg tablet 5 mg PO UD PRN (Reason: Pain) Rx Instructions: usually takes in the morning and midday famotidine [Pepcid] 20 mg tablet 40 mg PO DAILY PRN (Reason: Indigestion) fluticasone propionate [Flonase Allergy Relief] 50 mcg/actuation spray,suspension 1 spray intranasal DAILY PRN (Reason: nasal congestion) Rx Instructions: administer into each nostril folic acid 1 mg tablet 1 mg PO HS calcitonin (salmon) 200 unit/actuation [place],Non-Aerosol 1 spray NA DAILY 30 Days Qty: 3.7 1RF Rx Instructions: use for month - compression fractures potassium chloride 10 mEq capsule, extended release 10 meq PO DAILY Qty: 30 0RF carvedilol 3.125 mg tablet 3.125 mg PO BID Qty: 60 0RF Rx Instructions: must administer with a meal/food prochlorperazine maleate 10 mg tablet 10 mg PO Q6H PRN (Reason: Nausea) omeprazole 40 mg Capsule,Delayed Release(Dr/Ec) 40 mg PO DAILY amoxicillin 500 mg Tablet 500 mg PO UD PRN (Reason: dental appointments) Eliquis 5 mg tablet 2.5 mg PO BID fluconazole 200 mg tablet 200 mg PO QAM Rx Instructions: STARTED 06/01/24 FOR 7 DAYS carboxymethylcellulose sodium 1 % Drops, Liquid Gel 1 drp OPHTHALMIC (EYE) DIRECTED PRN (Reason: EYE DRYNESS/IRRITATION) cholecalciferol (vitamin D3) 50 mcg (2,000 unit) capsule 50 mcg PO BID Rx Instructions: buy over the counter - 2000 units daily Discharge Orders: Discharge Order (Routine); Ordered 06/14/24 Ordered By: Theo Stallings Admission Data Admit Date/Time: 06/05/24 16:23 Attending Provider: Pauline March Admit Provider: Tito Hernandez Primary Care Provider: Alfa Carcamo Other Providers: Tito Hernandez; [facility]; [place],[facility]; [facility]; [facility]; [facility],Home Healthcare Other Interventions: Discharge Summary Assessment (RN) Last Done: 06/14/24 16:27 Supervising Physician Co-Signing Physician Notes I personally examined the patient and verified andre points of history and exam, discussed case, and agree with decision making and plan documented by Dr. Stallings. Patient is a 68-year-old male with a past medical history pertinent for mesothelioma, currently undergoing chemotherapy, on admission for weakness, ambulatory dysfunction, and anemia. Hemoglobin stable after transfusion. Reviewed consideration of compression stockings for chronic LE edema and importance of elevation and ambulation when able. Conversation with patient and his about physical conditioning after discharge. Patient will have home health with PT/OT. Encouraged good nutrition and adequate sleep. Patient will restart chemotherapy soon and hopes to regain some strength for the next round. Resident Activity Tracking Resident Involvement: Resident Care Provided Care Provided: Adult Hospital Medicine
--- NOTE | 2024-06-18 13:43 | Coding Query ---
CODING QUERY To promote full compliance with coding requirements relating to patient care, provider participation is requested in all cases of professor of history uncertainty. Please assist us with the question(s) below: Please clarify the meaning of FELISA. FELISA is not a valid abbreviation. Thank you. ( X ) Acute Kidney Injury ( ) Acute Kidney Insufficiency ( ) Other (Specify): Principal Diagnosis: "that condition established after study, to be chiefly responsible for occasioning the admission of the patient to the hospital for care." Co-Existing Principal Diagnosis: "when two or more diagnoses equally meet the criteria for principal diagnosis as determined by the circumstances of admission, diagnostic work up, and/or therapy provided, and the Alphabetic Index, Tabular List, or another coding guideline does not provide sequencing direction, any one of the diagnoses may be sequenced first." "When the physician has documented what appears to be a current diagnosis in the body of the record, but has not included the diagnosis in the final diagnostic statement, the physician should be asked whether the diagnosis should be added." (Source Coding [facility] 2 QTR90. p3-4) MICHELLE
== END 2024-06-14 17:02 | disposition home health service (06) | DRG 808 ==
LOC: ED 15:58 → 3W 15:58 → SUATTDRO 21:32 → 3W 06-04 00:21 → SUATTDRO 06-05 16:23

== ENCOUNTER 2024-09-21 15:44 | Inpatient (IN) ==
--- NOTE | 2024-09-21 16:02 | Emergency Department Note ---
ED DC CONDITION Conditon at Discharge Condition at Discharge: Fair Impression & Plan Anemia associated with chemotherapy, Generalized weakness, Hypomagnesemia, Acute hypotension, Pancytopenia ED Provider Note Name: ROSA ADLER Age: 69 Sex: Male Arrives Via: Walk-In Informant: Patient, ED Provider: Donato Dias MD Chief Complaint: Weakness Impression: As per impressions above Medical Decision Making: Pleasant 69-year-old gentleman being treated for pleural mesothelioma with chemotherapy most recently 1 week ago. He has had significant issues with anemia requiring transfusions. Unfortunately also developed thrush recently and has been eating or drinking well. On examination patient is ill-appearing hypotensive and clearly quite dehydrated. He was given initial liter of fluid with improvement in blood pressure and then a second liter as he still appeared quite dehydrated. Extensive laboratory obtained including cultures given his hypotension. He is afebrile however and without any specific infectious symptoms beyond the weakness. While he does have a cough that is relatively chronic for him. In the setting of a febrile and no clear source of infection it is difficult to state that this is truly sepsis. His severe anemia along with significant dehydration is at the moment the most likely cause of his arrival hypotension. I think would be reasonable to hold off on antibiotics at this time as he will be admitted and defer to hospitalist on best approach especially given he is currently already dealing with some thrush issues. The anemia is most likely cancer treatment related. He has no significant bleeding or other concerning signs or symptoms beyond some skin tears that have been oozing. Triage/Nursing Notes reviewed by Me External Chart Review by me: Oncology appointment from 09/11/2024 reviewed by me for past medical history Differential:Infection, dehydration, metabolic abnormality, hypo/hyperglycemia, electrolyte disturbance, anemia, hypoxia, cardiac sources, intracerebral event, toxicologic, neurologic, as well as other pathologies. Vital Signs: reviewed and remarkable for hypotension Interventions: nss bolus 2 L IV, 1 U PRBC Labs:ED labs Reviewed by me and remarkable for significant lab abnormalities including a pancytopenia Imagin view chest x-ray reveals chronic lung abnormalities without clear evidence new infiltrate as per my impression EKG:As per my interpretation. Indication weakness. Normal sinus rhythm at 89 bpm and a QTc of 450. No ectopy nor ischemia. When compared to EKG of June 03, 2024 no significant change. Cardiac/Tele Monitoring: Cardiac Monitoring: An Order was placed for continuous cardiac monitoring. The monitor shows a rate of 80 with a normal sinus rhythm. Consults:[place] Hospitalist who will evaluate for further management Plan: Disposition:Hospitalization. Condition: Fair History of Present Illness: 69-year-old male arrives for evaluation of weakness. Patient states that for the last 3 to 4 days worsening weakness fatigue and exhaustion. Associated with a productive cough. Notes no appetite. He was able to eat a bit of food today but states that no significant appetite at this point either. Due to worsening weakness arrives to the ER. Patient has a history of mesothelioma that is actively being treated with chemotherapy. He had a round of chemo about 1 week ago. Has been dealing with oral thrush as well. This is resulted in worsening weakness. He denies any headache, neck pain, chest pain, shortness of breath, danyel pain, back pain, urinary symptoms, bowel changes, leg swelling, rashes or other concerning signs or symptoms. He has had no recent strokelike symptoms and denies any facial weakness, slurred speech, confusion. He is not having any headache at this time. Past Medical History:See Below Home Medications:See Below Allergies: Sulfa, prednisone, Decadron, Keflex Vitals:Blood Pressure: 64/42, Pulse 89, RR 20, T 36.5C, O2 96% on RA Physical Exam: GENERAL: Patient is tired, dehydrated appearing and in minimal distress. EENT: Dry mucous membranes. No overt thrush appreciated over tongue. RESPIRATORY: No dyspnea. Clear to auscultation and equal bilaterally. CARDIOVASCULAR: Regular rate and rhythm.No murmur appreciated. GASTROINTESTINAL: Abdomen soft, non-tender, no peritonitis. EXTREMITIES: Normal motion all extremities, no cyanosis, no edema. NEUROLOGIC: Alert and oriented. Moving all extremities. SKIN: No rash, no jaundice, no diaphoresis. PSYCH: Appropriate GCS: 15 ED Course: Times/Reassessments: Significant improvement in blood pressure. Agreeable to hospitalization. Agreeable to blood transfusion Critical Care: I have personally spent 35 minutes of critical care time in the direct management of this patient. Acute hypotension requiring fluid and blood resuscitation. This was a life/limb threatening event. This 35 minutes is in excess of all separately billable procedures. Donato Dias MD Past Med/Surg History Problem List (Updated 09/22/24 @ 00:14 by Donato Dias MD) Pancytopenia (Acute) Acute hypotension (Acute) Anemia associated with chemotherapy (Acute) Dysphagia 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 Kyphosis of thoracolumbar region Weakness of both lower extremities Thrush, oral Hypomagnesemia (Acute) Ambulatory dysfunction Generalized weakness (Acute) Anemia (Acute) Acute dehydration (Acute) Edema of left upper arm (Acute) SOB (shortness of breath) (Acute) Tachycardia (Acute) Weakness (Acute) Acute kidney injury (Acute) Compression fracture of lumbar vertebra (Chronic) L1 Closed compression fracture of thoracic vertebra (Chronic) T11, 12 Onychomycosis Sacral wound FELISA (acute kidney injury) Compression fx, lumbar spine Compression fx, thoracic spine Pulmonary emboli (Acute) Paresthesia of upper extremity Cervical radicular pain Cervical spondylosis Mesothelioma of lung (Chronic) Biopsy 09/14/22 Hypertension History of right hip replacement Eosinophilic esophagitis Medical History History of recent blood transfusion 07/2024 Cervical spondylosis History of pressure ulcer sacral wound, resolved Generalized weakness Anemia recent blood transfusion 07/2024- [facility] Chronic back pain Kyphosis Osteoporosis Eosinophilic esophagitis HTN (hypertension) Compression fx, thoracic spine t11 t12 Compression fracture of lumbar vertebra L1 History of COVID-19 (02/2022) resolved Dysphagia SOBOE (shortness of breath on exertion) Pulmonary embolism hx 08/2023- reason for Eliquis Thrush no current issues Status post chemotherapy currently undergoing chemo tx follows w/ Dr iFgueroa- last chemo 08/20/24, every 3 weeks Pancolitis hx Nausea, vomiting, and diarrhea current issues d/t cancer, chemo Weakness of left hand Barretts esophagus Mesothelioma of left lung (01/2022) Biopsy 09/14/22 Shingles 2018 Schatzki's ring Rheumatic fever childhood PVC (premature ventricular contraction) Plantar fasciitis Hoarseness Colon polyps Dyslipidemia Angina pectoris no current issues Cough chronic Chronic kidney disease GERD (gastroesophageal reflux disease) [facility] History History of total right hip replacement H/O right inguinal hernia repair History of cardiac cath >10 yrs ago, no stents, [facility] Status post cholecystectomy S/P appy H/O esophagogastroduodenoscopy S/P colonoscopy Family History Mother , 79yo Mesothelioma Hypertension Father , 86yo Myocardial infarction History of open heart surgery Hypertension Diabetes Social History Smoking Status: Former smoker Tobacco Type: Cigarettes Cigarettes Per Day: Occassionally smoked a cigar; Smoking End Date: 3 years ago; Second Hand Exposure: No; Do You Dip or Chew Tobacco: No; Hx Alcohol Use: No Hx Substance Use: No Preferred Language: Nigerian Communication Ability: Effective Visual Impairment: No Limitations Hearing Ability: Normal Carton Filler Required: No Beliefs That Will Affect Care: None marital status: Current Living Situation: Spouse current occupational status: retired 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[employer], currently on medical leave How many Children do You have: 0 Other Information That Helps Us Care for You: No Feels Safe at Home: Yes Safety Concerns: Feels Safe At This Time Diet: Soft and regular caffeine: Yes (2-3 cups/day) during the past year weight has: decreased > 10 lbs Do you think of yourself as: straight/heterosexual Assistive Devices: Cane and Glasses Allergies Allergies Allergy/AdvReac Type Severity Reaction Status Date / Time Sulfa (Sulfonamide Allergy Intermediate ITCHY RASH Verified 09/16/24 13:29 Antibiotics) dexamethasone AdvReac Intermediate Intractable Verified 09/16/24 13:29 hiccups prednisone AdvReac Intermediate Intractable Verified 09/16/24 13:29 hiccups cephalexin AdvReac Mild Thrush Verified 09/16/24 13:29 Home Meds Home Medications Medication Instructions Recorded Confirmed acetaminophen 500 mg tablet 1,000 mg PO BID PRN Pain 10/11/22 09/21/24 (Tylenol Extra Strength) ondansetron HCl 8 mg tablet 8 mg PO Q8H PRN n/v 08/29/23 09/21/24 amoxicillin 500 mg tablet 500 mg PO UD PRN dental 03/18/24 09/21/24 appointments omeprazole 40 mg capsule,delayed 40 mg PO QAM 03/18/24 09/21/24 release prochlorperazine maleate 10 mg 10 mg PO Q6H PRN Nausea 03/18/24 09/21/24 tablet folic acid 1 mg tablet 1 mg PO HS 05/15/24 09/21/24 Medical Marijuana 1 dose PO DAILY PRN n/v 08/21/24 09/21/24 fluconazole 200 mg tablet 200 mg PO QAM PRN thrush 08/21/24 09/21/24 Lid/Link/Maalox/Nyst 5 ml PO .EVERY 4-6 HOURS PRN mouth 09/21/24 09/21/24 sore pain amoxicillin 500 mg capsule 500 mg PO BID 09/21/24 09/21/24 apixaban 2.5 mg tablet (Eliquis) 2.5 mg PO BID 09/21/24 09/21/24 brinzolamide 1 %-brimonidine 0.2 % 1 drp OPB BID 09/21/24 09/21/24 eye drops,suspension (Simbrinza) carvedilol 6.25 mg tablet 6.25 mg PO BID 09/21/24 09/21/24 cholecalciferol (vitamin D3) 25 25 mcg PO QAM 09/21/24 09/21/24 mcg (1,000 unit) tablet (Vitamin D3) gabapentin 100 mg capsule 100 mg PO HS 09/21/24 09/21/24 gabapentin 100 mg capsule 200 mg PO QAM 09/21/24 09/21/24 latanoprost 0.005 % eye drops 1 drp OPB QPM 09/21/24 09/21/24 olanzapine 2.5 mg tablet 2.5 mg PO UD 09/21/24 09/21/24 oxycodone 10 mg tablet 5 mg PO Q6 PRN Pain 09/21/24 09/21/24 tavaborole 5 % topical solution 1 applic topical DAILY 09/21/24 09/21/24 with applicator Results & Data (ED) Vital Signs Vital Signs - 24 hr 09/21/24 15:45 09/21/24 15:52 09/21/24 15:57 Temperature 36.5 C Temperature Source Temporal Artery Scan Pulse Rate 96 H 88 89 Pulse Rate [Apical] Pulse Rate from SpO2 Sensor Respiratory Rate 20 16 Respiratory Effort / Characteristics Non-Labored Spontaneous Respiratory Depth Normal Respiratory Pattern Regular Blood Pressure 64/42 L 87/52 L Blood Pressure [Right Arm] Blood Pressure Mean 49 56 Blood Pressure Mean [Right Arm] Blood Pressure Position Sitting Blood Pressure Position [Right Arm] Pulse Oximetry 96 96 Oxygen Delivery Method Room Air Room Air Sepsis Recent Fever Within 48 Hours No Sepsis New/Unexplained Change in Mental Status N/A Sepsis Action Taken by Nursing No Action Required 09/21/24 16:15 09/21/24 16:28 09/21/24 16:30 Temperature Temperature Source Pulse Rate 86 86 Pulse Rate [Apical] 93 H Pulse Rate from SpO2 Sensor Respiratory Rate 22 20 Respiratory Effort / Characteristics Non-Labored Spontaneous Respiratory Depth Normal Respiratory Pattern Regular Blood Pressure 101/61 Blood Pressure [Right Arm] 105/67 Blood Pressure Mean 70 Blood Pressure Mean [Right Arm] 79 Blood Pressure Position Blood Pressure Position [Right Arm] Sitting Pulse Oximetry 96 96 97 Oxygen Delivery Method Room Air Room Air Room Air Sepsis Recent Fever Within 48 Hours Sepsis New/Unexplained Change in Mental Status Sepsis Action Taken by Nursing 09/21/24 16:30 09/21/24 16:30 09/21/24 16:38 Temperature Temperature Source Pulse Rate 88 90 Pulse Rate [Apical] Pulse Rate from SpO2 Sensor 90 Respiratory Rate 23 20 Respiratory Effort / Characteristics Respiratory Depth Respiratory Pattern Blood Pressure 108/59 L 108/59 L Blood Pressure [Right Arm] Blood Pressure Mean 76 76 Blood Pressure Mean [Right Arm] Blood Pressure Position Blood Pressure Position [Right Arm] Pulse Oximetry 95 94 Oxygen Delivery Method Sepsis Recent Fever Within 48 Hours Sepsis New/Unexplained Change in Mental Status Sepsis Action Taken by Nursing 09/21/24 17:00 09/21/24 17:30 09/21/24 17:45 Temperature Temperature Source Pulse Rate 94 H 92 H 93 H Pulse Rate [Apical] Pulse Rate from SpO2 Sensor Respiratory Rate 20 21 18 Respiratory Effort / Characteristics Respiratory Depth Respiratory Pattern Blood Pressure 109/62 122/69 124/70 Blood Pressure [Right Arm] Blood Pressure Mean 84 82 89 Blood Pressure Mean [Right Arm] Blood Pressure Position Blood Pressure Position [Right Arm] Pulse Oximetry 95 97 96 Oxygen Delivery Method Sepsis Recent Fever Within 48 Hours Sepsis New/Unexplained Change in Mental Status Sepsis Action Taken by Nursing 09/21/24 17:47 09/21/24 18:00 Temperature 36.7 C Temperature Source Oral Pulse Rate 92 H 93 H Pulse Rate [Apical] Pulse Rate from SpO2 Sensor 93 H Respiratory Rate 21 20 Respiratory Effort / Characteristics Respiratory Depth Respiratory Pattern Blood Pressure 124/70 125/73 Blood Pressure [Right Arm] Blood Pressure Mean 88 90 Blood Pressure Mean [Right Arm] Blood Pressure Position Lying Blood Pressure Position [Right Arm] Pulse Oximetry 95 97 Oxygen Delivery Method Sepsis Recent Fever Within 48 Hours Sepsis New/Unexplained Change in Mental Status Sepsis Action Taken by Nursing Laboratory Data 09/21/24 16:07 09/21/24 16:07 Lab Results 09/21/24 09/21/24 Range/Units 16:07 16:58 WBC 0.48 L* (4.8-10.8) K/ul RBC 2.09 L (4.70-6.10) M/uL Hgb 6.4 L* (14.0-18.0) g/dl Hct 19.3 L* (42.0-52.0) % MCV 92.3 (80.0-100.0) fL MCH 30.6 (25.0-34.0) pg MCHC 33.2 (32.0-36.0) g/dL RDW Std Deviation 53.1 H (36.4-46.3) fL RDW Coeff of Nasreen 15.7 H (11.5-14.5) % Plt Count 7 L* (130-400) K/uL MPV 10.4 (9.4-12.4) fL Neut # (Auto) < 0.50 L* (1.40-6.50) K/uL Platelet Estimate Signific. Decreased L (Normal) Sodium 135 L (136-145) mmol/L Potassium 4.3 (3.5-5.1) mmol/L Chloride 102 (98-107) mmol/L Carbon Dioxide 23 (21-32) mmol/L Anion Gap 10 (3-11) BUN 64 H (6-23) mg/dl Creatinine 2.43 H (0.6-1.4) mg/dl Est Cr Clr Drug Dosing 27.0 ml/min eGFR 27.73 BUN/Creatinine Ratio 26.3 H (10-20) Glucose 132 H (70-99(Fasting)) mg/dl Lactate 1.6 (0.4-2.0) mmol/L Calcium 8.9 (8.6-10.3) mg/dl Magnesium 1.5 L (1.7-2.4) mg/dl Total Bilirubin 0.7 (0.2-1.0) mg/dl Direct Bilirubin 0.1 (0-0.2) mg/dl AST 13 (13-39) U/L ALT 5 L (7-52) U/L Alkaline Phosphatase 48 (34-104) U/L Troponin I High Sens 9.1 (0-20) pg/ml Total Protein 5.8 L (6.0-8.3) gm/dl Albumin 3.0 L (3.4-5.0) gm/dl Procalcitonin 1.28 H (0-0.5) ng/ml SARS-CoV-2 (PCR) NEGATIVE (Negative) Influenza Type A (PCR) Negative (Neg) Influenza Type B (PCR) Negative (Neg) RSV (RT-PCR) Negative (Neg) Blood Type A Positive Antibody Screen NEGATIVE Crossmatch See Detail Administered Medications Docusate Sodium (Docusate Sodium 100 Mg Cap) 100 mg PO NOW JUAN C Stop: 10/21/24 19:59 Last Admin: 09/21/24 20:25 Dose: 100 mg Documented By: SHELL Folic Acid (Folic Acid 1 Mg Tab) 1 mg PO HS JUAN C Stop: 10/21/24 20:59 Last Admin: 09/21/24 20:25 Dose: 1 mg Documented By: SHELL Gabapentin (Gabapentin 100 Mg Cap) 100 mg PO HS JUAN C Stop: 10/21/24 20:59 Last Admin: 09/21/24 19:58 Dose: 100 mg Documented By: SHELL Ceftriaxone Sodium (Rocephin) 2,000 mg in 50 mls @ 100 mls/hr IV Q24H JUAN C Stop: 09/28/24 18:14 Last Infusion: 09/21/24 22:56 Dose: Infused Documented By: Admin: 09/21/24 22:20 Dose: 100 mls/hr Documented By: SHELL Nystatin (Nystatin 500,000 Unit Tab) 500,000 units PO QID JUAN C Stop: 10/01/24 20:59 Last Admin: 09/21/24 20:25 Dose: 500,000 units Documented By: SHELL Discontinued Medications Sodium Chloride (Nss) 1,000 mls @ 999 mls/hr IV .Q1H1M JUAN C Stop: 09/21/24 17:00 Last Infusion: 09/21/24 17:54 Dose: Infused Documented By: Admin: 09/21/24 16:10 Dose: 999 mls/hr Documented By: NIRMALA Sodium Chloride (Nss) 1,000 mls @ 999 mls/hr IV .Q1H1M ONE Stop: 09/21/24 17:46 Last Infusion: 09/21/24 17:54 Dose: Infused Documented By: Admin: 09/21/24 16:54 Dose: 999 mls/hr Documented By: BERLIN Magnesium Sulfate/Dextrose (Magnesium Sulfate / D5w) 1 gm in 100 mls @ 100 mls/hr IV NOW STA Stop: 09/21/24 17:45 Last Infusion: 09/21/24 17:54 Dose: Infused Documented By: Admin: 09/21/24 16:50 Dose: 100 mls/hr Documented By: BERLIN Ceftriaxone Sodium (Rocephin) 2,000 mg in 50 mls @ 100 mls/hr IV NOW STA Stop: 09/21/24 18:42 Last Admin: 09/21/24 19:18 Dose: Not Given Documented By: AAL Imaging Data Radiologist's Impression: Chest X-Ray 09/21/24 15:58 EXAM: XR chest 1V portable CLINICAL HISTORY: Sepsis TECHNIQUE: X-ray images of the chest were obtained in AP portable projection. COMPARISON: X-ray dated 09/02/2024. FINDINGS: The patient's position is oblique to the left. Pulmonary Parenchyma: Hazy opacity is seen in the left upper lung apex with reduced left lung volume. The rest of the lungs are clear bilaterally. No evidence of consolidation, collapse, or focal opacities. No pulmonary nodules identified. No evidence of pleural effusion or pleural thickening. Heart and Mediastinum: Heart size and shape are normal. No mediastinal widening or masses. No hilar or mediastinal lymphadenopathy. Bony Thorax: Bony thorax appears intact without fractures or deformities. Soft Tissues: Soft tissues overlying the chest wall are unremarkable. IMPRESSION: 1. The patient's position is oblique to the left. 2. Hazy opacity is seen in the left upper lung apex with reduced left lung volume. Further CT assessment is recommended. Progression since the prior. Electronically signed by Faustino Wilson 09-21-2024 6:21 PM Discharge Plan Visit Data Chief Complaint: Weakness Stated Complaint: WEAKNESS CANCER PT ED Provider: Donato Dias Discharge Problem: Anemia associated with chemotherapy, Generalized weakness, Hypomagnesemia, Acute hypotension, Pancytopenia Patient Disposition: Admitted As Inpatient Condition: Fair Discharge Instructions Interventions: ED Discharge Assessment Last Done: 09/21/24 18:30
[2024-09-21] MEDS: SODIUM CHLORIDE 0.9% 1,000 ML IV SCH (16:10)
[2024-09-21 16:45] LABS: Alanine Aminotransferase 5.0 U/L (7-52); Alkaline Phosphatase 48.0 U/L (34-104); Anion Gap 10.0 (3-11); Bilirubin,Total 0.7 mg/dl (0.2-1.0); Blood Urea Nitrogen 64.0 mg/dl (6-23); Calcium 8.9 mg/dl (8.6-10.3); Carbon Dioxide 23.0 mmol/L (21-32); Chloride 102.0 mmol/L (98-107); Creatinine Clr Calc Pharmacy 27.0 ml/min; Glucose 132.0 mg/dl (70-99(Fasting)); Magnesium 1.5 mg/dl (1.7-2.4); Potassium 4.3 mmol/L (3.5-5.1); Sodium 135.0 mmol/L (136-145); Total Protein 5.8 gm/dl (6.0-8.3)
[2024-09-21] MEDS ORDERED: SODIUM CHLORIDE 0.9% 100 ML IV PRN ×2 (16:49→18:02)
[2024-09-21 16:50] LABS: Hematocrit (blood only) 19.3 % (42.0-52.0); Hemoglobin 6.4 g/dl (14.0-18.0); Mean Corpuscular Hemoglobin 30.6 pg (25.0-34.0); Mean Corpuscular Volume 92.3 fL (80.0-100.0); Platelet Count 7 K/uL (130-400); RDW Standard Deviation 53.1 fL (36.4-46.3); Red Blood Count 2.09 M/uL (4.70-6.10); White Blood Count 0.48 K/ul (4.8-10.8)
[2024-09-21] MEDS: MAGNESIUM SULFATE / D5W 1 GM/100 ML BAG IV STA (16:50)
[2024-09-21] MEDS: SODIUM CHLORIDE 0.9% 1,000 ML IV ONE (16:54)
--- NOTE | 2024-09-21 17:18 | History & Physical Report ---
Date of Service September 21, 2024 Assessment & Plan (1) Malignant mesothelioma of pleura: (2) Thrush, oral: (3) Hypomagnesemia: Plan Nicolas is 69-year-old male with PMH of Mesothelioma (Diagnosed on 2021), Hypertension , Pulmonary Embolism(08/2023) came in with weakness and exhaustion for past 3 to 4 day with recent chemotherapy on 09/10/2024 . He was hypotensive on arrival . BP improved with 2l bolus fluids. He is pancytopenic. He needs admission for transfusion of PRBCs, Platelets and monitoring of his Blood Pressure. #Pancytopenia likely side effect of antineoplastic Chemotherapy #Mesothelioma - WBC 0.48; Hgb 6.4; Platelet 7 - Transfuse PRBCs and Platelets - Neutropenic precautions - Inpatient Heme/Onc consultation. -Antibiotics prophylaxis: Will do ceftriaxone 2gm q24hr for cellulitis. - Repeat CBC 2hrs post transfusion. Another pint of PRBCS if hgb<7 #Cellulitis of bilateral leg - Erythema and swelling of bilateral legs for 6 days( Left>right) -Amoxicillin BID at home -Will switch to Ceftriaxone 2gm q24hr #Oral Thrush -Taking Fluconazole 200mg daily -Continue mouth wash #Hypomagnesemia -Magnesium: 1.5 -Iv magnesium sulphate in the ER -Repeat Mg in the AM Chronic conditions Hypertension: Hold Carvedilol in setting of Hypotension H/O Pulmonary embolism: Hold Eliquis in setting of severe thrombocytopenia Chronic pain: Continue Gabapentin DVT prophylaxis: Hold in setting of severe thrombocytopenia Code: Conditional (wants CPR, donot want intubation, Ok with BPAP) Dispo: Admit in PCU History of Present Illness Chief Complaint: Weakness Primary Care Provider: Alfa Carcamo DO Nicolas is 69-year-old male with PMH of Mesothelioma (Diagnosed on 2021), Hypertension , Pulmonary Embolism(08/2023) arrives for evaluation of weakness. Patient states that for the last 3 to 4 days worsening weakness fatigue and exhaustion. Associated with a productive cough. Has clear Phlegm. Denies any chest pain or shortness of breath recently. Notes no appetite. It painful to eat because of oral thrush He was able to eat a bit of food today but states that no significant appetite at this point either. Due to worsening weakness arrives to the ER. Patient has a history of mesothelioma diagnosed on 2021 that was being treated with immunotherapy for 18 months. He has some side effects with immunotherapy so he is actively under chemotherapy right now He had a round of chemo about 1 week ago( 09/10/2024/) . Following with Dr Figueroa. Has been dealing with oral thrush as well after recent chemotherapy. He is taking Fluconazole daily and mouth wash for oral thrush. This is resulted in worsening weakness. bruise in his right arm which patient noted today. He denies any headache, neck pain, chest pain, shortness of breath, danyel pain, back pain, urinary symptoms, bowel changes, leg swelling, rashes or other concerning signs or symptoms. He has had no recent strokelike symptoms and denies any facial weakness, slurred speech, confusion. He is not having any headache at this time. He has erythema and swelling of bilateral lower legs which they noticed on Sunday. Started on Amoxicillin BID today Living Situation: He lives with his Do not consume alcohol and donot smoke Allergies Allergy/AdvReac Type Severity Reaction Status Date / Time Sulfa (Sulfonamide Allergy Intermediate ITCHY RASH Verified 09/16/24 13:29 Antibiotics) dexamethasone AdvReac Intermediate Intractable Verified 09/16/24 13:29 hiccups prednisone AdvReac Intermediate Intractable Verified 09/16/24 13:29 hiccups cephalexin AdvReac Mild Thrush Verified 09/16/24 13:29 Home Medications Medication Instructions Recorded Confirmed Type acetaminophen 500 mg tablet 1,000 mg PO BID PRN Pain 10/11/22 09/21/24 History (Tylenol Extra Strength) ondansetron HCl 8 mg tablet 8 mg PO Q8H PRN n/v 08/29/23 09/21/24 History amoxicillin 500 mg tablet 500 mg PO UD PRN dental 03/18/24 09/21/24 History appointments omeprazole 40 mg capsule,delayed 40 mg PO QAM 03/18/24 09/21/24 History release prochlorperazine maleate 10 mg 10 mg PO Q6H PRN Nausea 03/18/24 09/21/24 History tablet folic acid 1 mg tablet 1 mg PO HS 05/15/24 09/21/24 History Medical Marijuana 1 dose PO DAILY PRN n/v 08/21/24 09/21/24 History fluconazole 200 mg tablet 200 mg PO QAM PRN thrush 08/21/24 09/21/24 History Lid/Link/Maalox/Nyst 5 ml PO .EVERY 4-6 HOURS PRN mouth 09/21/24 09/21/24 History sore pain amoxicillin 500 mg capsule 500 mg PO BID 09/21/24 09/21/24 History apixaban 2.5 mg tablet (Eliquis) 2.5 mg PO BID 09/21/24 09/21/24 History brinzolamide 1 %-brimonidine 0.2 % 1 drp OPB BID 09/21/24 09/21/24 History eye drops,suspension (Simbrinza) carvedilol 6.25 mg tablet 6.25 mg PO BID 09/21/24 09/21/24 History cholecalciferol (vitamin D3) 25 25 mcg PO QAM 09/21/24 09/21/24 History mcg (1,000 unit) tablet (Vitamin D3) gabapentin 100 mg capsule 100 mg PO HS 09/21/24 09/21/24 History gabapentin 100 mg capsule 200 mg PO QAM 09/21/24 09/21/24 History latanoprost 0.005 % eye drops 1 drp OPB QPM 09/21/24 09/21/24 History olanzapine 2.5 mg tablet 2.5 mg PO UD 09/21/24 09/21/24 History oxycodone 10 mg tablet 5 mg PO Q6 PRN Pain 09/21/24 09/21/24 History tavaborole 5 % topical solution 1 applic topical DAILY 09/21/24 09/21/24 History with applicator Past Med/Surg History Problem List (Updated 09/20/24 @ 00:09 by [employer]) Dysphagia 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 Kyphosis of thoracolumbar region Weakness of both lower extremities Thrush, oral Hypomagnesemia Ambulatory dysfunction Generalized weakness Anemia (Acute) Acute dehydration (Acute) Edema of left upper arm (Acute) SOB (shortness of breath) (Acute) Tachycardia (Acute) Weakness (Acute) Acute kidney injury (Acute) Compression fracture of lumbar vertebra (Chronic) L1 Closed compression fracture of thoracic vertebra (Chronic) T11, 12 Onychomycosis Sacral wound FELISA (acute kidney injury) Compression fx, lumbar spine Compression fx, thoracic spine Pulmonary emboli (Acute) Paresthesia of upper extremity Cervical radicular pain Cervical spondylosis Mesothelioma of lung (Chronic) Biopsy 09/14/22 Hypertension History of right hip replacement Eosinophilic esophagitis Medical History History of recent blood transfusion 07/2024 Cervical spondylosis History of pressure ulcer sacral wound, resolved Generalized weakness Anemia recent blood transfusion 07/2024- [facility] Chronic back pain Kyphosis Osteoporosis Eosinophilic esophagitis HTN (hypertension) Compression fx, thoracic spine t11 t12 Compression fracture of lumbar vertebra L1 History of COVID-19 (02/2022) resolved Dysphagia SOBOE (shortness of breath on exertion) Pulmonary embolism hx 08/2023- reason for Eliquis Thrush no current issues Status post chemotherapy currently undergoing chemo tx follows w/ Dr Figueroa- last chemo 08/20/24, every 3 weeks Pancolitis hx Nausea, vomiting, and diarrhea current issues d/t cancer, chemo Weakness of left hand Barretts esophagus Mesothelioma of left lung (01/2022) Biopsy 09/14/22 Shingles 2018 Schatzki's ring Rheumatic fever childhood PVC (premature ventricular contraction) Plantar fasciitis Hoarseness Colon polyps Dyslipidemia Angina pectoris no current issues Cough chronic Chronic kidney disease GERD (gastroesophageal reflux disease) Cardiomyopathy [facility] cardio Surgical History History of total right hip replacement H/O right inguinal hernia repair History of cardiac cath >10 yrs ago, no stents, follows [facility]/ [facility] cardio Status post cholecystectomy S/P appy H/O esophagogastroduodenoscopy S/P colonoscopy Family History Mother , 79yo Mesothelioma Hypertension Father , 86yo Myocardial infarction History of open heart surgery Hypertension Diabetes Social History Smoking Status: Former smoker Tobacco Type: Cigarettes Cigarettes Per Day: Occassionally smoked a cigar; Second Hand Exposure: No; Do You Dip or Chew Tobacco: No; Hx Alcohol Use: No Hx Substance Use: No Preferred Language: Croatian Communication Ability: Effective Visual Impairment: No Limitations Hearing Ability: Normal 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 Beliefs That Will Affect Care: None marital status: Current Living Situation: Spouse current occupational status: retired 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[employer], currently on medical leave How many Children do You have: 0 Feels Safe at Home: Yes Diet: Soft and regular caffeine: Yes (2-3 cups/day) during the past year weight has: decreased > 10 lbs Do you think of yourself as: straight/heterosexual Assistive Devices: Cane and Glasses Review of Systems Review of Systems: As per HPI Physical Exam Physical Exam: Constitutional: Well appearing, No acute distress, PILCCOD: Negative HEENT: Atraumatic, Normocephalic, No conjunctival injection CVS: S1 S2 no murmur, Regular Rhythm, no LE edema Respiratory: diffuse crackles +; B/l equal air entry GI: Soft, Nondistended, Nontender, Normal Bowel sounds + MSK: No gross deformities noted Skin: Warm, Dry, No rashes Neuro: Alert, Oriented to TPP, No Focal deficit Psych: Mood and Affect congruent, Cooperative on exam Results & Data Results & Data Vital Signs (Past 12 Hours) Vital Signs Temp Pulse Pulse Resp BP BP Pulse Ox 09/21/24 16:38 90 20 94 09/21/24 16:30 108/59 L 09/21/24 16:30 88 23 108/59 L 95 09/21/24 16:30 86 97 09/21/24 16:28 93 H 20 105/67 96 09/21/24 16:15 86 22 101/61 96 09/21/24 15:57 89 09/21/24 15:52 88 16 87/52 L 96 09/21/24 15:45 36.5 C 96 H 20 64/42 L 96 O2 Del Method 09/21/24 16:38 09/21/24 16:30 09/21/24 16:30 09/21/24 16:30 Room Air 09/21/24 16:28 Room Air 09/21/24 16:15 Room Air 09/21/24 15:57 09/21/24 15:52 Room Air 09/21/24 15:45 Room Air Supervising Physician Co-Signing Physician Notes I personally examined the patient and verified andre points of history and exam, discussed case, and agree with decision making and plan documented by Dr. Phan. Patient is a 69 yr old male with pmh of mesothelioma on admission for worsening fatigue and weakness. Pancytopenic in setting of antineoplastic chemotherapy. Admit to PCU. On neutropenic precautions. Transfusing for hemoglobin 6.5 and platelets 7. Repleting electrolytes. Hematology oncology consulted.
[2024-09-21 17:26] LABS: Influenza A virus by PCR Negative (Neg); Influenza B virus by PCR Negative (Neg); SARS CoV2 RNA(COVID-19) Ceph NEGATIVE (Negative)
--- NOTE | 2024-09-21 18:22 | XRay Report ---
EXAM: XR chest 1V portable CLINICAL HISTORY: Sepsis TECHNIQUE: X-ray images of the chest were obtained in AP portable projection. COMPARISON: X-ray dated 09/02/2024. FINDINGS: The patient's position is oblique to the left. Pulmonary Parenchyma: Hazy opacity is seen in the left upper lung apex with reduced left lung volume. The rest of the lungs are clear bilaterally. No evidence of consolidation, collapse, or focal opacities. No pulmonary nodules identified. No evidence of pleural effusion or pleural thickening. Heart and Mediastinum: Heart size and shape are normal. No mediastinal widening or masses. No hilar or mediastinal lymphadenopathy. Bony Thorax: Bony thorax appears intact without fractures or deformities. Soft Tissues: Soft tissues overlying the chest wall are unremarkable. IMPRESSION: 1. The patient's position is oblique to the left. 2. Hazy opacity is seen in the left upper lung apex with reduced left lung volume. Further CT assessment is recommended. Progression since the prior. Electronically signed by Faustino Wilson 09-21-2024 6:21 PM
[2024-09-21] MEDS ORDERED: ONDANSETRON 4 MG OD TAB PO PRN (19:00)
[2024-09-21] MEDS ORDERED: PROCHLORPERAZINE MALEATE 10 MG TAB PO PRN (19:00)
[2024-09-21] MEDS: cefTRIAXone SODIUM 2,000 MG/50 ML BAG IV STA (19:18)
[2024-09-21] MEDS: GABAPENTIN 100 MG CAP PO SCH (19:58)
[2024-09-21] MEDS: FOLIC ACID 1 MG TAB PO SCH (20:25)
[2024-09-21] MEDS: NYSTATIN 500,000 UNIT TAB PO SCH (20:25)
[2024-09-21] MEDS: DOCUSATE SODIUM 100 MG CAP PO SCH (20:25)
[2024-09-21] MEDS: cefTRIAXone SODIUM 2,000 MG/50 ML BAG IV SCH (22:20)
[2024-09-22 03:20] LABS: Alanine Aminotransferase 5.0 U/L (7-52); Albumin Globulin Ratio 1.1 (0.9-2); Alkaline Phosphatase 43.0 U/L (34-104); Anion Gap 10.0 (3-11); Bilirubin,Total 0.5 mg/dl (0.2-1.0); Blood Urea Nitrogen 57.0 mg/dl (6-23); Calcium 8.3 mg/dl (8.6-10.3); Carbon Dioxide 23.0 mmol/L (21-32); Chloride 106.0 mmol/L (98-107); Creatinine Clr Calc Pharmacy 31.2 ml/min; Globulin 2.4 gm/dl (2.5-4.0); Glucose 96.0 mg/dl (70-99(Fasting)); Potassium 3.7 mmol/L (3.5-5.1); Sodium 139.0 mmol/L (136-145); Total Protein 5.1 gm/dl (6.0-8.3)
[2024-09-22 03:35] LABS: INR 1.0 (0.9-1.1); Partial Thromboplastin Time 37 Seconds (21-31); Prothrombin Time 11.0 Seconds (9.0-12.0)
[2024-09-22 03:49] LABS: Hematocrit (blood only) 20.6 % (42.0-52.0); Hemoglobin 6.8 g/dl (14.0-18.0); Mean Corpuscular Hemoglobin 30.4 pg (25.0-34.0); Mean Corpuscular Volume 92.0 fL (80.0-100.0); Platelet Count 13 K/uL (130-400); RDW Standard Deviation 52.3 fL (36.4-46.3); Red Blood Count 2.24 M/uL (4.70-6.10); White Blood Count 0.53 K/ul (4.8-10.8)
[2024-09-22 03:51] LABS: Dohle Bodies 1+; Immature Granulocytes # (auto) 0.00 K/uL (0.01-0.20); Immature Granulocytes % (auto) 0.0 %
[2024-09-22 05:06] LABS: Appearance Urine Clear (Clear); Bacteria Urine Automated None Seen (None Seen); Epithelial Cell Urine Auto 0-2 /hpf (0-2); Glucose Urine UA Negative (Negative); RBC Urine Automated 0-2 /hpf (0-2); WBC Urine Automated 0-5 /hpf (0-5)
--- NOTE | 2024-09-22 08:28 | Oncology Consultation ---
Date of Consultation September 22, 2024 Assessment & Plan (1) Malignant mesothelioma of pleura: (2) Pancytopenia: (3) Pancytopenia due to antineoplastic chemotherapy: (4) FELISA (acute kidney injury): Plan -Agree with continuing with Diflucan for oral thrush which seems better. -IV fluids given poor oral intake, Magic mouthwash -G-CSF with filgrastim 480 mcg daily x 3 days for severe chemotherapy-induced neutropenia -Transfuse for hemoglobin below 7, platelet count below 10,000 History of Present Illness Reason for Consultation: Malignant mesothelioma Attending Physician: Darwin Diamond DO History of Present Illness 69-year-old gentleman with metastatic malignant mesothelioma who was admitted to [facility] with dehydration secondary to oral thrush and mouth ulcers. He states that he is doing a little bit better with slight improvement in oral thrush/ulcers. Still unable to drink much fluids. Labs show pancytopenia secondary to chemotherapy. He last received treatment with cisplatin/pemetrexed on 09/10/2024 and was scheduled to start third line treatment with single agent gemcitabine later this week. Allergies Allergy/AdvReac Type Severity Reaction Status Date / Time Sulfa (Sulfonamide Allergy Intermediate ITCHY RASH Verified 09/16/24 13:29 Antibiotics) dexamethasone AdvReac Intermediate Intractable Verified 09/16/24 13:29 hiccups prednisone AdvReac Intermediate Intractable Verified 09/16/24 13:29 hiccups cephalexin AdvReac Mild Thrush Verified 09/16/24 13:29 Home Medications Medication Instructions Recorded Confirmed Type acetaminophen 500 mg tablet 1,000 mg PO BID PRN Pain 10/11/22 09/21/24 History (Tylenol Extra Strength) ondansetron HCl 8 mg tablet 8 mg PO Q8H PRN n/v 08/29/23 09/21/24 History amoxicillin 500 mg tablet 500 mg PO UD PRN dental 03/18/24 09/21/24 History appointments omeprazole 40 mg capsule,delayed 40 mg PO QAM 03/18/24 09/21/24 History release prochlorperazine maleate 10 mg 10 mg PO Q6H PRN Nausea 03/18/24 09/21/24 History tablet folic acid 1 mg tablet 1 mg PO HS 05/15/24 09/21/24 History Medical Marijuana 1 dose PO DAILY PRN n/v 08/21/24 09/21/24 History fluconazole 200 mg tablet 200 mg PO QAM PRN thrush 08/21/24 09/21/24 History Lid/Link/Maalox/Nyst 5 ml PO .EVERY 4-6 HOURS PRN mouth 09/21/24 09/21/24 History sore pain amoxicillin 500 mg capsule 500 mg PO BID 09/21/24 09/21/24 History apixaban 2.5 mg tablet (Eliquis) 2.5 mg PO BID 09/21/24 09/21/24 History brinzolamide 1 %-brimonidine 0.2 % 1 drp OPB BID 09/21/24 09/21/24 History eye drops,suspension (Simbrinza) carvedilol 6.25 mg tablet 6.25 mg PO BID 09/21/24 09/21/24 History cholecalciferol (vitamin D3) 25 25 mcg PO QAM 09/21/24 09/21/24 History mcg (1,000 unit) tablet (Vitamin D3) gabapentin 100 mg capsule 100 mg PO HS 09/21/24 09/21/24 History gabapentin 100 mg capsule 200 mg PO QAM 09/21/24 09/21/24 History latanoprost 0.005 % eye drops 1 drp OPB QPM 09/21/24 09/21/24 History olanzapine 2.5 mg tablet 2.5 mg PO UD 09/21/24 09/21/24 History oxycodone 10 mg tablet 5 mg PO Q6 PRN Pain 09/21/24 09/21/24 History tavaborole 5 % topical solution 1 applic topical DAILY 09/21/24 09/21/24 History with applicator Patient History Medical History History of recent blood transfusion 07/2024 Cervical spondylosis History of pressure ulcer sacral wound, resolved Generalized weakness Anemia recent blood transfusion 07/2024- [facility] Chronic back pain Kyphosis Osteoporosis Eosinophilic esophagitis HTN (hypertension) Compression fx, thoracic spine t11 t12 Compression fracture of lumbar vertebra L1 History of COVID-19 (02/2022) resolved Dysphagia SOBOE (shortness of breath on exertion) Pulmonary embolism hx 08/2023- reason for Eliquis Thrush no current issues Status post chemotherapy currently undergoing chemo tx follows w/ Dr Figueroa- last chemo 08/20/24, every 3 weeks Pancolitis hx Nausea, vomiting, and diarrhea current issues d/t cancer, chemo Weakness of left hand Barretts esophagus Mesothelioma of left lung (01/2022) Biopsy 09/14/22 Shingles 2018 Schatzki's ring Rheumatic fever childhood PVC (premature ventricular contraction) Plantar fasciitis Hoarseness Colon polyps Dyslipidemia Angina pectoris no current issues Cough chronic Chronic kidney disease GERD (gastroesophageal reflux disease) Cardiomyopathy [facility] cardio Surgical History History of total right hip replacement H/O right inguinal hernia repair History of cardiac cath >10 yrs ago, no stents, follows [facility]/ [facility] Status post cholecystectomy S/P appy H/O esophagogastroduodenoscopy S/P colonoscopy Family History Mother , 79yo Mesothelioma Hypertension Father , 86yo Myocardial infarction History of open heart surgery Hypertension Diabetes Social History Smoking Status: Former smoker Tobacco Type: Cigarettes Cigarettes Per Day: Occassionally smoked a cigar; Second Hand Exposure: No; Do You Dip or Chew Tobacco: No; Hx Alcohol Use: No Hx Substance Use: No Preferred Language: Portuguese Communication Ability: Effective Visual Impairment: No Limitations Hearing Ability: Normal Senior Nurse Manager Required: No Beliefs That Will Affect Care: None marital status: Current Living Situation: Spouse current occupational status: retired 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[employer], currently on medical leave How many Children do You have: 0 Feels Safe at Home: Yes Diet: Soft and regular caffeine: Yes (2-3 cups/day) during the past year weight has: decreased > 10 lbs Do you think of yourself as: straight/heterosexual Assistive Devices: Cane Results & Data Vital Signs (Past 12 Hours) Vital Signs Temp Pulse Pulse Resp BP BP Pulse Ox 09/22/24 07:53 37.0 C 85 18 130/70 95 09/22/24 07:34 09/22/24 06:37 36.8 C 88 14 133/74 96 09/22/24 06:12 36.7 C 89 16 128/64 97 09/22/24 05:45 90 09/22/24 05:12 37.1 C 83 14 135/75 94 09/22/24 04:42 36.7 C 83 16 119/72 96 09/22/24 04:27 36.7 C 93 H 16 119/71 97 09/22/24 04:06 36.7 C 91 H 14 126/64 95 09/22/24 03:41 36.6 C 82 17 131/68 97 09/21/24 23:29 36.5 C 92 H 16 117/71 98 09/21/24 22:18 36.6 C 96 H 14 116/70 98 09/21/24 21:49 98 H 09/21/24 21:37 09/21/24 21:23 36.5 C 96 H 14 113/67 98 09/21/24 21:17 96 H 09/21/24 20:53 36.6 C 93 H 16 111/70 98 09/21/24 20:38 36.4 C L 101 H 16 119/72 97 O2 Del Method 09/22/24 07:53 Room Air 09/22/24 07:34 Room Air 09/22/24 06:37 09/22/24 06:12 09/22/24 05:45 09/22/24 05:12 09/22/24 04:42 09/22/24 04:27 09/22/24 04:06 09/22/24 03:41 Room Air 09/21/24 23:29 Room Air 09/21/24 22:18 09/21/24 21:49 09/21/24 21:37 Room Air 09/21/24 21:23 09/21/24 21:17 09/21/24 20:53 09/21/24 20:38
[2024-09-22] MEDS: FLUCONAZOLE 100 MG TAB PO SCH (08:39)
[2024-09-22] MEDS: CHOLECALCIFEROL 25 MCG (1000 UNITS) TAB PO SCH (08:42)
[2024-09-22] MEDS: GABAPENTIN 100 MG CAP PO SCH (08:42)
--- NOTE | 2024-09-22 09:26 | Electrocardiogram Report ---
Test Reason : Blood Pressure : */* mmHG Vent. Rate : 89 BPM Atrial Rate : 89 BPM P-R Int : 128 ms QRS Dur : 96 ms QT Int : 370 ms P-R-T Axes : 38 -10 11 degrees QTcB Int : 450 ms Normal sinus rhythm Inferior infarct , age undetermined Cannot rule out Anterior infarct , age undetermined Abnormal ECG When compared with ECG of 03-Jun-2024 16:15, Inferior infarct is now Present Confirmed by Ariel Shepard ([id number]) on 09/22/2024 9:25:52 AM Referred By: REFERRED SELF Confirmed By: Ariel Shepard
[2024-09-22 11:05] LABS: Hematocrit (blood only) 22.9 % (42.0-52.0); Hemoglobin 7.8 g/dl (14.0-18.0); Mean Corpuscular Hemoglobin 30.2 pg (25.0-34.0); Mean Corpuscular Volume 88.8 fL (80.0-100.0); Platelet Count 10 K/uL (130-400); RDW Standard Deviation 48.9 fL (36.4-46.3); Red Blood Count 2.58 M/uL (4.70-6.10); White Blood Count 0.53 K/ul (4.8-10.8)
[2024-09-22 11:10] LABS: Anisocytosis Present; Dohle Bodies 1+; Immature Granulocytes # (auto) 0.01 K/uL (0.01-0.20); Immature Granulocytes % (auto) 1.9 %; Polychromasia 1+
[2024-09-22] MEDS: FIRST - Mouthwash BLM 5 ML UDP PO SCH ×2 (12:30→20:19)
--- NOTE | 2024-09-22 12:49 | Hospitalist Progress Note ---
Date of Service September 22, 2024 Assessment & Plan (1) Malignant mesothelioma of pleura: (2) Thrush, oral: (3) Hypomagnesemia: Plan Nicolas is 69-year-old male with PMH of Mesothelioma (Diagnosed on 2021), Hypertension , Pulmonary Embolism(08/2023) came in with weakness and exhaustion for past 3 to 4 day with recent chemotherapy on 09/10/2024 . He was hypotensive on arrival . BP improved with 2l bolus fluids. He is pancytopenic. He needs admission for transfusion of PRBCs, Platelets and monitoring of his Blood Pressure. #Pancytopenia likely side effect of antineoplastic Chemotherapy #Mesothelioma - WBC 0.53; Hgb 7.8; Platelet 10 - S/P II pint PRBCS and 1 platelet transfusion - Neutropenic precautions - Inpatient Heme/Onc consultation. -Antibiotics prophylaxis: Will do ceftriaxone 2gm q24hr for cellulitis. #Cellulitis of bilateral leg - Erythema and swelling of bilateral legs for 6 days( Left>right) -Amoxicillin BID at home -Will switch to Ceftriaxone 2gm q24hr #Oral Thrush -Taking Fluconazole 200mg daily -Continue mouth wash #FELISA -Creatinine improved to 2.10 from 2.43 -Daily BMP #Hypomagnesemia -Magnesium: 1.5 -Iv magnesium sulphate in the ER -Repeat Mg in the AM Chronic conditions Hypertension: Hold Carvedilol in setting of Hypotension H/O Pulmonary embolism: Hold Eliquis in setting of severe thrombocytopenia Chronic pain: Continue Gabapentin DVT prophylaxis: Hold in setting of severe thrombocytopenia Code: Conditional (wants CPR, donot want intubation, Ok with BPAP) Dispo: Admit in PCU Admission and Anticipated Discharge Date Admission Date: September 21, 2024 Supervising Physician Co-Signing Physician Notes I personally examined the patient and verified all andre points of history and exam, discussed case, and agree with decision making with Dr Phan Ongoing mouth pain. Poor p.o. intake because of this. A lot of mucus, but breathing does not really seem to be any worse than his recent normal. Vitals noted, in general he is awake and alert fatigued no distress. HEENT normocephalic atraumatic mucous membranes moist, no thrush or plaques noted, although admittedly after he has been treated quite aggressively with nystatin and fluconazole. Weaknesschemo induced pancytopenia. Transfused. Continue to follow odynophagiabeing managed as thrushI am seeing him after he has been treated quite aggressively, but at the same time I do not see any lesions, and he did only come in yesterday. For now continue to treat his thrush and do serial exams, at the same time I wonder about more of a vague but notable "burning mouth syndrome"most recent iron studies noted, most recent B12 329nothing that would really explain a true burning mouth, but B12 may be would benefit from replacement. Symptomatic/supportive care and continue antifungals for now. Encouraged p.o. intake. Mild left lower extremity cellulitison ceftriaxone cough/sputumclinically I suspect this is all upper airwayhowever, although I have never examined him before, he does have adventitious lung soundsdoubt pneumonia, suspected all relates to his known mass/metastatic disease; at the same time he is on ceftriaxone which would likely be covering in pneumonia, particularly given that his severity of illness would be fairly mild. Serial exams, potentially more detailed imaging if the situation continues to be vague. Supportive care. DVT prophylaxispharmacologic contraindicated due to thrombocytopenia. Mechanical of dubious benefit. Subjective No any overnight events. Patient feeling about the same as yesterday. Distressed due to pain due to oral thrush. Has difficulty in swallowing and not able to eat due to pain. Blood Pressure pretty controlled this morning Review of Systems Review of Systems: As per HPI Physical Exam Physical Exam: Constitutional: Well appearing, No acute distress, PILCCOD: Negative HEENT: Atraumatic, Normocephalic, No conjunctival injection Throat: No visible thrush, b/l tonsil mild swollen but not erythematous CVS: S1 S2 no murmur, Regular Rhythm, no LE edema Respiratory: diffuse crackles +; B/l equal air entry GI: Soft, Nondistended, Nontender, Normal Bowel sounds + MSK: No gross deformities noted Skin: Warm, Dry, No rashes Neuro: Alert, Oriented to TPP, No Focal deficit Psych: Mood and Affect congruent, Cooperative on exam Results & Data Results & Data Vital Signs (Past 12 Hours) Vital Signs Temp Pulse Pulse Resp BP BP Pulse Ox 09/22/24 10:43 36.8 C 75 18 116/68 97 09/22/24 07:53 37.0 C 85 18 130/70 95 09/22/24 07:34 09/22/24 06:37 36.8 C 88 14 133/74 96 09/22/24 06:12 36.7 C 89 16 128/64 97 09/22/24 05:45 90 09/22/24 05:12 37.1 C 83 14 135/75 94 09/22/24 04:42 36.7 C 83 16 119/72 96 09/22/24 04:27 36.7 C 93 H 16 119/71 97 09/22/24 04:06 36.7 C 91 H 14 126/64 95 09/22/24 03:41 36.6 C 82 17 131/68 97 O2 Del Method 09/22/24 10:43 Room Air 09/22/24 07:53 Room Air 09/22/24 07:34 Room Air 09/22/24 06:37 09/22/24 06:12 09/22/24 05:45 09/22/24 05:12 09/22/24 04:42 09/22/24 04:27 09/22/24 04:06 09/22/24 03:41 Room Air Resident Activity Tracking Resident Involvement: Resident Care Provided Care Provided: Adult Hospital Medicine
--- NOTE | 2024-09-22 17:28 | Billing Data ---
Date of Service September 22, 2024 Coding Level of Care Code 33423 SUB INP/OBS CARE MIN
[2024-09-22] MEDS: FILGRASTIM 480 MCG/1.6 ML VIAL SC SCH (17:48)
[2024-09-22] MEDS: DOCUSATE SODIUM 100 MG CAP PO ONE (17:48)
[2024-09-22] MEDS: LACTATED RINGER'S 1,000 ML IV SCH (18:11)
[2024-09-22] MEDS: NYSTATIN SUSP 500,000 U/5 ML UDC PO SCH (20:17)
[2024-09-22] MEDS: BRINZOLAMIDE/BRIMONIDINE TART 119 DROPS/8 ML BTL OP SCH (20:18)
[2024-09-23 06:24] LABS: Hematocrit (blood only) 23.5 % (42.0-52.0); Hemoglobin 8.2 g/dl (14.0-18.0); Mean Corpuscular Hemoglobin 30.8 pg (25.0-34.0); Mean Corpuscular Volume 88.3 fL (80.0-100.0); Platelet Count 9 K/uL (130-400); RDW Standard Deviation 48.5 fL (36.4-46.3); Red Blood Count 2.66 M/uL (4.70-6.10); White Blood Count 0.73 K/ul (4.8-10.8)
[2024-09-23 06:34] LABS: Anion Gap 11.0 (3-11); Blood Urea Nitrogen 47.0 mg/dl (6-23); Calcium 8.3 mg/dl (8.6-10.3); Carbon Dioxide 23.0 mmol/L (21-32); Chloride 104.0 mmol/L (98-107); Creatinine Clr Calc Pharmacy 33.3 ml/min; Glucose 93.0 mg/dl (70-99(Fasting)); Potassium 3.2 mmol/L (3.5-5.1); Sodium 138.0 mmol/L (136-145)
--- NOTE | 2024-09-23 06:53 | Hospitalist Progress Note ---
Date of Service September 23, 2024 Assessment & Plan (1) Malignant mesothelioma of pleura: (2) Thrush, oral: (3) Hypomagnesemia: Plan Nicolas is 69-year-old male with PMH of Mesothelioma (Diagnosed on 2021), Hypertension , Pulmonary Embolism(08/2023) came in with weakness and exhaustion for past 3 to 4 day with recent chemotherapy on 09/10/2024 . He was hypotensive on arrival . BP improved with 2l bolus fluids. He is pancytopenic. He needs admission for transfusion of PRBCs, Platelets and monitoring of his Blood Pressure. #Pancytopenia likely side effect of antineoplastic Chemotherapy #Mesothelioma - WBC 0.73; Hgb 8.2 ; Platelet 9 - Plateletes transfusion today. Post transfusion Platelets:20 - Neutropenic precautions - Inpatient Heme/Onc consultation. Recommended Filgrastim for 3 days -Antibiotics prophylaxis: Will do ceftriaxone 2gm q24hr for cellulitis. #Cellulitis of left leg -Seems to be improving -Continue Ceftriaxone 2gm q24hr #Oral Thrush -Taking Fluconazole 200mg daily -Continue magic mouth wash -Add Viscous Lidocaine #FELISA -Creatinine improved to 1.97 from 2.10 -Daily BMP #Hypomagnesemia -Magnesium: 1.5 -Magnesium oxide BID -Repeat Mg in the AM Chronic conditions Hypertension: Hold Carvedilol in setting of Hypotension H/O Pulmonary embolism: Hold Eliquis in setting of severe thrombocytopenia Chronic pain: Continue Gabapentin DVT prophylaxis: Hold in setting of severe thrombocytopenia Code: Conditional (wants CPR, donot want intubation, Ok with BPAP) Dispo: Admit in PCU Admission and Anticipated Discharge Date Admission Date: September 21, 2024 Supervising Physician Co-Signing Physician Notes I personally examined the patient and verified all andre points of history and exam, discussed case, and agree with decision making with Dr Phan mouth pain doing better, p.o. intake improving. Leg doing better. Mucus less. Vitals noted, in general he is awake and alert fatigued no distress. HEENT normocephalic atraumatic mucous membranes moist, Breathing unlabored no accessory muscle use good effort. Skin without rashes pallor or icterusexcept for left lower extremity where there is dull and resolving erythema that is now minimally tender. Weaknesschemo induced pancytopenia. Transfused. Getting G-CSF. Continue to follow odynophagiabeing managed as thrush And while I did not see any plaques, I did see him after treatment was started, and he is improving. Continue current course Mild left lower extremity cellulitison ceftriaxone, improving, it is possible he had sepsis on admission with this, although it is far more likely that the pancytopenia was purely chemotherapy-induced cough/sputumclinically I suspect this is all upper airway and is improving as such DVT prophylaxispharmacologic contraindicated due to thrombocytopenia. Mechanical of dubious benefit. Subjective No any overnight events. Patient feeling about the same as yesterday. Pain due to thrush is a little better than yesterday. Blood Pressure pretty controlled t his morning Physical Exam Physical Exam: Constitutional: Well appearing, No acute distress, PILCCOD: Negative HEENT: Atraumatic, Normocephalic, No conjunctival injection Throat: No visible thrush, b/l tonsil mild swollen but not erythematous CVS: S1 S2 no murmur, Regular Rhythm, no LE edema Respiratory: diffuse crackles +; B/l equal air entry GI: Soft, Nondistended, Nontender, Normal Bowel sounds + MSK: No gross deformities noted Skin: Warm, Dry, No rashes Neuro: Alert, Oriented to TPP, No Focal deficit Psych: Mood and Affect congruent, Cooperative on exam Results & Data Results & Data Vital Signs (Past 12 Hours) Vital Signs Temp Pulse Pulse Resp BP Pulse Ox O2 Del Method 09/23/24 03:00 36.6 C 90 18 124/68 97 Room Air 09/22/24 23:42 36.9 C 78 18 118/79 96 Room Air 09/22/24 22:03 87 09/22/24 19:29 37.4 C 84 18 115/71 94 Room Air Resident Activity Tracking Resident Involvement: Resident Care Provided Care Provided: Adult Hospital Medicine
[2024-09-23 07:14] LABS: Immature Granulocytes # (auto) 0.07 K/uL (0.01-0.20); Immature Granulocytes % (auto) 9.6 %
[2024-09-23] MEDS ORDERED: SODIUM CHLORIDE 0.9% 100 ML IV PRN ×2 (10:30→10:42)
[2024-09-23] MEDS: POTASSIUM CHLORIDE 20 MEQ/15 ML UDC PO STA (11:09)
[2024-09-23] MEDS: MAGNESIUM OXIDE 400 MG TAB PO SCH (12:54)
[2024-09-23 15:46] LABS: Hematocrit (blood only) 24.8 % (42.0-52.0); Hemoglobin 8.5 g/dl (14.0-18.0); Mean Corpuscular Hemoglobin 30.1 pg (25.0-34.0); Mean Corpuscular Volume 87.9 fL (80.0-100.0); Platelet Count 20 K/uL (130-400); RDW Standard Deviation 47.6 fL (36.4-46.3); Red Blood Count 2.82 M/uL (4.70-6.10); White Blood Count 1.14 K/ul (4.8-10.8)
[2024-09-23 15:47] LABS: RBC Morphology Unremarkable
[2024-09-23] MEDS: ACETAMINOPHEN 500 MG TAB PO PRN (16:36)
--- NOTE | 2024-09-23 18:28 | Billing Data ---
Date of Service September 23, 2024 Coding Level of Care Code 56997 SUB INP/OBS CARE MIN
[2024-09-23 19:48] LABS: ALC (manual) 0.33 K/uL (1.2-3.4)
[2024-09-23 19:57] LABS: ANC (manual) 0.64 K/uL (1.4-6.5)
[2024-09-23] MEDS ORDERED: POLYETHYLENE (MIRALAX) 17 GM PACK PO PRN (20:33)
[2024-09-23] MEDS: LATANOPROST 0.005% OP SOLN 2.5 ML BTL OP SCH (20:43)
[2024-09-24 07:11] LABS: Hematocrit (blood only) 25.4 % (42.0-52.0); Hemoglobin 8.7 g/dl (14.0-18.0); Mean Corpuscular Hemoglobin 30.3 pg (25.0-34.0); Mean Corpuscular Volume 88.5 fL (80.0-100.0); Platelet Count 20 K/uL (130-400); RDW Standard Deviation 46.5 fL (36.4-46.3); Red Blood Count 2.87 M/uL (4.70-6.10)
[2024-09-24 07:26] LABS: Alanine Aminotransferase 6.0 U/L (7-52); Albumin Globulin Ratio 1.2 (0.9-2); Alkaline Phosphatase 47.0 U/L (34-104); Anion Gap 9.0 (3-11); Bilirubin,Total 0.5 mg/dl (0.2-1.0); Blood Urea Nitrogen 39.0 mg/dl (6-23); Calcium 8.5 mg/dl (8.6-10.3); Carbon Dioxide 26.0 mmol/L (21-32); Chloride 101.0 mmol/L (98-107); Creatinine Clr Calc Pharmacy 37.7 ml/min; Globulin 2.4 gm/dl (2.5-4.0); Glucose 95.0 mg/dl (70-99(Fasting)); Magnesium 1.2 mg/dl (1.7-2.4); Potassium 3.3 mmol/L (3.5-5.1); Sodium 136.0 mmol/L (136-145); Total Protein 5.3 gm/dl (6.0-8.3)
[2024-09-24] MEDS: DOCUSATE SODIUM 100 MG CAP PO PRN (07:45)
--- NOTE | 2024-09-24 08:01 | Hospitalist Progress Note ---
Date of Service September 24, 2024 Assessment & Plan (1) Malignant mesothelioma of pleura: (2) Thrush, oral: (3) Hypomagnesemia: Plan Nicolas is 69-year-old male with PMH of Mesothelioma (Diagnosed on 2021), Hypertension , Pulmonary Embolism(08/2023) came in with weakness and exhaustion for past 3 to 4 day with recent chemotherapy on 09/10/2024 . He was hypotensive on arrival . BP improved with 2l bolus fluids. He is pancytopenic. He needs admission for transfusion of PRBCs, Platelets and monitoring of his Blood Pressure. #Pancytopenia likely side effect of antineoplastic Chemotherapy #Mesothelioma - WBC 0.73; Hgb 8.2 ; Platelet 9 - Plateletes transfusion today. Post transfusion Platelets:20 - Neutropenic precautions - Inpatient Heme/Onc consultation. Recommended Filgrastim for 3 days -Antibiotics prophylaxis: Will do ceftriaxone 2gm q24hr for cellulitis. #Cellulitis of left leg -Seems to be improving -Continue Ceftriaxone 2gm q24hr #Oral Thrush -Taking Fluconazole 200mg daily -Continue magic mouth wash -Add Viscous Lidocaine #FELISA -Creatinine improved to 1.97 from 2.10 -Daily BMP #Hypomagnesemia -Magnesium: 1.5 -Magnesium oxide BID -Repeat Mg in the AM Chronic conditions Hypertension: Hold Carvedilol in setting of Hypotension H/O Pulmonary embolism: Hold Eliquis in setting of severe thrombocytopenia Chronic pain: Continue Gabapentin DVT prophylaxis: Hold in setting of severe thrombocytopenia Code: Conditional (wants CPR, donot want intubation, Ok with BPAP) Dispo: Admit in PCU Admission and Anticipated Discharge Date Admission Date: September 21, 2024 Supervising Physician Co-Signing Physician Notes I personally examined the patient and verified all andre points of history and exam, discussed case, and agree with decision making with Dr Phan cough with a lot of sputum this morning, but then through the day very annoying cough. Predominantly dry. Coughing through the night it kept him awake. No shortness of breath. No significant face pain, although he does or notes some right nostril congestion. Mouth is feeling better. Eating and drinking is doing much better.. Vitals noted, in general he is awake and alert fatigued no distress. HEENT normocephalic atraumatic mucous membranes moist, No significant sinus tenderness to palpation. Breathing unlabored no accessory muscle use good effort lungs are clear without rales rhonchi or wheezes of note. Skin without pallor or icterus. Weaknesschemo induced pancytopenia. Transfused. Getting G-CSF. Continue to follow, Improving odynophagiabeing managed as thrush he is improving nicely. Continue current course cough/sputumdoes not appear to have a pneumonia clinically, also does not examine like a sinusitis. Given that his cough was way worse at night and the mucus was way worse in the morning, now it is behaving a bit more like postnasal drip of some kind. 2 days ago whenever the sputum was bad [id number] I did wonder if it was mucosal inflammation related to the thrush, I suppose this could have been the case and maybe there is a little bit of residual thrush at the upper back of his oropharynx that I cannot seeat any rate, he appears very stable but the cough is understandably fatiguing and frustratingwill try to treat as a postnasal drip with Afrin and Flonase, as well as Tessalon Perles 3 times daily as needed, and see if we cannot help get him some symptomatic relief. Mild left lower extremity cellulitison ceftriaxone, improving, it is possible he had sepsis on admission with this, although it is far more likely that the pancytopenia was purely chemotherapy-induced DVT prophylaxispharmacologic contraindicated due to thrombocytopenia. Mechanical of dubious benefit. He is doing better. Hopefully home tomorrow. Subjective No any overnight events. Patient feeling about the same as yesterday. Pain due to thrush is a little better than yesterday. Blood Pressure pretty controlled this morning Review of Systems Review of Systems: As per HPI Physical Exam Physical Exam: Constitutional: Well appearing, No acute distress, PILCCOD: Negative HEENT: Atraumatic, Normocephalic, No conjunctival injection Throat: No visible thrush, b/l tonsil mild swollen but not erythematous CVS: S1 S2 no murmur, Regular Rhythm, no LE edema Respiratory: diffuse crackles +; B/l equal air entry GI: Soft, Nondistended, Nontender, Normal Bowel sounds + MSK: No gross deformities noted Skin: Warm, Dry, No rashes Neuro: Alert, Oriented to TPP, No Focal deficit Psych: Mood and Affect congruent, Cooperative on exam Results & Data Results & Data Vital Signs (Past 12 Hours) Vital Signs Temp Pulse Resp BP Pulse Ox O2 Del Method 09/24/24 07:00 37.2 C 80 16 130/75 94 Room Air
[2024-09-24 08:08] LABS: White Blood Count 1.23 K/ul (4.8-10.8)
[2024-09-24 08:11] LABS: ALC (manual) 0.48 K/uL (1.2-3.4); ANC (manual) 0.68 K/uL (1.4-6.5); Dohle Bodies 2+; Large Granular Lymph # (manua 0.27 K/uL; Large Granular Lymph % (manual) 22 %; Toxic Granulation 1+
[2024-09-24] MEDS ORDERED: DOCUSATE SODIUM 100 MG CAP PO SCH (09:00)
[2024-09-24] MEDS: LIDOCAINE VISCOUS 2% 15 ML UDC MT SCH (09:23)
[2024-09-24] MEDS: POTASSIUM CHLORIDE 20 MEQ/15 ML UDC PO SCH (09:25)
[2024-09-24] MEDS: POTASSIUM CHLORIDE CRTAB 20 MEQ TABCR PO SCH (10:35)
[2024-09-24] MEDS: MAGNESIUM SULFATE / D5W 1 GM/100 ML BAG IV SCH (10:42)
--- NOTE | 2024-09-24 18:19 | Billing Data ---
Date of Service September 24, 2024 Coding Level of Care Code 87271 SUB INP/OBS CARE
--- NOTE | 2024-09-24 18:20 | Billing Data ---
Date of Service September 24, 2024 Coding Level of Care Code 83390 SUB INP/OBS CARE
[2024-09-24] MEDS: FLUTICASONE PROPIONATE NA SPR 16 GM BTL SCH (20:03)
[2024-09-24] MEDS: OXYMETAZOLINE 0.05% 30 ML BTL SCH (20:18)
[2024-09-25 06:55] LABS: Hematocrit (blood only) 26.8 % (42.0-52.0); Hemoglobin 9.3 g/dl (14.0-18.0); Mean Corpuscular Hemoglobin 30.8 pg (25.0-34.0); Mean Corpuscular Volume 88.7 fL (80.0-100.0); Platelet Count 20 K/uL (130-400); RDW Standard Deviation 46.8 fL (36.4-46.3); Red Blood Count 3.02 M/uL (4.70-6.10); White Blood Count 2.55 K/ul (4.8-10.8)
[2024-09-25 07:17] LABS: Dohle Bodies 3+; Immature Granulocytes # (auto) 0.03 K/uL (0.01-0.20); Immature Granulocytes % (auto) 1.2 %
[2024-09-25 07:24] LABS: Anion Gap 9.0 (3-11); Blood Urea Nitrogen 35.0 mg/dl (6-23); Calcium 8.6 mg/dl (8.6-10.3); Carbon Dioxide 27.0 mmol/L (21-32); Chloride 100.0 mmol/L (98-107); Creatinine Clr Calc Pharmacy 41.0 ml/min; Glucose 95.0 mg/dl (70-99(Fasting)); Potassium 3.5 mmol/L (3.5-5.1); Sodium 136.0 mmol/L (136-145)
--- NOTE | 2024-09-25 07:35 | Hospitalist Progress Note ---
Date of Service September 25, 2024 Assessment & Plan (1) Malignant mesothelioma of pleura: (2) Thrush, oral: (3) Hypomagnesemia: Plan Nicolas is 69-year-old male with PMH of Mesothelioma (Diagnosed on 2021), Hypertension , Pulmonary Embolism(08/2023) came in with weakness and exhaustion for past 3 to 4 day with recent chemotherapy on 09/10/2024 . He was hypotensive on arrival . BP improved with 2l bolus fluids. He is pancytopenic. He needs admission for transfusion of PRBCs, Platelets and monitoring of his Blood Pressure. #Pancytopenia likely side effect of antineoplastic Chemotherapy #Mesothelioma - WBC 0.73; Hgb 8.2 ; Platelet 9 - Plateletes transfusion today. Post transfusion Platelets:20 - Neutropenic precautions - Inpatient Heme/Onc consultation. Recommended Filgrastim for 3 days -Antibiotics prophylaxis: Will do ceftriaxone 2gm q24hr for cellulitis. #Cellulitis of left leg -Seems to be improving -Continue Ceftriaxone 2gm q24hr #Oral Thrush -Taking Fluconazole 200mg daily -Continue magic mouth wash -Add Viscous Lidocaine #FELISA -Creatinine improved to 1.97 from 2.10 -Daily BMP #Hypomagnesemia -Magnesium: 1.5 -Magnesium oxide BID -Repeat Mg in the AM Chronic conditions Hypertension: Hold Carvedilol in setting of Hypotension H/O Pulmonary embolism: Hold Eliquis in setting of severe thrombocytopenia Chronic pain: Continue Gabapentin DVT prophylaxis: Hold in setting of severe thrombocytopenia Code: Conditional (wants CPR, donot want intubation, Ok with BPAP) Dispo: Admit in PCU Admission and Anticipated Discharge Date Admission Date: September 21, 2024 Review of Systems Review of Systems: As per HPI Results & Data Results & Data Vital Signs (Past 12 Hours) Vital Signs Temp Pulse Resp BP Pulse Ox O2 Del Method 09/24/24 21:19 37.5 C 09/24/24 20:05 Room Air 09/24/24 19:38 37.8 C H 97 H 16 145/80 H 93 Room Air
[2024-09-25 07:52] VITALS: BP 143/82; PULSE 98; RESP 18; TEMP 98.5; O2SAT 95
[2024-09-25] MEDS: BENZONATATE 100 MG CAPSULE PO PRN (08:24)
--- NOTE | 2024-09-25 17:11 | Discharge Summary ---
Date of Service September 25, 2024 Admission HPI Per Admitting Provider Nicolas is 69-year-old male with PMH of Mesothelioma (Diagnosed on 2021), Hypertension , Pulmonary Embolism(08/2023) arrives for evaluation of weakness. Patient states that for the last 3 to 4 days worsening weakness fatigue and exhaustion. Associated with a productive cough. Has clear Phlegm. Denies any chest pain or shortness of breath recently. Notes no appetite. It painful to eat because of oral thrush He was able to eat a bit of food today but states that no significant appetite at this point either. Due to worsening weakness arrives to the ER. Patient has a history of mesothelioma diagnosed on 2021 that was being treated with immunotherapy for 18 months. He has some side effects with immunotherapy so he is actively under chemotherapy right now He had a round of chemo about 1 week ago( 09/10/2024/) . Following with Dr Figueroa. Has been dealing with oral thrush as well after recent chemotherapy. He is taking Fluconazole daily and mouth wash for oral thrush. This is resulted in worsening weakness. bruise in his right arm which patient noted today. He denies any headache, neck pain, chest pain, shortness of breath, danyel pain, back pain, urinary symptoms, bowel changes, leg swelling, rashes or other concerning signs or symptoms. He has had no recent strokelike symptoms and denies any facial weakness, slurred speech, confusion. He is not having any headache at this time. He has erythema and swelling of bilateral lower legs which they noticed on Sunday. Started on Amoxicillin BID today Living Situation: He lives with his Do not consume alcohol and donot smoke Admission Exam Per Admitting Provider Constitutional: Well appearing, No acute distress, PILCCOD: Negative HEENT: Atraumatic, Normocephalic, No conjunctival injection CVS: S1 S2 no murmur, Regular Rhythm, no LE edema Respiratory: diffuse crackles +; B/l equal air entry GI: Soft, Nondistended, Nontender, Normal Bowel sounds + MSK: No gross deformities noted Skin: Warm, Dry, No rashes Neuro: Alert, Oriented to TPP, No Focal deficit Psych: Mood and Affect congruent, Cooperative on exam Principal Diagnosis 1.Pancytopenia likely side effect of antineoplastic Chemotherapy 2. Cellulitis of left leg 3. Oral thrush Discharge Exam Constitutional: Well appearing, No acute distress, PILCCOD: Negative HEENT: Atraumatic, Normocephalic, No conjunctival injection Throat: No visible thrush, b/l tonsil mild swollen but not erythematous CVS: S1 S2 no murmur, Regular Rhythm, no LE edema Respiratory: diffuse crackles +; B/l equal air entry GI: Soft, Nondistended, Nontender, Normal Bowel sounds + MSK: No gross deformities noted Skin: Warm, Dry, No rashes Neuro: Alert, Oriented to TPP, No Focal deficit Psych: Mood and Affect congruent, Cooperative on exam Discharge Data Allergies Allergy/AdvReac Type Severity Reaction Status Date / Time Sulfa (Sulfonamide Allergy Intermediate ITCHY RASH Verified 09/16/24 13:29 Antibiotics) dexamethasone AdvReac Intermediate Intractable Verified 09/16/24 13:29 hiccups prednisone AdvReac Intermediate Intractable Verified 09/16/24 13:29 hiccups cephalexin AdvReac Mild Thrush Verified 09/16/24 13:29 Consultations 09/21/24 17:03 ED Decision to Admit Stat 09/21/24 18:08 Consult Oncology Stat Hospital Course (1) Malignant mesothelioma of pleura: (2) Thrush, oral: (3) Hypomagnesemia: Dandre Valenzuela is 69-year-old male with PMH of Mesothelioma (Diagnosed on 2021), Hypertension , Pulmonary Embolism(08/2023) came in with weakness and exhaustion for past 3 to 4 day with recent chemotherapy on 09/10/2024 . He was hypotensive on arrival . BP improved with 2l bolus fluids. He is pancytopenic. He needs admission for transfusion of PRBCs, Platelets and monitoring of his Blood Pressure. #Pancytopenia likely side effect of antineoplastic Chemotherapy #Mesothelioma - WBC 0.73; Hgb 8.2 ; Platelet 20 - Plateletes transfusion today. Post transfusion Platelets:20 - Neutropenic precautions - Inpatient Heme/Onc consultation. Filgrastim for 3 days - Discharge today #Cellulitis of left leg -Seems to be improving - Switch Ceftraixone to Cefdinir on discharge #Oral Thrush -Taking Fluconazole 200mg daily -Continue magic mouth wash -Continue Viscous Lidocaine at home #FELISA -Creatinine improved to 1.97 from 2.10 #Hypomagnesemia -Magnesium: 1.5 -Magnesium oxide BID Chronic conditions Hypertension: Hold Carvedilol in setting of Hypotension H/O Pulmonary embolism: Hold Eliquis in setting of severe thrombocytopenia Chronic pain: Continue Gabapentin DVT prophylaxis: Hold in setting of severe thrombocytopenia Code: Conditional (wants CPR, donot want intubation, Ok with BPAP) Dispo: Admit in PCU Total Time Total Time Spent Total Time Spent (In Minutes): >30 Discharge Plan Discharge Items Patient Disposition: Home - Self-Care Reason For Visit: WEAKNESS Discharge Diagnosis: 1.Pancytopenia likely side effect of antineoplastic Chemotherapy 2. Cellulitis of left leg 3. Oral thrush Condition on Discharge: Fair Activity: Resume your previous activity Non-emergency contact: Primary Care Provider and Oncologist Call non-emergency contact if: you have any medication questions and your symptoms worsen Follow-up/Referrals: Alfa aCrcamo, [Primary Care Provider] - 10/07/24 10:00 am (Please arrive 15 mins. early for appointment) Diet: Regular Addtl Attending Provider Instructions: You were admitted to the hospital weakness and exhaustion for some days. Your Blood Pressure was low and was improved with fluids. You had low blood cell counts due to side effects of chemotherapy for which transfusion was done. A discharge summary will be sent to your primary care physician to ensure continuity of care. Please bring this discharge summary with you to your next office appointment so that your provider can review it at that time. Follow-up appointments: Make a follow-up appointment with your PCP within the next week. It is very important that you follow up with them shortly after discharge from the hospital. Keep all your follow-up appointments as already scheduled. If you cannot make an appointment, notify your provider. Medications: Your medication list has been reviewed and reconciled upon discharge to ensure accuracy and continuity of care. An updated list of all your medications is included with your hospital discharge paperwork. Please review this list closely, and make note of any changes. -We sent a new medication called Cefdinir to your pharmacy. Take Cefdinir 300mg two times a day for 5 days -We sent a new medication called Benzonatate to your pharmacy. Take Benzonatate 2 times daily as needed for cough - We have sent Magic mouth wash and Lidocaine viscous solution to your pharmacy. Take them as needed for oral thrush/pain. - We have sent Fluticasone spray to your pharmacy. Take them 2 times a day as needed - We have sent a new medication called Nystatin suspension to your pharmacy. Please take it two times a day for 9 day. -Please take fluconazole daily for 9 more additional days to complete your dose. -Take oxymetazoline nasal spray as needed for nasal congestion If you have any issues filling these prescriptions, please call [phone] and ask to leave a message for Dr. Sarah Phan Take your medications as instructed; do not skip a dose of your medicines. Make sure all of your doctors know every medicine you are taking (including aqeq-hoj-gqjxoet medicines, vitamins, and supplements). Call your primary care provider before taking any new medicines (including overthe- counter medicines, vitamins, and supplements), because some of these may interact with your current medications, or may make your symptoms worse. Tell your primary care provider if you cannot afford your medications. CONTACT YOUR PRIMARY CARE PROVIDER if you experience any of the following: Worsening of your symptoms. Difficulty following your treatment plan, or difficulty taking medications CALL [phone] OR GO TO THE EMERGENCY DEPARTMENT if you experience any of the following: Sudden, severe abdominal pain or nausea/vomiting Severe chest pain, or chest pain that radiates (moves) to your jaw or arm Sudden, severe shortness of breath or difficulty breathing Thank you for allowing us to participate in your care. . Pending Studies at Discharge: No Stand-Alone Forms: My [facility] [place], Smoking Cessation Medications and DC Order Prescriptions: New lidocaine HCl [Lidocaine Viscous] 2 % Solution 15 ml MT BID 10 Days Qty: 100 0RF fluticasone propionate 50 mcg/actuation [place],Suspension 1 spray NA BID PRN (Reason: nasal congestion) 10 Days Qty: 16 0RF oxymetazoline [Nasal [place] (oxymetazoline)] 0.05 % [place],Non-Aerosol 1 spray NA BID PRN (Reason: nasal congestion) Qty: 22 1RF docusate sodium 100 mg Capsule 100 mg PO DAILY PRN (Reason: constipation) 30 Days Qty: 30 0RF magnesium oxide 400 mg (241.3 mg magnesium) Tablet 400 mg PO HS 30 Days Qty: 30 0RF benzonatate 100 mg Capsule 100 mg PO TID PRN (Reason: cough) 10 Days Qty: 30 0RF nystatin 100,000 unit/mL Suspension 10 ml PO TID 9 Days Qty: 270 0RF First - Mouthwash Blm [Magic Mouthwash] 5 ml PO QID Qty: 2 1RF cefdinir 300 mg capsule 300 mg PO BID 5 Days Qty: 10 0RF Continued ondansetron HCl 8 mg tablet 8 mg PO Q8H PRN (Reason: n/v) acetaminophen [Tylenol Extra Strength] 500 mg tablet 1,000 mg PO BID PRN (Reason: Pain) folic acid 1 mg tablet 1 mg PO HS carvedilol 6.25 mg tablet 6.25 mg PO BID Eliquis 2.5 mg tablet 2.5 mg PO BID gabapentin 100 mg capsule 100 mg PO HS Lid/Link/Maalox/Nyst 5 ml PO .EVERY 4-6 HOURS PRN (Reason: mouth sore pain) Rx Instructions: swish and swallow gabapentin 100 mg Capsule 200 mg PO QAM oxycodone 10 mg tablet 5 mg PO Q6 PRN (Reason: Pain) Rx Instructions: USING VERY LITTLE cholecalciferol (vitamin D3) [Vitamin D3] 25 mcg (1,000 unit) Tablet 25 mcg PO QAM olanzapine 2.5 mg tablet 2.5 mg PO UD Rx Instructions: take 1 tablet at bedtime for 4 days starting day 1 of chemotherapy for nausea latanoprost 0.005 % drops 1 drp OPB QPM Simbrinza 1-0.2 % drops,suspension 1 drp OPB BID tavaborole 5 % solution with applicator 1 applic TOPICAL DAILY Rx Instructions: APPLY TO AFFECTED TOENAILS FOR 6 MONTHS...ORDERED 09/14/24 prochlorperazine maleate 10 mg tablet 10 mg PO Q6H PRN (Reason: Nausea) omeprazole 40 mg Capsule,Delayed Release(Dr/Ec) 40 mg PO QAM Medical Marijuana 1 dose PO DAILY PRN (Reason: n/v) fluconazole 200 mg tablet 200 mg PO QAM PRN (Reason: thrush ) Discontinued amoxicillin 500 mg capsule 500 mg PO BID Rx Instructions: START 09/21/24 TAKING FOR 4 DAYS amoxicillin 500 mg Tablet 500 mg PO UD PRN (Reason: dental appointments) Discharge Orders: Discharge Order (Routine); Ordered 09/25/24 Ordered By: Sarah Pahn Admission Data Admit Date/Time: 09/21/24 18:01 Attending Provider: Darwin Diamond Admit Provider: Sarah Phan Primary Care Provider: Alfa Carcamo Other Providers: Keyonna Rivera Abhishek Other Interventions: Discharge Summary Assessment (RN) Last Done: 09/25/24 12:54 Supervising Physician Co-Signing Physician Notes I personally examined the patient and verified all andre points of history and exam, discussed case, and agree with decision making with Dr Sylvester myers the cough and mucus are better. He and are worried about him going homein discussing their concernsthe concern is about whether or not he is weakwe walked in the room togetherhe was slow but steady. Vitals noted, in general he is awake and alert fatigued no distress. HEENT normocephalic atraumatic mucous membranes moist. Breathing unlabored no accessory muscle use good effort. Skin without rashes pallor or icterus. Weaknesschemo induced pancytopenia. Transfused. Got G-CSF. Stable for home. Outpatient CBCs. odynophagiabeing managed as thrush he is improving nicely. Finish fluconazole. cough/sputumdoes not appear to have a pneumonia clinically, also does not examine like a sinusitis. Improved with Afrin and Flonase Mild left lower extremity cellulitison ceftriaxone, improving, it is possible he had sepsis on admission with this, although it is far more likely that the pancytopenia was purely chemotherapy-induced. Finish out course of p.o. antibio tics weakness. Extensive discussion with patient and on options. After we walked in the room together, he and his do not feel that inpatient rehab is necessary, and I am not even sure he would meet criteria for approval. We all agree that going home with outpatient therapy at the therapy clinic is the best option. I also wrote a prescription for a walker and described the utility of using a walker instead of his cane. Updated prescription for outpatient therapy. Discussed nutrition in depth. Safe/stable for home.
--- NOTE | 2024-09-25 18:13 | Billing Data ---
Date of Service September 25, 2024 Coding Level of Care Code 41788 INP/OBS DISCH >30 MIN
== END 2024-09-25 13:52 | disposition home or self-care (01) | DRG 602 ==
LOC: ED 15:44 → SUATTDRO 18:01 → 2S 18:01 → 3N 09-23 16:14

== ENCOUNTER 2024-12-12 11:36 | Inpatient (IN) ==
--- NOTE | 2024-12-12 11:48 | Emergency Department Note ---
Impression & Plan Chest pain, Left shoulder pain, Anemia, CKD (chronic kidney disease) ED Provider Note NAME: ROSA ADLER AGE: 69 SEX: M : 1955 ARRIVES VIA: Ambulance INFORMANT: Patient, ED PROVIDER(S): Hiren Juarez MD CHIEF COMPLAINT: Chest pain MEDICAL DECISION MAKING: Patient presents due to concern for chest pain. Patient did receive IV fluids and IV fentanyl. Blood work does show concern for anemia which is more pronounced although not less than 7 may be contributing to the patient's pain. He did speak with the on-call oncologist Dr. Figueroa who agreed the patient could receive a unit of PRBCs but that if his pain was controlled he could potentially go home. Patient was consented and ordered a unit. Patient did require additional pain medication. EKG unremarkable with negative troponin. Creatinine 2.1 patient's blood pressures have been soft here although not lightheaded or dizzy. I did order the patient's Neupogen after discussing with Dr. Figueroa. Chest x-ray does not show evidence of obvious pneumonia. I did speak with the on-call hospitalist as the patient and the patient's at bedside were concerned about continued pain control. Patient was admitted by Dr. Nicole. Critical Care: I have personally spent 37 minutes of critical care time in direct management of this patient. This includes bedside care, interpretation of diagnostic studies, and testing, discussion with consultants, patient, and family members, and other require inpatient management activities. This 37 minutes is in excess of all separately billable procedures. Discussion w/ other healthcare providers: Dr. Nicole inpatient medicine service Prior /Outside records reviewed: None Differential diagnosis: Cardiac ischemia, aortic dissection, pulmonary embolism, pneumothorax, pneumonia, pericarditis, myocarditis, GERD, cholecystitis, pancreatitis, musculoskeletal, as well as other pathologies were considered. Diagnostics, as interpreted by me: ECG: Normal sinus rhythm, rate of 92, normal intervals, normal axis no ST elevations. Cardiac monitoring: An order was placed for continuous cardiac monitoring. The monitor shows a rate of 89 with sinus rhythm. Patient was placed on pulse oximetry Medical decision rules: None Imaging studies: I informally interpreted the patient's chest x-ray does not show obvious pneumothorax with formal report to follow. HPI: Patient presents due to concern for left-sided chest pain. He reports that it began this morning and was fairly severe currently 7 out of 10. He states that he did take an oxycodone but without significant improvement in symptoms. He denies any falls or trauma no cough or fever. He reports he did he does have a history of mesothelioma and this feels like his mesothelioma pain. She denies any exertional component no nausea or vomiting. He denies any history of blood clots. He does follow with Dr. Figueroa. He does also have a fentanyl patch which she last put on about 3 days ago. He also reports that he does have significant pain in his left shoulder as well as left elbow but no trauma. Does not want an x-ray of the shoulder elbow at this time. Patient is right-hand dominant. No overuse or injury per patient. PAST MEDICAL HISTORY: See Below PAST SURGICAL HISTORY: See Below SOCIAL HISTORY: See Below HOME MEDICATIONS: See Below ALLERGIES: See Below VITALS: See Below PHYSICAL EXAMINATION: GENERAL: NAD, non-toxic. Wearing glasses. EYE EXAM: Normal conjunctiva. PERRL, no anisocoria and EOM's grossly intact w/o pain. OROPHARYNX: Moist mucus membranes, grossly normal dentition. NECK: Trachea midline, no stridor. LUNGS: Clear to auscultation. Normal chest wall mechanics. HEART: NSR, no MRG. ABDOMEN: Abdomen soft, non-tender, no masses, no rebound or guarding. BACK: No CVA TTP. SKIN: No rashes and no bruising. UPPER EXTREMITIES: Upper extremities are grossly normal. LOWER EXTREMITIES: Grossly normal, no edema. NEURO EXAM: Awake and alert, follows commands, no obvious facial asymmetry, normal speech, moves all 4 extremities. Past Med/Surg History Problem List (Updated 12/13/24 @ 08:39 by Hiren Juarez MD) CKD (chronic kidney disease) (Acute) Anemia (Acute) Chest pain (Acute) Chronic anticoagulation Left shoulder pain (Acute) Pain of left upper extremity History of DVT (deep vein thrombosis) Multiple pulmonary nodules Pleural effusion Allergic rhinitis with postnasal drip GERD (gastroesophageal reflux disease) Upper airway cough syndrome Chronic cough Pancytopenia due to antineoplastic chemotherapy Pancytopenia (Acute) Acute hypotension (Acute) Anemia associated with chemotherapy (Acute) Dysphagia 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 Kyphosis of thoracolumbar region Weakness of both lower extremities Thrush, oral Hypomagnesemia (Acute) Ambulatory dysfunction Generalized weakness (Acute) Anemia (Acute) Acute dehydration (Acute) Edema of left upper arm (Acute) SOB (shortness of breath) (Acute) Tachycardia (Acute) Weakness (Acute) Acute kidney injury (Acute) Compression fracture of lumbar vertebra (Chronic) L1 Closed compression fracture of thoracic vertebra (Chronic) T11, 12 Onychomycosis Sacral wound FELISA (acute kidney injury) Compression fx, lumbar spine Compression fx, thoracic spine Pulmonary emboli (Acute) Paresthesia of upper extremity Cervical radicular pain Cervical spondylosis Mesothelioma of lung (Chronic) Biopsy 09/14/22 Hypertension History of right hip replacement Eosinophilic esophagitis Medical History History of recent blood transfusion 07/2024 Cervical spondylosis History of pressure ulcer sacral wound, resolved Generalized weakness Anemia recent blood transfusion 07/2024- [facility] Chronic back pain Kyphosis Osteoporosis Eosinophilic esophagitis HTN (hypertension) Compression fx, thoracic spine t11 t12 Compression fracture of lumbar vertebra L1 History of COVID-19 (02/2022) resolved Dysphagia SOBOE (shortness of breath on exertion) Pulmonary embolism hx 08/2023- reason for Eliquis Thrush no current issues Status post chemotherapy currently undergoing chemo tx follows w/ Dr Figueroa- last chemo 08/20/24, every 3 weeks Pancolitis hx Nausea, vomiting, and diarrhea current issues d/t cancer, chemo Weakness of left hand Barretts esophagus Mesothelioma of left lung (01/2022) Biopsy 09/14/22 Shingles 2018 Schatzki's ring Rheumatic fever childhood PVC (premature ventricular contraction) Plantar fasciitis Hoarseness Colon polyps Dyslipidemia Angina pectoris no current issues Cough chronic Chronic kidney disease Cardiomy[facility] History History of total right hip replacement H/O right inguinal hernia repair History of cardiac cath >10 yrs ago, no stents, follows [facility]/ [facility] Status post cholecystectomy S/P appy H/O esophagogastroduodenoscopy S/P colonoscopy Family History Mother , 79yo Mesothelioma Hypertension Father , 86yo Myocardial infarction History of open heart surgery Hypertension Diabetes Social History Smoking Status: Never smoker Tobacco Type: Cigarettes Cigarettes Per Day: Occassionally smoked a cigar; Second Hand Exposure: No; Do You Dip or Chew Tobacco: No; Hx Alcohol Use: No Hx Substance Use: No Preferred Language: Bruneian Communication Ability: Effective Visual Impairment: No Limitations Hearing Ability: Normal Culinary Arts Teacher Required: No Beliefs That Will Affect Care: None marital status: Current Living Situation: Spouse current occupational status: retired 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[employer], currently on medical leave How many Children do You have: 0 Other Information That Helps Us Care for You: No Feels Safe at Home: Yes Safety Concerns: Feels Safe At This Time Diet: Soft and regular caffeine: Yes (2-3 cups/day) during the past year weight has: decreased > 10 lbs Do you think of yourself as: straight/heterosexual Assistive Devices: Cane, Glasses and Walker Allergies Allergies Allergy/AdvReac Type Severity Reaction Status Date / Time Sulfa (Sulfonamide Allergy Intermediate ITCHY RASH Verified 12/12/24 17:26 Antibiotics) sulfamethoxazole Allergy Mild Verified 12/12/24 17:26 [From Bactrim] trimethoprim [From Bactrim] Allergy Mild Verified 12/12/24 17:26 dexamethasone AdvReac Intermediate Intractable Verified 12/12/24 17:26 hiccups prednisone AdvReac Intermediate Intractable Verified 12/12/24 17:26 hiccups cephalexin AdvReac Mild Thrush Verified 12/12/24 17:26 Home Meds Home Medications Medication Instructions Recorded Confirmed acetaminophen 500 mg tablet 1,000 mg PO BID PRN Pain 10/11/22 12/12/24 (Tylenol Extra Strength) ondansetron HCl 8 mg tablet 8 mg PO QAM Nausea/Vomiting 08/29/23 12/12/24 omeprazole 40 mg capsule,delayed 40 mg PO QAM 03/18/24 12/12/24 release prochlorperazine maleate 10 mg 10 mg PO Q6H PRN Nausea 03/18/24 12/12/24 tablet Medical Marijuana 1 dose PO DAILY PRN n/v 08/21/24 12/12/24 apixaban 2.5 mg tablet (Eliquis) 2.5 mg PO BID 09/21/24 12/12/24 carvedilol 6.25 mg tablet 6.25 mg PO PM 09/21/24 12/12/24 cholecalciferol (vitamin D3) 25 25 mcg PO QAM 09/21/24 12/12/24 mcg (1,000 unit) tablet (Vitamin D3) olanzapine 2.5 mg tablet 2.5 mg PO UD 09/21/24 12/12/24 oxycodone 10 mg tablet 5 mg PO Q6 PRN Pain 09/21/24 12/12/24 carvedilol 3.125 mg tablet 3.125 mg PO QAM 11/05/24 12/12/24 loratadine 10 mg tablet (Claritin) 10 mg PO QAM 11/05/24 12/12/24 docusate sodium 100 mg capsule 100 mg PO BID 11/28/24 12/12/24 (Colace) oxycodone 5 mg tablet 5 mg PO Q6H PRN Pain 11/28/24 12/12/24 fentanyl 12 mcg/hr transdermal 1 patch topical Q3D 12/12/24 12/12/24 patch lubiprostone 24 mcg capsule 24 mcg PO BID 12/12/24 12/12/24 ondansetron HCl 8 mg tablet 8 mg PO Q8H PRN Nausea And Vomiting 12/12/24 12/12/24 Previous Rx's Medication Instructions Recorded pregabalin 50 mg capsule 50 mg PO BID #60 caps 11/28/24 Results & Data (ED) Vital Signs Vital Signs - 24 hr 12/12/24 11:37 12/12/24 11:59 12/12/24 12:01 Temperature 37.5 C Temperature Source Oral Pulse Rate 97 H 83 Pulse Rate [Right Finger] Pulse Rate from SpO2 Sensor Respiratory Rate 16 Respiratory Effort / Characteristics Non-Labored Spontaneous Respiratory Depth Normal Respiratory Pattern Blood Pressure 98/61 L Blood Pressure [Left Arm] Blood Pressure Mean 73 Blood Pressure Mean [Left Arm] Blood Pressure Position Pulse Oximetry 94 94 Oxygen Delivery Method Room Air Room Air Sepsis Recent Fever Within 48 Hours No Sepsis New/Unexplained Change in Mental Status N/A Sepsis Action Taken by Nursing No Action Required 12/12/24 12:09 12/12/24 12:44 12/12/24 13:14 Temperature Temperature Source Pulse Rate Pulse Rate [Right Finger] 88 84 80 Pulse Rate from SpO2 Sensor Respiratory Rate 20 20 20 Respiratory Effort / Characteristics Non-Labored Spontaneous Non-Labored Spontaneous Non-Labored Spontaneous Respiratory Depth Normal Normal Normal Respiratory Pattern Regular Blood Pressure Blood Pressure [Left Arm] 84/58 L 82/56 L 92/60 L Blood Pressure Mean Blood Pressure Mean [Left Arm] 66 64 70 Blood Pressure Position Pulse Oximetry 97 97 95 Oxygen Delivery Method Room Air Room Air Room Air Sepsis Recent Fever Within 48 Hours Sepsis New/Unexplained Change in Mental Status Sepsis Action Taken by Nursing 12/12/24 13:31 12/12/24 14:06 12/12/24 14:22 Temperature Temperature Source Pulse Rate Pulse Rate [Right Finger] 81 76 78 Pulse Rate from SpO2 Sensor Respiratory Rate 10 L 12 12 Respiratory Effort / Characteristics Non-Labored Spontaneous Non-Labored Spontaneous Non-Labored Spontaneous Respiratory Depth Normal Normal Normal Respiratory Pattern Blood Pressure Blood Pressure [Left Arm] 88/57 L 101/57 L 85/55 L Blood Pressure Mean Blood Pressure Mean [Left Arm] 67 71 65 Blood Pressure Position Pulse Oximetry 96 95 98 Oxygen Delivery Method Room Air Room Air Room Air Sepsis Recent Fever Within 48 Hours Sepsis New/Unexplained Change in Mental Status Sepsis Action Taken by Nursing 12/12/24 15:00 12/12/24 16:42 12/12/24 16:45 Temperature Temperature Source Pulse Rate 77 79 Pulse Rate [Right Finger] 77 Pulse Rate from SpO2 Sensor 76 78 Respiratory Rate 18 12 16 Respiratory Effort / Characteristics Non-Labored Spontaneous Respiratory Depth Normal Respiratory Pattern Regular Blood Pressure Blood Pressure [Left Arm] 98/67 L Blood Pressure Mean Blood Pressure Mean [Left Arm] 77 Blood Pressure Position Pulse Oximetry 96 96 96 Oxygen Delivery Method Room Air Sepsis Recent Fever Within 48 Hours Sepsis New/Unexplained Change in Mental Status Sepsis Action Taken by Nursing 12/12/24 16:49 12/12/24 16:49 12/12/24 16:51 Temperature 36.4 C Temperature Source Oral Pulse Rate 80 78 Pulse Rate [Right Finger] Pulse Rate from SpO2 Sensor 77 Respiratory Rate 18 18 Respiratory Effort / Characteristics Respiratory Depth Respiratory Pattern Blood Pressure 96/59 L 96/59 L Blood Pressure [Left Arm] Blood Pressure Mean 71 74 Blood Pressure Mean [Left Arm] Blood Pressure Position Lying Pulse Oximetry 96 96 Oxygen Delivery Method Sepsis Recent Fever Within 48 Hours Sepsis New/Unexplained Change in Mental Status Sepsis Action Taken by Nursing 12/12/24 17:00 12/12/24 17:00 12/12/24 17:00 Temperature Temperature Source Pulse Rate Pulse Rate [Right Finger] Pulse Rate from SpO2 Sensor Respiratory Rate Respiratory Effort / Characteristics Respiratory Depth Respiratory Pattern Blood Pressure 93/52 L 93/52 L 93/52 L Blood Pressure [Left Arm] Blood Pressure Mean 68 68 68 Blood Pressure Mean [Left Arm] Blood Pressure Position Pulse Oximetry Oxygen Delivery Method Sepsis Recent Fever Within 48 Hours Sepsis New/Unexplained Change in Mental Status Sepsis Action Taken by Nursing 12/12/24 17:00 12/12/24 17:07 12/12/24 17:09 Temperature 36.5 C Temperature Source Oral Pulse Rate 76 77 79 Pulse Rate [Right Finger] Pulse Rate from SpO2 Sensor 75 Respiratory Rate 10 L 12 Respiratory Effort / Characteristics Respiratory Depth Respiratory Pattern Blood Pressure 97/57 L Blood Pressure [Left Arm] Blood Pressure Mean 70 Blood Pressure Mean [Left Arm] Blood Pressure Position Lying Pulse Oximetry 96 96 Oxygen Delivery Method Sepsis Recent Fever Within 48 Hours Sepsis New/Unexplained Change in Mental Status Sepsis Action Taken by Nursing 12/12/24 17:15 12/12/24 17:18 12/12/24 17:22 Temperature 36.5 C Temperature Source Oral Pulse Rate 76 74 75 Pulse Rate [Right Finger] Pulse Rate from SpO2 Sensor 76 75 Respiratory Rate 14 14 18 Respiratory Effort / Characteristics Respiratory Depth Respiratory Pattern Blood Pressure 94/56 L Blood Pressure [Left Arm] Blood Pressure Mean 68 Blood Pressure Mean [Left Arm] Blood Pressure Position Pulse Oximetry 97 97 99 Oxygen Delivery Method Sepsis Recent Fever Within 48 Hours Sepsis New/Unexplained Change in Mental Status Sepsis Action Taken by Nursing 12/12/24 17:30 12/12/24 17:30 12/12/24 17:30 Temperature Temperature Source Pulse Rate Pulse Rate [Right Finger] Pulse Rate from SpO2 Sensor Respiratory Rate Respiratory Effort / Characteristics Respiratory Depth Respiratory Pattern Blood Pressure 95/59 L 95/59 L 95/59 L Blood Pressure [Left Arm] Blood Pressure Mean 79 79 79 Blood Pressure Mean [Left Arm] Blood Pressure Position Pulse Oximetry Oxygen Delivery Method Sepsis Recent Fever Within 48 Hours Sepsis New/Unexplained Change in Mental Status Sepsis Action Taken by Nursing 12/12/24 17:42 12/12/24 17:48 12/12/24 17:52 Temperature 36.6 C Temperature Source Temporal Artery Scan Pulse Rate 81 83 79 Pulse Rate [Right Finger] Pulse Rate from SpO2 Sensor 81 82 Respiratory Rate 15 20 18 Respiratory Effort / Characteristics Respiratory Depth Respiratory Pattern Blood Pressure 109/59 L Blood Pressure [Left Arm] Blood Pressure Mean 75 Blood Pressure Mean [Left Arm] Blood Pressure Position Lying Pulse Oximetry 94 96 97 Oxygen Delivery Method Sepsis Recent Fever Within 48 Hours Sepsis New/Unexplained Change in Mental Status Sepsis Action Taken by Nursing 12/12/24 17:53 12/12/24 17:54 12/12/24 18:00 Temperature Temperature Source Pulse Rate 78 Pulse Rate [Right Finger] Pulse Rate from SpO2 Sensor 78 Respiratory Rate 15 Respiratory Effort / Characteristics Respiratory Depth Respiratory Pattern Blood Pressure 109/59 L 117/64 Blood Pressure [Left Arm] Blood Pressure Mean 81 76 Blood Pressure Mean [Left Arm] Blood Pressure Position Pulse Oximetry 98 Oxygen Delivery Method Sepsis Recent Fever Within 48 Hours Sepsis New/Unexplained Change in Mental Status Sepsis Action Taken by Nursing 12/12/24 18:00 12/12/24 18:03 12/12/24 18:15 Temperature Temperature Source Pulse Rate 82 77 Pulse Rate [Right Finger] Pulse Rate from SpO2 Sensor 82 77 Respiratory Rate 18 15 Respiratory Effort / Characteristics Respiratory Depth Respiratory Pattern Blood Pressure 117/64 Blood Pressure [Left Arm] Blood Pressure Mean 76 Blood Pressure Mean [Left Arm] Blood Pressure Position Pulse Oximetry 98 98 Oxygen Delivery Method Sepsis Recent Fever Within 48 Hours Sepsis New/Unexplained Change in Mental Status Sepsis Action Taken by [facility] Medications Current Medication List: was personally reviewed by me Laboratory Data Attestation: I reviewed the patient's lab results. 12/13/24 04:35 12/13/24 04:35 Lab Results 12/12/24 12/12/24 Range/Units 12:20 15:06 WBC 3.99 L (4.8-10.8) K/ul RBC 2.26 L (4.70-6.10) M/uL Hgb 7.0 L (14.0-18.0) g/dl Hct 20.6 L* (42.0-52.0) % MCV 91.2 (80.0-100.0) fL MCH 31.0 (25.0-34.0) pg MCHC 34.0 (32.0-36.0) g/dL RDW Std Deviation 55.0 H (36.4-46.3) fL RDW Coeff of Nasreen 18.3 H (11.5-14.5) % Plt Count 185 (130-400) K/uL MPV 10.9 (9.4-12.4) fL Immature Gran % (Auto) 0.5 % Neut % (Auto) 71.1 % Lymph % (Auto) 10.3 % Otero % (Auto) 17.5 % Eos % (Auto) 0.3 % Baso % (Auto) 0.3 % Neut # (Auto) 2.84 (1.40-6.50) K/uL Lymph # (Auto) 0.41 L (1.20-3.40) K/uL Otero # (Auto) 0.70 H (0.11-0.59) K/uL Eos # (Auto) 0.01 (0.00-0.50) K/uL Baso # (Auto) 0.01 (0.00-0.20) K/uL Immature Gran # (Auto) 0.02 (0.01-0.20) K/uL Polychromasia 1+ PT 12.1 H (9.0-12.0) Seconds INR 1.1 (0.9-1.1) APTT 41 H (21-31) Seconds PTT Ratio 1.5 Sodium 138 (136-145) mmol/L Potassium 4.0 (3.5-5.1) mmol/L Chloride 105 (98-107) mmol/L Carbon Dioxide 26 (21-32) mmol/L Anion Gap 7 (3-11) BUN 30 H (6-23) mg/dl Creatinine 2.14 H (0.6-1.4) mg/dl Est Cr Clr Drug Dosing 32.9 ml/min eGFR 32.29 BUN/Creatinine Ratio 14.0 (10-20) Glucose 115 H (70-99(Fasting)) mg/dl Calcium 8.0 L (8.6-10.3) mg/dl Total Bilirubin 0.5 (0.2-1.0) mg/dl AST 15 (13-39) U/L ALT 6 L (7-52) U/L Alkaline Phosphatase 53 (34-104) U/L Troponin I High Sens 8.4 (0-20) pg/ml Total Protein 5.1 L (6.0-8.3) gm/dl Albumin 2.7 L (3.4-5.0) gm/dl Globulin 2.4 L (2.5-4.0) gm/dl Albumin/Globulin Ratio 1.1 (0.9-2) Lipase 32 (11-82) U/L Blood Type A Positive Antibody Screen NEGATIVE Crossmatch See Detail Administered Medications Acetaminophen (Acetaminophen 325 Mg Tab) 650 mg PO QID JUAN C Stop: 01/11/25 22:21 Last Admin: 12/12/24 23:22 Dose: 650 mg Documented By: GEOFFREY Apixaban (Apixaban 2.5 Mg Tab) 2.5 mg PO BID JUAN C Stop: 01/11/25 22:21 Last Admin: 12/12/24 23:21 Dose: 2.5 mg Documented By: GEOFFREY Carvedilol (Carvedilol 6.25 Mg Tab) 6.25 mg PO PM JUAN C Stop: 01/11/25 22:21 Last Admin: 12/12/24 23:21 Dose: 6.25 mg Documented By: GEOFFREY Docusate Sodium (Docusate Sodium 100 Mg Cap) 100 mg PO BID JUAN C Stop: 01/11/25 22:21 Last Admin: 12/12/24 23:22 Dose: 100 mg Documented By: GEOFFREY Lubiprostone (Lubiprostone 8 Mcg Cap) 24 mcg PO BID JUAN C Stop: 01/11/25 22:21 Last Admin: 12/12/24 23:22 Dose: 24 mcg Documented By: GEOFFREY Miscellaneous (Remove Lidoderm Patch) 1 each N/A DAILY@2100 JUAN C Stop: 01/11/25 20:59 Last Admin: 12/12/24 23:19 Dose: 1 each Documented By: GEOFFREY Villaaneous (Check Fentanyl Patch Placement) 1 each N/A QS JUAN C Stop: 01/11/25 22:59 Last Admin: 12/13/24 08:13 Dose: 1 each Documented By: [facility] [place] Admin: 12/12/24 23:22 Dose: 1 each Documented By: GEOFFREY Oxycodone HCl (Oxycodone Hcl Ir 5 Mg Tab (Immediate Release)) 5 mg PO Q6H PRN PRN Reason: Pain Stop: 12/26/24 22:21 Last Admin: 12/12/24 23:21 Dose: 5 mg Documented By: GEOFFREY Pregabalin (Pregabalin 50 Mg Cap) 50 mg PO BID JUAN C Stop: 01/11/25 22:21 Last Admin: 12/12/24 23:22 Dose: 50 mg Documented By: GEOFFREY Discontinued Medications Acetaminophen (Acetaminophen 500 Mg Tab) 1,000 mg PO NOW STA Stop: 12/12/24 12:01 Last Admin: 12/12/24 12:09 Dose: 1,000 mg Documented By: BARBI Fentanyl Citrate (Fentanyl Citrate Pf 100 Mcg/2 Ml Vial) 25 mcg IV NOW STA Stop: 12/12/24 13:55 Last Admin: 12/12/24 14:07 Dose: 25 mcg Documented By: BARBI Fentanyl Citrate (Fentanyl Citrate Pf 100 Mcg/2 Ml Vial) 25 mcg IV NOW STA Stop: 12/12/24 14:47 Last Admin: 12/12/24 15:05 Dose: 25 mcg Documented By: MARIAM Filgrastim (Filgrastim 300 Mcg/Ml Vial) 480 mcg SQ ONE ONE Stop: 12/12/24 14:45 Last Admin: 12/12/24 15:29 Dose: 480 mcg Documented By: MARIAM Heparin Sodium (Beef Lung) (Heparin 10 Unit/Ml 5 Ml Flush) Confirm Administered Dose 5 ml FLUSH .STK-MED ONE Stop: 12/12/24 19:40 Last Admin: 12/12/24 19:40 Dose: 5 ml Documented By: Sodium Chloride (Nss) 1,000 mls @ 999 mls/hr IV .Q1H1M ONE Stop: 12/12/24 13:26 Last Infusion: 12/12/24 13:39 Dose: Infused Documented By: Admin: 12/12/24 12:27 Dose: 999 mls/hr Documented By: BARBI Sodium Chloride (Nss) 1,000 mls @ 999 mls/hr IV .Q1H1M ONE Stop: 12/12/24 14:52 Last Infusion: 12/12/24 14:54 Dose: Infused Documented By: Admin: 12/12/24 13:53 Dose: 999 mls/hr Documented By: BARBI Calcium Gluconate () 1,000 mg in 60 mls @ 240 mls/hr IV NOW STA Stop: 12/12/24 14:08 Last Infusion: 12/12/24 14:40 Dose: Infused Documented By: Admin: 12/12/24 14:21 Dose: 240 mls/hr Documented By: BARBI Sodium Chloride (Nss) 500 mls @ 999 mls/hr IV .Q31M ONE Stop: 12/12/24 18:57 Last Infusion: 12/12/24 18:31 Dose: Infused Documented By: Admin: 12/12/24 16:25 Dose: 999 mls/hr Documented By: PRAVIN Lidocaine (Lidocaine 5% 1 Patch) 1 patch TD NOW STA Stop: 12/12/24 12:01 Last Admin: 12/12/24 12:11 Dose: 1 patch Documented By: NRB Morphine Sulfate (Morphine Sulfate 4 Mg/Ml 1 Ml Carp\Vial) 4 mg IV NOW STA Stop: 12/12/24 12:01 Last Admin: 12/12/24 13:38 Dose: Not Given Documented By: NRB Imaging Data Radiologist's Impression: Chest X-Ray 12/12/24 11:46 XR chest 1V portable CLINICAL HISTORY: Chest pain, nonspecific COMPARISON STUDY: 09/21/2024 FINDINGS: There is stable cardiomegaly without pulmonary vascular congestion. Right PICC line tip is at the cavoatrial junction. There is a stable small left pleural effusion and associated pulmonary consolidation. No consolidation or pleural effusion seen on the right. No pneumothorax. IMPRESSION: Stable exam. No acute findings. ACT 112: Negative or not required by law. Electronically signed by: Peewee Boss M.D. 12/12/2024 1:32 PM Discharge Plan Visit Data Chief Complaint: Chest Pain Stated Complaint: L CHEST PAIN & ARM PAIN ED Provider: Hiren Juarez Discharge Problem: Chest pain, Left shoulder pain, Anemia, CKD (chronic kidney disease) Patient Disposition: Admitted As Inpatient Condition: Good Discharge Instructions Interventions: ED Discharge Assessment Last Done: 12/12/24 22:25 Discharge Problem: Chest pain Qualifiers: Chest pain type: unspecified Qualified Code(s): R07.9 - Chest pain, unspecified Left shoulder pain Qualifiers: Chronicity: chronic Qualified Code(s): M25.512 - Pain in left shoulder; G89.29 - Other chronic pain Anemia Qualifiers: Anemia type: unspecified type Qualified Code(s): D64.9 - Anemia, unspecified CKD (chronic kidney disease) Qualifiers: Chronic kidney disease stage: unspecified stage Qualified Code(s): N18.9 - Chronic kidney disease, unspecified
[2024-12-12] MEDS: ACETAMINOPHEN 500 MG TAB PO STA (12:09)
[2024-12-12] MEDS: LIDOCAINE 5% 1 PATCH TD STA (12:11)
[2024-12-12] MEDS: SODIUM CHLORIDE 0.9% 1,000 ML IV ONE ×2 (12:27→13:53)
[2024-12-12 12:51] LABS: Hematocrit (blood only) 20.6 % (42.0-52.0); Hemoglobin 7.0 g/dl (14.0-18.0); Mean Corpuscular Hemoglobin 31.0 pg (25.0-34.0); Mean Corpuscular Volume 91.2 fL (80.0-100.0); Platelet Count 185 K/uL (130-400); RDW Standard Deviation 55.0 fL (36.4-46.3); Red Blood Count 2.26 M/uL (4.70-6.10); White Blood Count 3.99 K/ul (4.8-10.8)
[2024-12-12 13:05] LABS: INR 1.1 (0.9-1.1); Partial Thromboplastin Time 41 Seconds (21-31); Prothrombin Time 12.1 Seconds (9.0-12.0)
[2024-12-12 13:07] LABS: Alanine Aminotransferase 6.0 U/L (7-52); Albumin Globulin Ratio 1.1 (0.9-2); Albumin Level 2.7 gm/dl (3.4-5.0); Alkaline Phosphatase 53.0 U/L (34-104); Anion Gap 7.0 (3-11); Bilirubin,Total 0.5 mg/dl (0.2-1.0); Blood Urea Nitrogen 30.0 mg/dl (6-23); Calcium 8.0 mg/dl (8.6-10.3); Carbon Dioxide 26.0 mmol/L (21-32); Chloride 105.0 mmol/L (98-107); Creatinine Clr Calc Pharmacy 32.9 ml/min; Globulin 2.4 gm/dl (2.5-4.0); Glucose 115.0 mg/dl (70-99(Fasting)); Immature Granulocytes # (auto) 0.02 K/uL (0.01-0.20); Immature Granulocytes % (auto) 0.5 %; Lipase 32.0 U/L (11-82); Polychromasia 1+; Potassium 4.0 mmol/L (3.5-5.1); Sodium 138.0 mmol/L (136-145); Total Protein 5.1 gm/dl (6.0-8.3)
--- NOTE | 2024-12-12 13:33 | XRay Report ---
XR chest 1V portable CLINICAL HISTORY: Chest pain, nonspecific COMPARISON STUDY: 09/21/2024 FINDINGS: There is stable cardiomegaly without pulmonary vascular congestion. Right PICC line tip is at the cavoatrial junction. There is a stable small left pleural effusion and associated pulmonary co nsolidation. No consolidation or pleural effusion seen on the right. No pneumothorax. IMPRESSION: Stable exam. No acute findings. ACT 112: Negative or not required by law. Electronically signed by: Peewee Boss M.D. 12/12/2024 1:32 PM
[2024-12-12] MEDS: MoRPHine SULFATE 4 MG/ML 1 ML CARP\\VIAL IV STA (13:38)
[2024-12-12] MEDS ORDERED: SODIUM CHLORIDE 0.9% 100 ML IV PRN (13:56)
[2024-12-12] MEDS: CALCIUM GLUCONATE 1,000 MG/60 ML BAG IV STA (14:21)
[2024-12-12] MEDS: FILGRASTIM 300 MCG/ML VIAL SQ ONE (15:29)
[2024-12-12] MEDS: SODIUM CHLORIDE 0.9% 500 ML IV ONE (16:25)
--- NOTE | 2024-12-12 19:25 | History & Physical Report ---
Date of Service December 12, 2024 Assessment & Plan (1) Malignant mesothelioma of pleura: (2) Mesothelioma of lung: (3) Chest pain: (4) Anemia: Plan Mr. Eli is a 69yo gentleman with PMH of malignant pleural mesothelioma who presented to the ED with worsening chest pain that started this morning. Pt stated his pain feels like his normal mesothelioma pain but was more severe. Pt is admitted and being managed for likely referred pain 2/2 to mesothelioma and anemia. #Chest Pain #Malignant pleural mesothelioma #Pain Management CXR: There is stable cardiomegaly without pulmonary vascular congestion. Right PICC line tip is at the cavoatrial junction. There is a stable small left pleural effusion and associated pulmonary consolidation. No consolidation or pleural effusion seen on the right. No pneumothorax. -r/o ACS; EKG: normal sinus rhythm per my interpretation - troponin scheduled q6 x 3 -Tylenol 650mg PO QID -Oxycodone PO 5mg for mild or moderate pain or 10mg for severe pain q6hrs prn -Fentanyl patch q3days -Heme-Onc consult, appreciate recs -CMP in AM, follow #Anemia -Hb 7.0 -s/p 1untit pRBCs -H&H, CBC in AM Dispo: med/surg tele Diet: regular DVT prophylaxis: Eliquis per pt at home regimen Code Status: Conditional History of Present Illness Primary Care Provider: Alfa Carcamo DO Mr. Eli is a 69yo gentleman with PMH of malignant pleural mesothelioma who presented to the ED with worsening chest pain that started this morning. Pt stated his pain feels like his normal mesothelioma pain but was more severe. He states that he did take an oxycodone but without significant improvement in symptoms. He describes left-sided chest pain that radiates to his left neck and arm, but that is normal for him. The pain is aggravated with movement and any activity. Relieved with rest. He has limited strength and use of his left hand due to the nature of his condition. As per the , his cancer affects his brachial plexus which causes his LUE symptoms. He also describes feeling more short of breath, weaker, and more fatigued than usual. He was noted to have a Hb of 7 and was started with 1bag pRBC infusion in ED. Pt denies loss of blood in urine or stool but states sometimes he sees blood on toilet paper after wiping. His states that he has been more incontinent over the last few weeks requiring Depends underwear. Denies fever, N/V/D, or symptoms. Allergies Allergy/AdvReac Type Severity Reaction Status Date / Time Sulfa (Sulfonamide Allergy Intermediate ITCHY RASH Verified 12/12/24 17:26 Antibiotics) sulfamethoxazole Allergy Mild Verified 12/12/24 17:26 [From Bactrim] trimethoprim [From Bactrim] Allergy Mild Verified 12/12/24 17:26 dexamethasone AdvReac Intermediate Intractable Verified 12/12/24 17:26 hiccups prednisone AdvReac Intermediate Intractable Verified 12/12/24 17:26 hiccups cephalexin AdvReac Mild Thrush Verified 12/12/24 17:26 Home Medications Medication Instructions Recorded Confirmed Type acetaminophen 500 mg tablet 1,000 mg PO BID PRN Pain 10/11/22 12/12/24 History (Tylenol Extra Strength) ondansetron HCl 8 mg tablet 8 mg PO QAM Nausea/Vomiting 08/29/23 12/12/24 History omeprazole 40 mg capsule,delayed 40 mg PO QAM 03/18/24 12/12/24 History release prochlorperazine maleate 10 mg 10 mg PO Q6H PRN Nausea 03/18/24 12/12/24 History tablet Medical Marijuana 1 dose PO DAILY PRN n/v 08/21/24 12/12/24 History apixaban 2.5 mg tablet (Eliquis) 2.5 mg PO BID 09/21/24 12/12/24 History carvedilol 6.25 mg tablet 6.25 mg PO PM 09/21/24 12/12/24 History cholecalciferol (vitamin D3) 25 25 mcg PO QAM 09/21/24 12/12/24 History mcg (1,000 unit) tablet (Vitamin D3) olanzapine 2.5 mg tablet 2.5 mg PO UD 09/21/24 12/12/24 History oxycodone 10 mg tablet 5 mg PO Q6 PRN Pain 09/21/24 12/12/24 History carvedilol 3.125 mg tablet 3.125 mg PO QAM 11/05/24 12/12/24 History loratadine 10 mg tablet (Claritin) 10 mg PO QAM 11/05/24 12/12/24 History docusate sodium 100 mg capsule 100 mg PO BID 11/28/24 12/12/24 History (Colace) oxycodone 5 mg tablet 5 mg PO Q6H PRN Pain 11/28/24 12/12/24 History pregabalin 50 mg capsule 50 mg PO BID #60 caps 11/28/24 12/12/24 Rx fentanyl 12 mcg/hr transdermal 1 patch topical Q3D 12/12/24 12/12/24 History patch lubiprostone 24 mcg capsule 24 mcg PO BID 12/12/24 12/12/24 History ondansetron HCl 8 mg tablet 8 mg PO Q8H PRN Nausea And Vomiting 12/12/24 12/12/24 History Past Med/Surg History Problem List (Updated 12/13/24 @ 08:39 by Hiren Juarez MD) CKD (chronic kidney disease) (Acute) Anemia (Acute) Chest pain (Acute) Chronic anticoagulation Left shoulder pain (Acute) Pain of left upper extremity History of DVT (deep vein thrombosis) Multiple pulmonary nodules Pleural effusion Allergic rhinitis with postnasal drip GERD (gastroesophageal reflux disease) Upper airway cough syndrome Chronic cough Pancytopenia due to antineoplastic chemotherapy Pancytopenia (Acute) Acute hypotension (Acute) Anemia associated with chemotherapy (Acute) Dysphagia 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 Kyphosis of thoracolumbar region Weakness of both lower extremities Thrush, oral Hypomagnesemia (Acute) Ambulatory dysfunction Generalized weakness (Acute) Anemia (Acute) Acute dehydration (Acute) Edema of left upper arm (Acute) SOB (shortness of breath) (Acute) Tachycardia (Acute) Weakness (Acute) Acute kidney injury (Acute) Compression fracture of lumbar vertebra (Chronic) L1 Closed compression fracture of thoracic vertebra (Chronic) T11, 12 Onychomycosis Sacral wound FELISA (acute kidney injury) Compression fx, lumbar spine Compression fx, thoracic spine Pulmonary emboli (Acute) Paresthesia of upper extremity Cervical radicular pain Cervical spondylosis Mesothelioma of lung (Chronic) Biopsy 09/14/22 Hypertension History of right hip replacement Eosinophilic esophagitis Medical History History of recent blood transfusion 07/2024 Cervical spondylosis History of pressure ulcer sacral wound, resolved Generalized weakness Anemia recent blood transfusion 07/2024- [facility] Chronic back pain Kyphosis Osteoporosis Eosinophilic esophagitis HTN (hypertension) Compression fx, thoracic spine t11 t12 Compression fracture of lumbar vertebra L1 History of COVID-19 (02/2022) resolved Dysphagia SOBOE (shortness of breath on exertion) Pulmonary embolism hx 08/2023- reason for Eliquis Thrush no current issues Status post chemotherapy currently undergoing chemo tx follows w/ Dr Figueroa- last chemo 08/20/24, every 3 weeks Pancolitis hx Nausea, vomiting, and diarrhea current issues d/t cancer, chemo Weakness of left hand Barretts esophagus Mesothelioma of left lung (01/2022) Biopsy 09/14/22 Shingles 2018 Schatzki's ring Rheumatic fever childhood PVC (premature ventricular contraction) Plantar fasciitis Hoarseness Colon polyps Dyslipidemia Angina pectoris no current issues Cough chronic Chronic kidney disease Cardiomyopathy cuate nguyen [facility] cardio Surgical History History of total right hip replacement H/O right inguinal hernia repair History of cardiac cath >10 yrs ago, no stents, follows [facility]/ cuate nguyen [facility] cardio Status post cholecystectomy S/P appy H/O esophagogastroduodenoscopy S/P colonoscopy Family History Mother , 79yo Mesothelioma Hypertension Father , 86yo Myocardial infarction History of open heart surgery Hypertension Diabetes Social History Smoking Status: Never smoker Tobacco Type: Cigarettes Cigarettes Per Day: Occassionally smoked a cigar; Second Hand Exposure: No; Do You Dip or Chew Tobacco: No; Hx Alcohol Use: No Hx Substance Use: No Preferred Language: Israeli Communication Ability: Effective Visual Impairment: No Limitations Hearing Ability: Normal Senior Game Advisor Required: No Beliefs That Will Affect Care: None marital status: Current Living Situation: Spouse current occupational status: retired 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 AAOx3 HEENT: head normocephalic, atraumatic. EOMI RESP: vesicular breath sounds b/l. No wheezes, rhonchi, or rales CARDIOVASCULAR: S1 and S2 heard. No murmurs, rubs, or gallops. Radial pulses 2+ b/l GI: Normoactive bowel sounds, no tenderness or masses felt to palpation MSK: strength limited in LUE SKIN: warm, dry, no edema PSYCH: appropriate mood and affect NEURO: CN 2-12 grossly intact Results & Data Results & Data Vital Signs (Past 12 Hours) Vital Signs Temp Pulse Pulse Resp BP BP Pulse Ox 12/12/24 18:52 36.5 C 75 18 91/54 L 97 12/12/24 17:52 36.6 C 79 18 109/59 L 97 12/12/24 17:22 36.5 C 75 18 94/56 L 99 12/12/24 17:09 79 12/12/24 17:07 36.5 C 77 12 97/57 L 96 12/12/24 16:49 36.4 C 80 18 96/59 L 96 12/12/24 15:00 77 18 98/67 L 96 12/12/24 14:22 78 12 85/55 L 98 12/12/24 14:06 76 12 101/57 L 95 12/12/24 13:31 81 10 L 88/57 L 96 12/12/24 13:14 80 20 92/60 L 95 12/12/24 12:44 84 20 82/56 L 97 12/12/24 12:09 88 20 84/58 L 97 12/12/24 12:01 83 12/12/24 11:59 94 12/12/24 11:37 37.5 C 97 H 16 98/61 L 94 O2 Del Method 12/12/24 18:52 12/12/24 17:52 12/12/24 17:22 12/12/24 17:09 12/12/24 17:07 12/12/24 16:49 12/12/24 15:00 Room Air 12/12/24 14:22 Room Air 12/12/24 14:06 Room Air 12/12/24 13:31 Room Air 12/12/24 13:14 Room Air 12/12/24 12:44 Room Air 12/12/24 12:09 Room Air 12/12/24 12:01 12/12/24 11:59 Room Air 12/12/24 11:37 Room Air Code Status & VTE Plan VTE Prophylaxis Plan VTE Prophylaxis will be ordered: Yes Supervising Physician Co-Signing Physician Notes I personally examined the patient and verified all andre points of history and exam, discussed case, and agree with decision making with Dr Palacios PGY1 Patient with history of malignant Mesothelioma presents to the ED with symptomatic anemia and chest pain. Will monitor troponin. Will transfuse one unit of PRBC and monitor hemoglobin Will continue current pain regimen with oxycodone. If pain is not controlled tomorrow. will consider increasing fentanyl patch Resident Activity Tracking Resident Involvement: Resident Care Provided Care Provided: Adult Hospital Medicine (3) Chest pain Chest pain type: unspecified Qualified Code(s): R07.9 - Chest pain, unspecified (4) Anemia Anemia type: unspecified type Qualified Code(s): D64.9 - Anemia, unspecified
[2024-12-12] MEDS ORDERED: POLYETHYLENE (MIRALAX) 17 GM PACK PO PRN (22:22)
[2024-12-12] MEDS ORDERED: MAGNESIUM HYDROXIDE SUSP 30 ML UDC PO PRN (22:22)
[2024-12-12] MEDS ORDERED: OLANZAPINE 2.5 MG TAB PO SCH (22:22)
[2024-12-12] MEDS ORDERED: MEDICAL MARIJUANA INH PRN (22:51)
[2024-12-12 23:10] LABS: Hematocrit (blood only) 23.3 % (42.0-52.0); Hemoglobin 7.7 g/dl (14.0-18.0)
[2024-12-12] MEDS: REMOVE LIDODERM PATCH SCH (23:19)
[2024-12-12] MEDS: APIXABAN 2.5 MG TAB PO SCH (23:21)
[2024-12-12] MEDS: PREGABALIN 50 MG CAP PO SCH (23:22)
[2024-12-12] MEDS: DOCUSATE SODIUM 100 MG CAP PO SCH (23:22)
[2024-12-12] MEDS: LUBIPROSTONE 8 MCG CAP PO SCH (23:22)
[2024-12-12] MEDS: ACETAMINOPHEN 325 MG TAB PO SCH (23:22)
[2024-12-13 05:08] LABS: Hematocrit (blood only) 22.3 % (42.0-52.0); Hemoglobin 7.3 g/dl (14.0-18.0); Mean Corpuscular Hemoglobin 29.7 pg (25.0-34.0); Mean Corpuscular Volume 90.7 fL (80.0-100.0); Platelet Count 164 K/uL (130-400); RDW Standard Deviation 53.4 fL (36.4-46.3); Red Blood Count 2.46 M/uL (4.70-6.10); White Blood Count 14.11 K/ul (4.8-10.8)
[2024-12-13 05:22] LABS: Alanine Aminotransferase 5.0 U/L (7-52); Albumin Globulin Ratio 1.1 (0.9-2); Albumin Level 2.4 gm/dl (3.4-5.0); Alkaline Phosphatase 56.0 U/L (34-104); Anion Gap 7.0 (3-11); Bilirubin,Total 0.7 mg/dl (0.2-1.0); Blood Urea Nitrogen 26.0 mg/dl (6-23); Calcium 7.6 mg/dl (8.6-10.3); Carbon Dioxide 22.0 mmol/L (21-32); Chloride 108.0 mmol/L (98-107); Creatinine Clr Calc Pharmacy 35.9 ml/min; Globulin 2.1 gm/dl (2.5-4.0); Glucose 82.0 mg/dl (70-99(Fasting)); Potassium 3.7 mmol/L (3.5-5.1); Sodium 137.0 mmol/L (136-145); Total Protein 4.5 gm/dl (6.0-8.3)
[2024-12-13 05:37] LABS: Anisocytosis Present; Dohle Bodies 1+; Immature Granulocytes # (auto) 0.16 K/uL (0.01-0.20); Immature Granulocytes % (auto) 1.1 %; Polychromasia 1+
--- NOTE | 2024-12-13 06:03 | Electrocardiogram Report ---
Test Reason : Blood Pressure : */* mmHG Vent. Rate : 92 BPM Atrial Rate : 92 BPM P-R Int : 132 ms QRS Dur : 96 ms QT Int : 366 ms P-R-T Axes : 45 1 46 degrees QTcB Int : 452 ms Normal sinus rhythm Cannot rule out Anterior infarct (cited on or before 21-Sep-2024) Abnormal ECG When compared with ECG of 21-Sep-2024 15:54, No significant change was found Confirmed by Neri Robles ([id number]) on 12/13/2024 6:03:21 AM Referred By: REFERRED SELF Confirmed By: Neri Robles
[2024-12-13] MEDS: CHOLECALCIFEROL 25 MCG (1000 UNITS) TAB PO SCH (08:46)
[2024-12-13] MEDS: LORATADINE 10 MG TAB PO SCH (08:46)
[2024-12-13] MEDS: ONDANSETRON 8MG OD TAB PO SCH (08:48)
--- NOTE | 2024-12-13 09:00 | Hospitalist Progress Note ---
Date of Service December 13, 2024 Assessment & Plan (1) Malignant mesothelioma of pleura: (2) Mesothelioma of lung: (3) Chest pain: (4) Anemia: Plan Mr. Eli is a 69yo gentleman with PMH of malignant pleural mesothelioma who presented to the ED with worsening chest pain that started this morning. Pt stated his pain feels like his normal mesothelioma pain but was more severe. Pt is admitted and being managed for likely referred pain 2/2 to mesothelioma and anemia. #Chest Pain #Malignant pleural mesothelioma #Pain Management CXR: There is stable cardiomegaly without pulmonary vascular congestion. Right PICC line tip is at the cavoatrial junction. There is a stable small left pleural effusion and associated pulmonary consolidation. No consolidation or pleural effusion seen on the right. No pneumothorax. -r/o ACS; EKG: normal sinus rhythm per my interpretation - troponin negative x 3 -Tylenol 650mg PO QID -Oxycodone PO 5mg q6hrs prn -Fentanyl patch increased to 25mcg; change q3days -Heme-Onc consult, appreciate recs -Palliative Care consult, appreciate recs -follow BMP, CBC #Anemia -Hb 7.0-->7.3 -s/p 1untit pRBCs -type and cross -give another 1unit pRBCs #Malnutrition -nutrition consult, appreciate recs -regular diet -Boost drink per nutrition recs Dispo: med/surg tele Diet: regular DVT prophylaxis: Eliquis BID Code Status: Conditional Admission and Anticipated Discharge Date Admission Date: December 12, 2024 Supervising Physician Co-Signing Physician Notes I personally examined the patient and verified all andre points of history and exam, discussed case, and agree with decision making with Dr Palaicos PGY1 Patient with history of malignant Mesothelioma presents to the ED with symptomatic anemia and chest pain. Hemoglobin remains low and will order a second unit of PRBC. Pain does not appear to be controlled. WIll double fentanyl patch dose. Will continue to monitor. WIll await palliative care consult. Subjective No overnight events. Pt states he feels the same as yesterday and that the pain medications are not helping. His appetite is limited and he still feels tired and short of breath. Denies fever, chills, N/V/D, abdominal pain, or complaints. Review of Systems Review of Systems: per HPI Physical Exam Physical Exam: GA: well groomed, appears tired at bedside. AAOx3 HEENT: head normocephalic, atraumatic. EOMI RESP: vesicular breath sounds b/l. No wheezes, rhonchi, or rales CARDIOVASCULAR: S1 and S2 heard. No murmurs, rubs, or gallops. Radial pulses 2+ b/l GI: Normoactive bowel sounds, no tenderness or masses felt to palpation MSK: strength and ROM limited in LUE. Tenderness to palpation of left chest/rib region SKIN: warm, dry, no edema PSYCH: appropriate mood and affect NEURO: CN 2-12 grossly intact Results & Data Results & Data Vital Signs (Past 12 Hours) Vital Signs Temp Pulse Pulse Pulse Resp BP BP 12/13/24 07:48 37.1 C 95 H 18 114/72 12/13/24 03:30 36.8 C 86 18 97/59 L 12/12/24 22:29 93 H 12/12/24 22:25 12/12/24 22:15 12/12/24 22:15 37.5 C 100 H 18 131/70 12/12/24 21:36 89 19 12/12/24 21:30 110/63 12/12/24 21:30 110/63 12/12/24 21:15 93 H 18 12/12/24 21:00 96/65 L 12/12/24 21:00 96/65 L 12/12/24 21:00 96/65 L 12/12/24 20:57 99 H 20 Pulse Ox O2 Del Method 12/13/24 07:48 95 Room Air 12/13/24 03:30 94 Room Air 12/12/24 22:29 12/12/24 22:25 Room Air 12/12/24 22:15 Room Air 12/12/24 22:15 94 Room Air 12/12/24 21:36 12/12/24 21:30 12/12/24 21:30 12/12/24 21:15 94 12/12/24 21:00 12/12/24 21:00 12/12/24 21:00 12/12/24 20:57 Resident Activity Tracking Resident Involvement: Resident Care Provided Care Provided: Adult Hospital Medicine (3) Chest pain Chest pain type: unspecified Qualified Code(s): R07.9 - Chest pain, unspecified (4) Anemia Anemia type: unspecified type Qualified Code(s): D64.9 - Anemia, unspecified
--- NOTE | 2024-12-13 10:40 | Oncology Consultation ---
Date of Consultation December 13, 2024 Assessment & Plan (1) Malignant mesothelioma of pleura: Plan Recommend palliative care evaluation for pain management. I have referred him to radiation oncology to discuss palliative RT Overall prognosis very poor. History of Present Illness Reason for Consultation: Pain management Attending Physician: Yordy Nicole History of Present Illness 69-year-old gentleman with metastatic malignant mesothelioma followed by me in oncology clinic. Admitted for anemia and pain management. Allergies Allergy/AdvReac Type Severity Reaction Status Date / Time Sulfa (Sulfonamide Allergy Intermediate ITCHY RASH Verified 12/12/24 17:26 Antibiotics) sulfamethoxazole Allergy Mild Verified 12/12/24 17:26 [From Bactrim] trimethoprim [From Bactrim] Allergy Mild Verified 12/12/24 17:26 dexamethasone AdvReac Intermediate Intractable Verified 12/12/24 17:26 hiccups prednisone AdvReac Intermediate Intractable Verified 12/12/24 17:26 hiccups cephalexin AdvReac Mild Thrush Verified 12/12/24 17:26 Home Medications Medication Instructions Recorded Confirmed Type acetaminophen 500 mg tablet 1,000 mg PO BID PRN Pain 10/11/22 12/12/24 History (Tylenol Extra Strength) ondansetron HCl 8 mg tablet 8 mg PO QAM Nausea/Vomiting 08/29/23 12/12/24 History omeprazole 40 mg capsule,delayed 40 mg PO QAM 03/18/24 12/12/24 History release prochlorperazine maleate 10 mg 10 mg PO Q6H PRN Nausea 03/18/24 12/12/24 History tablet Medical Marijuana 1 dose PO DAILY PRN n/v 08/21/24 12/12/24 History apixaban 2.5 mg tablet (Eliquis) 2.5 mg PO BID 09/21/24 12/12/24 History carvedilol 6.25 mg tablet 6.25 mg PO PM 09/21/24 12/12/24 History cholecalciferol (vitamin D3) 25 25 mcg PO QAM 09/21/24 12/12/24 History mcg (1,000 unit) tablet (Vitamin D3) olanzapine 2.5 mg tablet 2.5 mg PO UD 09/21/24 12/12/24 History oxycodone 10 mg tablet 5 mg PO Q6 PRN Pain 09/21/24 12/12/24 History carvedilol 3.125 mg tablet 3.125 mg PO QAM 11/05/24 12/12/24 History loratadine 10 mg tablet (Claritin) 10 mg PO QAM 11/05/24 12/12/24 History docusate sodium 100 mg capsule 100 mg PO BID 11/28/24 12/12/24 History (Colace) oxycodone 5 mg tablet 5 mg PO Q6H PRN Pain 11/28/24 12/12/24 History pregabalin 50 mg capsule 50 mg PO BID #60 caps 11/28/24 12/12/24 Rx fentanyl 12 mcg/hr transdermal 1 patch topical Q3D 12/12/24 12/12/24 History patch lubiprostone 24 mcg capsule 24 mcg PO BID 12/12/24 12/12/24 History ondansetron HCl 8 mg tablet 8 mg PO Q8H PRN Nausea And Vomiting 12/12/24 12/12/24 History Patient History Medical History History of recent blood transfusion 07/2024 Cervical spondylosis History of pressure ulcer sacral wound, resolved Generalized weakness Anemia recent blood transfusion 07/2024- [facility] Chronic back pain Kyphosis Osteoporosis Eosinophilic esophagitis HTN (hypertension) Compression fx, thoracic spine t11 t12 Compression fracture of lumbar vertebra L1 History of COVID-19 (02/2022) resolved Dysphagia SOBOE (shortness of breath on exertion) Pulmonary embolism hx 08/2023- reason for Eliquis Thrush no current issues Status post chemotherapy currently undergoing chemo tx follows w/ Dr Figueroa- last chemo 08/20/24, every 3 weeks Pancolitis hx Nausea, vomiting, and diarrhea current issues d/t cancer, chemo Weakness of left hand Barretts esophagus Mesothelioma of left lung (01/2022) Biopsy 09/14/22 Shingles 2018 Schatzki's ring Rheumatic fever childhood PVC (premature ventricular contraction) Plantar fasciitis Hoarseness Colon polyps Dyslipidemia Angina pectoris no current issues Cough chronic Chronic kidney disease Cardiomyopathy cuate nguyen [facility] cardio Surgical History History of total right hip replacement H/O right inguinal hernia repair History of cardiac cath >10 yrs ago, no stents, follows w/ cuate nguyen [facility] cardio Status post cholecystectomy S/P appy H/O esophagogastroduodenoscopy S/P colonoscopy Family History Mother , 79yo Mesothelioma Hypertension Father , 86yo Myocardial infarction History of open heart surgery Hypertension Diabetes Social History Smoking Status: Never smoker Tobacco Type: Cigarettes Cigarettes Per Day: Occassionally smoked a cigar; Second Hand Exposure: No; Do You Dip or Chew Tobacco: No; Hx Alcohol Use: No Hx Substance Use: No Preferred Language: Upper Sorbian Communication Ability: Effective Visual Impairment: No Limitations Hearing Ability: Normal Reed Fixer Required: No Beliefs That Will Affect Care: None marital status: Current Living Situation: Spouse current occupational status: retired 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[employer], currently on medical leave How many Children do You have: 0 Other Information That Helps Us Care for You: No Feels Safe at Home: Yes Safety Concerns: Feels Safe At This Time Diet: Soft and regular caffeine: Yes (2-3 cups/day) during the past year weight has: decreased > 10 lbs Do you think of yourself as: straight/heterosexual Assistive Devices: Cane, Glasses and Walker Results & Data Vital Signs (Past 12 Hours) Vital Signs Temp Pulse Pulse Pulse Resp BP Pulse Ox 12/13/24 09:15 92 H 12/13/24 07:48 37.1 C 95 H 18 114/72 95 12/13/24 03:30 36.8 C 86 18 97/59 L 94 O2 Del Method 12/13/24 09:15 12/13/24 07:48 Room Air 12/13/24 03:30 Room Air
[2024-12-13] MEDS ORDERED: SODIUM CHLORIDE 0.9% 100 ML IV PRN (13:15)
[2024-12-13] MEDS: PROCHLORPERAZINE MALEATE 10 MG TAB PO PRN (13:55)
[2024-12-13] MEDS: ONDANSETRON 4 MG OD TAB PO PRN (18:26)
[2024-12-14 06:25] LABS: Hematocrit (blood only) 26.2 % (42.0-52.0); Hemoglobin 8.7 g/dl (14.0-18.0); Mean Corpuscular Hemoglobin 29.5 pg (25.0-34.0); Mean Corpuscular Volume 88.8 fL (80.0-100.0); Platelet Count 154 K/uL (130-400); RDW Standard Deviation 52.4 fL (36.4-46.3); Red Blood Count 2.95 M/uL (4.70-6.10); White Blood Count 14.48 K/ul (4.8-10.8)
[2024-12-14 06:43] LABS: Immature Granulocytes # (auto) 0.21 K/uL (0.01-0.20); Immature Granulocytes % (auto) 1.5 %; RBC Morphology Unremarkable
[2024-12-14 06:48] LABS: Anion Gap 9.0 (3-11); Blood Urea Nitrogen 25.0 mg/dl (6-23); Calcium 8.0 mg/dl (8.6-10.3); Carbon Dioxide 23.0 mmol/L (21-32); Chloride 107.0 mmol/L (98-107); Creatinine Clr Calc Pharmacy 38.5 ml/min; Potassium 3.6 mmol/L (3.5-5.1); Sodium 139.0 mmol/L (136-145)
--- NOTE | 2024-12-14 10:56 | Hospitalist Progress Note ---
Date of Service December 14, 2024 Assessment & Plan (1) Malignant mesothelioma of pleura: (2) Mesothelioma of lung: (3) Chest pain: (4) Anemia: Plan Mr. Eli is a 69yo gentleman with PMH of malignant pleural mesothelioma who presented to the ED with worsening chest pain that started this morning. Pt stated his pain feels like his normal mesothelioma pain but was more severe. Pt is admitted and being managed for likely referred pain 2/2 to mesothelioma and anemia. #Chest Pain #Malignant pleural mesothelioma #Pain Management CXR: There is stable cardiomegaly without pulmonary vascular congestion. Right PICC line tip is at the cavoatrial junction. There is a stable small left pleural effusion and associated pulmonary consolidation. No consolidation or pleural effusion seen on the right. No pneumothorax. -r/o ACS; EKG: normal sinus rhythm per my interpretation - troponin negative x 3 -Tylenol 650mg PO QID -Oxycodone PO 5mg q6hrs prn -Fentanyl patch 25mcg; change q3days (next change 12/16) -Heme-Onc on board, appreciate recs -Palliative Care consult, appreciate recs -follow BMP, CBC, CRP #Anemia -Hb 7.0-->7.3-->8.7 -s/p 2units pRBCs -will follow #Malnutrition -nutrition on board, appreciate recs -regular diet -Boost drink per nutrition recs -maintenance fluids: LR 80mls/hr Dispo: med/surg tele Diet: regular DVT prophylaxis: Eliquis BID Code Status: Conditional Admission and Anticipated Discharge Date Admission Date: December 12, 2024 Supervising Physician Co-Signing Physician Notes I personally examined the patient and verified all andre points of history and exam, discussed case, and agree with decision making with Dr Palacios PGY1 Patient with history of malignant Mesothelioma presents to the ED with symptomatic anemia and chest pain. Main complaint is that his appetite is low today. Patient states his pain is more controlled though, with fentanyl patch Hemoglobin is at goal >8 Will continue to monitor. WIll await palliative care consult. May consider mirtazapine if appetite remains low tomorrow. Subjective Overnight pt felt nauseous and coughed up mucus after eating dinner. Today he feels better and his pain is more manageable. He feels less fatigued and short of breath today. Still has trouble with diet and states the Boost drink "does not agree" with him, feeling nauseous after drinking it. He is concerned he is not getting enough protein. He feels a little dehydrated today. Denies fever, chills, diarrhea, or complaints. Review of Systems Review of Systems: per HPI Physical Exam Physical Exam: GA: well groomed, appears tired at bedside. AAOx3 HEENT: head normocephalic, atraumatic. EOMI. Patent nares. Dry mucus membranes in mouth. RESP: vesicular breath sounds b/l. No wheezes, rhonchi, or rales CARDIOVASCULAR: S1 and S2 heard. No murmurs, rubs, or gallops. Radial pulses 2+ b/l. GI: Normoactive bowel sounds, no tenderness or masses felt to palpation MSK: strength and ROM limited in LUE. SKIN: warm, dry, no edema PSYCH: sad affect NEURO: CN 2-12 grossly intact. Speech fluent but at times slow Results & Data Results & Data Vital Signs (Past 12 Hours) Vital Signs Temp Pulse Resp BP Pulse Ox O2 Del Method 12/14/24 08:18 Room Air 12/14/24 08:10 36.9 C 87 18 126/74 94 Room Air 12/14/24 04:00 37.0 C 87 18 138/71 93 Room Air 12/13/24 23:40 36.7 C 88 18 101/64 93 Room Air Resident Activity Tracking Resident Involvement: Resident Care Provided Care Provided: Adult Hospital Medicine (3) Chest pain Chest pain type: unspecified Qualified Code(s): R07.9 - Chest pain, unspecified (4) Anemia Anemia type: unspecified type Qualified Code(s): D64.9 - Anemia, unspecified
[2024-12-14] MEDS: LACTATED RINGER'S 1,000 ML IV ONE (11:43)
[2024-12-14] MEDS: LACTATED RINGER'S 1,000 ML IV SCH (11:46)
--- NOTE | 2024-12-14 22:24 | Billing Data ---
Date of Service December 12, 2024 Coding Level of Care Code 30325 INT INP/OBS CARE
--- NOTE | 2024-12-14 22:27 | Billing Data ---
Date of Service December 13, 2024 Coding Level of Care Code 39256 SUB INP/OBS CARE
--- NOTE | 2024-12-14 22:31 | Billing Data ---
Date of Service December 14, 2024 Coding Level of Care Code 44354 SUB INP/OBS CARE
[2024-12-15 06:34] LABS: Hematocrit (blood only) 27.8 % (42.0-52.0); Hemoglobin 9.2 g/dl (14.0-18.0); Mean Corpuscular Hemoglobin 29.3 pg (25.0-34.0); Mean Corpuscular Volume 88.5 fL (80.0-100.0); Platelet Count 171 K/uL (130-400); RDW Standard Deviation 54.0 fL (36.4-46.3); Red Blood Count 3.14 M/uL (4.70-6.10); White Blood Count 11.52 K/ul (4.8-10.8)
[2024-12-15 07:08] LABS: Acanthocytes 1+; Anion Gap 8.0 (3-11); Anisocytosis Present; Blood Urea Nitrogen 25.0 mg/dl (6-23); Calcium 8.2 mg/dl (8.6-10.3); Carbon Dioxide 23.0 mmol/L (21-32); Chloride 107.0 mmol/L (98-107); Creatinine Clr Calc Pharmacy 39.4 ml/min; Hypersegmented Neutrophils 1+; Immature Granulocytes # (auto) 0.08 K/uL (0.01-0.20); Immature Granulocytes % (auto) 0.7 %; Polychromasia 1+; Potassium 3.6 mmol/L (3.5-5.1); Sodium 138.0 mmol/L (136-145)
--- NOTE | 2024-12-15 09:30 | Palliative Care Consultation ---
Date of Consultation December 15, 2024 Assessment & Plan (1) Cancer related pain: Pt c/o constant pain c/w his chronic mesothelioma pain but more severe than normal. He states pain is constant aching left lateral chest wall pain that radiates to his left neck and arm - aggravated with movement and any activity or manipulation of LUE. He shared that pain is "mostly relieved" by fentanyl patch which was started last week at 12ucg/hr and increased this admission to 25ucg/hr. He shared that he currently has a "low" level of pain and quantifies as a 4::10. Chart review reveals pt has had minimal (1-2 per day) use of PRN medications for BTP despite c/o uncontrolled pain. Reminded pt that his patch offers long acting analgesia for continuous pain control, but he may still require PRN medications for BTP. Encouraged pt to verbalize need for PRN medication to RN. Encouraged that pt request PRN medications when pain begins to rise from mild level or in preparation for activities (ie working with PT/OT). Discussed plan to continue to monitor pain level, with increased fentanyl dose and reassess need for futher changes tomorrow. Pt also agreeable to additional radiation to area for symptom mgmt. Continue Fentanyl 25ucg/hr 1 patch TD Q3D JUAN C Continue Oxycodone HCl Ir 5-10 Mg Tab PO Q4H PRN for BTP (2) Therapeutic opioid-induced constipation (OIC): Pt states that he has been constipated and has a great deal of abdominal pain when he has a BM. Pt denies any abd discomfort at this time, and shared that he has had a BM today. Discussed constipation as a side effect of opiate pain medications and help pt and his understand the need for stool softener and laxitive as PREVENTAIVE for OIC as long as he remains on opiate pain medications. They verbalized understanding and agreement. Continue Senna/MOM/miralax regime. (3) Poor appetite: Pt to be seen by ST today to assess for difficulty swallowing. Pt and his c/o poor PO intake for several weeks. Pt denies N/V and shared that he simply has no appetite. He may benefit from appetite stimulant therapy. If ST clears him to eat, would recommend starting a trial of appetite stimulant medication. (4) Palliative care by specialist: Met with pt and his at bedside. Introduced Palliative Medicine and explained our role in advanced care planning, symptom management and navigation through the progression of life limiting disease. Patient and his were receptive to palliative services for goals of care discussions. Reviewed we are different from hospice, a home health nurse visiting service. Palliative care will continue to follow for ongoing symptoms management and patient / family support. Discussed outpt follow up with Dr Odonnell in Palliative care clinic for ongoing symptom mgmt and navigation through progression of disease. Patient and his are agreeable. Plan as above History of Present Illness Reason for Consultation: pain mgmt/goals of care Requesting Physician: Liban Palacios MD Attending Physician: Darwin Diamond DO History of Present Illness Mr. Eli is a 69yo gentleman with PMH of malignant pleural mesothelioma who presented to the ED with worsening chest pain, shortness of breath, and fatigued. He was noted to have a Hb of 7 and was transfused with 1unit pRBC in ED. He had been started on TD fentanyl three days prior for management of chronic cancer related pain. Allergies Allergy/AdvReac Type Severity Reaction Status Date / Time Sulfa (Sulfonamide Allergy Intermediate ITCHY RASH Verified 12/12/24 17:26 Antibiotics) sulfamethoxazole Allergy Mild Verified 12/12/24 17:26 [From Bactrim] trimethoprim [From Bactrim] Allergy Mild Verified 12/12/24 17:26 dexamethasone AdvReac Intermediate Intractable Verified 12/12/24 17:26 hiccups prednisone AdvReac Intermediate Intractable Verified 12/12/24 17:26 hiccups cephalexin AdvReac Mild Thrush Verified 12/12/24 17:26 Home Medications Medication Instructions Recorded Confirmed Type acetaminophen 500 mg tablet 1,000 mg PO BID PRN Pain 10/11/22 12/12/24 History (Tylenol Extra Strength) ondansetron HCl 8 mg tablet 8 mg PO QAM Nausea/Vomiting 08/29/23 12/12/24 History omeprazole 40 mg capsule,delayed 40 mg PO QAM 03/18/24 12/12/24 History release prochlorperazine maleate 10 mg 10 mg PO Q6H PRN Nausea 03/18/24 12/12/24 History tablet Medical Marijuana 1 dose PO DAILY PRN n/v 08/21/24 12/12/24 History apixaban 2.5 mg tablet (Eliquis) 2.5 mg PO BID 09/21/24 12/12/24 History carvedilol 6.25 mg tablet 6.25 mg PO PM 09/21/24 12/12/24 History cholecalciferol (vitamin D3) 25 25 mcg PO QAM 09/21/24 12/12/24 History mcg (1,000 unit) tablet (Vitamin D3) olanzapine 2.5 mg tablet 2.5 mg PO UD 09/21/24 12/12/24 History oxycodone 10 mg tablet 5 mg PO Q6 PRN Pain 09/21/24 12/12/24 History carvedilol 3.125 mg tablet 3.125 mg PO QAM 11/05/24 12/12/24 History loratadine 10 mg tablet (Claritin) 10 mg PO QAM 11/05/24 12/12/24 History docusate sodium 100 mg capsule 100 mg PO BID 11/28/24 12/12/24 History (Colace) oxycodone 5 mg tablet 5 mg PO Q6H PRN Pain 11/28/24 12/12/24 History pregabalin 50 mg capsule 50 mg PO BID #60 caps 11/28/24 12/12/24 Rx fentanyl 12 mcg/hr transdermal 1 patch topical Q3D 12/12/24 12/12/24 History patch lubiprostone 24 mcg capsule 24 mcg PO BID 12/12/24 12/12/24 History ondansetron HCl 8 mg tablet 8 mg PO Q8H PRN Nausea And Vomiting 12/12/24 12/12/24 History Patient History Medical History History of recent blood transfusion 07/2024 Cervical spondylosis History of pressure ulcer sacral wound, resolved Generalized weakness Anemia recent blood transfusion 07/2024- [facility] Chronic back pain Kyphosis Osteoporosis Eosinophilic esophagitis HTN (hypertension) Compression fx, thoracic spine t11 t12 Compression fracture of lumbar vertebra L1 History of COVID-19 (02/2022) resolved Dysphagia SOBOE (shortness of breath on exertion) Pulmonary embolism hx 08/2023- reason for Eliquis Thrush no current issues Status post chemotherapy currently undergoing chemo tx follows w/ Dr Figueroa- last chemo 08/20/24, every 3 weeks Pancolitis hx Nausea, vomiting, and diarrhea current issues d/t cancer, chemo Weakness of left hand Barretts esophagus Mesothelioma of left lung (01/2022) Biopsy 09/14/22 Shingles 2018 Schatzki's ring Rheumatic fever childhood PVC (premature ventricular contraction) Plantar fasciitis Hoarseness Colon polyps Dyslipidemia Angina pectoris no current issues Cough chronic Chronic kidney disease Cardiomyopathy cuate nguyen [facility] Surgical History History of total right hip replacement H/O right inguinal hernia repair History of cardiac cath >10 yrs ago, no stents, follows w/ cuate nguyen [facility] Status post cholecystectomy S/P appy H/O esophagogastroduodenoscopy S/P colonoscopy Family History Mother , 79yo Mesothelioma Hypertension Father , 86yo Myocardial infarction History of open heart surgery Hypertension Diabetes Social History Smoking Status: Never smoker Tobacco Type: Cigarettes Cigarettes Per Day: Occassionally smoked a cigar; Second Hand Exposure: No; Do You Dip or Chew Tobacco: No; Hx Alcohol Use: No Hx Substance Use: No Preferred Language: Swedish Communication Ability: Effective Visual Impairment: No Limitations Hearing Ability: Normal Verifier Required: No Beliefs That Will Affect Care: None marital status: Current Living Situation: Spouse current occupational status: retired 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s, currently on medical leave How many Children do You have: 0 Other Information That Helps Us Care for You: No Feels Safe at Home: Yes Safety Concerns: Feels Safe At This Time Diet: Soft and regular caffeine: Yes (2-3 cups/day) during the past year weight has: decreased > 10 lbs Do you think of yourself as: straight/heterosexual Assistive Devices: Cane, Glasses and Walker Review of Systems Constitutional: + fatigue, + malaise and + weakness Musculoskeletal: + back pain and + neck pain c/o pain c/w his chronic mesothelioma pain but more severe (left lateral chest wall pain that radiates to his left neck and arm - aggravated with movement and any activity) Physical Exam Physical Exam: Patient is very lethargic, drifts off during conversation Constitutional: WD/WN, vitals as above + frail appearing Eyes: PERRL, conjunctivae normal, anicteric sclerae ENMT: external ear and nose normal, oropharynx normal Neck: trachea midline, no thyromegaly Respiratory: normal respiratory effort, lungs clear to auscultation Cardiovascular: RRR, no murmur, no edema Chest (Breasts): Additional Comments: There is tenderness to palpation or any manipulation of the upper anterior chest and shoulder on the left. Gastrointestinal (Abdomen): normal bowel sounds, soft, nontender, no hepatosplenomegaly Skin: no rashes, warm and dry Neurologic: Decreased strength of the left arm. Edema of left hand. weak handgrip on lef t. Psychiatric: A+Ox3, euthymic affect Results & Data Vital Signs (Past 12 Hours) Vital Signs Temp Pulse Pulse Resp BP Pulse Ox O2 Del Method 12/15/24 07:58 36.8 C 87 20 115/68 95 Room Air 12/15/24 04:00 36.9 C 91 H 18 122/75 95 Room Air 12/14/24 23:53 36.9 C 95 H 18 108/68 93 Room Air 12/14/24 23:26 Room Air 12/14/24 21:43 92 H Laboratory Results Abnormal lab results 12/15/24 Range/Units 05:22 WBC 11.52 H (4.8-10.8) K/ul RBC 3.14 L (4.70-6.10) M/uL Hgb 9.2 L (14.0-18.0) g/dl Hct 27.8 L (42.0-52.0) % RDW Std Deviation 54.0 H (36.4-46.3) fL RDW Coeff of Nasreen 18.3 H (11.5-14.5) % Neut # (Auto) 10.60 H (1.40-6.50) K/uL Lymph # (Auto) 0.57 L (1.20-3.40) K/uL BUN 25 H (6-23) mg/dl Creatinine 1.75 H (0.6-1.4) mg/dl Calcium 8.2 L (8.6-10.3) mg/dl C-Reactive Protein 15.86 H (0-0.5) mg/dl Diagnostic Findings Chest X-Ray 12/12/24 11:46 XR chest 1V portable CLINICAL HISTORY: Chest pain, nonspecific COMPARISON STUDY: 09/21/2024 FINDINGS: There is stable cardiomegaly without pulmonary vascular congestion. Right PICC line tip is at the cavoatrial junction. There is a stable small left pleural effusion and associated pulmonary consolidation. No consolidation or pleural effusion seen on the right. No pneumothorax. IMPRESSION: Stable exam. No acute findings. ACT 112: Negative or not required by law. Electronically signed by: Peewee Boss M.D. 12/12/2024 1:32 PM Medications Administered Current Inpatient Medications Acetaminophen (Acetaminophen 325 Mg Tab) 650 mg PO QID JUAN C Stop: 01/11/25 22:21 Last Admin: 12/15/24 10:23 Dose: 650 mg Al Hydrox/Mg Hydrox/Simethicone (Aluminum/Magnesium Susp 30 Ml Udc) 30 ml PO Q6H PRN PRN Reason: Dyspepsia Stop: 01/11/25 22:21 Apixaban (Apixaban 5 Mg Tablet) 5 mg PO BID JUAN C Stop: 01/14/25 20:59 Carvedilol (Carvedilol 6.25 Mg Tab) 6.25 mg PO PM JUAN C Stop: 01/11/25 22:21 Last Admin: 12/14/24 20:15 Dose: 6.25 mg Carvedilol (Carvedilol 3.125 Mg Tab) 3.125 mg PO QAM JUAN C Stop: 01/12/25 08:59 Last Admin: 12/15/24 10:12 Dose: 3.125 mg Docusate Sodium (Docusate Sodium 100 Mg Cap) 100 mg PO BID JUAN C Stop: 01/11/25 22:21 Last Admin: 12/15/24 10:22 Dose: 100 mg Fentanyl (Fentanyl 25 Mcg/Hr Tdsy) 1 patch TD Q3D JUAN C Stop: 12/27/24 11:59 Last Admin: 12/13/24 12:45 Dose: 1 patch Fluticasone Propionate (Fluticasone Propionate Na Spr 16 Gm Btl) 1 sprays NA HS JUAN C Stop: 01/14/25 20:59 Heparin Sodium (Beef Lung) (Heparin 10 Unit/Ml 5 Ml Flush) 5 ml FLUSH PRN PRN PRN Reason: Flush Stop: 01/12/25 18:28 Last Admin: 12/15/24 12:15 Dose: 5 ml Loratadine (Loratadine 10 Mg Tab) 20 mg PO QAM [facility] Stop: 01/15/25 08:59 Lubiprostone (Lubiprostone 8 Mcg Cap) 24 mcg PO BID [facility] Stop: 01/11/25 22:21 Last Admin: 12/15/24 10:14 Dose: 24 mcg Magnesium Hydroxide (Magnesium Hydroxide Susp 30 Ml Udc) 30 ml PO Q6H PRN PRN Reason: Constipation Stop: 01/11/25 22:21 Magnesium Hydroxide (Magnesium Hydroxide Susp 30 Ml Udc) 30 ml PO QID [facility] Stop: 01/14/25 12:59 Melatonin (Melatonin 3 Mg Tab) 3 mg PO HS PRN PRN Reason: Insomnia Stop: 01/11/25 22:21 Miscellaneous (Remove Lidoderm Patch) 1 each N/A DAILY@2100 [facility] Stop: 01/11/25 20:59 Last Admin: 12/15/24 00:01 Dose: Not Given Miscellaneous (Fentanyl Patch Remove & Waste) 1 each N/A Q3D [facility] Stop: 01/12/25 11:58 Last Admin: 12/13/24 12:45 Dose: 1 each Miscellaneous (Check Fentanyl Patch Placement) 1 each N/A QS [facility] Stop: 01/12/25 15:59 Last Admin: 12/15/24 10:24 Dose: 1 each Miscellaneous Medication (Medical Marijuana) 1 dose INH DAILY PRN PRN Reason: n/v Stop: 01/11/25 22:50 Ondansetron HCl (Ondansetron 4 Mg Od Tab) 8 mg PO Q8H PRN PRN Reason: Nausea And Vomiting Stop: 01/11/25 22:52 Last Admin: 12/14/24 17:27 Dose: 8 mg Ondansetron HCl (Ondansetron 8mg Od Tab) 8 mg PO QAM [facility] Stop: 01/12/25 08:59 Last Admin: 12/15/24 10:15 Dose: 8 mg Oxycodone HCl (Oxycodone Hcl Ir 5 Mg Tab (Immediate Release)) 5 mg PO Q6H PRN PRN Reason: Pain Stop: 12/26/24 22:21 Last Admin: 12/15/24 06:36 Dose: 5 mg Pantoprazole Sodium (Pantoprazole 40 Mg Tab) 40 mg PO QAM [facility] Stop: 01/12/25 08:59 Last Admin: 12/15/24 10:15 Dose: 40 mg Polyethylene Glycol (Polyethylene (Miralax) 17 Gm Pack) 17 gm PO DAILY PRN PRN Reason: Constipation Stop: 01/11/25 22:21 Pregabalin (Pregabalin 50 Mg Cap) 50 mg PO BID [facility] Stop: 01/11/25 22:21 Last Admin: 12/15/24 10:21 Dose: 50 mg Prochlorperazine (Prochlorperazine Maleate 10 Mg Tab) 10 mg PO Q6H PRN PRN Reason: nausea not relieved by zofran Stop: 01/11/25 22:21 Last Admin: 12/14/24 13:15 Dose: 10 mg Vitamin D (Cholecalciferol 25 Mcg (1000 Units) Tab) 25 mcg PO [facility] Stop: 01/12/25 08:59 Last Admin: 12/15/24 10:13 Dose: 25 mcg PG Care Time/CCT Total # of Minutes Spent Total Time Spent with Patient: Total time spent is greater than 50% in coordination of care (as documented) at patient's floor/unit and/or counseling patient: [place] [address] IN/OBS CONSULT LVL 4,60M Patient Type New Medical Decision Making Moderate Complexity Diagnoses Cancer related pain G89.3 Therapeutic opioid-induced constipation (OIC) K59.03; T40.2X5A Poor appetite R63.0 Palliative care by specialist Z51.5
[2024-12-15] MEDS: HYDROmorphone INJ 1 MG/ML SYRINGE IV STA (12:14)
[2024-12-15] MEDS: LORATADINE 10 MG TAB PO ONE (13:01)
--- NOTE | 2024-12-15 13:26 | Hospitalist Progress Note ---
Date of Service December 15, 2024 Assessment & Plan (1) Malignant mesothelioma of pleura: (2) Mesothelioma of lung: (3) Chest pain: (4) Anemia: Plan Mr. Eli is a 69yo gentleman with PMH of malignant pleural mesothelioma who presented to the ED with worsening chest pain that started this morning. Pt stated his pain feels like his normal mesothelioma pain but was more severe. Pt is admitted and being managed for likely referred pain 2/2 to mesothelioma and anemia. #Chest Pain #Malignant pleural mesothelioma #Pain Management CXR: There is stable cardiomegaly without pulmonary vascular congestion. Right PICC line tip is at the cavoatrial junction. There is a stable small left pleural effusion and associated pulmonary consolidation. No consolidation or pleural effusion seen on the right. No pneumothorax. r/o ACS; EKG: normal sinus rhythm per my interpretation - troponin negative x 3 -stable for downgrade to med/surg -Tylenol 650mg PO QID -Oxycodone PO 5mg q6hrs prn -gave IV Dilaudid one time -Fentanyl patch 25mcg; change q3days (next change 12/16); consider increasing dose tomorrow -Heme-Onc on board, appreciate recs -Palliative Care on board, appreciate recs -Radiation Oncology on board, appreciate recs -follow BMP, CBC, CRP #Anemia, improving -Hb 7.0-->7.3-->8.7-->9.2 -s/p 2units pRBCs during admission -will follow #Malnutrition #Constipation likely 2/2 to opioid regimen -nutrition on board, appreciate recs -regular soft diet per nutrition and speech recs -Boost drink per nutrition recs -Milk of Magnesia 30mls PO QID for constipation #Phlegm Production likely 2/2 to Post Nasal Drip -increase loratadine to 20mg daily -fluticasone nasal spray, 1 spray per nostril qnightly Dispo: med/surg Diet: easy to chew regular DVT prophylaxis: Eliquis 5mg BID Code Status: Conditional Admission and Anticipated Discharge Date Admission Date: December 12, 2024 Supervising Physician Co-Signing Physician Notes I personally examined the patient and verified all andre points of history and exam, discussed case, and agree with decision making with Dr Palacios A lot of left shoulder pain. Fairly severe. Poor appetite. A lot of mucusworse whenever he is laying flat, feels congested. Feels constipated. Vitals noted, in general he is awake and alert appears very fatigued and somewhat uncomfortable no distress otherwise. Voice sounds consistent with nasal congestion. Lungs are quiet but clear no rales rhonchi or wheezes. Abdomen is soft but a mild degree of tenderness worst on the left side. Metastatic mesothelioma with intractable paincontinue to titrate pain medications, hopefully will be able to derive some benefit from palliative radiation therapy. Pain likely from the location of the cancer and likely proximity to brachial plexus causing nerve irritation. Given the severity of the pain, narcotics are probably going to need to be a part of the regimen despite sedation or constipation risks, can titrate up on his pregabalin, but obviously effects of this will take time. He is aware that the cancer is past the point of any cure, he and his seem to be rustling with what his best goals of care will be given this unfortunate situation. Offered empathy and support, continue to slowly work through the decision making together. Severe protein calorie malnutritiondiscussed concern that it relates to the overall cancer and decline, discussed that it is possible that it is from intractable pain taking away his appetitewill work on better pain control and then see how his appetite is. Unfortunately this is a quite concerning finding for his overall prognosis. pressure ulcer of right buttock uncertain stage at this point but present on admissionlocal wound care, continue to follow. Obviously relates to his nutritional status which relates to his cancer. Venous thromboembolic diseaseobviously very high risk for recurrent clotting given his current cancer situation. Continue apixabanraised to 5 mg twice daily. Otherwise as above. Subjective No overnight events. Today pt feels more pain relief this morning but states his pain overall has been unchanged since admission. He has Tylenol scheduled but sometimes refuses because of not experiencing pain at the time. His appetite is still diminished and he is still experiencing some phlegm during the day. He wants to get out of bed and try to ambulate. Pt would like a bowel regimen due to feeling constipated. Denies fever, chills, SOB, palpitations, abdominal pain, N/V/D, and complaints. Received a message later that he was having severe pain after PT. Review of Systems Review of Systems: per HPI Physical Exam Physical Exam: GA: well groomed, appears tired at bedside. AAO to person, place, month, year but not date or day of week HEENT: head normocephalic, atraumatic. EOMI. Patent nares. RESP: vesicular breath sounds b/l. No wheezes, rhonchi, or rales CARDIOVASCULAR: S1 and S2 heard. No murmurs, rubs, or gallops. Radial pulses 2+ b/l. GI: Normoactive bowel sounds, no tenderness or masses felt to palpation MSK: strength and ROM limited in LUE. SKIN: warm, dry, no edema PSYCH: flat affect NEURO: CN 2-12 grossly intact. Speech fluent but at times slow Results & Data Results & Data Vital Signs (Past 12 Hours) Vital Signs Temp Pulse Resp BP Pulse Ox O2 Del Method 12/15/24 07:58 36.8 C 87 20 115/68 95 Room Air 12/15/24 04:00 36.9 C 91 H 18 122/75 95 Room Air Resident Activity Tracking Resident Involvement: Resident Care Provided Care Provided: Adult Hospital Medicine (3) Chest pain Chest pain type: unspecified Qualified Code(s): R07.9 - Chest pain, unspecified (4) Anemia Anemia type: unspecified type Qualified Code(s): D64.9 - Anemia, unspecified
--- NOTE | 2024-12-15 13:30 | Radiation OncologyConsultation ---
Date of Consultation December 15, 2024 Assessment & Plan (1) Malignant mesothelioma of pleura: Plan ATTENDING ADDENDUM Assessment: Mr. Eli is a 69-year-old gentleman who presents with progressive metastatic mesothelioma. The patient previously received a course of palliative radiation therapy in September 2023. The patient has received multiple systemic therapy treatment options underneath the supervision of Dr. Figueroa. More recently, Dr. Figueroa has held the patient systemic therapy due to poor performance status. The patient has been admitted to the hospital due to failure to thrive and overall pain management. We have been asked to evaluate the patient regarding the role of further radiation therapy. Treatment Options: 1. Palliative radiation therapy. 5 fractions. I explained to the patient and his that I do believe there is a moderate probability for potential pain improvement and that there is a possibility damage to organs at risk including brachial plexus, esophagus, lungs, ribs, bones and spinal cord given the the previous course of aggressive palliative radiation therapy. 2. Best supportive care Plan: 1. The patient and his will consider the whether they would like to pursue radiation therapy. 2. Continued palliative care input is appreciated. 3. Medical oncology follow-up in the outpatient setting. 4. Patient and authorized individuals are encouraged to call us with any further questions or concerns. Rationale/Explanation of Treatment: I have explained the indications, alternatives, benefits, risks and side effects of radiation therapy. I have explained the most common side effects which include but are not limited to skin erythema, skin break down, pulmonary fibrosis, adhesion development, radiation pneumonitis, spinal cord damage, brachial plexus damage, rib fracture, heart failure and heart disease, esophagitis, development of fistula, fatigue and development of secondary malignancy. I have explained the CT simulation process and treatment planning. I explained what to expect before, during and after treatment on a regular basis. I have explained to the patient that there is an increased risk of overlap from the previous course of radiation therapy and the current course of radiation therapy which can increase the risk of all acute and late side effects of radiation therapy. History of Present Illness Reason for Consultation: Left shoulder pain Requesting Physician: Darwin Diamond DO Attending Physician: Darwin Diamond DO History of Present Illness 07/05/2022. Primary care follow-up (Dr. Carcamo). Treatment with inhalers. Chest x-ray ordered. No acute abnormalities. Stable left upper lung pleural thickening. 07/24/2022. Family practice follow-up. Chest CT recommended. 08/07/2022. Chest CT. IMPRESSION: 1. Pleural-based mass within the left lung apex measures up to approximately 11 cm. Extension into the left upper lobe parenchyma with a 3.1 cm left apical lesion. There are several additional pleural-based nodules throughout the left lung, compatible with malignancy. Pleural metastasis versus primary pleural neoplasm are the differential considerations. 2. Trace left pleural effusion. 3. Mild bilateral tree-in-bud micronodules suggestive of an infectious or inflammatory process. Attention at follow-up is recommended in order to exclude additional neoplastic foci. 08/15/2022. Thoracic surgeon follow-up (Dr. Hodgson). 08/30/2022. PET/CT. IMPRESSION: 1. Irregular hypermetabolic pleural-based mass of the left lung apex measuring up to approximately 10 cm is compatible with a malignant neoplasm. Several additional smaller pleural nodules are present throughout the left hemithorax as described above. 2. No lymphadenopathy or evidence of right hemithorax or osseous metastatic disease. 09/14/2021. CT-guided FNA of left pleural mass. Statement of Adequacy 1. Left pleural mass, FNA Satisfactory for evaluation. 2. Left pleural mass, FNA core: Satisfactory for evaluation. Interpretation 1. Left pleural mass, fine needle aspiration: Positive for malignant cells. 2. Left pleural mass, FNA core: Malignant mesothelioma. 09/14/2022. Postprocedure chest x-ray. No pneumothorax. 09/28/2022. Radiation oncology consultation (Dr. Ortiz). Unresectable biphasic mesothelioma with chest wall pain. At least T1 possibly N1 disease. Tumor board evaluation recommended. Palliative radiation to help with shoulder pain. Patient requests radiation therapy in [facility]. He will update the patient following tumor board. 10/03/2022. Outcome of tumor board was to refer him to a high-volume center. Dr. Garland at [place]. 10/05/2022. Medical oncology consultation (Dr. Coffman). Immunotherapy was discussed. Recommendation of tumor board reviewed with patient. He will have an appointment at [place] at the end of the month. Patient staged at [id number]. 10/16/2022. Cardiothoracic consultation (Dr. Ortiz [facility]). Patient has biphasic disease. This is mainly in the apex. This would be the source of his pain. Patient is being referred to medical oncology. Starting with immunotherapy is an appropriate option. Surgery possibly afterward. 11/07/2022. Initiation of immunotherapy with ipilimumab and nivolumab. 03/29/2023. CT of the abdomen pelvis. 1. No acute intra-abdominal or intrapelvic abnormality. 2. Positive treatment response regarding the previously described disease within the lower chest. Please refer to the chest CT of same day for additional details. 3. No evidence of new metastatic disease. 03/29/2023. CT of the chest. 1. Mixed response with overall modest improvement as compared to 12/14/2022 examination. 2. The primary left apical pleural-based mass and implants along the medial pleura/mediastinal border have decreased in size as compared to 12/14/2022. 3. There are enlarging lateral pleural-based lesions in left upper lung. 4. Trace left pleural effusion. 5. No right-sided lesions are identified. 6. Cardiomegaly with advanced coronary artery atherosclerosis. 06/12/2023. Follow-up with medical oncology (Dr. Figueroa). Continue ipilimumab and nivolumab. Cycle 6-day 1. 07/02/2023. MRI of right shoulder. 1. Tendinopathy and likely low-grade partial thickness tear of the supraspinatus. Tendinopathy of the infraspinatus. 2. Degenerative change of the labrum with possible chronic SLAP tear. 3. Moderate osteoarthritic changes. 07/03/2023. Medical oncology follow-up. Patient is having numbness in the fingertips. Urgent consultation to orthopedics. He continues on the ipilimumab and nivolumab. Referred to genetic counseling. 07/17/2023. Genetic counseling evaluation. [facility] evaluation. Results negative. 08/10/2023. CT of the abdomen pelvis. 1. There is no evidence of metastatic disease in the abdomen or pelvis. 2. There is asymmetric nodular bladder wall thickening seen posteriorly on the right. This is suboptimally assessed by CT. Follow up with urology is recommended for further assessment and to exclude the possibility of underlying mucosal lesion. 3. Cardiomegaly 08/10/2023. CT of the chest. 1. Persistent enlargement of the previously described lateral pleural-based lesions involving the left upper hemithorax compatible with progressive disease. 2. Remaining disease within the chest as described above appears generally stable. 08/14/2023. Medical oncology follow-up. Patient will undergo cycle 7-day 22. Referral to radiation oncology for possible treatment to the progressed 3.4 cm pleural-based lesion in the left upper hemithorax. 08/29/2023. Radiation oncology follow-up. Patient is been referred back to our office due to enlarging pleural-based mass involving the left upper hemithorax. He has developed pain in his left anterior chest and posterior chest. Previously he had been having pain in his right shoulder. This resolved with the initiation of the immunotherapy. Of late he has the pain in the shoulder which radiates down his arm. He was referred to pain management. He was tried on nortriptyline. This did not help. He has oxycodone available. He takes this rarely. He does use Tylenol. As part of his regimen of treatment he takes dexamethasone. This did help the right shoulder but the pain on the left persists. He gives a pain level of 6-8.5 out of 10. He did have findings of bladder wall thickening on his CT scan. He has been referred to urology. He is also following up with orthopedics in regards to the shoulder pain. 09/04/2023. Next immunotherapy infusion. 09/10/2023. Pulmonary consultation (Dr. Call). 10/01/2023. Status post completion of palliative radiation therapy. He received 4000 cGy given in 10 fractions. 11/28/2023. Medical oncology follow-up (Dr. Figueroa). Patient continues on nivolumab/ipilimumab. Will have restaging CT scan. Ultrasound of left upper extremity. The ultrasound did show a thrombus and his Eliquis was increased. 12/11/2023. Chest CT. 1. Mild decrease in size of the left apical pleural-based mass since CT of September 17, 2023. 2. No evidence for progressive disease within the chest. 3. Resolution of the bilateral pulmonary emboli shown on prior CT. 12/11/2023. CT of the abdomen and pelvis. 1. No evidence for metastatic disease within the abdomen or pelvis. 2. The lung bases will be reported on the same day chest CT. 12/12/2023. Medical oncology follow-up. Continue on current medication. Decrease dose of steroids to methylprednisolone 4 mg daily. Encouraged to use oxycodone for pain more frequently. 01/09/2024. Medical oncology follow-up. Continue on the nivolumab and if belimumab. Continues on methylprednisolone 8 mg daily. Possible urology consult for enlarged prostate. Continue oxycodone for pain. 01/16/2024. Radiation oncology follow-up. Patient notes pain of the left shoulder which radiates to his elbow. He takes oxycodone 5 mg for the pain. He gives the pain they will 7-8 out of 10. With medication the pain level will come down to 5. Follow-up scans discussed by Dr. Figueroa. There is now discussion of chemotherapy to further decrease the size of the apical lesion. 03/18/2024. Chest CT. 1. Enlarged left pleural mass. 2. There is heterogeneous sclerosis consistent with metastatic disease of the left first rib with pathologic fracture laterally. 3. Thickening and mild thickening and inflammation concerning for colitis of the visualized descending colon. 4. New small layering bilateral pleural effusions. 03/20/2024. Hospital discharge. Admission for severe weakness and ongoing diarrhea. 04/29/2024. Chest CT. 1. No pulmonary emboli identified. 2. Slight increase in the inferior component of a lobulated left apical mass suggestive of mild progression of the primary tumor since chest CT March 19, 2024. 3. Interval development of multiple pulmonary nodules suggestive of metastases, as detailed above. 4. No change in a trace left pleural effusion. 05/07/2024. PET/CT. 1. Marked peripheral FDG uptake within the left apical mass consistent with the primary tumor. Although mildly decreased in size since PET/CT of August 30, 2022, this mass has slightly increased in size with increase in cranial/ supraclavicular extension since chest CT of December 11, 2023. Left brachial plexus involvement cannot be excluded. 2. Multiple FDG avid left pleural implants consistent with recurrent disease. Small left pleural effusion. 3. Numerous pulmonary nodules with mild FDG uptake consistent with metastatic disease. These are new since chest CT March 19, 2024. 4. No convincing evidence for metastatic disease within the abdomen or pelvis. Heterogeneous uptake within the liver is likely technical. 5. Resolution of colorectal wall thickening shown on recent abdominal CT. 05/09/2024. Initiation of pemetrexed and cisplatin. 05/15/2024. CT of the abdomen pelvis due to right flank pain and back pain. New onset of compression fractures at T11, T12 and L1. These appear to be osteoporotic rather than metastatic. Findings suggestive of metastatic pleural implants in the lung bases bilaterally. Suspect mesothelioma implants are present in the omentum as well. 05/15/2024. CT of the lumbar spine. 1. T11, T12, L1 and L2 compression fractures which are new since CT of March 18, 2024. These favor osteoporotic compression fractures which are subacute to acute. 2. Moderate multilevel degenerative disc disease and facet arthrosis within the lumbar spine. 3. No evidence for metastatic disease within the lumbar spine by CT. 05/15/2024. CT of the thoracic spine. Thoracolumbar compression fractures involving the inferior endplates of T11 and the superior endplates of T12 and L1. 05/15/2024. Hospital discharge. 05/27/2024. Medical oncology follow-up (Dr. Figueroa). Awaiting dental clearance for denosumab. Awaiting DEXA scan. Having improvement in his left shoulder pain. Has persistent thrush. Switch to fluconazole. Plan to proceed with cycle 2 of cisplatin/pemetrexed if renal functions have not improved this may be delayed. Consider urology evaluation for enlarged prostate with chronic bladder outlet changes. Continue oxycodone for pain. Plan PET/CT after 3-4 cycles. 05/30/2024. Cycle 2-day 1 of pemetrexed and cisplatin. 06/03/2024. Chest CT. 1. No pulmonary embolus noted. No aortic dissection. 2. Increased small left pleural effusion. 3. Stable left chest wall mass. 4. Stable pulmonary nodules 06/03/2024. Medical oncology follow-up. Continue with cisplatin and pemetrexed every 3 weeks. 06/05/2024. Hospital discharge. After chemotherapy this past Sunday he developed shortness of breath, decreased appetite and overall discomfort. The left upper extremity had swelling and weakness. 06/10/2024. Hospitalist note. Having back pain related to vertebral compression fractures. Needs his home dose of oxycodone for chronic pain. 06/14/2024. Hospital discharge. 06/17/2024. Medical oncology follow-up. Concerned that treatment may not be helping. Continued left upper extremity pain, paresthesias. Recommend obtaining restaging imaging after 3 cycles of chemotherapy. Consider tertiary center opinion. Due to the continued complaint of pain in the left upper extremity will refer to radiation oncology. 06/25/2024. Cycle 3-day 1 of pemetrexed and cisplatin. 06/26/2024. Radiation oncology follow-up. Patient has been referred back to our office due to left upper extremity pain. He has had persistent pain, weakness and swelling under the left arm over the past year. He was hospitalized in May due to significant swelling of the arm. This improved during the hospitalization. The weakness persists. He is unable to make a fist. He has also had pain that begins in the shoulder and will radiate down to the fingertips. This can be a 10 out of 10. He has oxycodone available. He has noted some mild improvement since starting the chemotherapy. He is receiving physical therapy at home. He has compression fractures in his back. For the compression fractures he is following with orthopedics. He has been tried on gabapentin. This caused significant fatigue. 08/29/2024. Upper GI endoscopy. Nonobstructing Schatzki ring was found at the gastroesophageal junction. A TTS dilator was passed through this well. Dilation with a 15-16 0.5-18 mm balloon. Biopsies taken. Pathology showed: Biopsy of Schatzki ring squamous mucosa with nonspecific esophagitis and reactive changes. Negative for fungus. Negative for metaplasia and dysplasia. Biopsy of the esophagus showed squamous mucosa. No diagnostic abnormality. 09/10/2024. Chest CT. 1. Increased size of the mass at the left upper hemithorax. Increased size of a left pulmonary nodule and interval right pulmonary nodule consistent with pulmonary metastatic disease. 2. Findings consistent with hepatic metastatic disease. 09/16/2024. Orthopedic follow-up. Kyphosis of the thoracic or lumbar spine compressed fracture thoracic spine vertebrae. Compression fracture of lumbar vertebrae. 09/21/2024. X-ray of the chest. 1. The patient's position is oblique to the left. 2. Hazy opacity is seen in the left upper lung apex with reduced left lung volume. Further CT assessment is recommended. Progression since the prior. 09/25/2024. Hospital discharge. Had been admitted for weakness fatigue and exhaustion. Has been treated with immunotherapy for 18 months. Having issues with thrush. 09/30/2024. Surgical evaluation for Mediport. It was felt he was not a surgical candidate at this time and recommended a PICC line. Due to low platelets. 10/01/2024. PET/CT. 1. Findings consistent with disease progression since PET/CT of July 23, 2024. Increase in size and multifocal FDG avidity of the left apical pleural-based mass. Increase in size of a small to moderate left pleural effusion. 2. Increase in size and number of several pulmonary metastases. 3. Interval development of two FDG avid hepatic metastases since prior PET/CT. 10/02/2024. Pulmonary consultation (Dr. Call). Evaluated for possible thoracentesis. Was felt that there was not enough fluid to pursue thoracentesis. 10/09/2024. Initiation of gemcitabine as single agent. 10/28/2024. CT-guided left neck mass core biopsy. Pathology report reveals: Fragments of fibrovascular tissue and skeletal muscle are seen. No tumor is seen. 11/05/2024. Emergency room evaluation. Constipation and rectal pain. 11/20/2024. Medical oncology follow-up. Patient has been receiving single agent gemcitabine. He has a poor appetite, fatigue and left upper extremity pain. Was not taking oxycodone because it did not seem to help. Recently prescribed mirtazapine by GI for poor appetite and Linzess for constipation. He was seen at [facility] by medical oncology who agreed with current plan, patient not currently candidate for clinical trials due to performance status. Continue with gemcitabine. 11/28/2024. Pain management evaluation. Recommendation for fentanyl patch as well as oxy ER. Recommended discontinuation of gabapentin due to side effect profile and trial of pregabalin. 12/04/2024. Medical oncology follow-up. Delayed gemcitabine infusion by 1 week. Continues on OxyContin. He has started fentanyl patch 12 mcg/h every 72 hours. Plan restaging imaging next week. Follow-up palliative care. 12/08/2024. CT of the abdomen pelvis. Interval liver metastatic disease and interval metastatic implant at the medial aspect of the spleen. 12/08/2024. CT of the chest. 1. Again seen is a large left apical pleural-based mass with extrapleural extension as detailed above. This is consistent with the reported history of mesothelioma, and the lesion is similar in appearance to the 10/11/2024 PET examination. 2. There is permeative destructive change of the left upper ribs with pathologic fractures of the left 1st and 2nd ribs. 3. There is a single enlarging pleural-based metastasis at the left lung base. The remaining findings are similar to the 10/01/2024 examination. This includes pulmonary metastases in both lower lobes as well as hepatic metastases. 4. A malignant left pleural effusion is similar to previous. 5. Cardiomegaly noting advanced coronary artery atherosclerosis. 6. There is asymmetric soft tissue edema in the left axilla/left upper extremity. This is similar to previous. 12/12/2024. Patient was referred for medical oncology to radiation oncology. 12/12/2024. Patient hospitalized due to left shoulder pain. Weakness and fatigue. Patient stated that he had recurrence of pain approximately 4 months after completion of the previous palliative radiation therapy. This is slowly increased over time. Approximately 2 weeks ago pain was more pronounced. He has been seen by pain management. He was started on a fentanyl patch 12 mcg/h. He had breakthrough medication. He has had a very poor appetite. He has been eating very little. He has issues with constipation and pain with bowel movements with the pain medication. He was taken stool softener. New the pain he presented to the emergency room and was admitted. He had been scheduled to be seen in our office on 12/25/2024 to discuss possible palliative radiation radiation therapy. Today he has a pain level of 4 out of 10 when remaining still. This increases greatly with movement. The pain is in the upper anterior and posterior shoulder. It can radiate down his arm. He does have some radi ation towards the lower anterior rib area. His appetite is poor. He has had some issues with swallowing. He did have an upper GI endoscopy and dilatation. Allergies Allergy/AdvReac Type Severity Reaction Status Date / Time Sulfa (Sulfonamide Allergy Intermediate ITCHY RASH Verified 12/12/24 17:26 Antibiotics) sulfamethoxazole Allergy Mild Verified 12/12/24 17:26 [From Bactrim] trimethoprim [From Bactrim] Allergy Mild Verified 12/12/24 17:26 dexamethasone AdvReac Intermediate Intractable Verified 12/12/24 17:26 hiccups prednisone AdvReac Intermediate Intractable Verified 12/12/24 17:26 hiccups cephalexin AdvReac Mild Thrush Verified 12/12/24 17:26 Home Medications Medication Instructions Recorded Confirmed Type acetaminophen 500 mg tablet 1,000 mg PO BID PRN Pain 10/11/22 12/12/24 History (Tylenol Extra Strength) ondansetron HCl 8 mg tablet 8 mg PO QAM Nausea/Vomiting 08/29/23 12/12/24 History omeprazole 40 mg capsule,delayed 40 mg PO QAM 03/18/24 12/12/24 History release prochlorperazine maleate 10 mg 10 mg PO Q6H PRN Nausea 03/18/24 12/12/24 History tablet Medical Marijuana 1 dose PO DAILY PRN n/v 08/21/24 12/12/24 History apixaban 2.5 mg tablet (Eliquis) 2.5 mg PO BID 09/21/24 12/12/24 History carvedilol 6.25 mg tablet 6.25 mg PO PM 09/21/24 12/12/24 History cholecalciferol (vitamin D3) 25 25 mcg PO QAM 09/21/24 12/12/24 History mcg (1,000 unit) tablet (Vitamin D3) olanzapine 2.5 mg tablet 2.5 mg PO UD 09/21/24 12/12/24 History oxycodone 10 mg tablet 5 mg PO Q6 PRN Pain 09/21/24 12/12/24 History carvedilol 3.125 mg tablet 3.125 mg PO QAM 11/05/24 12/12/24 History loratadine 10 mg tablet (Claritin) 10 mg PO QAM 11/05/24 12/12/24 History docusate sodium 100 mg capsule 100 mg PO BID 11/28/24 12/12/24 History (Colace) oxycodone 5 mg tablet 5 mg PO Q6H PRN Pain 11/28/24 12/12/24 History pregabalin 50 mg capsule 50 mg PO BID #60 caps 11/28/24 12/12/24 Rx fentanyl 12 mcg/hr transdermal 1 patch topical Q3D 12/12/24 12/12/24 History patch lubiprostone 24 mcg capsule 24 mcg PO BID 12/12/24 12/12/24 History ondansetron HCl 8 mg tablet 8 mg PO Q8H PRN Nausea And Vomiting 12/12/24 12/12/24 History Patient History Medical History History of recent blood transfusion 07/2024 Cervical spondylosis History of pressure ulcer sacral wound, resolved Generalized weakness Anemia recent blood transfusion 07/2024- [facility] Chronic back pain Kyphosis Osteoporosis Eosinophilic esophagitis HTN (hypertension) Compression fx, thoracic spine t11 t12 Compression fracture of lumbar vertebra L1 History of COVID-19 (02/2022) resolved Dysphagia SOBOE (shortness of breath on exertion) Pulmonary embolism hx 08/2023- reason for Eliquis Thrush no current issues Status post chemotherapy currently undergoing chemo tx follows w/ Dr Figueroa- last chemo 08/20/24, every 3 weeks Pancolitis hx Nausea, vomiting, and diarrhea current issues d/t cancer, chemo Weakness of left hand Barretts esophagus Mesothelioma of left lung (01/2022) Biopsy 09/14/22 Shingles 2018 Schatzki's ring Rheumatic fever childhood PVC (premature ventricular contraction) Plantar fasciitis Hoarseness Colon polyps Dyslipidemia Angina pectoris no current issues Cough chronic Chronic kidney disease Cardiomyopathy [facility] cardio Surgical History History of total right hip replacement H/O right inguinal hernia repair History of cardiac cath >10 yrs ago, no stents, follows w/ [facility] cardio Status post cholecystectomy S/P appy H/O esophagogastroduodenoscopy S/P colonoscopy Family History Mother , 79yo Mesothelioma Hypertension Father , 86yo Myocardial infarction History of open heart surgery Hypertension Diabetes Social History Smoking Status: Never smoker Tobacco Type: Cigarettes Cigarettes Per Day: Occassionally smoked a cigar; Second Hand Exposure: No; Do You Dip or Chew Tobacco: No; Hx Alcohol Use: No Hx Substance Use: No Preferred Language: Divehi Communication Ability: Effective Visual Impairment: No Limitations Hearing Ability: Normal Pattern Maker Programer Required: No Beliefs That Will Affect Care: None marital status: Current Living Situation: Spouse current occupational status: retired 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 Stage [id number]. Stage IB. 08/10/2023. Chest CT shows persistent enlargement of a lateral pleural-based lesion involving the left upper hemithorax compatible with progression of disease. TREATMENT: 11/07/2022. Initiation of immunotherapy with ipilimumab and nivolumab. 08/14/2023. Cycle 7-day 22 of ipilimumab and nivolumab. 10/01/2023. Status post completion of palliative radiation therapy. He received 4000 cGy given in 10 fractions. 05/09/2024. Initiation of pemetrexed and cisplatin. Will receive therapy every 21 days. 10/09/2024. Initiation of gemcitabine as a single agent. Review of Systems Constitutional: Somnolence The findings are found in the history of present illness. Ear, Nose, Mouth, Throat: + post nasal drip Respiratory: + pain with cough Cardiovascular: + chest pain (Chest pain related to tumo r.) Gastrointestinal: + dysphagia and + constipation Musculoskeletal: See history of present illness Neurologic: See history of present illness. Physical Exam Physical Exam: Patient is very lethargic. Constitutional: WD/WN, vitals as above + frail appearing Eyes: PERRL, conjunctivae normal, anicteric sclerae ENMT: Ears: no hearing impairment Neck: trachea midline, no thyromegaly Respiratory: normal respiratory effort, lungs clear to auscultation Cardiovascular: RRR, no murmur, no edema Chest (Breasts): Additional Comments: There is tenderness to palpation of the upper anterior chest and shoulder on the left. Tenderness of the left posterior shoulder. Gastrointestinal (Abdomen): normal bowel sounds, soft, nontender, no hepatosplenomegaly Skin: no rashes, warm and dry Neurologic: Minimal strength of the left arm. Unable to lift the arm off the bed. Edema is noted in his hand. Minimal handgrip. Psychiatric: A+Ox3, euthymic affect Results (Rad Onc) Pathology Results: were reviewed and pertinent findings noted in HPI Imaging Studies: were reviewed and pertinent findings noted in HPI Time Spent Midlevel I spent [20] minutes in preparation for this follow up evaluation including reviewing all the clinical records, reviewing laboratory studies, pathology reports and imaging results. I spent [25] minutes with direct face to face interaction with the patient and/or family including performing a physical exam and answering all questions. I spent [25] minutes documenting this patient's visit. Attending I spent 10 minutes in preparation for this evaluation including reviewing all the clinical records, reviewing laboratory studies, pathology reports and i maging results. I spent 25 minutes with direct face to face interaction with the patient and/or family including performing a physical exam and answering all questions. I spent 10 minutes documenting this patient's visit. 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
--- NOTE | 2024-12-15 15:00 | Billing Data ---
Date of Service December 15, 2024 Coding Level of Care Code 76483 SUB INP/OBS CARE
[2024-12-15] MEDS: MAGNESIUM HYDROXIDE SUSP 30 ML UDC PO SCH (15:49)
[2024-12-15] MEDS: FLUTICASONE PROPIONATE NA SPR 16 GM BTL SCH (20:15)
[2024-12-15] MEDS: APIXABAN 5 MG TABLET PO SCH (20:16)
[2024-12-16 06:58] LABS: Hematocrit (blood only) 25.8 % (42.0-52.0); Hemoglobin 8.7 g/dl (14.0-18.0); Mean Corpuscular Hemoglobin 30.1 pg (25.0-34.0); Mean Corpuscular Volume 89.3 fL (80.0-100.0); Platelet Count 138 K/uL (130-400); RDW Standard Deviation 55.5 fL (36.4-46.3); Red Blood Count 2.89 M/uL (4.70-6.10); White Blood Count 4.49 K/ul (4.8-10.8)
[2024-12-16 07:14] LABS: Anion Gap 7.0 (3-11); Blood Urea Nitrogen 26.0 mg/dl (6-23); Calcium 8.0 mg/dl (8.6-10.3); Carbon Dioxide 26.0 mmol/L (21-32); Chloride 106.0 mmol/L (98-107); Creatinine Clr Calc Pharmacy 38.5 ml/min; Potassium 3.6 mmol/L (3.5-5.1); Sodium 139.0 mmol/L (136-145)
--- NOTE | 2024-12-16 07:26 | Hospitalist Progress Note ---
Date of Service December 16, 2024 Assessment & Plan (1) Malignant mesothelioma of pleura: (2) Mesothelioma of lung: (3) Chest pain: (4) Anemia: Plan Mr. Eli is a 69yo gentleman with PMH of malignant pleural mesothelioma who presented to the ED with worsening chest pain that started this morning. Pt stated his pain feels like his normal mesothelioma pain but was more severe. Pt is admitted and being managed for likely referred pain 2/2 to mesothelioma and anemia. #Chest Pain #Malignant pleural mesothelioma #Pain Management CXR: There is stable cardiomegaly without pulmonary vascular congestion. Right PICC line tip is at the cavoatrial junction. There is a stable small left pleural effusion and associated pulmonary consolidation. No consolidation or pleural effusion seen on the right. No pneumothorax. r/o ACS; EKG: normal sinus rhythm per my interpretation - troponin negative x 3 -had empathetic discussion about goals of care, pt would like to discuss with Dr. Figueroa -Tylenol 650mg PO QID -Oxycodone PO 10mg q6hrs prn -IV Dilaudid prn for breakthrough pain -Fentanyl patch 25mcg; change q3days (next change 12/19) -Heme-Onc on board, appreciate recs -Palliative Care on board, appreciate recs -Radiation Oncology on board, appreciate recs -follow BMP, CBC -pt and would like SNF upon discharge #Anemia, improving -Hb 7.0-->7.3-->8.7-->9.2-->8.7 -s/p 2units pRBCs during admission -will follow #Malnutrition #Constipation likely 2/2 to opioid regimen -nutrition on board, appreciate recs -regular soft diet per nutrition and speech recs -Boost drink per nutrition recs -Milk of Magnesia 30mls PO QID prn for constipation #Phlegm Production likely 2/2 to Post Nasal Drip -loratadine to 20mg daily -fluticasone nasal spray, 1 spray per nostril qnightly #Sacral Pressure Ulcer -wound care on board -position adjustments for pressure offload -Waffle cushion and waffle boots Dispo: med/surg Diet: easy to chew regular DVT prophylaxis: Eliquis 5mg BID Code Status: Conditional Admission and Anticipated Discharge Date Admission Date: December 12, 2024 Supervising Physician Co-Signing Physician Notes I personally examined the patient and verified all andre points of history and exam, discussed case, and agree with decision making with Dr Palacios Shoulder pain ongoingon directed questioning it sounds that maybe he was not taking much of the 5 mg oxycodone dosing due to a perceived lack of efficacy. He does note that the milligram IV of Dilaudid provided adequate pain relief for an hour or 2. Bowels moving a lot. Vitals noted, in general he is awake and alert appears very fatigued and somewhat uncomfortable no distress otherwise. Breathing unlabored no accessory muscle use good effort. Skin without rashes pallor or icterus. Neuro without focal deficits. Metastatic mesothelioma with intractable paincontinue to titrate pain medications, Given that a milligram of Dilaudid helped reasonably welland he was not finding much efficacy from 5 mg oxycodoneescalate oxycodone to 10 mg as needed and encouraged to use more often. Continue fentanyl patch at current dosing, low threshold to escalate further. Low threshold to increase pregabalin. Encouraged to give strong consideration to radiation therapy. Discussed overall poor prognosis, discussed options. Outlined what appears to be within realistic expectations for goals. Understandably, they would like to discuss further with oncologyreached out to Dr. Figueroa and asked for her to revisit when available. Severe protein calorie malnutrition Previously discussed concern that it relates to the overall cancer and decline, discussed that it is possible that it is from intractable pain taking away his appetitewill work on better pain control and then see how his appetite is. Unfortunately this is a quite concerning finding for his overall prognosis. pressure ulcer of right buttock and middle coccyx both unstageable. Continue wound care. Obviously relates to his nutritional status which relates to his cancer. Venous thromboembolic diseaseobviously very high risk for recurrent clotting given his current cancer situation. Continue apixabanraised to 5 mg twice daily. Otherwise as above. Dispositionpatient and would like disposition to SNF at this time. Goals of care/course of care still to be determined. Subjective No overnight events. Pt stated this morning his pain is controlled. He is frustrated that he has not had a BM in a few days and we discussed this is likely due to his opioid use and to give the bowel regimen that is currently in place time to work. He stated his mucus production improved with doubling the loratadine dose and flonase spray. Pt said he had weird dreams last night, suspect this is due to the loratadine. He is still considering radiation oncology. Denies fever, chills, SOB, abdominal pain, NVD, and complaints. Review of Systems Review of Systems: per HPI Physical Exam Physical Exam: GA: well groomed, appears tired at bedside. AAOx3 HEENT: head normocephalic, atraumatic. EOMI. Patent nares. RESP: vesicular breath sounds b/l. No wheezes, rhonchi, or rales CARDIOVASCULAR: S1 and S2 heard. No murmurs, rubs, or gallops. Radial pulses 2+ b/l. GI: Normoactive bowel sounds, no tenderness or masses felt to palpation MSK: strength and ROM limited in LUE. SKIN: warm, dry, no edema PSYCH: flat affect NEURO: CN 2-12 grossly intact. Speech fluent but at times slow Results & Data Results & Data Vital Signs (Past 12 Hours) Vital Signs Temp Pulse Resp BP Pulse Ox O2 Del Method 12/15/24 23:39 36.9 C 90 16 102/65 96 Room Air 12/15/24 20:30 Room Air 12/15/24 20:10 37.0 C 93 H 18 113/72 95 Room Air Resident Activity Tracking Resident Involvement: Resident Care Provided Care Provided: Adult Hospital Medicine (3) Chest pain Chest pain type: unspecified Qualified Code(s): R07.9 - Chest pain, unspecified (4) Anemia Anemia type: unspecified type Qualified Code(s): D64.9 - Anemia, unspecified
[2024-12-16 08:03] LABS: ALC (manual) 0.36 K/uL (1.2-3.4); ANC (manual) 4.09 K/uL (1.4-6.5); Polychromasia 1+
[2024-12-16] MEDS: LORATADINE 10 MG TAB PO SCH (10:04)
[2024-12-16] MEDS: ALUMINUM/MAGNESIUM SUSP 30 ML UDC PO PRN (12:53)
--- NOTE | 2024-12-16 12:55 | Billing Data ---
Date of Service December 16, 2024 Coding Level of Care Code 54435 SUB INP/OBS CARE
--- NOTE | 2024-12-16 15:34 | Palliative Care Progress Note ---
Date of Service December 16, 2024 Assessment & Plan (1) Cancer related pain: Plan: Very severe intractable cancer related pain due to metastatic mesothelioma. He has been started on a transdermal fentanyl patch along with oral oxycodone. At home he was using a lower dose of oxycodone and occasional Tylenol with some relief. We discussed the potential synergistic effect of Tylenol with the oxycodone and we will give a trial of Percocet 10 mg tablets for as needed breakthrough pain and a new order has been written. He has IV Dilaudid ordered for very severe breakthrough pain unrelieved by oral meds and we have left that unchanged. (2) Left anterior shoulder pain: Plan: Metastatic malignant mesothelioma. Patient is willing to accept the offered 5 doses of palliative radiation therapy. Radiation oncology was contacted they are agreeable to bring him down tomorrow for simulation and then begin his radiation therapy while he is in the hospital to help expedite his care. This was communicated to the primary team and nursing. (3) Generalized weakness: Plan: Chronic but also worsening over time, due to progression of malignancy. (4) Advanced care planning/counseling discussion: Plan: This 60-minute [id number] advance care planning discussion was held with Chang and his at the bedside today. He states that he has been told it is time to go on hospice. He is disheartened by this news. His adds that they were also told he is no longer eligible for any chemotherapy. She is frustrated because she perceives that every time she has brought him to the hospital she has been asking for rehab and perhaps an earlier admissions he would have been a candidate for [facility] but now would require a skilled level of rehab and she feels that this request has not been acknowledged. Together we contacted case management who has actually sent out requests for [facility] meds with trials of rehab. Patient and his are reassured with this and case management was able to join us for part of the discussion. We agreed to a time- limited trial. Patient is very clear that he feels he is not ready to "just give up and ." He is not ready to accept hospice. He is already on home health service through the [facility] and is willing to resume home health upon discharge but hopes to be able to first go to rehab. After further discussion about the risks and benefits we agreed to the following plan of action: We will pursue a time-limited trial with skilled rehab and see how he does for a few weeks with a plan to follow-up in outpatient palliative medicine clinic and outpatient medical oncology within 4 weeks of discharge. He is willing to accept radiation to try and relieve some of his pain, Dr. Modi has been notified. If he declines during rehab, then we will pivot to a return home with the addition of hospice. He is already on service with [facility] and can be transition to their home hospice program if necessary. I have updated the [facility] with regards to this potential. If he does well during rehab and has some improvement, then after the completion of rehab, he will return home with the plan to follow-up in clinic to revisit the potential role for any further cancer directed therapies. Advised that we would do this in a time-limited way to see if improvements can happen. I shared with patient and his my worry that he is in a general state of dec line with intractable pain that continues to escalate, progressive weakness, progressive performance status decline, declining appetite, intermittent confusion. I suggested to them that it may be time to think of some potential what if scenarios with regards to what he would or would not want if things were to continue to worsen in spite of escalating care and where he would want medical teams to focus the effort from a [id number] perspective. He shares that he does not want to be in a alf at the end of his life and would want to be home but he is very worried about the burden that he perceives his illness is placing on his . We talked about the addition of home hospice and the scope of services provided by home hospice providers. I provided education about the hospice benefit: an interdisciplinary program offered by nurses, nurses aides, social workers, chaplains and a medical accounts receivable specialist for patients with a terminal condition and a life expectancy of less than 6 months. This is covered by Medicare at 100%/no out of pocket expense to patient and all meds/supplies needed by patient for the reason they are on hospice are paid for/covered by hospice. The goal is assure quality of life of the patient in their home setting (home, alf, inpatient hospice setting) by providing symptoms management, psychosocial and spiritual support. However, they cannot offer 24 hours care and if the family is unable to provide that care, they will have to consider personal care with out of pocket cost vs. alf placement. We discussed the goals of hospice as a patient service and the goals of care; we discussed EOL trajectories and transitions chelsey the emotional impact of realizing mortality as a concrete reality from prior abstract considerations. Pt was reassured that no matter where they are along this trajectory, they are not alone - their medical team will remain by their side through their journey. Discussed the pros/cons of accepting help when especially weakened and distressed by pain-which would also help provide relief/decrease caregiver burden/strain. All questions were answered to their apparent satisfaction. (5) Palliative care by specialist: Plan: Introduced Palliative Medicine and explained our role in patient's care. Patient and/or family were receptive to palliative services for goals of care discussions. Reviewed we are different from hospice, a home health nurse visiting service. (6) Chest pain: Plan As above Thank you for allowing us to participate in the ongoing care of this patient. Please page with any additional concerns. Imer Odonnell DNP Director, Palliative Medicine Admission and Anticipated Discharge Date Admission Date: December 12, 2024 Subjective Chang is known to me from cancer clinic where he is followed for ongoing cancer pain, malnutrition, weakness and GOC/psychosocial support. he has been admitted 12/12 with chest pain, weakness, inc pain to the left shoulder and intermittent confusion per his . Chang complains about increased pain in his left shoulder that radiates like an electrical blue that is also deep, aching and sometimes shooting down his arm through his elbow and into his hand and fingers. He denies any burning pain. He has significant point tenderness along his upper shoulder. He states that when he tries to stand there his arm is hanging by his side, the pain is worse. When he is resting he tends to cross it across his abdomen and pain is abated. He has currently been started on a regimen of transdermal fentanyl patch 25 mcg with current breakthrough pain dose is 10 mg of Oxy IR but he notes that at home he was using Tylenol with some relief as well and therefore we may consider moving him to Percocet instead of Oxy IR plain. Chang is seen at the bedside together with his . He appears weak and tired. He occasionally drifts off. She states his confusion at home is mostly starting a sentence and then drifting off and being unable to remember what he was saying. He did not have any loss of consciousness or significant delirium like episodes. She expresses frustration that every time he has come to the hospital she has asked for him to go to rehab and perceives that this has been declined to refuse. He has been in a general state of decline since I last saw him in clinic. He is weak and tired. In a resting position most of the day. Appetite is diminished. Recent increase in chest pain. Has malignant pleural mesothelioma is further complicated by his anemia. He is short of breath with minimal medical oncology and radiation oncology has seen the patient this admission. Radiation oncology has offered palliative radiation in 5 fractions. It is hopeful this may help improve his pain but may present risk of damage to the brachial plexus as well as the esophagus, lungs, ribs, bones and spinal cord given the prior course of very aggressive palliative radiation therapy. His to decide if they are willing to pursue this in hopes of improving his pain and comfort. Last seen in cancer clinic with me September 2024, at that time the active issues were as follows: 1. Biphasic malignant metastatic mesothelioma: Currently on ipilimumab/nivolumab which was started on 11/07/2022. Restaging imaging on 03/29/2023 revealed mixed treatment response with overall modest improvement as compared to 12/14/2021 examination. Received palliative radiation therapy to the left upper hemithorax. He received 4000 cGy given in 10 fractions. Has been off immunotherapy with ipilimumab/nivolumab since 03/12/2024 due to immunotherapy induced colitis. PET/CT on 05/07/2024 revealed disease progression. 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 Being tapered off steroids and is currently on methylprednisolone 4 mg p.o. daily 3. Arthralgias: Likely immunotherapy induced 4. Pruritus without rash: Likely due to immunotherapy. Improved with steroids. Also on Zyrtec 5. Cervical radiculopathy: Initially improved with radiation treatment. Now worsening 6. 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 Family history of mesothelioma 9. Buttock ulcer: Currently on Keflex. Has been referred to wound care 10. Bilateral lower extremity swelling and left upper extremity edema: No concern at this time for DVT since he is on Eliquis. Currently on Lasix with improvement in edema. 11. Left upper extremity paresthesia: Due to possible brachial plexus involvement by tumor Surgical History History of total right hip replacement H/O right inguinal hernia repair History of cardiac cath >10 yrs ago, no stents, [facility] Status post cholecystectomy S/P appy H/O esophagogastroduodenoscopy S/P colonoscopy Family History Mother , 79yo Mesothelioma HypertensionFather , 86yo Myocardial infarction History of open heart surgery Hypertension Diabetes Review of Systems Review of Systems: All systems reviewed & are unremarkable except as noted in Subjective Physical Exam Physical Exam: Frail, chronically ill-appearing male, left sided weakness. Mild bitemporal wasting. Pupils are equal and reactive to light. Extraocular movements are intact. Neck is supple and there is no stridor. No thyromegaly. Respiratory effort normal at rest, no conversational dyspnea, no cough, no wheeze, no rhonchi. Heart tones S1-S2, no gross JVD Abdomen soft, nontender, bowel sounds noted Left upper extremity weakness with pain along the acromial process radiating down into the upper arm through the elbow coming down the forearm and into the hand and extending into his fingers. Pain is described as deep, aching, radiating. Pinpoint tenderness along the acromial process is noted. Generalized weakness. Skin is pale, + pallor, + mild diaphoresis. At the time of my visit, he is awake, alert and oriented x 3. Results & Data Vital Signs (Past 12 Hours) Vital Signs Temp Pulse Resp BP Pulse Ox O2 Del Method 12/16/24 11:30 Room Air 12/16/24 07:46 37.6 C H 89 20 126/77 94 Room Air Laboratory Results 12/16/24 12/15/24 12/14/24 Range/Units 06:25 05:22 05:38 WBC 4.49 L 11.52 H 14.48 H (4.8-10.8) K/ul RBC 2.89 L 3.14 L 2.95 L (4.70-6.10) M/uL Hgb 8.7 L 9.2 L 8.7 L (14.0-18.0) g/dl Hct 25.8 L 27.8 L 26.2 L (42.0-52.0) % MCV 89.3 88.5 88.8 (80.0-100.0) fL MCH 30.1 29.3 29.5 (25.0-34.0) pg MCHC 33.7 33.1 33.2 (32.0-36.0) g/dL RDW Std Deviation 55.5 H 54.0 H 52.4 H (36.4-46.3) fL RDW Coeff of Nasreen 18.1 H 18.3 H 17.8 H (11.5-14.5) % Plt Count 138 171 154 (130-400) K/uL MPV 10.7 11.1 10.7 (9.4-12.4) fL Immature Gran % (Auto) 0.7 1.5 % Neut % (Auto) 92.1 92.7 % Lymph % (Auto) 4.9 3.5 % [place] % (Auto) 1.5 1.5 % Eos % (Auto) 0.5 0.6 % Baso % (Auto) 0.3 0.2 % Neut # (Auto) 10.60 H 13.44 H (1.40-6.50) K/uL Lymph # (Auto) 0.57 L 0.51 L (1.20-3.40) K/uL [place] # (Auto) 0.17 0.21 (0.11-0.59) K/uL Eos # (Auto) 0.06 0.08 (0.00-0.50) K/uL Baso # (Auto) 0.04 0.03 (0.00-0.20) K/uL Immature Gran # (Auto) 0.08 0.21 H (0.01-0.20) K/uL Neutrophils % (Manual) 91 % Lymphocytes % (Manual) 8 % Eosinophils % (Manual) 1 % Neutrophils # (Manual) 4.09 (1.40-6.50) K/uL Total Absolute Neuts 4.09 (1.4-6.5) K/uL Lymphocytes # (Manual) 0.36 L (1.2-3.4) K/uL Total Abs Lymphocytes 0.36 L (1.2-3.4) K/uL Eosinophils # (Manual) 0.04 (0-0.50) K/uL Hypersegmented Neuts 1+ Dohle Bodies RBC Morphology Unremarkable Polychromasia 1+ 1+ Anisocytosis Present Acanthocytes (Spur) 1+ PT (9.0-12.0) Seconds INR (0.9-1.1) APTT (21-31) Seconds PTT Ratio Sodium 139 138 139 (136-145) mmol/L Potassium 3.6 3.6 3.6 (3.5-5.1) mmol/L Chloride 106 107 107 (98-107) mmol/L Carbon Dioxide 26 23 23 (21-32) mmol/L Anion Gap 7 8 9 (3-11) BUN 26 H 25 H 25 H (6-23) mg/dl Creatinine 1.79 H 1.75 H 1.79 H (0.6-1.4) mg/dl Est Cr Clr Drug Dosing 38.5 39.4 38.5 ml/min eGFR 40.01 41.11 40.01 BUN/Creatinine Ratio (10-20) Glucose (70-99(Fasting)) mg/dl Fasting Glucose 87 81 77 (70-99) mg/dl Calcium 8.0 L 8.2 L 8.0 L (8.6-10.3) mg/dl Total Bilirubin (0.2-1.0) mg/dl AST (13-39) U/L ALT (7-52) U/L Alkaline Phosphatase (34-104) U/L Troponin I High Sens (0-20) pg/ml C-Reactive Protein 16.41 H 15.86 H 14.92 H (0-0.5) mg/dl Total Protein (6.0-8.3) gm/dl Albumin (3.4-5.0) gm/dl Globulin (2.5-4.0) gm/dl Albumin/Globulin Ratio (0.9-2) Lipase (11-82) U/L Blood Type Antibody Screen Crossmatch 12/13/24 12/13/24 12/12/24 Range/Units 10:12 04:35 22:58 WBC 14.11 H D (4.8-10.8) K/ul RBC 2.46 L (4.70-6.10) M/uL Hgb 7.3 L 7.7 L (14.0-18.0) g/dl Hct 22.3 L 23.3 L (42.0-52.0) % MCV 90.7 (80.0-100.0) fL MCH 29.7 (25.0-34.0) pg MCHC 32.7 (32.0-36.0) g/dL RDW Std Deviation 53.4 H (36.4-46.3) fL RDW Coeff of Nasreen 18.2 H (11.5-14.5) % Plt Count 164 (130-400) K/uL MPV 10.8 (9.4-12.4) fL Immature Gran % (Auto) 1.1 % Neut % (Auto) 90.6 % Lymph % (Auto) 3.5 % [place] % (Auto) 4.5 % Eos % (Auto) 0.1 % Baso % (Auto) 0.2 % Neut # (Auto) 12.77 H (1.40-6.50) K/uL Lymph # (Auto) 0.50 L (1.20-3.40) K/uL [place] # (Auto) 0.63 H (0.11-0.59) K/uL Eos # (Auto) 0.02 (0.00-0.50) K/uL Baso # (Auto) 0.03 (0.00-0.20) K/uL Immature Gran # (Auto) 0.16 (0.01-0.20) K/uL Neutrophils % (Manual) % Lymphocytes % (Manual) % Eosinophils % (Manual) % Neutrophils # (Manual) (1.40-6.50) K/uL Total Absolute Neuts (1.4-6.5) K/uL Lymphocytes # (Manual) (1.2-3.4) K/uL Total Abs Lymphocytes (1.2-3.4) K/uL Eosinophils # (Manual) (0-0.50) K/uL Hypersegmented Neuts Dohle Bodies 1+ RBC Morphology Polychromasia 1+ Anisocytosis Present Acanthocytes (Spur) PT (9.0-12.0) Seconds INR (0.9-1.1) APTT (21-31) Seconds PTT Ratio Sodium 137 (136-145) mmol/L Potassium 3.7 (3.5-5.1) mmol/L Chloride 108 H (98-107) mmol/L Carbon Dioxide 22 (21-32) mmol/L Anion Gap 7 (3-11) BUN 26 H (6-23) mg/dl Creatinine 1.92 H (0.6-1.4) mg/dl Est Cr Clr Drug Dosing 35.9 ml/min eGFR 36.78 BUN/Creatinine Ratio 13.5 (10-20) Glucose 82 (70-99(Fasting)) mg/dl Fasting Glucose (70-99) mg/dl Calcium 7.6 L (8.6-10.3) mg/dl Total Bilirubin 0.7 (0.2-1.0) mg/dl AST 16 (13-39) U/L ALT 5 L (7-52) U/L Alkaline Phosphatase 56 (34-104) U/L Troponin I High Sens 8.4 7.0 6.8 (0-20) pg/ml C-Reactive Protein (0-0.5) mg/dl Total Protein 4.5 L (6.0-8.3) gm/dl Albumin 2.4 L (3.4-5.0) gm/dl Globulin 2.1 L (2.5-4.0) gm/dl Albumin/Globulin Ratio 1.1 (0.9-2) Lipase (11-82) U/L Blood Type Antibody Screen Crossmatch 12/12/24 12/12/24 Range/Units 15:06 12:20 WBC 3.99 L (4.8-10.8) K/ul RBC 2.26 L (4.70-6.10) M/uL Hgb 7.0 L (14.0-18.0) g/dl Hct 20.6 L* (42.0-52.0) % MCV 91.2 (80.0-100.0) fL MCH 31.0 (25.0-34.0) pg MCHC 34.0 (32.0-36.0) g/dL RDW Std Deviation 55.0 H (36.4-46.3) fL RDW Coeff of Nasreen 18.3 H (11.5-14.5) % Plt Count 185 (130-400) K/uL MPV 10.9 (9.4-12.4) fL Immature Gran % (Auto) 0.5 % Neut % (Auto) 71.1 % Lymph % (Auto) 10.3 % [place] % (Auto) 17.5 % Eos % (Auto) 0.3 % Baso % (Auto) 0.3 % Neut # (Auto) 2.84 (1.40-6.50) K/uL Lymph # (Auto) 0.41 L (1.20-3.40) K/uL [place] # (Auto) 0.70 H (0.11-0.59) K/uL Eos # (Auto) 0.01 (0.00-0.50) K/uL Baso # (Auto) 0.01 (0.00-0.20) K/uL Immature Gran # (Auto) 0.02 (0.01-0.20) K/uL Neutrophils % (Manual) % Lymphocytes % (Manual) % Eosinophils % (Manual) % Neutrophils # (Manual) (1.40-6.50) K/uL Total Absolute Neuts (1.4-6.5) K/uL Lymphocytes # (Manual) (1.2-3.4) K/uL Total Abs Lymphocytes (1.2-3.4) K/uL Eosinophils # (Manual) (0-0.50) K/uL Hypersegmented Neuts Dohle Bodies RBC Morphology Polychromasia 1+ Anisocytosis Acanthocytes (Spur) PT 12.1 H (9.0-12.0) Seconds INR 1.1 (0.9-1.1) APTT 41 H (21-31) Seconds PTT Ratio 1.5 Sodium 138 (136-145) mmol/L Potassium 4.0 (3.5-5.1) mmol/L Chloride 105 (98-107) mmol/L Carbon Dioxide 26 (21-32) mmol/L Anion Gap 7 (3-11) BUN 30 H (6-23) mg/dl Creatinine 2.14 H (0.6-1.4) mg/dl Est Cr Clr Drug Dosing 32.9 ml/min eGFR 32.29 BUN/Creatinine Ratio 14.0 (10-20) Glucose 115 H (70-99(Fasting)) mg/dl Fasting Glucose (70-99) mg/dl Calcium 8.0 L (8.6-10.3) mg/dl Total Bilirubin 0.5 (0.2-1.0) mg/dl AST 15 (13-39) U/L ALT 6 L (7-52) U/L Alkaline Phosphatase 53 (34-104) U/L Troponin I High Sens 8.4 (0-20) pg/ml C-Reactive Protein (0-0.5) mg/dl Total Protein 5.1 L (6.0-8.3) gm/dl Albumin 2.7 L (3.4-5.0) gm/dl Globulin 2.4 L (2.5-4.0) gm/dl Albumin/Globulin Ratio 1.1 (0.9-2) Lipase 32 (11-82) U/L Blood Type A Positive Antibody Screen NEGATIVE Crossmatch See Detail Diagnostic Findings Chest X-Ray 12/12/24 11:46 XR chest 1V portable CLINICAL HISTORY: Chest pain, nonspecific COMPARISON STUDY: 09/21/2024 FINDINGS: There is stable cardiomegaly without pulmonary vascular congestion. Right PICC line tip is at the cavoatrial junction. There is a stable small left pleural effusion and associated pulmonary consolidation. No consolidation or pleural effusion seen on the right. No pneumothorax. IMPRESSION: Stable exam. No acute findings. ACT 112: Negative or not required by law. Electronically signed by: Peewee Boss M.D. 12/12/2024 1:32 PM Chest X-Ray 12/12/24 11:46 XR chest 1V portable CLINICAL HISTORY: Chest pain, nonspecific COMPARISON STUDY: 09/21/2024 FINDINGS: There is stable cardiomegaly without pulmonary vascular congestion. Right PICC line tip is at the cavoatrial junction. There is a stable small left pleural effusion and associated pulmonary consolidation. No consolidation or pleural effusion seen on the right. No pneumothorax. IMPRESSION: Stable exam. No acute findings. ACT 112: Negative or not required by law. Electronically signed by: Peewee Boss M.D. 12/12/2024 1:32 PM PG Care Time/CCT Total # of Minutes Spent Total Time Spent with Patient: Total time spent is greater than 50% in coordination of care (as documented) at patient's floor/unit and/or counseling patient: I spent 135 minutes overall addressing this case: 20 min in medical data review/discussion with referring provider(s) and/or preparation for the visit incl OSH data review 20 min in direct interaction with the patient/exam 60 min in Advance Care Planning/Goals of Care discussions as detailed above in note (must be >16min) 15 min in subsequent review and synthesis of assessment and plan 20 min communicating with other providers regarding the patient's case: Radiation oncology, medical oncology, care management, primary team, nursing Advanced Care Planning 80168 Advanced Care Planning Additional 30 Min [place] [address] SUB INP/OBS CARE 3/50MIN Patient Type Established Diagnoses Cancer related pain G89.3 Left anterior shoulder pain M25.512 Generalized weakness R53.1 Advanced care planning/counseling discussion Z71.89 Palliative care by specialist Z51.5 Chest pain, unspecified type R07.9 Chest pain type: unspecified Additional Codes Advanced Care Planning - 67397 Advanced Care Planning Additional 30 Min: 83078 Advanced Care Planning Additional 30 Min ([id number]) Time Spent (min) 130 Comment [id number], [id number] + additional time (6) Chest pain Chest pain type: unspecified Qualified Code(s): R07.9 - Chest pain, unspecified
[2024-12-16] MEDS: HYDROmorphone INJ 1 MG/ML SYRINGE IV PRN (21:06)
--- NOTE | 2024-12-17 10:59 | Hospitalist Progress Note ---
Date of Service December 17, 2024 Assessment & Plan (1) Malignant mesothelioma of pleura: (2) Mesothelioma of lung: (3) Chest pain: (4) Anemia: Plan Mr. Eli is a 69yo gentleman with PMH of malignant pleural mesothelioma who presented to the ED with worsening chest pain that started this morning. Pt stated his pain feels like his normal mesothelioma pain but was more severe. Pt is admitted and being managed for likely referred pain 2/2 to mesothelioma and anemia. #Chest Pain #Malignant pleural mesothelioma #Pain Management CXR: There is stable cardiomegaly without pulmonary vascular congestion. Right PICC line tip is at the cavoatrial junction. There is a stable small left pleural effusion and associated pulmonary consolidation. No consolidation or pleural effusion seen on the right. No pneumothorax. r/o ACS; EKG: normal sinus rhythm per my interpretation - troponin negative x 3 -Tylenol 650mg PO QID -Oxycodone PO 10mg q6hrs prn -IV Dilaudid prn for breakthrough pain -Fentanyl patch 25mcg; change q3days (next change 12/19) -Heme-Onc on board, appreciate recs -Palliative Care on board, appreciate recs -Radiation Oncology on board, appreciate recs -pt and would like SNF upon discharge -awaiting placement #Anemia, improving -Hb 7.0-->7.3-->8.7-->9.2-->8.7 -s/p 2units pRBCs during admission #Malnutrition #Constipation likely 2/2 to opioid regimen -nutrition on board, appreciate recs -regular soft diet per nutrition and speech recs -Boost drink per nutrition recs -Milk of Magnesia 30mls PO QID prn for constipation #Phlegm Production likely 2/2 to Post Nasal Drip -loratadine to 20mg daily -fluticasone nasal spray, 1 spray per nostril qnightly #Sacral Pressure Ulcer -wound care on board -position adjustments for pressure offload -Waffle cushion and waffle boots Dispo: med/surg Diet: easy to chew regular DVT prophylaxis: Eliquis 5mg BID Code Status: Conditional Admission and Anticipated Discharge Date Admission Date: December 12, 2024 Supervising Physician Co-Signing Physician Notes I personally examined the patient and verified all andre points of history and exam, discussed case, and agree with decision making with Dr Palacios Pain worse with movement, but also still seems to be having a hard time remembering to ask her pain medications prior to activity, encouraged to do so. Vitals noted, in general he is awake and alert appears very fatigued and somewhat uncomfortable no distress otherwise. Breathing unlabored no accessory muscle use good effort. Skin without rashes pallor or icterus. Neuro without focal deficits. Metastatic mesothelioma with intractable paincontinue to titrate pain medications, Percocet 10/325 every 4 as needed painencouraged to take prior to any activity. Dilaudid IV as needed breakthrough still available. Continue fentanyl patch at current dosing, low threshold to escalate further. Low threshold to increase pregabalin. Encouraged to give strong consideration to radiation therapy. Discussed overall poor prognosis, discussed options. Outlined what appears to be within realistic expectations for goals. Understandably, they would like to discuss further with oncologyreached out to Dr. Figueroa and asked for her to revisit when available. Severe protein calorie malnutrition Previously discussed concern that it relates to the overall cancer and decline, discussed that it is possible that it is from intractable pain taking away his appetitewill work on better pain control and then see how his appetite is. Unfortunately this is a quite concerning finding for his overall prognosis. pressure ulcer of right buttock and middle coccyx both unstageable. Continue wound care. Obviously relates to his nutritional status which relates to his cancer. Venous thromboembolic diseaseobviously very high risk for recurrent clotting given his current cancer situation. Continue apixabanraised to 5 mg twice daily. Otherwise as above. Dispositionpatient and would like disposition to SNF at this time. Goals of care/course of care still to be determinedCurrently they want to discuss further with Dr. Cardoso, and are processing everything themselves, understandably. Subjective No overnight events. Going for radiation this AM. Pain and mucus improved today. Constipation improved. Denies fever, chills, SOB, abdominal pain, N/V/D, or complaints. Review of Systems Review of Systems: per HPI Physical Exam Physical Exam: GA: well groomed, appears tired at bedside. AAOx3 HEENT: head normocephalic, atraumatic. EOMI. RESP: vesicular breath sounds b/l. No wheezes, rhonchi, or rales CARDIOVASCULAR: S1 and S2 heard. No murmurs, rubs, or gallops. Radial pulses 2+ b/l. GI: no tenderness or masses felt to palpation MSK: strength and ROM limited in LUE. SKIN: warm, dry, no edema PSYCH: flat affect NEURO: CN 2-12 grossly intact. Speech fluent but at times slow Results & Data Results & Data Vital Signs (Past 12 Hours) Vital Signs Temp Pulse Resp BP Pulse Ox O2 Del Method 12/17/24 07:40 36.3 C L 79 18 109/65 95 Room Air 12/16/24 23:18 36.7 C 81 16 106/65 95 Room Air Resident Activity Tracking Resident Involvement: Resident Care Provided Care Provided: Adult Hospital Medicine (3) Chest pain Chest pain type: unspecified Qualified Code(s): R07.9 - Chest pain, unspecified (4) Anemia Anemia type: unspecified type Qualified Code(s): D64.9 - Anemia, unspecified
--- NOTE | 2024-12-17 16:00 | Billing Data ---
Date of Service December 17, 2024 Coding Level of Care Code 42911 SUB INP/OBS CARE
--- NOTE | 2024-12-17 16:03 | Advance Care Plan Prog Note ---
Advanced Care Planning Note Date of Discussion December 16, 2024 ACP Discussion Diagnoses requiring ACP discussion: Mesothelioma A [id number] discussion with the patient and his regarding the patient's advanced care planning took place during this hospitalization on the above date. We discussed at length the patient's medical conditions (both acute and chronic), general prognosis, treatment options, and goals of care. The following summarizes the discussion: discussed this unfortunate but overall decline in the context of a mesothelioma that appears to be progressing in spite of treatment. Discussed that at this point his functional status is very poor and it appears that oncology may not feel any other treatment options would be of benefit. Discussed the overall risk-benefit approach and evaluating for further cancer treatment, discussed in the context of his decline whether or not further treatment may cause more harm than good. Discussed being able to talk the situation over further with oncology and discussed that it would be also reasonable to consider a hospice type approach. While I did leave things open- ended, I was open in letting them know that unfortunately the situation has progressed to a state that may be beyond meaningful treatment, and that in their discussions it will be well worth considering what may give him the best quality of life for the time that he still has. They expressed understanding, and understandably asked to discuss the case further with his primary oncologistto whom I promptly reached out and she noted she will discuss with them as soon as she is able. Status Resuscitation Status Conditional Code Total Time uncertain
--- NOTE | 2024-12-18 07:55 | Hospitalist Progress Note ---
Date of Service December 18, 2024 Assessment & Plan (1) Malignant mesothelioma of pleura: (2) Mesothelioma of lung: (3) Chest pain: (4) Anemia: Plan Mr. Eli is a 69yo gentleman with PMH of malignant pleural mesothelioma who presented to the ED with worsening chest pain that started this morning. Pt stated his pain feels like his normal mesothelioma pain but was more severe. Pt is admitted and being managed for likely referred pain 2/2 to mesothelioma and anemia. #Chest Pain #Malignant pleural mesothelioma #Pain Management CXR: There is stable cardiomegaly without pulmonary vascular congestion. Right PICC line tip is at the cavoatrial junction. There is a stable small left pleural effusion and associated pulmonary consolidation. No consolidation or pleural effusion seen on the right. No pneumothorax. -Tylenol 650mg PO QID -Oxycodone PO 10mg q6hrs prn -IV Dilaudid prn for breakthrough pain -Fentanyl patch 25mcg; change q3days (next change 12/19) -Heme-Onc on board, appreciate recs -Palliative Care on board, appreciate recs -Radiation Oncology on board, appreciate recs -pt and would like SNF upon discharge -awaiting placement -radiation planned for 5 sessions #Anemia, improving -Hb 7.0-->7.3-->8.7-->9.2-->8.7 -s/p 2units pRBCs during admission #Malnutrition #Constipation likely 2/2 to opioid regimen -nutrition on board, appreciate recs -regular soft diet per nutrition and speech recs -Boost drink per nutrition recs -Milk of Magnesia 30mls PO QID prn for constipation #Phlegm Production likely 2/2 to Post Nasal Drip, improving -loratadine to 20mg daily -fluticasone nasal spray, 1 spray per nostril qnightly #Sacral Pressure Ulcer -wound care on board -position adjustments for pressure offload -Waffle cushion and waffle boots Dispo: med/surg Diet: easy to chew regular DVT prophylaxis: Eliquis 5mg BID Code Status: Conditional Admission and Anticipated Discharge Date Admission Date: December 12, 2024 Supervising Physician Co-Signing Physician Notes I personally examined the patient and verified all andre points of history and exam, discussed case, and agree with decision making with Dr Palacios Sleeping comfortably whenever I saw him. In discussion with resident physician no new issues have arisen, appreciate hematology/oncology inputand therefore I allowed patient to rest. Vitals noted, sleeping comfortably in no distress. Breathing unlabored no accessory muscle use good effort. Skin without rashes pallor or icterus. Neuro without focal deficits, or lateralizing signs at rest. Metastatic mesothelioma with intractable paincontinue to titrate pain medications, and continue radiation therapy for goal of pain relief. Greatly appreciate oncology discussing the situation with him again. Severe protein calorie malnutrition Previously discussed concern that it relates to the overall cancer and decline, discussed that it is possible that it is from intractable pain taking away his appetitewill work on better pain control and then see how his appetite is. Unfortunately this is a quite concerning finding for his overall prognosis. Follow. pressure ulcer of right buttock and middle coccyx both unstageable. Continue wound care. Obviously relates to his nutritional status which relates to his cancer. Venous thromboembolic diseaseobviously very high risk for recurrent clotting given his current cancer situation. Continue apixabanraised to 5 mg twice daily. Otherwise as above. Dispositionpatient and would like disposition to SNF at this time. Goals of care/course of care still to be determined Right now his goal would be rehab emphasis to see if he can improve to where further chemotherapy could be considered. Subjective No overnight events. Going for radiation this AM. Pain and mucus improved today. Constipation improved. Denies fever, chills, SOB, abdominal pain, N/V/D, or complaints. Review of Systems Review of Systems: per HPI Physical Exam Physical Exam: GA: well groomed, appears more awake today. AAOx3 HEENT: head normocephalic, atraumatic. EOMI. RESP: vesicular breath sounds b/l. No wheezes, rhonchi, or rales CARDIOVASCULAR: S1 and S2 heard. No murmurs, rubs, or gallops. Radial pulses 2+ b/l. GI: no tenderness or masses felt to palpation MSK: strength and ROM limited in LUE. SKIN: warm, dry, no edema PSYCH: flat affect NEURO: CN 2-12 grossly intact. Speech fluent but at times slow Results & Data Results & Data Vital Signs (Past 12 Hours) Vital Signs Temp Pulse Resp BP Pulse Ox O2 Del Method 12/18/24 07:27 36.7 C 83 16 106/68 94 Room Air 12/17/24 23:28 Room Air 12/17/24 23:09 36.6 C 83 16 99/60 L 96 Room Air Resident Activity Tracking Resident Involvement: Resident Care Provided Care Provided: Adult Hospital Medicine (3) Chest pain Chest pain type: unspecified Qualified Code(s): R07.9 - Chest pain, unspecified (4) Anemia Anemia type: unspecified type Qualified Code(s): D64.9 - Anemia, unspecified
--- NOTE | 2024-12-18 14:12 | Hematology/Oncology Prog Note ---
Date of Service December 18, 2024 Assessment & Plan (1) Left anterior shoulder pain: (2) Malignant mesothelioma of pleura: Plan Met with patient and his again today. Had extensive discussion regarding overall poor prognosis. His performance status and quality of life is poor. He has also received most effective treatments for mesothelioma Including combination ipilimumab/nivolumab immunotherapy treatment which he initially responded to for close to 2 years, cisplatin/pemetrexed and more recently single agent gemcitabine. Although they are 4th line options for treatment, these are less likely to be effective and may cause more side effects/decline in quality of life and performance status. Discussed supportive care/hospice with patient and his -at this time patient is not interested in hospice and would like to try rehab to see if performance status improves.Return to see me in clinic upon discharge from hospital. Admission and Anticipated Discharge Date Admission Date: December 12, 2024 Results & Data Vital Signs (Past 12 Hours) Vital Signs Temp Pulse Resp BP Pulse Ox O2 Del Method 12/18/24 11:15 Room Air 12/18/24 07:27 36.7 C 83 16 106/68 94 Room Air
--- NOTE | 2024-12-18 16:59 | Billing Data ---
Date of Service December 18, 2024 Coding Level of Care Code 40915 SUB INP/OBS CARE
--- NOTE | 2024-12-19 08:22 | Hospitalist Progress Note ---
Date of Service December 19, 2024 Assessment & Plan (1) Malignant mesothelioma of pleura: (2) Mesothelioma of lung: (3) Chest pain: (4) Anemia: Plan Mr. Eli is a 69yo gentleman with PMH of malignant pleural mesothelioma who presented to the ED with worsening chest pain that started this morning. Pt stated his pain feels like his normal mesothelioma pain but was more severe. Pt is admitted and being managed for likely referred pain 2/2 to mesothelioma and anemia. #Chest Pain #Malignant pleural mesothelioma #Pain Management CXR: There is stable cardiomegaly without pulmonary vascular congestion. Right PICC line tip is at the cavoatrial junction. There is a stable small left pleural effusion and associated pulmonary consolidation. No consolidation or pleural effusion seen on the right. No pneumothorax. -Tylenol 650mg PO QID -Oxycodone PO 10mg q6hrs prn -IV Dilaudid prn for breakthrough pain -Fentanyl patch 25mcg; change q3days (next change 12/22) -Heme-Onc on board, appreciate recs -Palliative Care on board, appreciate recs -Radiation Oncology on board, appreciate recs -pt and would like SNF upon discharge -awaiting placement -radiation planned for 5 sessions #Anemia, improving -Hb 7.0-->7.3-->8.7-->9.2-->8.7 -s/p 2units pRBCs during admission #Malnutrition #Constipation likely 2/2 to opioid regimen -nutrition on board, appreciate recs -regular soft diet per nutrition and speech recs -Boost drink per nutrition recs -Milk of Magnesia 30mls PO QID prn for constipation #Phlegm Production likely 2/2 to Post Nasal Drip, improving -loratadine to 20mg daily -fluticasone nasal spray, 1 spray per nostril qnightly #Sacral Pressure Ulcer -wound care on board -position adjustments for pressure offload -Waffle cushion and waffle boots Dispo: med/surg Diet: easy to chew regular DVT prophylaxis: Eliquis 5mg BID Code Status: Conditional Admission and Anticipated Discharge Date Admission Date: December 12, 2024 Supervising Physician Co-Signing Physician Notes I personally examined the patient and verified all andre points of history and exam, discussed case, and agree with decision making with Dr Palacios again sleeping comfortably whenever I saw him. In discussion with resident physician no new issues have arisen, and therefore I allowed patient to rest. Vitals noted, sleeping comfortably in no distress. Breathing unlabored no accessory muscle use good effort. Skin without rashes pallor or icterus. Neuro without focal deficits, or lateralizing signs at rest. Metastatic mesothelioma with intractable paincontinue to titrate pain medications, seems overall reasnoable control at this time. continue radiation therapy for goal of pain relief. Greatly appreciate oncology discussing the situation with him again. Severe protein calorie malnutrition Previously discussed concern that it relates to the overall cancer and decline, discussed that it is possible that it is from intractable pain taking away his appetitewill work on better pain control and then see how his appetite is. Unfortunately this is a quite concerning finding for his overall prognosis. encourage PO intake pressure ulcer of right buttock and middle coccyx both unstageable. Continue wound care, d/w bedside nursing as well. Obviously relates to his nutritional status which relates to his cancer. Venous thromboembolic diseaseobviously very high risk for recurrent clotting given his current cancer situation. Continue apixabanraised to 5 mg twice daily. Otherwise as above. Disposition SNF with rehab emphasis. He would like to try to improve his functional status to where further treatment might be an option. Currently getting radiation therapy, and would be unable to go to SNF until XRT is complete Subjective No overnight events. Pain controlled. No mucus or BM complaints. Denies fever, chills, SOB, N/V/C/D, abdominal pain, and complaints. Review of Systems Review of Systems: per HPI Physical Exam Physical Exam: GA: well groomed, appears tired. AAOx3 HEENT: head normocephalic, atraumatic. EOMI. RESP: vesicular breath sounds b/l. No wheezes, rhonchi, or rales CARDIOVASCULAR: S1 and S2 heard. No murmurs, rubs, or gallops. Radial pulses 2+ b/l. GI: no tenderness or masses felt to palpation MSK: strength and ROM limited in LUE. SKIN: warm, dry, no edema PSYCH: flat affect NEURO: CN 2-12 grossly intact. Speech fluent but at times slow Results & Data Results & Data Vital Signs (Past 12 Hours) Vital Signs Temp Pulse Resp BP Pulse Ox O2 Del Method 12/19/24 07:24 36.7 C 80 16 100/64 95 Room Air 12/18/24 23:26 36.6 C 81 16 106/65 97 Room Air 12/18/24 20:52 Room Air Resident Activity Tracking Resident Involvement: Resident Care Provided Care Provided: Adult Hospital Medicine (3) Chest pain Chest pain type: unspecified Qualified Code(s): R07.9 - Chest pain, unspecified (4) Anemia Anemia type: unspecified type Qualified Code(s): D64.9 - Anemia, unspecified
--- NOTE | 2024-12-19 17:08 | Billing Data ---
Date of Service December 19, 2024 Coding Level of Care Code 87810 SUB INP/OBS CARE
--- NOTE | 2024-12-20 11:14 | Hospitalist Progress Note ---
Date of Service December 20, 2024 Assessment & Plan (1) Malignant mesothelioma of pleura: (2) Mesothelioma of lung: (3) Chest pain: (4) Anemia: Plan Mr. Eli is a 69yo gentleman with PMH of malignant pleural mesothelioma who presented to the ED with worsening chest pain that started this morning. Pt stated his pain feels like his normal mesothelioma pain but was more severe. Pt is admitted and being managed for likely referred pain 2/2 to mesothelioma and anemia. #Chest Pain #Malignant pleural mesothelioma #Pain Management CXR: There is stable cardiomegaly without pulmonary vascular congestion. Right PICC line tip is at the cavoatrial junction. There is a stable small left pleural effusion and associated pulmonary consolidation. No consolidation or pleural effusion seen on the right. No pneumothorax. -Tylenol 650mg PO QID -Oxycodone PO 10mg q6hrs prn -IV Dilaudid 1mg prn for breakthrough pain -Fentanyl patch 25mcg; change q3days (next change 12/22) -Heme-Onc on board, appreciate recs -Palliative Care on board, appreciate recs -Radiation Oncology on board, appreciate recs -pt and would like SNF upon discharge -awaiting placement -radiation planned for 5 sessions #Anemia, improving -Hb 7.0-->7.3-->8.7-->9.2-->8.7 -s/p 2units pRBCs during admission #Malnutrition #Constipation likely 2/2 to opioid regimen -nutrition on board, appreciate recs -regular soft diet per nutrition and speech recs -Boost drink per nutrition recs -Milk of Magnesia 30mls PO QID prn for constipation #Phlegm Production likely 2/2 to Post Nasal Drip, improving -loratadine to 20mg daily -fluticasone nasal spray, 1 spray per nostril qnightly #Sacral Pressure Ulcer -wound care on board -position adjustments for pressure offload -Waffle cushion and waffle boots Dispo: med/surg Diet: easy to chew regular DVT prophylaxis: Eliquis 5mg PO BID Code Status: Conditional Admission and Anticipated Discharge Date Admission Date: December 12, 2024 Supervising Physician Co-Signing Physician Notes I personally examined the patient and verified all andre points of history and exam, discussed case, and agree with decision making with Dr Kharel Awake. No complaints of pain. Looking forward to rehab. Identifies no new needs today. Vitals noted, in general he is awake and alert fatigued no distress. Breathing unlabored no accessory muscle use good effort. Skin without rashes pallor or icterus. Neuro without focal deficits. progressive Metastatic mesothelioma with intractable paincontinue to titrate pain medications, seems overall reasonable control at this time. continue radiation therapy for goal of pain relief. Greatly appreciate oncology discussing the situation with him again. Severe protein calorie malnutrition Previously discussed concern that it relates to the overall cancer and decline, discussed that it is possible that it is from intractable pain taking away his appetitewill work on better pain control and then see how his appetite is. Unfortunately this is a quite concerning finding for his overall prognosis. definitely needs adequate p.o. intake. pressure ulcer of right buttock and middle coccyx both unstageable. Continue wound care. Obviously relates to his nutritional status which relates to his cancer. Venous thromboembolic diseaseobviously very high risk for recurrent clotting given his current cancer situation. Continue apixabanraised to 5 mg twice daily. Otherwise as above. Disposition SNF with rehab emphasis. He would like to try to improve his functional status to where further treatment might be an option. Currently getting radiation therapy, and would be unable to go to SNF until XRT is complete Subjective No overnight events. Pain over left shoulder/chest controlled. No mucus or BM complaints. Denies fever, chills, SOB, N/V/C/D, abdominal pain, and complaints. Review of Systems Review of Systems: per HPI Physical Exam Physical Exam: GA: well groomed, appears tired. AAOx3 HEENT: head normocephalic, atraumatic. EOMI. RESP: vesicular breath sounds b/l. No wheezes, rhonchi, or rales CARDIOVASCULAR: S1 and S2 heard. No murmurs, rubs, or gallops. Radial pulses 2+ b/l. GI: no tenderness or masses felt to palpation MSK: strength and ROM limited in LUE. SKIN: warm, dry, no edema PSYCH: flat affect NEURO: CN 2-12 grossly intact. Speech fluent but at times slow Results & Data Results & Data Vital Signs (Past 12 Hours) Vital Signs Temp Pulse Resp BP Pulse Ox O2 Del Method 12/20/24 08:07 36.4 C L 90 16 98/62 L 96 Room Air 12/20/24 00:16 114/74 Resident Activity Tracking Resident Involvement: Resident Care Provided Care Provided: Adult Hospital Medicine (3) Chest pain Chest pain type: unspecified Qualified Code(s): R07.9 - Chest pain, unspecified (4) Anemia Anemia type: unspecified type Qualified Code(s): D64.9 - Anemia, unspecified
--- NOTE | 2024-12-20 11:20 | Palliative Family Discussion ---
Date of Service December 19, 2024 late entry note, telephonic ACP done 12/19/24 Patient Directed Conference Time of Meetinam Participants: Tiarra Odonnell DNP Patient participation: no Patient Support System: , Misti Other Healthcare Provider Participation: None Meeting Location: telephonic Advanced Directive available: yes/conditional code on file A telephinic ACP meeting was held for ROSA ADLER. This meeting was necessary for determining the appropriate course of treatment. Topics of Discussion Topics of Discussion: 1. Misti has had the chance to further speak with oncology and tells me she is aware time is running out. She understands his anticipated survival is short and he is not going to be able to resume treatment. She tells me that Chang and her have had more conversations about these issues and while he "logically gets it, he isn't ready to emotionally accept it." Misti tells me Chang does not want to hear any more talk about "you don't have long." He wants to try rehab. He wants to try to get stronger. She knows this is a very unlikely outcome but she believes in supporting his hope because this is how he is able to cope with the situation. 2. Misti further added that if he declines at jail, it is her wish he be moved to [employer] and hospice at [facility] bc his current needs are beyond what she can manage and she is alone, without any other support. She knows Chang has said he wants to return home for EOL but he also hopes to be strong enough to come back home. She knows she cannot meet his needs and if he does not improve with some rehab or gets worse, then it is beyond what she can manage by herself. They are not able to afford out of pocket/self pay caregiving support. 3. Misti shared her frustrations/worry for being isolated and without much support. She knows that everything that could have been tried has been tried and Chang had years of life due to those measures. She wishes things could be different, that he could beat the odds to ge strong enough to try more treatment because she knows this is what he wants but she also knows from discussions with [facility] providers this admission that it is not the likely outcome. 4. Misti wants to support Chang as best as she can and make sure he has the chance to try rehab bc it is what he needs emotionally to cope. If he does not tolerate it or declines then, she believes, he will start to be able to accept more fully how his time is limited and we are nearing EOL. But she notes that repeatedly telling him these things serves only to deepen a depression and further his intent to try rehab. She notes Chang is the sort of person that needs to try and fail for himself - he has to see the outcomes of his efforts in order for his mindset to change. She feels her role at this junction as his is to promote/.advocate and support his wishes. She is appreciative of all the efforts being undertaken for him and understands that the care teams are doing all that they can to improve his QOL. She does not wish to change his code status at this time. They have spoken about it several times and he is not emotionally ready to make changes. Other Content of Meetin. Opportunity given for participants to speak and ask questions. 2. Participants were assured of attention to patient comfort. 3. Reassurance provided. 4. Support was provided for informed, good-kendra decisions. 5. Emotions expressed by family were acknowledged and addressed. 6. Follow-up Outpatient: I plan to see him within 2 weeks of DC< we will schedule this appt in cancer clinic 7. Plan of Care: as above. [id number] telephonic ACP Thank you for allowing us to participate in the ongoing care of this patient. Please page with any additional concerns. Imer Odonnell DNP Director, Palliative Medicine
--- NOTE | 2024-12-20 15:29 | Billing Data ---
Date of Service December 20, 2024 Coding Level of Care Code 44177 SUB INP/OBS CARE
--- NOTE | 2024-12-21 10:14 | Hospitalist Progress Note ---
Date of Service December 21, 2024 Assessment & Plan (1) Malignant mesothelioma of pleura: (2) Mesothelioma of lung: (3) Chest pain: (4) Anemia: Plan Mr. Eli is a 69yo gentleman with PMH of malignant pleural mesothelioma who presented to the ED with worsening chest pain that started this morning. Pt stated his pain feels like his normal mesothelioma pain but was more severe. Pt is admitted and being managed for likely referred pain 2/2 to mesothelioma and anemia. #Chest Pain #Malignant pleural mesothelioma #Pain Management CXR: There is stable cardiomegaly without pulmonary vascular congestion. Right PICC line tip is at the cavoatrial junction. There is a stable small left pleural effusion and associated pulmonary consolidation. No consolidation or pleural effusion seen on the right. No pneumothorax. -Tylenol 650mg PO QID -Oxycodone PO 10mg q6hrs prn -IV Dilaudid 1mg prn for breakthrough pain -Fentanyl patch 25mcg; change q3days (next change 12/22) -Heme-Onc on board, appreciate recs -Palliative Care on board, appreciate recs -Radiation Oncology on board, appreciate recs -pt and would like SNF upon discharge -awaiting placement -radiation planned for 5 sessions, Consider discharge after midweek with completion of sessions. #Anemia, improving -Hb 7.0-->7.3-->8.7-->9.2-->8.7 -s/p 2units pRBCs during admission #Malnutrition #Constipation likely 2/2 to opioid regimen -nutrition on board, appreciate recs -regular soft diet per nutrition and speech recs -Boost drink per nutrition recs -Milk of Magnesia 30mls PO QID prn for constipation #Phlegm Production likely 2/2 to Post Nasal Drip, improving -loratadine to 20mg daily -fluticasone nasal spray, 1 spray per nostril qnightly #Sacral Pressure Ulcer -wound care on board -position adjustments for pressure offload -Waffle cushion and waffle boots Dispo: med/surg Diet: easy to chew regular DVT prophylaxis: Eliquis 5mg PO BID Code Status: Conditional Admission and Anticipated Discharge Date Admission Date: December 12, 2024 Supervising Physician Co-Signing Physician Notes I personally examined the patient and verified all andre points of history and exam, discussed case, and agree with decision making with Dr Fernando sleeping. Appears comfortable. No new needs identified by nursingallowed patient to rest. Vitals noted, in general he is resting comfortably appears to be in no distress. Breathing unlabored no accessory muscle use good effort. Skin without rashes pallor or icterus. Neuro without focal deficits. progressive Metastatic mesothelioma with intractable paincontinue pain medications, seems overall reasonable control at this time. continue radiation therapy for goal of pain relief (5 treatments total, anticipate this ending Sunday). Greatly appreciate oncology discussing the situation with him again. Severe protein calorie malnutrition Previously discussed concern that it relates to the overall cancer and decline, discussed that it is possible that it is from intractable pain taking away his appetitewill work on better pain control and then see how his appetite is. Unfortunately this is a quite concerning finding for his overall prognosis. definitely needs adequate p.o. intake. pressure ulcer of right buttock and middle coccyx both unstageable. Continue wound care. Obviously relates to his nutritional status which relates to his cancer. Venous thromboembolic diseaseobviously very high risk for recurrent clotting given his current cancer situation. Continue apixabanraised to 5 mg twice daily. Otherwise as above. Disposition SNF with rehab emphasis. He would like to try to improve his functional status to where further treatment might be an option. Currently getting radiation therapy, and would be unable to go to SNF until XRT is completeso likely inpatient until midweek. Subjective No overnight events. Pain over left shoulder/chest controlled. No mucus or BM complaints. Denies fever, chills, SOB, N/V/C/D, abdominal pain, and complaints. Review of Systems Review of Systems: per HPI Physical Exam Physical Exam: GA: well groomed, appears tired. AAOx3 HEENT: head normocephalic, atraumatic. EOMI. RESP: vesicular breath sounds b/l. No wheezes, rhonchi, or rales CARDIOVASCULAR: S1 and S2 heard. No murmurs, rubs, or gallops. Radial pulses 2+ b/l. GI: no tenderness or masses felt to palpation MSK: strength and ROM limited in LUE. SKIN: warm, dry, no edema PSYCH: flat affect NEURO: CN 2-12 grossly intact. Speech fluent but at times slow Results & Data Results & Data Vital Signs (Past 12 Hours) Vital Signs Temp Pulse Resp BP Pulse Ox O2 Del Method 12/21/24 08:37 36.3 C L 97 H 16 118/75 95 Room Air Resident Activity Tracking Resident Involvement: Resident Care Provided Care Provided: Adult Hospital Medicine (3) Chest pain Chest pain type: unspecified Qualified Code(s): R07.9 - Chest pain, unspecified (4) Anemia Anemia type: unspecified type Qualified Code(s): D64.9 - Anemia, unspecified
--- NOTE | 2024-12-21 10:41 | Billing Data ---
Date of Service December 21, 2024 Coding Level of Care Code 67760 SUB INP/OBS CARE
--- NOTE | 2024-12-22 07:50 | Hospitalist Progress Note ---
Date of Service December 22, 2024 Assessment & Plan (1) Malignant mesothelioma of pleura: (2) Chest pain: (3) Anemia: Plan Mr. Eli is a 69yo gentleman with PMH of malignant pleural mesothelioma who presented to the ED with worsening chest pain that started this morning. Pt stated his pain feels like his normal mesothelioma pain but was more severe. Pt is admitted and being managed for likely referred pain 2/2 to mesothelioma and anemia. #Chest Pain #Malignant pleural mesothelioma #Pain Management CXR: There is stable cardiomegaly without pulmonary vascular congestion. Right PICC line tip is at the cavoatrial junction. There is a stable small left pleural effusion and associated pulmonary consolidation. No consolidation or pleural effusion seen on the right. No pneumothorax. -Tylenol 650mg PO QID -Oxycodone PO 10mg q6hrs prn -IV Dilaudid 1mg prn for breakthrough pain -Fentanyl patch 25mcg; change q3days (next change 12/22) -Heme-Onc on board, appreciate recs -Palliative Care on board, appreciate recs -Continues with palliative radiation - session 3/ today -pt and would like SNF upon discharge -awaiting placement #Anemia, improving -s/p 2units pRBCs during admission -will follow cbc intermittently #Malnutrition #Constipation likely 2/2 to opioid regimen -nutrition on board, appreciate recs -regular soft diet per nutrition and speech recs -Boost drink per nutrition recs -Milk of Magnesia 30mls PO QID prn for constipation #Phlegm Production likely 2/2 to Post Nasal Drip, improving -loratadine to 20mg daily -fluticasone nasal spray, 1 spray per nostril qnightly #Sacral Pressure Ulcer -wound care on board -position adjustments for pressure offload -Waffle cushion and waffle boots Dispo: med/surg Diet: easy to chew regular DVT prophylaxis: Eliquis 5mg PO BID Code Status: Conditional Anticipate discharge after completion of palliative radiation on 12/24/24 Admission and Anticipated Discharge Date Admission Date: December 12, 2024 Supervising Physician Co-Signing Physician Notes Attending attestation Pt seen and examined in concert with Dr. España. In agreement with the documented findings as noted in the resident documentation with any exceptions or additions as noted here. Complaining of gradual worsening of chronic dysphagia in the last few days which is interfering with medication administration at present. Tolerating radiation therapy with pain adequately controlled at present. On examination, S1/S2 nl RRR no MCG. CTAB. Abd NT/ND BS+ve. No apparent swelling of the face/neck on examination. Malignant mesothelioma - palliative care, radiation oncology, heme onc consults - ongoing goals of care conversation for chronic management, discussed with pall iative care today, will await further update tomorrow Chronic cancer related pain - continue fentanyl, oxycodone, IV dilaudid chelsey for radiotherapy related pain. Standing APAP order as noted. Dysphagia with malnutrition - concerning for medication delivery and current placement plan. Per rad-onc, likely not directly related to current radiation therapy, may be chronic worsening. Dietary and medication delivery modifications as noted, low threshold for CT neck and steroid therapy with ongoing worsening Deconditioning - stated goal presently is SNF for reaquiring basic function but will need to address current worsening Else see resident documentation as noted. Subjective Patient seen and evaluated at bedside this morning. No acute events overnight. Pt continues with radiation treatments. Is having more difficulty swallowing. Not really eating/drinking much. Palliative care continues to follow. Overall, vitals are stable. Review of Systems Review of Systems: reviewed, per HPI Physical Exam Physical Exam: Constitutional: ill appearing, frail, no acute distress HEENT: NCAT, no conjunctival injection CV: edxtremities well-perfused, no LE edema Resp: no increased work of breathing GI: nondistended MSK: no gross deformities appreciated Skin: warm, dry, no rash appreciated Neuro: arousable, oriented, poor insight into disease state Results & Data Results & Data Vital Signs (Past 12 Hours) Vital Signs Temp Pulse Resp BP Pulse Ox O2 Del Method 12/22/24 07:34 36.7 C 87 16 119/74 95 Room Air 12/22/24 00:59 36.7 C 86 20 103/68 95 Room Air Resident Activity Tracking Resident Involvement: Resident Care Provided Care Provided: Adult Hospital Medicine (2) Chest pain Chest pain type: unspecified Qualified Code(s): R07.9 - Chest pain, unspecified (3) Anemia Anemia type: unspecified type Qualified Code(s): D64.9 - Anemia, unspecified
--- NOTE | 2024-12-22 18:03 | Palliative Care Progress Note ---
Date of Service December 22, 2024 Assessment & Plan (1) Cancer related pain: Plan: Very severe intractable cancer related pain due to metastatic mesothelioma. He has been started on a transdermal fentanyl patch along with oral oxycodone. Continue Fentanyl 25 Mcg/Hr 1 patch TD Q3D JUAN C Oxycodone/Acetaminophen 10-325 1 tab PO Q4H PRN Dilaudid 1 mg IV Q6H PRN severe BTP unrelieved by oral meds (2) Left anterior shoulder pain: Plan: Metastatic malignant mesothelioma. He is getting palliative radiation to left shoulder with plan for 5 doses to continue through Sunday. (3) Generalized weakness: Plan: Chronic but also worsening over time, due to progression of malignancy. (4) Advanced care planning/counseling discussion: Plan: Met with at bedside, she expressed concern that Chang has been in a great deal of pain but also more lethargic over weekend and sleeping most of the day. She expressed concern that he is not getting stronger and his pain has not been well controlled over weekend. SHe shared hope that he will get better after 5 days at rehab, and remains hopeful for him to return home. I expressed concern that he may not have he strength to participate with PT/OT and asked what goals/wishes would be if rehab goes poorly. Our conversation was shortened when pt developed severe shoulder pain, was appropriately focused on pt's acute pain being treated. When I returned l20 minutes later she was no longer in room and pt was sleeping soundly. Will revisit GOC/ACP with spouse tomorrow. (5) Palliative care by specialist: Plan: Palliative care will continue to follow for ongoing pain magmt and patient/family support. Plan As above Admission and Anticipated Discharge Date Admission Date: December 12, 2024 Subjective Assessed pt at bedside, he had just returned from radiation treatment. NAD on RA. at bedside. Review of Systems Constitutional: + fatigue, + malaise and + weakness Musculoskeletal: + back pain and + neck pain c/o pain c/w his chronic mesothelioma pain but more severe (left lateral chest wall pain that radiates to his left neck and arm - aggravated with movement and any activity) Physical Exam Physical Exam: Patient is very lethargic, drifts off during conversation Constitutional: WD/WN, vitals as above + frail appearing Eyes: PERRL, conjunctivae normal, anicteric sclerae ENMT: external ear and nose normal, oropharynx normal Neck: trachea midline, no thyromegaly Respiratory: normal respiratory effort, lungs clear to auscultation Cardiovascular: RRR, no murmur, no edema Chest (Breasts): Additional Comments: There is tenderness to palpation or any manipulation of the upper anterior chest and shoulder on the left. Gastrointestinal (Abdomen): normal bowel sounds, soft, nontender, no hepatosplenomegaly Skin: no rashes, warm and dry Neurologic: Decreased strength of the left arm. Edema of left hand. weak handgrip on left. Psychiatric: A+Ox3, euthymic affect Results & Data Vital Signs (Past 12 Hours) Vital Signs Temp Pulse Resp BP Pulse Ox O2 Del Method 12/22/24 16:43 36.5 C 82 16 103/61 96 Room Air 12/22/24 10:26 Room Air 12/22/24 07:34 36.7 C 87 16 119/74 95 Room Air Medications Administered Current Inpatient Medications Acetaminophen (Acetaminophen 325 Mg Tab) 650 mg PO QID [facility] Stop: 01/11/25 22:21 Last Admin: 12/22/24 15:33 Dose: 650 mg Al Hydrox/Mg Hydrox/Simethicone (Aluminum/Magnesium Susp 30 Ml Udc) 30 ml PO Q6H PRN PRN Reason: Dyspepsia Stop: 01/11/25 22:21 Last Admin: 12/16/24 12:53 Dose: 30 ml Apixaban (Apixaban 5 Mg Tablet) 5 mg PO BID [facility] Stop: 01/14/25 20:59 Last Admin: 12/22/24 08:00 Dose: 5 mg Carvedilol (Carvedilol 3.125 Mg Tab) 3.125 mg PO DAILY@0800 [facility] Stop: 01/12/25 08:59 Last Admin: 12/22/24 07:56 Dose: 3.125 mg Carvedilol (Carvedilol 6.25 Mg Tab) 6.25 mg PO DAILY@1700 [facility] Stop: 01/16/25 16:29 Last Admin: 12/22/24 17:06 Dose: Not Given Docusate Sodium (Docusate Sodium 100 Mg Cap) 100 mg PO BID [facility] Stop: 01/11/25 22:21 Last Admin: 12/22/24 08:00 Dose: Not Given Fentanyl (Fentanyl 25 Mcg/Hr Tdsy) 1 patch TD Q3D JUAN C Stop: 12/27/24 11:59 Last Admin: 12/22/24 12:14 Dose: 1 patch Fluticasone Propionate (Fluticasone Propionate Na Spr 16 Gm Btl) 1 sprays NA HS JUAN C Stop: 01/14/25 20:59 Last Admin: 12/21/24 20:05 Dose: 1 sprays Heparin Sodium (Beef Lung) (Heparin 10 Unit/Ml 5 Ml Flush) 5 ml FLUSH PRN PRN PRN Reason: Flush Stop: 01/12/25 18:28 Last Admin: 12/21/24 20:06 Dose: 5 ml Heparin Sodium (Beef Lung) (Heparin 10 Unit/Ml 5 Ml Flush) 5 ml FLUSH PRN PRN PRN Reason: Flush Stop: 01/20/25 12:20 Hydromorphone HCl (Hydromorphone Inj 1 Mg/Ml Syringe) 1 mg IV Q6H PRN PRN Reason: Pain - severe/breakthrough Stop: 12/29/24 16:38 Last Admin: 12/22/24 12:37 Dose: 1 mg Loratadine (Loratadine 10 Mg Tab) 20 mg PO QAM [facility] Stop: 01/15/25 08:59 Last Admin: 12/22/24 08:01 Dose: 20 mg Lubiprostone (Lubiprostone 8 Mcg Cap) 24 mcg PO BID [facility] Stop: 01/11/25 22:21 Last Admin: 12/22/24 08:01 Dose: 24 mcg Magnesium Hydroxide (Magnesium Hydroxide Susp 30 Ml Udc) 30 ml PO QID PRN PRN Reason: constipation Stop: 01/14/25 12:59 Melatonin (Melatonin 3 Mg Tab) 3 mg PO HS PRN PRN Reason: Insomnia Stop: 01/11/25 22:21 Miscellaneous (Remove Lidoderm Patch) 1 each N/A DAILY@2100 [facility] Stop: 01/11/25 20:59 Last Admin: 12/21/24 22:49 Dose: Not Given Miscellaneous (Fentanyl Patch Remove & Waste) 1 each N/A Q3D [facility] Stop: 01/12/25 11:58 Last Admin: 12/22/24 12:11 Dose: 1 each Miscellaneous (Check Fentanyl Patch Placement) 1 each N/A QS [facility] Stop: 01/12/25 15:59 Last Admin: 12/22/24 15:32 Dose: 1 each Miscellaneous Medication (Medical Marijuana) 1 dose INH DAILY PRN PRN Reason: n/v Stop: 01/11/25 22:50 Ondansetron HCl (Ondansetron 4 Mg Od Tab) 8 mg PO Q8H PRN PRN Reason: Nausea And Vomiting Stop: 01/11/25 22:52 Last Admin: 12/21/24 08:22 Dose: 8 mg Oxycodone/Acetaminophen (Oxycodone/Acetaminophen 10-325 Tab) 1 tab PO Q4H PRN PRN Reason: Pain Stop: 12/30/24 15:19 Last Admin: 12/21/24 17:35 Dose: 1 tab Pantoprazole Sodium (Pantoprazole 40 Mg Tab) 40 mg PO QAM JUAN C Stop: 01/12/25 08:59 Last Admin: 12/22/24 08:02 Dose: 40 mg Polyethylene Glycol (Polyethylene (Miralax) 17 Gm Pack) 17 gm PO DAILY PRN PRN Reason: Constipation Stop: 01/11/25 22:21 Pregabalin (Pregabalin 50 Mg Cap) 50 mg PO BID [facility] Stop: 01/11/25 22:21 Last Admin: 12/22/24 08:00 Dose: 50 mg Prochlorperazine (Prochlorperazine Maleate 10 Mg Tab) 10 mg PO Q6H PRN PRN Reason: nausea not relieved by zofran Stop: 01/11/25 22:21 Last Admin: 12/20/24 19:50 Dose: 10 mg Vitamin D (Cholecalciferol 25 Mcg (1000 Units) Tab) 25 mcg PO QAM JUAN C Stop: 01/12/25 08:59 Last Admin: 12/22/24 08:00 Dose: 25 mcg PG Care Time/CCT Total # of Minutes Spent Total Time Spent with Patient: Total time spent is greater than 50% in coordination of care (as documented) at patient's floor/unit and/or counseling patient: Coding [place] [address] SUB INP/OBS CARE 3/50MIN Patient Type Established History Expanded Problem Focused Exam Expanded Problem Focused Diagnoses Cancer related pain G89.3 Left anterior shoulder pain M25.512 Generalized weakness R53.1 Advanced care planning/counseling discussion Z71.89 Palliative care by specialist Z51.5
[2024-12-22] MEDS: LACTATED RINGER'S 1,000 ML IV SCH (18:11)
--- NOTE | 2024-12-23 08:30 | Hospitalist Progress Note ---
Date of Service December 23, 2024 Assessment & Plan (1) Malignant mesothelioma of pleura: (2) Chest pain: (3) Anemia: Plan Mr. Eli is a 69yo gentleman with PMH of malignant pleural mesothelioma who presented to the ED with worsening chest pain that started this morning. Pt stated his pain feels like his normal mesothelioma pain but was more severe. Pt is admitted and being managed for likely referred pain 2/2 to mesothelioma and anemia. #Chest Pain #Malignant pleural mesothelioma #Pain Management CXR: There is stable cardiomegaly without pulmonary vascular congestion. Right PICC line tip is at the cavoatrial junction. There is a stable small left pleural effusion and associated pulmonary consolidation. No consolidation or pleural effusion seen on the right. No pneumothorax. -Tylenol 650mg PO QID -Oxycodone PO 10mg q6hrs prn -IV Dilaudid 1mg prn for breakthrough pain -Fentanyl patch 25mcg; change q3days (next change 12/22) -Heme-Onc on board, appreciate recs -Palliative Care on board, appreciate recs -Continues with palliative radiation - session / today -pt and would like SNF upon discharge -awaiting placement #Anemia, improving -s/p 2units pRBCs during admission -will follow cbc intermittently - currently stable #Malnutrition #Constipation likely 2/2 to opioid regimen -nutrition on board, appreciate recs -regular soft diet per nutrition and speech -Boost drink per nutrition -Milk of Magnesia 30mls PO QID prn for constipation #Phlegm Production likely 2/2 to Post Nasal Drip, improving -fluticasone nasal spray, 1 spray per nostril qnightly #Sacral Pressure Ulcer -wound care on board -position adjustments for pressure offload -Waffle cushion and waffle boots Dispo: med/surg Diet: easy to chew regular DVT prophylaxis: Eliquis 5mg PO BID Code Status: Conditional Anticipate discharge after completion of palliative radiation on 12/24/24 Admission and Anticipated Discharge Date Admission Date: December 12, 2024 Supervising Physician Co-Signing Physician Notes Attending attestation Pt seen and examined in concert with Dr. España. In agreement with the documented findings as noted in the resident documentation with any exceptions or additions as noted here. Ongoing reported dysphagia of pills though tolerating oatmeal and other oral intake adequately. Some cognitive slowing in interactiosn without atypia at time of examination. Tolerating radiation therapy with pain adequately controlled at present. On examination, S1/S2 nl RRR no MCG. CTAB. Abd NT/ND BS+ve. No apparent swelling of the face/neck on examination. Malignant mesothelioma - palliative care, radiation oncology, heme onc consults - ongoing goals of care conversation for chronic management, discussed with palliative care. Goals of care clarifying re: rehab vs. hospice Chronic cancer related pain - continue fentanyl, oxycodone, IV dilaudid chelsey for radiotherapy related pain. Standing APAP order as noted. Dysphagia with malnutrition - concerning for medication delivery and current placement plan. Per rad-onc, likely not directly related to current radiation therapy, may be chronic worsening. Dietary and medication delivery modifications as noted, low threshold for CT neck and steroid therapy with ongoing worsening Deconditioning - stated goal presently is SNF for reaquiring basic function but will need to address current worsening Else see resident documentation as noted. Subjective Patient seen and evaluated at bedside this morning. No acute events overnight. Continues with inpatient radiation treatments. Remains weak but without acute complaints. Tolerating some PO but is having significant neck pain and difficulty swallowing. Remains hopeful to go to rehab. Review of Systems Review of Systems: reviewed, per HPI Physical Exam Physical Exam: Constitutional: ill appearing, frail, no acute distress HEENT: NCAT, no conjunctival injection CV: edxtremities well-perfused, no LE edema Resp: no increased work of breathing GI: nondistended MSK: no gross deformities appreciated Skin: warm, dry, no rash appreciated Neuro: arousable, oriented, poor insight into disease state Results & Data Results & Data Vital Signs (Past 12 Hours) Vital Signs Temp Pulse Resp BP Pulse Ox O2 Del Method 12/23/24 08:05 36.9 C 90 16 116/71 95 Room Air 12/23/24 00:00 36.8 C 86 20 100/65 93 Room Air 12/22/24 21:20 77 108/78 Resident Activity Tracking Resident Involvement: Resident Care Provided Care Provided: Adult Hospital Medicine (2) Chest pain Chest pain type: unspecified Qualified Code(s): R07.9 - Chest pain, unspecified (3) Anemia Anemia type: unspecified type Qualified Code(s): D64.9 - Anemia, unspecified
[2024-12-23 10:07] LABS: Hematocrit (blood only) 25.5 % (42.0-52.0); Hemoglobin 8.6 g/dl (14.0-18.0); Immature Granulocytes # (auto) 0.16 K/uL (0.01-0.20); Immature Granulocytes % (auto) 2.2 %; Mean Corpuscular Hemoglobin 30.3 pg (25.0-34.0); Mean Corpuscular Volume 89.8 fL (80.0-100.0); Platelet Count 65 K/uL (130-400); RDW Standard Deviation 55.9 fL (36.4-46.3); Red Blood Count 2.84 M/uL (4.70-6.10); White Blood Count 7.31 K/ul (4.8-10.8)
[2024-12-23 10:24] LABS: Alanine Aminotransferase 19.0 U/L (7-52); Albumin Globulin Ratio 1.0 (0.9-2); Albumin Level 2.4 gm/dl (3.4-5.0); Alkaline Phosphatase 114.0 U/L (34-104); Anion Gap 6.0 (3-11); Bilirubin,Total 0.6 mg/dl (0.2-1.0); Blood Urea Nitrogen 40.0 mg/dl (6-23); Calcium 8.4 mg/dl (8.6-10.3); Carbon Dioxide 27.0 mmol/L (21-32); Chloride 107.0 mmol/L (98-107); Creatinine Clr Calc Pharmacy 41.3 ml/min; Globulin 2.3 gm/dl (2.5-4.0); Glucose 89.0 mg/dl (70-99(Fasting)); Potassium 3.5 mmol/L (3.5-5.1); Sodium 140.0 mmol/L (136-145); Total Protein 4.7 gm/dl (6.0-8.3)
--- NOTE | 2024-12-23 13:56 | Palliative Family Discussion ---
Date of Service December 23, 2024 Patient Directed Conference Time of Meetin:00 - 13:30 Participants: Missy Blake AGACNP Patient participation: no Patient Support System: spouse Other Healthcare Provider Participation: None Meeting Location: bedside Advanced Directive available: no If yes, descriptors: The patient's surrogate medical decision maker participated: spouse Legally authorized health care proxy: spouse Other surrogate: n/a A family meeting was held for Nicolas Eli. This meeting was necessary for determining the appropriate course of treatment. Topics of Discussion Topics of Discussion: 1. admission course, overall health 2. general prognostication 3. goals of care Other Content of Meetin. Opportunity given for participants to speak and ask questions. 2. Participants were assured of attention to patient comfort. 3. Reassurance provided. 4. Support was provided for informed, good-kendra decisions. 5. Emotions expressed by family were acknowledged and addressed. 6. Follow-up Outpatient: TBD 7. Plan of Care: dc to SNF with PT after completion of rehab. Met with pt's Misti at bedside. She was assisting pt with his lunch, he remains lethargic and has very poor PO intake. We discussed at length the patient's acute and chronic medical conditions, general prognosis, current treatment plan, and goals of care. Misti expressed concern for pt's increased lethargy and persistent pain. She expressed hope that the patient will start to see some benefits and symptom reduction from the palliative radiation he is receiving. She expressed concern that his last treatment is tomorrow and asked where do we go from here if pt is unable to work with PT /OT. She also expressed concern for pt's poor appetite and questioned what would happen if he gets to SNF and cannot eat or participate with PT/OT. We discussed that pt's disease is not curable and Misti expressed understanding of the palliative nature of any treatment options. Discussed feasibility of atten ding rehab. Discussed what goals/wishes would be if rehab goes poorly. Misti shared that she has had hospice on her mind, and knows they are "heading in that direction". Misti asked what hospice care might look like for her . Discussed hospice benefit: an interdisciplinary program offered by nurses, nurses aides, social workers, chaplains and a medical claims assistant for patients with a terminal condition and a life expectancy of less than 6 months. The goal is assure quality of life of the patient in their home setting (home, prison, inpatient hospice setting) by providing symptoms management, psychosocial and spiritual support. However, they cannot offer 24 hours care and if the family is unable to provide that care, they will have to consider personal care with out of pocket cost vs. prison placement. We discussed the goals of hospice as a patient service and the goals of care; we discussed EOL trajectories and transitions chelsey the emotional impact of realizing mortality as a concrete reality from prior abstract considerations. Reassurance offered that no matter where they are along this trajectory, they are not alone - their medical team will remain by their side through their journey. Discussed the pros/cons of accepting help when especially weakened and distressed by pain-which would also help provide relief/decrease caregiver burden/strain. Misti asked about inpatient hospice and designated floor for hospice pts. Discussed that at [facility] we do not have a designated floor for hospice and helped Misti understand the criteria for different levels/locations for hospice care. She expressed concern that she would not be able to provide the nursing care required for her at home. She expressed ongoing hope that he might gain strength from PT/OT and eventually return home, but then stated "realistically, I am seeing that as less and less possible". We discussed that adding hospice to his care, and discussed transitional care as an option to allow trial of rehab for strength optimization with transition to hospice when appropriate. We discussed that there is no right or wrong way to proceed, and discussed goal of aligning care offered with pt values. Misti shared that she has been thinking alot about what ifs. She shared awareness of the barriers to him improving enough to return home and is accepting the reality of fci care being a necessity. Misti remains hopeful that Chang will have better pain control with radiation to allow him to be more alert and participate with strength building, and at this time would like to continue with PT/OT to optimize his strength followed by likely admission to emt intermediate care. Time Involved in Meeting: I spent 60 minutes overall addressing this case: 10 in medical data review/discussion with referring provider(s) and/or preparation for the visit 30 in direct interaction with the patient and 30 Advance Care Planning/Goals of Care discussions as detailed above in note (must be >16min) 10 in subsequent review and synthesis of assessment and plan 10 in communicating with other providers regarding the patient's case: SANYA, ROBIN and attending team
[2024-12-23] MEDS: ACETAMINOPHEN 500 MG TAB PO SCH (14:07)
[2024-12-24] MEDS: LANSOPRAZOLE 30 MG SOLTAB PO SCH (08:09)
[2024-12-24] MEDS: MAGNESIUM HYDROXIDE SUSP 30 ML UDC PO PRN (11:23)
--- NOTE | 2024-12-24 11:30 | Hospitalist Progress Note ---
Date of Service December 24, 2024 Assessment & Plan (1) Malignant mesothelioma of pleura: (2) Chest pain: (3) Anemia: Plan Mr. Eli is a 69yo gentleman with PMH of malignant pleural mesothelioma who presented to the ED with worsening chest pain that started this morning. Pt st ated his pain feels like his normal mesothelioma pain but was more severe. Pt is admitted and being managed for likely referred pain 2/2 to mesothelioma and anemia. #Chest Pain #Malignant pleural mesothelioma #Pain Management CXR: There is stable cardiomegaly without pulmonary vascular congestion. Right PICC line tip is at the cavoatrial junction. There is a stable small left pleural effusion and associated pulmonary consolidation. No consolidation or pleural effusion seen on the right. No pneumothorax. -Tylenol 650mg PO QID -Oxycodone PO 10mg q6hrs prn -IV Dilaudid 1mg prn for breakthrough pain -Fentanyl patch 25mcg; change q3days (next change 12/22) -Heme-Onc on board, appreciate recs -Palliative Care on board, appreciate recs -Continues with palliative radiation - session 07/28 today -pt and would like SNF upon discharge -awaiting placement - if goal remains short term rehab likely dc tomorrow vs Sunday #Anemia, improving -s/p 2units pRBCs during admission -will follow cbc intermittently - currently stable #Malnutrition #Constipation likely 2/2 to opioid regimen -nutrition on board, appreciate recs -regular soft diet per nutrition and speech -Boost drink per nutrition -Milk of Magnesia 30mls PO QID prn for constipation #Phlegm Production likely 2/2 to Post Nasal Drip, improving -fluticasone nasal spray, 1 spray per nostril qnightly #Sacral Pressure Ulcer -wound care on board -position adjustments for pressure offload -Waffle cushion and waffle boots Dispo: med/surg Diet: easy to chew regular DVT prophylaxis: Eliquis 5mg PO BID Code Status: Conditional Anticipate discharge after completion of palliative radiation on 12/24/24 Admission and Anticipated Discharge Date Admission Date: December 12, 2024 Supervising Physician Co-Signing Physician Notes Attending attestation Pt seen and examined in concert with Dr. España. In agreement with the documented findings as noted in the resident documentation with any exceptions or additions as noted here. Ongoing reported dysphagia of pills though tolerating oatmeal and other oral intake adequately. Some cognitive slowing in interactions without atypia at time of examination, visible somnolence. Tolerating radiation therapy with pain adequately controlled at present. On examination, S1/S2 nl RRR no MCG. CTAB. Abd NT/ND BS+ve. No apparent swelling of the face/neck on examination. Malignant mesothelioma - palliative care, radiation oncology, heme onc consults - ongoing goals of care conversation for chronic management, discussed with palliative care Chronic cancer related pain - continue fentanyl, oxycodone, IV dilaudid PRN with discourage use in favor of oral regimen. Deconditioning - stated goal presently is SNF for reacquiring basic function but will need to address current worsening - PT/OT to re-assess in AM. Else see resident documentation as noted. Subjective Patient seen and evaluated at bedside this morning. No acute events overnight. Still with remaining pain in L shoulder/arm/neck. Per palliative discussion, may be coming to terms with his lack of rehab potential and starting to lean more towards hospice. VSS. Review of Systems Review of Systems: reviewed, per HPI Physical Exam Physical Exam: Constitutional: ill appearing, frail, no acute distress HEENT: NCAT, no conjunctival injection CV: edxtremities well-perfused, no LE edema Resp: no increased work of breathing GI: nondistended MSK: no gross deformities appreciated Skin: warm, dry, no rash appreciated Neuro: arousable, oriented, poor insight into disease state Results & Data Results & Data Vital Signs (Past 12 Hours) Vital Signs Temp Pulse Resp BP Pulse Ox O2 Del Method 12/24/24 10:45 Room Air 12/24/24 08:21 36.7 C 99 H 16 132/79 95 Room Air Resident Activity Tracking Resident Involvement: Resident Care Provided Care Provided: Adult Hospital Medicine (2) Chest pain Chest pain type: unspecified Qualified Code(s): R07.9 - Chest pain, unspecified (3) Anemia Anemia type: unspecified type Qualified Code(s): D64.9 - Anemia, unspecified
--- NOTE | 2024-12-24 15:22 | Palliative Care Progress Note ---
Date of Service December 24, 2024 Assessment & Plan (1) Cancer related pain: Plan: Very severe intractable cancer related pain due to metastatic mesothelioma. He has been started on a transdermal fentanyl patch along with oral oxycodone. Discussed with spouse need to discontinue IV medications in preparation for discharge. Pt has had increased prn requirements overnight however RN reports that his TDF was misplaced. Unknown how long patient was without patch. TDF re-ordered and placed. Continue Fentanyl 25 Mcg/Hr 1 patch TD Q3D JUAN C Oxycodone/Acetaminophen 10-325 1 tab PO Q4H PRN for BTP (2) Left anterior shoulder pain: Plan: Metastatic malignant mesothelioma. He is getting palliative radiation to left shoulder with plan for 5 doses to continue through Sunday. (3) Generalized weakness: Plan: Chronic but also worsening over time, due to progression of malignancy. (4) Advanced care planning/counseling discussion: Plan: Met with at bedside, spent 30 minutes discussing plan of care and pt's overall health and prognosis. We again discussed plan for rehab. She again shared that she is hopeful that he will gain improved pain management with radiation and will have the energy to participate in PT/OT at [facility]. She shared that told her that [facility] can accept pt to short term bed either tomorrow or Sunday, PT/OT to work with patient again tomorrow. She expressed concern that duragesic may have been causing pt's lethargy. She shared that he seems more awake today, but has had increased pain med requirements. She shared concern that he has not had improvement in pain with radiation and today is his last treatment. She confirmed plan for transition to hospice care if pt decompensates or is unable to improve with PT/OT. (5) Palliative care by specialist: Plan: Palliative care will continue to follow for ongoing pain magmt and patient/family support. Plan As above Admission and Anticipated Discharge Date Admission Date: December 12, 2024 Subjective Assessed pt at bedside, NAD on RA. at bedside. Pt more awake today but mostly noncommunicative. Does respond appropriately to questions with much prodding. Persistent left shoulder pain well controlled with duragesic/oxycodone. Review of Systems Constitutional: + fatigue, + malaise and + weakness Musculoskeletal: + back pain and + neck pain c/o pain c/w his chronic mesothelioma pain but more severe (left lateral chest wall pain that radiates to his left neck and arm - aggravated with movement and any activity) Physical Exam Physical Exam: Patient is drowsy but arousable, drifts off during conversation Constitutional: WD/WN, vitals as above + frail appearing Eyes: PERRL, conjunctivae normal, anicteric sclerae ENMT: external ear and nose normal, oropharynx normal Neck: trachea midline, no thyromegaly Respiratory: normal respiratory effort, lungs clear to auscultation Cardiovascular: RRR, no murmur, no edema Chest (Breasts): Additional Comments: There is tenderness to palpation or any manipulation of the upper anterior chest and shoulder on the left. Gastrointestinal (Abdomen): normal bowel sounds, soft, nontender, no hepatosplenomegaly Skin: no rashes, warm and dry Neurologic: Decreased strength of the left arm. Edema of left hand. weak handgrip on left. Psychiatric: A+Ox3, euthymic affect Results & Data Vital Signs (Past 12 Hours) Vital Signs Temp Pulse Resp BP Pulse Ox O2 Del Method 12/24/24 10:45 Room Air 12/24/24 08:21 36.7 C 99 H 16 132/79 95 Room Air Diagnostic Findings Chest X-Ray 12/12/24 11:46 XR chest 1V portable CLINICAL HISTORY: Chest pain, nonspecific COMPARISON STUDY: 09/21/2024 FINDINGS: There is stable cardiomegaly without pulmonary vascular congestion. Right PICC line tip is at the cavoatrial junction. There is a stable small left pleural effusion and associated pulmonary consolidation. No consolidation or pleural effusion seen on the right. No pneumothorax. IMPRESSION: Stable exam. No acute findings. ACT 112: Negative or not required by law. Electronically signed by: Peewee Boss M.D. 12/12/2024 1:32 PM Medications Administered Current Inpatient Medications Acetaminophen (Acetaminophen 500 Mg Tab) 1,000 mg PO Q8 JUAN C Stop: 01/22/25 13:59 Last Admin: 12/24/24 13:53 Dose: Not Given Al Hydrox/Mg Hydrox/Simethicone (Aluminum/Magnesium Susp 30 Ml Udc) 30 ml PO Q6H PRN PRN Reason: Dyspepsia Stop: 01/11/25 22:21 Last Admin: 12/16/24 12:53 Dose: 30 ml Apixaban (Apixaban 5 Mg Tablet) 5 mg PO BID [facility] Stop: 01/14/25 20:59 Last Admin: 12/24/24 08:08 Dose: 5 mg Carvedilol (Carvedilol 3.125 Mg Tab) 3.125 mg PO DAILY@0800 [facility] Stop: 01/12/25 08:59 Last Admin: 12/24/24 08:28 Dose: 3.125 mg Carvedilol (Carvedilol 6.25 Mg Tab) 6.25 mg PO DAILY@1700 [facility] Stop: 01/16/25 16:29 Last Admin: 12/23/24 17:38 Dose: 6.25 mg Fentanyl (Fentanyl 25 Mcg/Hr Tdsy) 1 patch TD Q3D [facility] Stop: 12/27/24 11:59 Last Admin: 12/22/24 12:14 Dose: 1 patch Fluticasone Propionate (Fluticasone Propionate Na Spr 16 Gm Btl) 1 sprays NA HS [facility] Stop: 01/14/25 20:59 Last Admin: 12/23/24 22:02 Dose: Not Given Heparin Sodium (Beef Lung) (Heparin 10 Unit/Ml 5 Ml Flush) 5 ml FLUSH PRN PRN PRN Reason: Flush Stop: 01/12/25 18:28 Last Admin: 12/21/24 20:06 Dose: 5 ml Heparin Sodium (Beef Lung) (Heparin 10 Unit/Ml 5 Ml Flush) 5 ml FLUSH PRN PRN PRN Reason: Flush Stop: 01/20/25 12:20 Lansoprazole (Lansoprazole 30 Mg Soltab) 30 mg PO QAM [facility] Stop: 01/23/25 08:59 Last Admin: 12/24/24 08:09 Dose: 30 mg Lubiprostone (Lubiprostone 8 Mcg Cap) 24 mcg PO BID [facility] Stop: 01/11/25 22:21 Last Admin: 12/24/24 08:07 Dose: 24 mcg Magnesium Hydroxide (Magnesium Hydroxide Susp 30 Ml Udc) 30 ml PO QID PRN PRN Reason: constipation Stop: 01/14/25 12:59 Last Admin: 12/24/24 11:23 Dose: 30 ml Melatonin (Melatonin 3 Mg Tab) 3 mg PO HS PRN PRN Reason: Insomnia Stop: 01/11/25 22:21 Miscellaneous (Remove Lidoderm Patch) 1 each N/A DAILY@2100 [facility] Stop: 01/11/25 20:59 Last Admin: 12/23/24 19:38 Dose: Not Given Miscellaneous (Fentanyl Patch Remove & Waste) 1 each N/A Q3D [facility] Stop: 01/12/25 11:58 Last Admin: 12/22/24 12:11 Dose: 1 each Miscellaneous (Check Fentanyl Patch Placement) 1 each N/A QS [facility] Stop: 01/12/25 15:59 Last Admin: 12/24/24 10:34 Dose: 1 each Miscellaneous Medication (Medical Marijuana) 1 dose INH DAILY PRN PRN Reason: n/v Stop: 01/11/25 22:50 Ondansetron HCl (Ondansetron 4 Mg Od Tab) 8 mg PO Q8H PRN PRN Reason: Nausea And Vomiting Stop: 01/11/25 22:52 Last Admin: 12/21/24 08:22 Dose: 8 mg Oxycodone/Acetaminophen (Oxycodone/Acetaminophen 10-325 Tab) 1 tab PO Q4H PRN PRN Reason: Pain Stop: 12/30/24 15:19 Last Admin: 12/24/24 13:24 Dose: 1 tab Polyethylene Glycol (Polyethylene (Miralax) 17 Gm Pack) 17 gm PO DAILY PRN PRN Reason: Constipation Stop: 01/11/25 22:21 Pregabalin (Pregabalin 50 Mg Cap) 50 mg PO BID [facility] Stop: 01/11/25 22:21 Last Admin: 12/24/24 08:14 Dose: 50 mg Prochlorperazine (Prochlorperazine Maleate 10 Mg Tab) 10 mg PO Q6H PRN PRN Reason: nausea not relieved by zofran Stop: 01/11/25 22:21 Last Admin: 12/20/24 19:50 Dose: 10 mg PG Care Time/CCT Total # of Minutes Spent Total Time Spent with Patient: Total time spent is greater than 50% in coordination of care (as documented) at patient's floor/unit and/or counseling patient: Advanced Care Planning 54703 Advanced Care Planning 30 Min C[place] [address] SUB INP/OBS CARE 2/35MIN Patient Type Established History Expanded Problem Focused Exam Expanded Problem Focused Medical Decision Making Moderate Complexity Diagnoses Cancer related pain G89.3 Left anterior shoulder pain M25.512 Generalized weakness R53.1 Advanced care planning/counseling discussion Z71.89 Palliative care by specialist Z51.5 Additional Codes Advanced Care Planning - 92698 Advanced Care Planning 30 Min: 83775 Advanced Care Planning 30 Min ([id number])
[2024-12-24] MEDS: MELATONIN 3 MG TAB PO PRN (20:21)
--- NOTE | 2024-12-25 12:32 | Hospitalist Progress Note ---
Date of Service December 25, 2024 Assessment & Plan (1) Malignant mesothelioma of pleura: (2) Chest pain: (3) Anemia: Plan Mr. Eli is a 69yo gentleman with PMH of malignant pleural mesothelioma who presented to the ED with worsening chest pain that started this morning. Pt st ated his pain feels like his normal mesothelioma pain but was more severe. Pt is admitted and being managed for likely referred pain 2/2 to mesothelioma and anemia. #Chest Pain #Malignant pleural mesothelioma #Pain Management CXR: There is stable cardiomegaly without pulmonary vascular congestion. Right PICC line tip is at the cavoatrial junction. There is a stable small left pleural effusion and associated pulmonary consolidation. No consolidation or pleural effusion seen on the right. No pneumothorax. -Tylenol 650mg PO QID -Oxycodone PO 10mg q6hrs prn -IV Dilaudid 1mg prn for breakthrough pain -Fentanyl patch 25mcg; change q3days -Heme-Onc on board, appreciate recs -Palliative Care on board, appreciate recs -Continues with palliative radiation - completed 5 sessions -pt and would like SNF upon discharge -awaiting placement - if goal remains short term rehab likely dc to center care for short term #Anemia, improving -s/p 2units pRBCs during admission -will follow cbc intermittently - currently stable #Malnutrition #Constipation likely 2/2 to opioid regimen -nutrition on board, appreciate recs -regular soft diet per nutrition and speech -Boost drink per nutrition -Milk of Magnesia 30mls PO QID prn for constipation #Phlegm Production likely 2/2 to Post Nasal Drip, improving -fluticasone nasal spray, 1 spray per nostril qnightly #Sacral Pressure Ulcer -wound care on board -position adjustments for pressure offload -Waffle cushion and waffle boots Dispo: med/surg Diet: easy to chew regular DVT prophylaxis: Eliquis 5mg PO BID Code Status: Conditional Anticipate discharge after completion of palliative radiation on 12/24/24 Admission and Anticipated Discharge Date Admission Date: December 12, 2024 Supervising Physician Co-Signing Physician Notes Attending attestation Pt seen and examined in concert with Dr. España. In agreement with the documented findings as noted in the resident documentation with any exceptions or additions as noted here. Waxing and waning nausea/vomiting with episodes this morning which resolved after approx 1 hour. Ongoing cognitive slowing in interactions without atypia in response at time of examination, visible somnolence. Difficulties with heavy PT but engaging with rehab services. On examination, S1/S2 nl RRR no MCG. CTAB. Abd NT/ND BS+ve. No apparent swelling of the face/neck on examination. Malignant mesothelioma - palliative care, radiation oncology, heme onc consults - ongoing goals of care conversation for chronic management, discussed with palliative care Chronic cancer related pain - continue fentanyl, oxycodone, IV dilaudid PRN with discourage use in favor of oral regimen. Deconditioning - stated goal presently is SNF for reacquiring basic function - PT/OT consult appreciated. Else see resident documentation as noted. Subjective Patient seen and evaluated at bedside this morning. No acute events overnight. Remains with L shoulder pain. Has finished radiation. Review of Systems Review of Systems: reviewed, per HPI Physical Exam Physical Exam: Constitutional: ill appearing, frail, no acute distress HEENT: NCAT, no conjunctival injection CV: edxtremities well-perfused, no LE edema Resp: no increased work of breathing GI: nondistended MSK: no gross deformities appreciated Skin: warm, dry, no rash appreciated Neuro: arousable, oriented, poor insight into disease state Results & Data Results & Data Vital Signs (Past 12 Hours) Vital Signs Temp Pulse Resp BP Pulse Ox O2 Del Method 12/25/24 11:03 Room Air 12/25/24 07:46 36.4 C L 78 16 106/69 95 Room Air Resident Activity Tracking Resident Involvement: Resident Care Provided Care Provided: Adult Hospital Medicine (2) Chest pain Chest pain type: unspecified Qualified Code(s): R07.9 - Chest pain, unspecified (3) Anemia Anemia type: unspecified type Qualified Code(s): D64.9 - Anemia, unspecified
[2024-12-25] MEDS: MAGNESIUM HYDROXIDE SUSP 30 ML UDC PO SCH (12:59)
[2024-12-25] MEDS: POLYETHYLENE (MIRALAX) 17 GM PACK PO SCH (14:01)
--- NOTE | 2024-12-26 06:55 | Hospitalist Progress Note ---
Date of Service December 26, 2024 Assessment & Plan (1) Malignant mesothelioma of pleura: (2) Chest pain: (3) Anemia: Plan Mr. Eli is a 69yo gentleman with PMH of malignant pleural mesothelioma who presented to the ED with worsening chest pain that started this morning. Pt st ated his pain feels like his normal mesothelioma pain but was more severe. Pt is admitted and being managed for likely referred pain 2/2 to mesothelioma and anemia. #Chest Pain #Malignant pleural mesothelioma #Pain Management CXR: There is stable cardiomegaly without pulmonary vascular congestion. Right PICC line tip is at the cavoatrial junction. There is a stable small left pleural effusion and associated pulmonary consolidation. No consolidation or pleural effusion seen on the right. No pneumothorax. -Tylenol 650mg PO QID -Oxycodone PO 10mg q6hrs prn -IV Dilaudid 1mg prn for breakthrough pain -Fentanyl patch 25mcg; change q3days -Heme-Onc on board, appreciate recs -Palliative Care on board, appreciate recs -Continues with palliative radiation - completed 5 sessions -pt and would like SNF upon discharge -awaiting placement - if goal remains short term rehab likely dc to center care for short term #Anemia, improving -s/p 2units pRBCs during admission -will follow cbc intermittently - currently stable #Malnutrition #Constipation likely 2/2 to opioid regimen -nutrition on board, appreciate recs -regular soft diet per nutrition and speech -Boost drink per nutrition -Milk of Magnesia 30mls PO QID prn for constipation #Phlegm Production likely 2/2 to Post Nasal Drip, improving -fluticasone nasal spray, 1 spray per nostril qnightly #Sacral Pressure Ulcer -wound care on board -position adjustments for pressure offload -Waffle cushion and waffle boots Dispo: med/surg Diet: easy to chew regular DVT prophylaxis: Eliquis 5mg PO BID Code Status: Conditional Anticipate discharge after completion of palliative radiation on 12/24/24 Admission and Anticipated Discharge Date Admission Date: December 12, 2024 Subjective No acute events overnight. Review of Systems Review of Systems: reviewed, per HPI Physical Exam Physical Exam: Constitutional: ill appearing, frail, no acute distress HEENT: NCAT, no conjunctival injection CV: edxtremities well-perfused, no LE edema Resp: no increased work of breathing GI: nondistended MSK: no gross deformities appreciated Skin: warm, dry, no rash appreciated Neuro: arousable, oriented, poor insight into disease state Results & Data Results & Data Vital Signs (Past 12 Hours) Vital Signs Temp Pulse Resp BP Pulse Ox O2 Del Method 12/26/24 00:00 36.5 C 92 H 18 101/64 94 Room Air 12/25/24 23:45 Room Air (2) Chest pain Chest pain type: unspecified Qualified Code(s): R07.9 - Chest pain, unspecified (3) Anemia Anemia type: unspecified type Qualified Code(s): D64.9 - Anemia, unspecified
[2024-12-26] MEDS ORDERED: POLYETHYLENE (MIRALAX) 17 GM PACK PO SCH (09:00)
--- NOTE | 2024-12-26 13:07 | Hospitalist Progress Note ---
Date of Service December 26, 2024 Assessment & Plan (1) Malignant mesothelioma of pleura: (2) Chest pain: (3) Anemia: Plan Mr. Eli is a 69yo gentleman with PMH of malignant pleural mesothelioma who presented to the ED with worsening chest pain. #Chest Pain #Malignant pleural mesothelioma #Pain Management Appreciate palliative consultation. Patient's goal is to return home, and he would be interested in hospice if this would help accomplish his return home. Unfortunately, he probably needs more assistance than his is able to provide and it does not look as if paid caregivers are an option. Current plan is a short-term SNF for PT with the hope that he strengthens enough to return home. Unfortunately, I do not think he will regain a significant amount of strength given his current diagnosis and condition. Home hospice with supplement al self-pay help may be an option, even if he is able to get some strength back to assist with ADLs at home, or personal care with hospice is another option we discussed. They do have a prison care policy and [facility] was going to review it for home administrator coverage. -Tylenol 650mg PO q8hr -Oxycodone PO 10mg q4hrs prn -Fentanyl patch 25mcg; change q3days #Anemia, improving s/p 2units pRBCs during admission CBC in AM #HTN with history of ventricular ectopy Decrease Coreg to 3.125 mg BID #Malnutrition #Constipation likely 2/2 to opioid regimen -nutrition on board, appreciate recs -regular soft diet per nutrition and speech -Boost drink per nutrition -Milk of Magnesia 30mls PO QID prn for constipation #Phlegm Production likely 2/2 to Post Nasal Drip, improving -fluticasone nasal spray, 1 spray per nostril qnightly #Sacral Pressure Ulcer -wound care on board -position adjustments for pressure offload -Waffle cushion and waffle boots Dispo: med/surg Diet: easy to chew regular DVT prophylaxis: Eliquis 5mg PO BID Code Status: Conditional Admission and Anticipated Discharge Date Admission Date: December 12, 2024 Subjective I know the patient well from the outpatient office. This is a first time seeing this admission and he looks quite a bit worse since I saw him last. He appears chronically ill, cachectic, and fatigued. we discussed his goals of care. He would really like to be home. If hospice would be able to provide this, he is interested. However, there is some concern given his current state that his Mist[facility] would not be able to care for him without additional paid caregivers which they do not think they could afford at this time. Misti was not in the room at the time of my visit this morning but I did tell Chang to let the nurses know when she arrived and I would try to visit again. I also discussed the case with the palliative wound care nurse. Review of Systems Constitutional: + body aches, + fatigue, + anorexia, + w eight loss and + daytime sleepiness Respiratory: + dyspnea Cardiovascular: no chest pain and no palpitations Musculoskeletal: + back pain, + joint pain, + muscle weak ness and + body aches Psychiatric: + anhedonia and + anxiety Physical Exam Constitutional: + ill appearing, + cachectic, + frail ap pearing and + underweight Eyes: PERRL, conjunctivae normal, anicteric sclerae Neck: Supple Respiratory: normal respiratory effort; no respiratory distress, no retractions and does not use accessory muscles Cardiovascular: Rate/Rhythm: regular rate and regular rhythm Results & Data Results & Data Vital Signs (Past 12 Hours) Vital Signs Temp Pulse Resp BP Pulse Ox O2 Del Method 12/26/24 08:29 36.8 C 73 16 99/62 L 95 Room Air Laboratory Results No labs today (2) Chest pain Chest pain type: unspecified Qualified Code(s): R07.9 - Chest pain, unspecified (3) Anemia Anemia type: unspecified type Qualified Code(s): D64.9 - Anemia, unspecified
[2024-12-27 05:58] LABS: Hematocrit (blood only) 23.9 % (42.0-52.0); Hemoglobin 7.9 g/dl (14.0-18.0); Immature Granulocytes # (auto) 0.04 K/uL (0.01-0.20); Immature Granulocytes % (auto) 0.8 %; Mean Corpuscular Hemoglobin 30.3 pg (25.0-34.0); Mean Corpuscular Volume 91.6 fL (80.0-100.0); Platelet Count 126 K/uL (130-400); RDW Standard Deviation 56.3 fL (36.4-46.3); Red Blood Count 2.61 M/uL (4.70-6.10); White Blood Count 5.24 K/ul (4.8-10.8)
[2024-12-27 06:15] LABS: Alanine Aminotransferase 10.0 U/L (7-52); Albumin Globulin Ratio 1.0 (0.9-2); Albumin Level 2.5 gm/dl (3.4-5.0); Alkaline Phosphatase 99.0 U/L (34-104); Anion Gap 4.0 (3-11); Bilirubin,Total 0.6 mg/dl (0.2-1.0); Blood Urea Nitrogen 37.0 mg/dl (6-23); Calcium 8.2 mg/dl (8.6-10.3); Carbon Dioxide 31.0 mmol/L (21-32); Chloride 106.0 mmol/L (98-107); Creatinine Clr Calc Pharmacy 43.2 ml/min; Globulin 2.5 gm/dl (2.5-4.0); Glucose 88.0 mg/dl (70-99(Fasting)); Potassium 3.6 mmol/L (3.5-5.1); Sodium 141.0 mmol/L (136-145); Total Protein 5.0 gm/dl (6.0-8.3)
[2024-12-27 06:22] LABS: Anisocytosis Present
[2024-12-27 11:34] LABS: Hypersegmented Neutrophils 1+
--- NOTE | 2024-12-27 13:25 | Hospitalist Progress Note ---
Date of Service December 27, 2024 Assessment & Plan (1) Malignant mesothelioma of pleura: (2) Chest pain: (3) Anemia: Plan #Chest Pain #Malignant pleural mesothelioma #Pain Management Appreciate palliative consultation. Patient's goal is to return home, and he would be interested in hospice if this would help accomplish his return home. Unfortunately, he probably needs more assistance than his is able to provide and it does not look as if paid caregivers are an option. Current plan is a short-term SNF for PT with the hope that he strengthens enough to return home. [facility] have a room available over the weekend and we discussed transfer there tomorrow. Will increase efforts for a bowel movement - I think he will feel better if we can - in anticipation of transfer tomorrow. -Tylenol 650mg PO q8hr -Oxycodone PO 10mg q4hrs prn -Fentanyl patch 25mcg; change q3days #Anemia, improving s/p 2units pRBCs during admission CBC stable #HTN with history of ventricular ectopy Decrease Coreg to 3.125 mg BID No ectopy appreciated; BPs still on the low side If needed, could transition to Toprol (would control ectopy with slightly less effect on BP). #Malnutrition #Constipation likely 2/2 to opioid regimen -nutrition on board, appreciate recs -regular soft diet per nutrition and speech -Boost drink per nutrition -Milk of Magnesia 30mls PO QID prn for constipation -Miralax -Trial suppository today #Phlegm Production likely 2/2 to Post Nasal Drip, improving -fluticasone nasal spray, 1 spray per nostril qnightly #Sacral Pressure Ulcer -wound care on board -position adjustments for pressure offload -Waffle cushion and waffle boots Dispo: med/surg Diet: easy to chew regular DVT prophylaxis: Eliquis 5mg PO BID Code Status: Conditional Admission and Anticipated Discharge Date Admission Date: December 12, 2024 Subjective Feels about the same. His condom cath has leaked. He has not had a bowel movement in several days. He notes some lower abdominal discomfort and tells me that he feels like he needs to have a bowel movement. Review of Systems Constitutional: + body aches, + fatigue, + anorexia, + w eight loss and + daytime sleepiness Respiratory: + dyspnea Cardiovascular: no chest pain and no palpitations Musculoskeletal: + back pain, + joint pain, + muscle weak ness and + body aches Psychiatric: + anhedonia and + anxiety Physical Exam Constitutional: + ill appearing, + cachectic, + frail ap pearing and + underweight Eyes: PERRL, conjunctivae normal, anicteric sclerae Respiratory: normal respiratory effort; no respiratory distress, no retractions and does not use accessory muscles Cardiovascular: Rate/Rhythm: regular rate and regular rhythm Musculoskeletal: No rebound or guarding. Area of his discomfort lower abdominal quiroz. Results & Data Results & Data Vital Signs (Past 12 Hours) Vital Signs Temp Pulse BP Pulse Ox O2 Del Method 12/27/24 09:00 36.6 C 75 101/64 95 Room Air Laboratory Results 12/27/24 Range/Units 05:26 WBC 5.24 (4.8-10.8) K/ul RBC 2.61 L (4.70-6.10) M/uL Hgb 7.9 L (14.0-18.0) g/dl Hct 23.9 L (42.0-52.0) % MCV 91.6 (80.0-100.0) fL MCH 30.3 (25.0-34.0) pg MCHC 33.1 (32.0-36.0) g/dL RDW Std Deviation 56.3 H (36.4-46.3) fL RDW Coeff of Nasreen 17.5 H (11.5-14.5) % Plt Count 126 L (130-400) K/uL MPV 11.8 (9.4-12.4) fL Immature Gran % (Auto) 0.8 % Neut % (Auto) 73.3 % Lymph % (Auto) 5.3 % Charlton % (Auto) 17.7 % Eos % (Auto) 2.7 % Baso % (Auto) 0.2 % Neut # (Auto) 3.84 (1.40-6.50) K/uL Lymph # (Auto) 0.28 L (1.20-3.40) K/uL Charlton # (Auto) 0.93 H (0.11-0.59) K/uL Eos # (Auto) 0.14 (0.00-0.50) K/uL Baso # (Auto) 0.01 (0.00-0.20) K/uL Immature Gran # (Auto) 0.04 (0.01-0.20) K/uL Hypersegmented Neuts 1+ Anisocytosis Present Sodium 141 (136-145) mmol/L Potassium 3.6 (3.5-5.1) mmol/L Chloride 106 (98-107) mmol/L Carbon Dioxide 31 (21-32) mmol/L Anion Gap 4 (3-11) BUN 37 H (6-23) mg/dl Creatinine 1.54 H (0.6-1.4) mg/dl Est Cr Clr Drug Dosing 43.2 ml/min eGFR 47.93 BUN/Creatinine Ratio 24.0 H (10-20) Glucose 88 (70-99(Fasting)) mg/dl Calcium 8.2 L (8.6-10.3) mg/dl Total Bilirubin 0.6 (0.2-1.0) mg/dl AST 13 (13-39) U/L ALT 10 (7-52) U/L Alkaline Phosphatase 99 (34-104) U/L Total Protein 5.0 L (6.0-8.3) gm/dl Albumin 2.5 L (3.4-5.0) gm/dl Globulin 2.5 (2.5-4.0) gm/dl Albumin/Globulin Ratio 1.0 (0.9-2) (2) Chest pain Chest pain type: unspecified Qualified Code(s): R07.9 - Chest pain, unspecified (3) Anemia Anemia type: unspecified type Qualified Code(s): D64.9 - Anemia, unspecified
[2024-12-27] MEDS: GLYCERIN ADULT 12 SUPP/BOX SUPP PR ONE (14:14)
[2024-12-28 07:10] LABS: Alanine Aminotransferase 8.0 U/L (7-52); Albumin Globulin Ratio 1.0 (0.9-2); Albumin Level 2.4 gm/dl (3.4-5.0); Alkaline Phosphatase 98.0 U/L (34-104); Anion Gap 5.0 (3-11); Bilirubin,Total 0.6 mg/dl (0.2-1.0); Blood Urea Nitrogen 41.0 mg/dl (6-23); Calcium 8.1 mg/dl (8.6-10.3); Carbon Dioxide 32.0 mmol/L (21-32); Chloride 105.0 mmol/L (98-107); Creatinine Clr Calc Pharmacy 41.9 ml/min; Globulin 2.5 gm/dl (2.5-4.0); Glucose 91.0 mg/dl (70-99(Fasting)); Potassium 3.5 mmol/L (3.5-5.1); Sodium 142.0 mmol/L (136-145); Total Protein 4.9 gm/dl (6.0-8.3)
[2024-12-28 08:08] VITALS: BP 110/60; PULSE 78; RESP 16; TEMP 98.2; O2SAT 92
--- NOTE | 2024-12-28 10:06 | Discharge Summary ---
Date of Service December 28, 2024 Admission HPI Per Admitting Provider Mr. Eli is a 69yo gentleman with PMH of malignant pleural mesothelioma who presented to the ED with worsening chest pain that started this morning. Pt stated his pain feels like his normal mesothelioma pain but was more severe. He states that he did take an oxycodone but without significant improvement in symptoms. He describes left-sided chest pain that radiates to his left neck and arm, but that is normal for him. The pain is aggravated with movement and any activity. Relieved with rest. He has limited strength and use of his left hand due to the nature of his condition. As per the , his cancer affects his brachial plexus which causes his LUE symptoms. He also describes feeling more short of breath, weaker, and more fatigued than usual. He was noted to have a Hb of 7 and was started with 1bag pRBC infusion in ED. Pt denies loss of blood in urine or stool but states sometimes he sees blood on toilet paper after wiping. His states that he has been more incontinent over the last few weeks re quiring Depends underwear. Denies fever, N/V/D, or symptoms. Discharge Data Consultations 12/12/24 16:48 ED Decision to Admit Stat 12/12/24 20:04 Consult Oncology Stat 12/13/24 11:36 Consult Palliative Care Routine 12/15/24 11:14 Consult Radiation Oncology Routine Hospital Course (1) Malignant mesothelioma of pleura: (2) Chest pain: (3) Anemia: Plan #Chest Pain #Malignant pleural mesothelioma #Pain Management Appreciate palliative consultation. Patient's goal is to return home, and he would be interested in hospice if this would help accomplish his return home. Unfortunately, he probably needs more assistance than his is able to provide and it does not look as if paid caregivers are an option. Current plan is a short-term SNF for PT with the hope that he strengthens enough to return home. [facility] does have a room available over the weekend and we discussed transfer there tomorrow. Will increase efforts for a bowel movement - I think he will feel better if we can - in anticipation of transfer tomorrow. -Tylenol 650mg PO q8hr -Oxycodone PO 10mg q4hrs prn -Fentanyl patch 25mcg; change q3days #Anemia, improving s/p 2units pRBCs during admission CBC stable #HTN with history of ventricular ectopy Decrease Coreg to 3.125 mg BID No ectopy appreciated; BPs still on the low side If needed, could transition to Toprol (would control ectopy with slightly less effect on BP). #Malnutrition #Constipation likely 2/2 to opioid regimen -nutrition on board, appreciate recs -regular soft diet per nutrition and speech -Boost drink per nutrition -Milk of Magnesia 30mls PO QID prn for constipation -Miralax -Trial suppository today #Phlegm Production likely 2/2 to Post Nasal Drip, improving -fluticasone nasal spray, 1 spray per nostril qnightly #Sacral Pressure Ulcer -wound care on board -position adjustments for pressure offload -Waffle cushion and waffle boots Dispo: med/surg Diet: easy to chew regular DVT prophylaxis: Eliquis 5mg PO BID Code Status: Conditional
--- NOTE | 2024-12-28 10:09 | Discharge Summary ---
Date of Service December 28, 2024 Admission HPI Per Admitting Provider Mr. Eli is a 69yo gentleman with PMH of malignant pleural mesothelioma who presented to the ED with worsening chest pain that started this morning. Pt stated his pain feels like his normal mesothelioma pain but was more severe. He states that he did take an oxycodone but without significant improvement in symptoms. He describes left-sided chest pain that radiates to his left neck and arm, but that is normal for him. The pain is aggravated with movement and any activity. Relieved with rest. He has limited strength and use of his left hand due to the nature of his condition. As per the , his cancer affects his brachial plexus which causes his LUE symptoms. He also describes feeling more short of breath, weaker, and more fatigued than usual. He was noted to have a Hb of 7 and was started with 1bag pRBC infusion in ED. Pt denies loss of blood in urine or stool but states sometimes he sees blood on toilet paper after wiping. His states that he has been more incontinent over the last few weeks re quiring Depends underwear. Denies fever, N/V/D, or symptoms. Principal Diagnosis Non cardiac chest pain Discharge Exam Constitutional + ill appearing, + cachectic, + frail appearing and + underweight Eyes PERRL, conjunctivae normal, anicteric sclerae Respiratory normal respiratory effort; no respiratory distress, no retractions and does not use accessory muscles Cardiovascular Rate/Rhythm: regular rate and regular rhythm Gastrointestinal (Abdomen) Abdomen soft. (+) BS appreciated on day of discharge. Discharge Data Allergies Allergy/AdvReac Type Severity Reaction Status Date / Time Sulfa (Sulfonamide Allergy Intermediate ITCHY RASH Verified 12/12/24 17:26 Antibiotics) sulfamethoxazole Allergy Mild Verified 12/12/24 17:26 [From Bactrim] trimethoprim [From Bactrim] Allergy Mild Verified 12/12/24 17:26 dexamethasone AdvReac Intermediate Intractable Verified 12/12/24 17:26 hiccups prednisone AdvReac Intermediate Intractable Verified 12/12/24 17:26 hiccups cephalexin AdvReac Mild Thrush Verified 12/12/24 17:26 Consultations 12/12/24 16:48 ED Decision to Admit Stat 12/12/24 20:04 Consult Oncology Stat 12/13/24 11:36 Consult Palliative Care Routine 12/15/24 11:14 Consult Radiation Oncology Routine Ordered Studies 12/17/24 CT guide rad therapy chest Routine Hospital Course (1) Malignant mesothelioma of pleura: (2) Chest pain: (3) Anemia: Plan #Chest Pain #Malignant pleural mesothelioma #Pain Management Appreciate palliative consultation. Patient's goal is to return home, and he would be interested in hospice if this would help accomplish his return home. Unfortunately, he probably needs more assistance than his is able to provide and it does not look as if paid caregivers are an option. Current plan is a short-term SNF for PT with the hope that he strengthens enough to return home. [facility] does have a room available over the weekend and we discussed transfer there tomorrow. -Tylenol 650mg PO q8hr -Oxycodone PO 10mg q4hrs prn -Fentanyl patch 25mcg; change q3days #Anemia, improving s/p 2units pRBCs during admission CBC stable #HTN with history of ventricular ectopy Decrease Coreg to 3.125 mg BID No ectopy appreciated; BPs still on the low side If needed, could transition to Toprol (would control ectopy with slightly less effect on BP). #Malnutrition #Constipation likely 2/2 to opioid regimen Patient with reassuring abdominal exam on day of discharge. Soft, non tender. (+) bowel sounds Discussed that increased activity will help. Last documented bowel movement 12/18 but patient believes he had undocumented bowel movement since then. -nutrition on board, appreciate recs -regular soft diet per nutrition and speech -Boost drink per nutrition -Milk of Magnesia 30mls PO QID prn for constipation -Miralax #Sacral Pressure Ulcer -wound care on board -position adjustments for pressure offload -Waffle cushion and waffle boots Dispo: med/surg Diet: easy to chew regular DVT prophylaxis: Eliquis 2.5mg PO BID (home dose) Code Status: Conditional Total Time Total Time Spent Total Time Spent (In Minutes): Alfa Piedra DO, attending physician, spent 35 minutes myself seeing the patient, reviewing the chart, and documenting today. Discharge Plan Discharge Items Patient Disposition: Home - Self-Care Reason For Visit: CHEST PAIN Discharge Diagnosis: Pain related to malignant mesothelioma of pleura Condition on Discharge: Good Activity: Resume your previous activity Lifting: Gradually increase as tolerated Bathing Comment: With assistance. Exercise/Sports: Gradually increase as tolerated Weightbearing: Full weightbearing Non-emergency contact: Primary Care Provider Call non-emergency contact if: your symptoms worsen, your pain is worsening, your pain is unusual for you and you have a fever Follow-up/Referrals: Maryse Mays PA-C [Physician Delivery Director] - 04/09/25 2:30 pm (Post radiation follow up appt. If you are unable to keep this appt, please phone Radiation Oncology at [phone].) Alfa Carcamo, [Primary Care Provider] - Diet: Regular Addtl Attending Provider Instructions: Your were admitted to the hospital for worsening chest pain related to the mesothelioma. We ruled out any serious cause of your chest pain, like a heart attack, because your labs and imagining were negative for such conditions. We started you on pain medications in the ED and you started receiving your at home pain medications here in the hospital. Your pain seemed to be tolerable until the pain medications wore off. We increased the dose of your fentanyl patch, which seemed to provide you with additional relief. Please follow-up with your Primary Care Doctor and Oncologist within 1-2 weeks to discuss your hospital stay. Please gradually return to activities as you feel better. Please take your pain medications as prescribed. Thank you for allowing us to be part of your care. Pending Studies at Discharge: No Stand-Alone Forms: My [facility] Medications and DC Order Prescriptions: New carvedilol 3.125 mg Tablet 3.125 mg PO BID 30 Days Qty: 60 0RF magnesium hydroxide [Milk of Magnesia] 400 mg/5 mL Suspension 30 ml PO QID Qty: 3780 0RF oxycodone-acetaminophen 10-325 mg Tablet 1 tab PO Q4H PRN (Reason: pain) Qty: 60 0RF fentanyl 25 mcg/hr Patch 72 Hour 1 patch transdermal Q3D Qty: 5 0RF MAG-AL 200-200 mg/5 mL Suspension 30 ml PO Q6H PRN (Reason: GI Upset) Qty: 3000 0RF pregabalin [Lyrica] 50 mg Capsule 50 mg PO BID Qty: 60 0RF polyethylene glycol 3350 [Miralax] 17 gram Powder In Packet 17 g PO DAILY Qty: 30 0RF prochlorperazine maleate 10 mg Tablet 10 mg PO Q6H PRN (Reason: nausea and vomiting) Qty: 30 0RF Continued docusate sodium [Colace] 100 mg capsule 100 mg PO BID acetaminophen [Tylenol Extra Strength] 500 mg tablet 1,000 mg PO BID PRN (Reason: Pain) Eliquis 2.5 mg tablet 2.5 mg PO BID cholecalciferol (vitamin D3) [Vitamin D3] 25 mcg (1,000 unit) Tablet 25 mcg PO QAM loratadine [Claritin] 10 mg Tablet 10 mg PO QAM omeprazole 40 mg Capsule,Delayed Release(Dr/Ec) 40 mg PO QAM Medical Marijuana 1 dose PO DAILY PRN (Reason: n/v) ondansetron HCl 8 mg tablet 8 mg PO Q8H PRN (Reason: Nausea And Vomiting) lubiprostone 24 mcg capsule 24 mcg PO BID Discontinued ondansetron HCl 8 mg tablet 8 mg PO QAM oxycodone 5 mg tablet 5 mg PO Q6H PRN (Reason: Pain) pregabalin 50 mg capsule 50 mg PO BID Qty: 60 5RF Rx Instructions: 1 PO qhs x5 days, then BID carvedilol 6.25 mg tablet 6.25 mg PO PM oxycodone 10 mg tablet 5 mg PO Q6 PRN (Reason: Pain) Rx Instructions: USING VERY LITTLE olanzapine 2.5 mg tablet 2.5 mg PO UD Rx Instructions: take 1 tablet at bedtime for 4 days starting day 1 of chemotherapy for nausea carvedilol 3.125 mg tablet 3.125 mg PO QAM prochlorperazine maleate 10 mg tablet 10 mg PO Q6H PRN (Reason: Nausea) fentanyl 12 mcg/hr patch 72 hour 1 patch topical Q3D Discharge Orders: Discharge Order (Routine); Ordered 12/28/24 Ordered By: Alfa Cantu/Other Patient Handouts: Resources for People with Cancer, The Cycle of Chronic Pain Admission Data Admit Date/Time: 12/12/24 18:20 Attending Provider: Alfa Carcamo Admit Provider: Liban Palacios Primary Care Provider: Alfa Carcamo Other Providers: [facility]; [place]; Carlo Rahman [place]; Yordy Nicole; Deepthi Figueroa; Suze Blake; Tiarra Odonnell; Coleen Modi; Liban Winn Other Interventions: Discharge Summary Assessment (RN) Last Done: 12/28/24 10:20
== END 2024-12-28 11:33 | disposition home or self-care (01) | DRG 180 ==
LOC: ED 11:36 → SUATTDRO 18:20 → 2N 18:20